=== PATIENT | female | born 1935 | race Caucasian/White ===

== ENCOUNTER → 2023-04-26 11:20 | Outpatient (REF) | payer MEDICARE, OTHER, SELFPAY ==
[2023-04-26 12:03] LABS: % Basophils 0.4 % (0-2); % Eosinophils 0.8 % (0-6); % Immature Granulocytes 0.3 % (0-0.5); % Lymphocytes 15.6 % (20.5-51.1); % Monocytes 7.1 % (1.7-9.3); % Neutrophils 75.8 % (42.2-75.2); Absolute Eosinophils 0.1 10^3/uL (0-0.7); Absolute Lymphocytes 1.5 10^3/uL (1.2-3.4); Absolute Monocytes 0.7 10^3/uL (0.1-0.6); Absolute Neutrophils 7.4 10^3/uL (1.4-6.5); Hematocrit 35.1 % (37.0-47.0); Hemoglobin 11.9 g/dL (12.0-16.0); Mean Corp Hgb Conc. 33.9 g/dL (33.0-37.0); Mean Corpuscular Hgb 29.4 pg (27.0-31.0); Mean Corpuscular Volume 86.7 fL (81.0-99.0); Nucleated Red Blood Cells % 0 %; Red Blood Cell Count 4.05 10^6/uL (4.20-5.40); Red Cell Dist. Width 12.4 % (11.5-14.5); White Blood Cell Count 9.7 10^3/uL (4.8-10.8)
[2023-04-26 12:37] LABS: ALT (SGPT) 22 U/L (0-35); AST (SGOT) 40 U/L (14-36); Albumin 4.2 g/dl (3.5-5.0); Alkaline Phosphatase 77 U/L (38-126); Blood Urea Nitrogen 25 mg/dl (7-17); Calcium 9.8 mg/dl (8.4-10.2); Carbon Dioxide 24 mmol/L (22-30); Chloride 105 mmol/L (98-107); Direct Bilirubin 0.8 mg/dl (0.0-0.4); Glucose 82 mg/dl (70-99); Potassium 4.7 mmol/L (3.5-5.1); Sodium 135 mmol/L (135-145); Total Bilirubin 0.8 mg/dl (0.2-1.3); Total Protein 7.2 g/dl (6.3-8.2); eGFR > 60.00
[2023-04-26 14:58] LABS: Mean Platelet Volume 12.2 fL (7.4-10.4); Platelet Count 171 10^3/uL (130-400)
[2023-04-28 00:32] LABS: CA 19-9 345 U/mL (<=35)
== END ==
LOC: REG 11:20
PROVIDERS: ATTENDING PHYSICIAN Internal Medicine Hematology & Oncology; FAMILY PHYSICIAN Family Medicine
DX: C25.3 Malignant neoplasm of pancreatic duct (principal)
CPT/HCPCS: 36415; 80053; 82248; 85025; 86301

== ENCOUNTER → 2023-04-30 08:59 | Outpatient (REF) | payer MEDICARE, OTHER, SELFPAY ==
[2023-04-30 09:37] LABS: % Basophils 0.3 % (0-2); % Eosinophils 0.9 % (0-6); % Immature Granulocytes 0.5 % (0-0.5); % Lymphocytes 15.6 % (20.5-51.1); % Monocytes 5.7 % (1.7-9.3); Absolute Eosinophils 0.1 10^3/uL (0-0.7); Absolute Lymphocytes 1.3 10^3/uL (1.2-3.4); Absolute Monocytes 0.5 10^3/uL (0.1-0.6); Absolute Neutrophils 6.6 10^3/uL (1.4-6.5); Hematocrit 36.7 % (37.0-47.0); Hemoglobin 12.1 g/dL (12.0-16.0); Mean Corpuscular Hgb 29.4 pg (27.0-31.0); Mean Corpuscular Volume 89.1 fL (81.0-99.0); Mean Platelet Volume 8.8 fL (7.4-10.4); Nucleated Red Blood Cells % 0 %; Platelet Count 331 10^3/uL (130-400); Red Blood Cell Count 4.12 10^6/uL (4.20-5.40); Red Cell Dist. Width 12.5 % (11.5-14.5); White Blood Cell Count 8.6 10^3/uL (4.8-10.8)
[2023-04-30 10:08] LABS: ALT (SGPT) 21 U/L (0-35); AST (SGOT) 33 U/L (14-36); Albumin 4.3 g/dl (3.5-5.0); Alkaline Phosphatase 82 U/L (38-126); Blood Urea Nitrogen 21 mg/dl (7-17); Calcium 9.8 mg/dl (8.4-10.2); Carbon Dioxide 26 mmol/L (22-30); Chloride 103 mmol/L (98-107); Direct Bilirubin 0.7 mg/dl (0.0-0.4); Glucose 137 mg/dl (70-99); Sodium 137 mmol/L (135-145); Total Bilirubin 0.7 mg/dl (0.2-1.3); Total Protein 7.2 g/dl (6.3-8.2); eGFR > 60.00
== END ==
LOC: REG 08:59
PROVIDERS: ATTENDING PHYSICIAN Internal Medicine Hematology & Oncology; FAMILY PHYSICIAN Family Medicine
DX: C25.3 Malignant neoplasm of pancreatic duct (principal)
CPT/HCPCS: 36415; 80053; 82248; 85025

== ENCOUNTER → 2023-05-04 11:13 | Outpatient (REF) | payer MEDICARE, OTHER, SELFPAY ==
[2023-05-04 11:56] LABS: % Basophils 0.2 % (0-2); % Eosinophils 1.6 % (0-6); % Immature Granulocytes 0.4 % (0-0.5); % Lymphocytes 18.9 % (20.5-51.1); % Monocytes 7.4 % (1.7-9.3); % Neutrophils 71.5 % (42.2-75.2); Absolute Eosinophils 0.2 10^3/uL (0-0.7); Absolute Lymphocytes 1.8 10^3/uL (1.2-3.4); Absolute Monocytes 0.7 10^3/uL (0.1-0.6); Absolute Neutrophils 6.9 10^3/uL (1.4-6.5); Hematocrit 37.7 % (37.0-47.0); Hemoglobin 12.4 g/dL (12.0-16.0); Mean Corp Hgb Conc. 32.9 g/dL (33.0-37.0); Mean Corpuscular Volume 88.3 fL (81.0-99.0); Mean Platelet Volume 9.1 fL (7.4-10.4); Nucleated Red Blood Cells % 0 %; Platelet Count 333 10^3/uL (130-400); Red Blood Cell Count 4.27 10^6/uL (4.20-5.40); Red Cell Dist. Width 12.5 % (11.5-14.5); White Blood Cell Count 9.6 10^3/uL (4.8-10.8)
[2023-05-04 12:26] LABS: ALT (SGPT) 19 U/L (0-35); AST (SGOT) 31 U/L (14-36); Albumin 4.1 g/dl (3.5-5.0); Alkaline Phosphatase 78 U/L (38-126); Blood Urea Nitrogen 24 mg/dl (7-17); Calcium 10.3 mg/dl (8.4-10.2); Carbon Dioxide 28 mmol/L (22-30); Chloride 101 mmol/L (98-107); Direct Bilirubin 0.6 mg/dl (0.0-0.4); Glucose 99 mg/dl (70-99); Potassium 4.6 mmol/L (3.5-5.1); Sodium 137 mmol/L (135-145); Total Bilirubin 0.7 mg/dl (0.2-1.3); Total Protein 7.1 g/dl (6.3-8.2); eGFR > 60.00
== END ==
LOC: REG 11:13
PROVIDERS: ATTENDING PHYSICIAN Internal Medicine Hematology & Oncology
DX: C25.3 Malignant neoplasm of pancreatic duct (principal)
CPT/HCPCS: 36415; 80053; 82248; 85025

== ENCOUNTER → 2023-05-10 10:35 | Outpatient (REF) | payer MEDICARE, OTHER, SELFPAY ==
[2023-05-10 11:57] LABS: ALT (SGPT) 16 U/L (0-35); AST (SGOT) 28 U/L (14-36); Albumin 3.8 g/dl (3.5-5.0); Alkaline Phosphatase 68 U/L (38-126); Blood Urea Nitrogen 23 mg/dl (7-17); Calcium 9.8 mg/dl (8.4-10.2); Carbon Dioxide 27 mmol/L (22-30); Chloride 98 mmol/L (98-107); Direct Bilirubin 0.5 mg/dl (0.0-0.4); Glucose 94 mg/dl (70-99); Potassium 4.3 mmol/L (3.5-5.1); Sodium 134 mmol/L (135-145); Total Bilirubin 0.7 mg/dl (0.2-1.3); Total Protein 6.9 g/dl (6.3-8.2); eGFR > 60.00
[2023-05-10 12:10] LABS: % Basophils 0.4 % (0-2); % Eosinophils 1.6 % (0-6); % Immature Granulocytes 0.7 % (0-0.5); % Lymphocytes 8.9 % (20.5-51.1); % Monocytes 7.1 % (1.7-9.3); % Neutrophils 81.3 % (42.2-75.2); Absolute Eosinophils 0.1 10^3/uL (0-0.7); Absolute Immature Granulocytes 0.1 10^3/uL (0-0.05); Absolute Lymphocytes 0.7 10^3/uL (1.2-3.4); Absolute Monocytes 0.6 10^3/uL (0.1-0.6); Absolute Neutrophils 6.7 10^3/uL (1.4-6.5); Hematocrit 34.6 % (37.0-47.0); Hemoglobin 11.6 g/dL (12.0-16.0); Mean Corp Hgb Conc. 33.5 g/dL (33.0-37.0); Mean Corpuscular Hgb 29.5 pg (27.0-31.0); Mean Platelet Volume 9.4 fL (7.4-10.4); Nucleated Red Blood Cells % 0 %; Platelet Count 287 10^3/uL (130-400); Red Blood Cell Count 3.93 10^6/uL (4.20-5.40); Red Cell Dist. Width 12.2 % (11.5-14.5); White Blood Cell Count 8.3 10^3/uL (4.8-10.8)
== END ==
LOC: REG 10:35
PROVIDERS: ATTENDING PHYSICIAN Internal Medicine Hematology & Oncology
DX: C25.3 Malignant neoplasm of pancreatic duct (principal)
CPT/HCPCS: 36415; 80053; 82248; 85025

== ENCOUNTER → 2023-05-18 11:15 | Outpatient (REF) | payer MEDICARE, OTHER, SELFPAY ==
[2023-05-18 14:15] LABS: % Basophils 0.2 % (0-2); % Eosinophils 1.5 % (0-6); % Immature Granulocytes 0.4 % (0-0.5); % Lymphocytes 4.5 % (20.5-51.1); % Monocytes 6.8 % (1.7-9.3); % Neutrophils 86.6 % (42.2-75.2); Absolute Eosinophils 0.1 10^3/uL (0-0.7); Absolute Lymphocytes 0.4 10^3/uL (1.2-3.4); Absolute Monocytes 0.6 10^3/uL (0.1-0.6); Absolute Neutrophils 8.2 10^3/uL (1.4-6.5); Hematocrit 37.6 % (37.0-47.0); Hemoglobin 12.6 g/dL (12.0-16.0); Mean Corp Hgb Conc. 33.5 g/dL (33.0-37.0); Mean Corpuscular Hgb 29.4 pg (27.0-31.0); Mean Corpuscular Volume 87.6 fL (81.0-99.0); Mean Platelet Volume 9.8 fL (7.4-10.4); Nucleated Red Blood Cells % 0 %; Platelet Count 246 10^3/uL (130-400); Red Blood Cell Count 4.29 10^6/uL (4.20-5.40); Red Cell Dist. Width 13.1 % (11.5-14.5); White Blood Cell Count 9.5 10^3/uL (4.8-10.8)
[2023-05-18 14:51] LABS: ALT (SGPT) 17 U/L (0-35); AST (SGOT) 30 U/L (14-36); Albumin 4.2 g/dl (3.5-5.0); Alkaline Phosphatase 74 U/L (38-126); Blood Urea Nitrogen 19 mg/dl (7-17); Calcium 9.5 mg/dl (8.4-10.2); Carbon Dioxide 23 mmol/L (22-30); Chloride 102 mmol/L (98-107); Direct Bilirubin 0.2 mg/dl (0.0-0.4); Glucose 84 mg/dl (70-99); Potassium 3.9 mmol/L (3.5-5.1); Sodium 133 mmol/L (135-145); Total Bilirubin 0.6 mg/dl (0.2-1.3); eGFR > 60.00
== END ==
LOC: REG 11:15
PROVIDERS: ATTENDING PHYSICIAN Internal Medicine Hematology & Oncology; FAMILY PHYSICIAN Family Medicine
DX: C25.3 Malignant neoplasm of pancreatic duct (principal)
CPT/HCPCS: 36415; 80053; 82248; 85025

== ENCOUNTER → 2023-06-01 11:09 | Outpatient (REF) | payer MEDICARE, OTHER, SELFPAY ==
[2023-06-01 12:34] LABS: % Basophils 0.3 % (0-2); % Eosinophils 1.3 % (0-6); % Immature Granulocytes 0.5 % (0-0.5); % Lymphocytes 6.9 % (20.5-51.1); % Monocytes 8.2 % (1.7-9.3); % Neutrophils 82.8 % (42.2-75.2); Absolute Eosinophils 0.1 10^3/uL (0-0.7); Absolute Immature Granulocytes 0.1 10^3/uL (0-0.05); Absolute Lymphocytes 0.7 10^3/uL (1.2-3.4); Absolute Monocytes 0.8 10^3/uL (0.1-0.6); Absolute Neutrophils 7.9 10^3/uL (1.4-6.5); Hematocrit 37.2 % (37.0-47.0); Hemoglobin 12.5 g/dL (12.0-16.0); Mean Corp Hgb Conc. 33.6 g/dL (33.0-37.0); Mean Corpuscular Hgb 29.4 pg (27.0-31.0); Mean Corpuscular Volume 87.5 fL (81.0-99.0); Mean Platelet Volume 8.7 fL (7.4-10.4); Nucleated Red Blood Cells % 0 %; Platelet Count 298 10^3/uL (130-400); Red Blood Cell Count 4.25 10^6/uL (4.20-5.40); Red Cell Dist. Width 15.2 % (11.5-14.5); White Blood Cell Count 9.5 10^3/uL (4.8-10.8)
== END ==
LOC: REG 11:09
PROVIDERS: ATTENDING PHYSICIAN Internal Medicine Hematology & Oncology
DX: C25.3 Malignant neoplasm of pancreatic duct (principal)
CPT/HCPCS: 36415; 85025

== ENCOUNTER 2023-06-09 16:16 | Inpatient (IN) | payer MEDICARE, OTHER, SELFPAY ==
[2023-06-09] VITALS (8 sets, daily range): BP systolic 96–134; BP diastolic 59–81; BMI 15.8
--- NOTE | 2023-06-09 13:43 | ED.GENMED ---
History of Present Illness
General
Chief Complaint: Cold/Flu/URI Symptoms
Source: patient and spouse
Exam Limitations: none
Time Seen by Provider: 06/09/23 13:26
Nursing documentation reviewed up to this point in time: agreed with
Travel History
Have you had any contact with someone who has COVID-19?: No
Do you have any symptoms of coronavirus? Fever > 100 degrees, chills, cough, shortness of breath, sore throat, loss of taste or smell, muscle aches, or headache?: Yes
Symptoms:: fever
History of Present Illness
History of Present Illness:
87-year-old female with past medical history of pancreatic cancer most recently on chemo 2 and half weeks ago presenting to the emergency department today with concerns of generalized weakness fatigue body aches and feeling 'lousy' over the past few
days temperature of 101 last night and today. Denies specific symptoms other than decreased appetite and nausea.
Past History
Past History
ED Past Medical History: Cancer (Ovarian cancer), Psychiatric (Anxiety, depression) and Other (Spinal stenosis)
ED Past Surgical History: Gynecological and Orthopedic
Review of Systems
Review of Systems
Allergies reviewed?: Yes
All Other Systems: ROS reviewed and negative except as documented in HPI and ROS
Phy Exam
Physical Exam
Physical Exam:
GENERAL: Alert , in no apparent distress
EYE: pupils equal and reactive
NECK: Supple, no significant adenopathy.
ENT: o/p clr, mmm.
CARDIAC: Regular rate and rhythm .
LUNGS: Clear breath sounds bilaterally, no acute respiratory distress, no wheezes/rales/rhonchi
ABDOMEN: Soft, without focal tenderness, no r/g, no cvat
NEUROLOGICAL: Alert and oriented, no focal neuro deficits
SKIN: Warm and dry, skin intact.
MUSCULOSKELETAL: No edema, well perfused.
PSYCH: Normal and appropriate interaction.
Course
Orders/Labs/Results
Orders:
Orders
06/09/23 13:38
Acetaminophen [Tylenol] 650 mg PO NOW STA
Prochlorperazine [Compazine] 10 mg IV NOW STA
06/09/23 13:42
Electrocardiogram (*1) Stat
Reason for Study: Abdominal Pain
EKG- Treatment ONCE
Urinalysis Reflex To Culture Urgent
0.9% Sodium Chloride 1000 ml [Nss] 1,000 ml IV BOLUS
06/09/23 13:48
Chest [CR Chest - 2 Views ] Urgent
Comment:
Reason For Exam: fever
06/09/23 13:56
COVID-19 Antigen Urgent
Source: Nasal Swab
Lactic Acid Urgent
Influenza A+B Rapid Molecular Urgent
AMRIT Source: Nasal Swab
Specimen Description:
06/09/23 14:00
Complete Blood Count/With Diff Urgent
Comprehensive Metabolic Panel Urgent
Lipase Urgent
Troponin I Urgent
Blood Culture Q30M
AMRIT Source: Blood/Venous
Specimen Description:
06/09/23 14:01
Blood Culture Q30M
AMRIT Source: Blood/Venous
Specimen Description:
06/09/23 14:43
Piperacillin/Tazo 3.375 Gram [Zosyn] 3.375 gram in 50 ml IV NOW
06/09/23 15:32
CR Abdomen - 1 View Urgent
Comment:
Reason For Exam: abd pain
06/09/23 15:54
Admit/Transfer Patient As Directed
Co-Sign Provider:
Level of Care: Inpatient admission
Assign to:: Telemetry
Physician / Group: pasricha/medicine
Diagnosis: severe sepsis
Reason for Telemetry: Arrhythmia
Date to Stop Telemetry: 06/12/23
Time to Stop Telemetry: 11:00
Reason for Hospitalization: severe sepsis
Expected length of stay greater than two midnights?: Yes
ELOS- Estimated Length of Stay in days: 3
I certify the patient meets the requirements for IP care: Yes
06/09/23 19:47
Lactate Level [Lactic Acid] Q6H
Acetaminophen [Tylenol] 650 mg PO Q4HPRN PRN
Aspirin 325 mg PO TIDPRN PRN
Heparin 5,000 units SC Q8
Lactated Ringers [Lr] 1,000 ml IV 75 mls/hr
Piperacillin/Tazo 3.375 Gram [Zosyn] 3.375 gram in 50 ml IV Q8H
Prochlorperazine [Compazine] 10 mg PO Q6H PRN
06/09/23 19:47
Urinalysis Reflex To Culture Routine
Vital Signs As Directed
Frequency: Per unit guidelines
Rx Incentive Spirometry [RESP] Routine
Frequency: q1h while awake
Ot Eval And Treat Routine
Pt Eval And Treat Routine
Activity Level: As Tolerated
DX Deep Vein Thrombosis Video Routine
06/10/23 01:47
Lactate Level [Lactic Acid] Q6H
06/10/23 06:00
Complete Blood Count/No Diff IN AM
Comprehensive Metabolic Panel IN AM
Magnesium IN AM
06/10/23 08:00
Docusate Sodium [Colace] 100 mg PO DAILY
06/11/23 06:00
Complete Blood Count/No Diff IN AM
Comprehensive Metabolic Panel IN AM
Magnesium IN AM
06/12/23 06:00
Complete Blood Count/No Diff IN AM
Comprehensive Metabolic Panel IN AM
Magnesium IN AM
06/12/23 11:00
DC Protocol for Telemetry ONCE
06/13/23 06:00
Complete Blood Count/No Diff IN AM
Comprehensive Metabolic Panel IN AM
Magnesium IN AM
06/14/23 06:00
Complete Blood Count/No Diff IN AM
Comprehensive Metabolic Panel IN AM
Magnesium IN AM
Abnormal Lab Results
06/09/23 06/09/23
13:56 14:00
RBC 3.71 L 10^6/uL
(4.20-5.40)
Hgb 10.9 L g/dL
(12.0-16.0)
Hct 31.0 L %
(37.0-47.0)
RDW 15.9 H %
(11.5-14.5)
Abs Immat Gran (auto) 0.1 H 10^3/uL
(0-0.05)
Absolute Neuts (auto) 9.9 H 10^3/uL
(1.4-6.5)
Absolute Lymphs (auto) 0.2 L 10^3/uL
(1.2-3.4)
Absolute Monos (auto) 0.7 H 10^3/uL
(0.1-0.6)
Immature Gran % 0.6 H %
(0-0.5)
Neutrophils % 91.5 H %
(42.2-75.2)
Lymphocytes % 1.4 L %
(20.5-51.1)
Sodium 125 L mmol/L
(135-145)
Chloride 97 L mmol/L
(98-107)
BUN 21 H mg/dl
(7-17)
Glucose 148 H mg/dl
(70-99)
Lactic Acid 2.2 H mmol/L
(0.7-2.0)
Total Bilirubin 2.6 H mg/dl
(0.2-1.3)
AST 521 H* U/L
(14-36)
ALT 373 H U/L
(0-35)
Alkaline Phosphatase 510 H U/L
(38-126)
Total Protein 5.9 L g/dl
(6.3-8.2)
Albumin 3.1 L g/dl
(3.5-5.0)
06/09/23 14:00
06/09/23 14:00
Vital Signs
Initial and Last Documented VS:
Initial Vital Signs
Temp Pulse Resp BP Pulse Ox
101 F H 130 18 134/81 98
06/09/23 12:51 06/09/23 12:51 06/09/23 12:51 06/09/23 12:51 06/09/23 12:51
Last Documented Vital Signs
Temp Pulse Resp BP Pulse Ox
100.7 F H 82 18 99/65 98
06/09/23 15:45 06/09/23 19:30 06/09/23 19:30 06/09/23 19:00 06/09/23 19:15
MDM/Problems Addressed
MDM/Problems Addressed:
87-year-old female presenting to the emergency department today with concerns of generalized weakness fatigue body aches over the past few days. Recently chemo 2 and half weeks ago for pancreatic cancer. On arrival febrile to 101 pulse rate 130
otherwise blood pressure is normal. Patient was given fluids with heart rate improving into the 90s patient did have an elevated lactic acid of 2.2 sodium 125 elevated bilirubin AST ALT and alk phos patient had recent biliary stent placed 3 months
ago GI doctor was consulted recommended x-ray broad-spectrum antibiotics but otherwise patient will be admitted for further monitoring stable throughout ER stay.
*Critical Care Note
Total Time (30-74mins, 75-104mins- exclusive of procedures): Not Applicable
ED Attending Note
-
Portions of this chart may have been created with voice recognition software.� Occasional wrong word or��sound alike� substitutions may have occurred due to the inherent limitations of voice recognition software.
Discharge Plan
Departure
Patient Disposition: Admit
Date of Disposition: 06/09/23
Time of Disposition: 16:16
Admit to: Med/Surg
Admit to doctor: Selena
Presentation/result/management discussed w/ accepting MD/DO: Hospitalist
Patient with high blood pressure during this ER visit?: No
Condition: Good
Covid-19: Not Applicable
Discharge Problem:
Fever, Abnormal LFTs (liver function tests)
Interventions
Interventions:
*Risk Screen - Suicide Last Done: 06/09/23 12:51
*General Assessment Last Done: 06/09/23 12:51
*Neglect/Abuse Screening Last Done: 06/09/23 12:51
ED- Fall Risk Assessment Last Done: 06/09/23 14:09
*ED COVID-19 Vaccine History Last Done: 06/09/23 14:09
*Nursing Disposition Last Done: 06/09/23 19:44
ED- Pulmonary Assessment Last Done: 06/09/23 14:09
Discharge Date and Time
Discharge Date/Time: 06/09/23 19:44
[2023-06-09] MEDS: NSS 1000 IV (14:06)
[2023-06-09] MEDS: TYLENOL 650 MG PO (14:09)
[2023-06-09] MEDS: COMPAZINE 10 MG IV (14:09)
[2023-06-09 14:21] LABS: % Basophils 0.2 % (0-2); % Immature Granulocytes 0.6 % (0-0.5); % Lymphocytes 1.4 % (20.5-51.1); % Monocytes 6.3 % (1.7-9.3); % Neutrophils 91.5 % (42.2-75.2); Absolute Immature Granulocytes 0.1 10^3/uL (0-0.05); Absolute Lymphocytes 0.2 10^3/uL (1.2-3.4); Absolute Monocytes 0.7 10^3/uL (0.1-0.6); Absolute Neutrophils 9.9 10^3/uL (1.4-6.5); Hemoglobin 10.9 g/dL (12.0-16.0); Mean Corp Hgb Conc. 35.2 g/dL (33.0-37.0); Mean Corpuscular Hgb 29.4 pg (27.0-31.0); Mean Corpuscular Volume 83.6 fL (81.0-99.0); Mean Platelet Volume 8.9 fL (7.4-10.4); Nucleated Red Blood Cells % 0 %; Platelet Count 226 10^3/uL (130-400); Red Blood Cell Count 3.71 10^6/uL (4.20-5.40); Red Cell Dist. Width 15.9 % (11.5-14.5); White Blood Cell Count 10.8 10^3/uL (4.8-10.8)
[2023-06-09 14:31] LABS: COVID-19 Antigen Negative (Negative); Lactic Acid 2.2 mmol/L (0.7-2.0)
[2023-06-09 14:33] LABS: ALT (SGPT) 373 U/L (0-35); AST (SGOT) 521 U/L (14-36); Albumin 3.1 g/dl (3.5-5.0); Alkaline Phosphatase 510 U/L (38-126); Blood Urea Nitrogen 21 mg/dl (7-17); Calcium 8.9 mg/dl (8.4-10.2); Carbon Dioxide 23 mmol/L (22-30); Chloride 97 mmol/L (98-107); Glucose 148 mg/dl (70-99); Lipase 199 U/L (23-300); Potassium 3.6 mmol/L (3.5-5.1); Sodium 125 mmol/L (135-145); Total Bilirubin 2.6 mg/dl (0.2-1.3); Total Protein 5.9 g/dl (6.3-8.2); eGFR > 60.00
[2023-06-09 14:40] LABS: Troponin I < 0.012 ng/ml
[2023-06-09] MEDS: ZOSYN 50 IV ×2 (15:11→22:33)
--- NOTE | 2023-06-09 16:04 | HPS.HSE ---
Family Physician
-
Family Physician: Hattie Nichols
Chief Complaint
-
Weakness, fatigue follow-up with body aches
History of Present Illness
87-year-old female with past medical history of GERD, dysphagia, severe protein calorie malnutrition, pancreatic cancer, ovarian cancer, most recently on chemo 2 and half weeks ago with ERCP with biliary stents in place and ventral pancreatic duct
stent confirmed on 03/06 now presents for lethargy, body aches, chills, fever over the last few days. Noted to have temperature of 101 last night and today. Also noted decreased appetite and nausea. Temperature noted to be 101 Fahrenheit in the
hospital, heart rate of 108, blood pressure 100/70, not hypoxic. Sodium level 125 (133 approximate 20 days ago), lactate 2.2, AST 521, ALT 373, alk phos 510. Started with IV fluids, antibiotics. GI consulted.
Medical History
Past Medical History
Past Medical History: Reports Other
Additional Past Medical History:
Ovarian Cancer
Spinal Stenosis / Scoliosis
Past Surgical History: Reports Other
Additional Past Surgical History:
Spinal Surgery
T&A
DAMION / BSO
Right Hip ORIF
Cataracts
Social History
Tobacco: Non-smoker
Alcohol: None
Drug: None
Personal:
Living: With Family
Family History
Family History: Other (Mother, Father, Brother: Lung Cancer MGM: Liver Cancer)
Allergies / Home Medications
Allergies reflects when Allergies were last updated in [facility].
Home Medications with original date entered in [facility]
Allergy/Medication List:
Allergies
Allergy/AdvReac Type Severity Reaction Status Date / Time
poison vipul extract Allergy SEVERE Verified 09/03/22 12:10
BLISTERING
Home Medications
Balance Of Nature 4 cap PO BIDPRN PRN supplement 03/03/23
cholecalciferol (vitamin D3) 25 mcg (1,000 unit) tablet 25 mcg PO DAILY 03/03/23
cyanocobalamin (vitamin B-12) 1,000 mcg tablet 1,000 mcg PO DAILY 03/03/23
docusate sodium 100 mg capsule 100 mg PO BID 03/03/23
esomeprazole magnesium 40 mg capsule,delayed release 40 mg PO DAILY 03/03/23
famotidine 40 mg tablet 40 mg PO HS 03/03/23
Review of Systems
-
History Source: Patient
A 12 point ROS was completed and negative except as noted: Yes
Physical Exam
Vital Signs
Vital Signs
Temp Pulse Resp BP Pulse Ox
101 F H 93 18 100/70 95
06/09/23 12:51 06/09/23 15:30 06/09/23 15:30 06/09/23 15:01 06/09/23 15:30
Physical Exam
General: No Apparent Distress and Comfortable
HEENT: NormoCephalic and Anicteric
Respiratory: Clear; No Wheezes, Rales or Rhonchi
Cardiac: S1/S2 and Regular Rhythm; No Murmur
GI: Soft, Non Tender, Non Distended and Normal Bowel Sounds
Musculoskeletal: No Clubbing, No Cyanosis and No Edema
Neuro: Awake, Alert, Oriented and AO x 3
Psych: Calm
Laboratory Results
-
06/09/23 14:00
06/09/23 14:00
Laboratory Results
Lactic Acid 2.2 mmol/L (0.7-2.0) H 06/09/23 13:56
Total Bilirubin 2.6 mg/dl (0.2-1.3) H 06/09/23 14:00
AST 521 U/L (14-36) H* 06/09/23 14:00
ALT 373 U/L (0-35) H 06/09/23 14:00
Alkaline Phosphatase 510 U/L (38-126) H 06/09/23 14:00
Troponin I < 0.012 ng/ml 06/09/23 14:00
Lipase 199 U/L (23-300) 06/09/23 14:00
Data Reviewed
-
Diagnostic Radiology: Image Personally Visualized and interpreted and Report Reviewed by me
Lab Data: Labs Reviewed by me
Impression/Plan
-
IMPRESSION:
87-year-old female with past medical history of GERD, dysphagia, severe protein calorie malnutrition, pancreatic cancer, ovarian cancer, most recently on chemo 2 and half weeks ago with ERCP with biliary stents in place and ventral pancreatic duct
stent confirmed on 03/06 now presents for lethargy, body aches, fever over the last few days. Admitted for severe sepsis.
PLAN:
#Severe sepsis
#Elevated lactate
� I suspect biliary obstruction in setting of stents/possible migration, GI origin
� Continue Zosyn
� IVF as needed
� GI consulted
� Follow-up cultures including blood
� Radiographic imaging
� Follow-up further imaging as per GI
�N.p.o. for now
#Hyponatremia
� Most likely secondary to dehydration in setting of sepsis
� Monitor with IV resuscitation, dissipate will trend up
-Monitor BMP
#Transaminitis
#Hepatocellular injury
�see plan above for imaging
� GI consulted
� IV antibiotics
#Weakness
-2/2 to sepsis
-PT/OT
#Severe protein calorie moderation
#DVT prophylaxis
� HSQ
#Full code
--- NOTE | 2023-06-09 19:53 | CON.GI ---
Consultation
-
Date/Time Consultation Requested: 06/09/2023
Date/Time Consultation Performed: 06/09/2023
Performing Provider: Pankaj Ceron
Reason for Consultation: fever, cholangitis from stent malfunction
Medical History
Chief Complaint / HPI
Chief Complaint: fever, cholangitis from stent malfunction
History of Present Illness:
The patient is 87-year-old female with history of GERD, recent diagnosis of pancreatic adenocarcinoma s/p ERCP and biliary stent placements who recently completed chemo and radiation therapy, and remote history of ovarian cancer who presents with
fever, lethargy, chills for past few days. Patient was febrile to 101 last night and today with nausea and chills and decided come to the hospital.
Past Medical History
Past Medical History: Other
Past Surgical History: Gynecological and Other
Social History
Tobacco: Non-Smoker
Alcohol: None
Family History
Family History: Reviewed & Not Pertinent
Allergies / Home Medications
Allergy/AdvReac Type Severity Reaction Status Date / Time
poison vipul extract Allergy SEVERE Verified 06/09/23 12:51
BLISTERING
�Medication �Instructions �Recorded
cholecalciferol (vitamin D3) 25 25 mcg PO DAILY Supplement 03/03/23
mcg (1,000 unit) tablet
cyanocobalamin (vitamin B-12) 1,000 mcg PO DAILY Supplement 03/03/23
1,000 mcg tablet
docusate sodium 100 mg capsule 100 mg PO DAILY Constipation 03/03/23
aspirin 325 mg tablet 325 mg PO TIDPRN PRN mild pain 06/09/23
rsvruhjg-[id number]-[id number] extract 5 6 cap PO DAILY 06/09/23
mg-6 mg-150 mg capsule (Fruit and
Vegetable Daily)
prochlorperazine maleate 10 mg 10 mg PO Q6H PRN nausea/vomiting 06/09/23
tablet
Review of Systems
Vital Signs
Temp Pulse Resp BP Pulse Ox
100.7 F H 82 18 99/65 98
06/09/23 15:45 06/09/23 19:30 06/09/23 19:30 06/09/23 19:00 06/09/23 19:15
Physical Exam
Exam
General: Well Developed and Other (appears malnourished)
HEENT: Normocephalic
Respiratory: Clear
Cardiac: S1/S2 and Regular Rhythm
GI: Soft, Non Tender and Non Distended
Results
WBC 10.8 10^3/uL (4.8-10.8) 06/09/23 14:00
Hgb 10.9 g/dL (12.0-16.0) L 06/09/23 14:00
Hct 31.0 % (37.0-47.0) L 06/09/23 14:00
MCV 83.6 fL (81.0-99.0) 06/09/23 14:00
Plt Count 226 10^3/uL (130-400) 06/09/23 14:00
Absolute Neuts (auto) 9.9 10^3/uL (1.4-6.5) H 06/09/23 14:00
Sodium 125 mmol/L (135-145) L 06/09/23 14:00
Potassium 3.6 mmol/L (3.5-5.1) 06/09/23 14:00
Chloride 97 mmol/L (98-107) L 06/09/23 14:00
Carbon Dioxide 23 mmol/L (22-30) 06/09/23 14:00
BUN 21 mg/dl (7-17) H 06/09/23 14:00
Creatinine 0.6 mg/dL (0.6-1.0) 06/09/23 14:00
Calcium 8.9 mg/dl (8.4-10.2) 06/09/23 14:00
Total Bilirubin 2.6 mg/dl (0.2-1.3) H 06/09/23 14:00
AST 521 U/L (14-36) H* 06/09/23 14:00
ALT 373 U/L (0-35) H 06/09/23 14:00
Alkaline Phosphatase 510 U/L (38-126) H 06/09/23 14:00
Lipase 199 U/L (23-300) 06/09/23 14:00
Diagnostic Image Results:
Prior GI Procedures:
EGD:
Colonoscopy:
Assessment / Plan
-
The patient is 87-year-old female with history of GERD, recent diagnosis of pancreatic adenocarcinoma s/p ERCP and biliary stent placements who recently completed chemo and radiation therapy, and remote history of ovarian cancer who presents with
fever, lethargy, chills for past few days.
Impression / Rec:
1. Fever, chills, lethargy - pt was febrile to 101 at home, also febrile here. Tachycardic. No leukocytosis but LFT is elevated with bili of 2.6, alk phos 510 where her LFT were normal on 05/18/2023. I had previously performed EUS/ERCP on 02/2023
with biliary stent placements. She likely has cholangitis from stent occlusion/malfunction. Obtain abdo xray to confirm stent positions. Ok for FLD today, IVF and broad spec abx. Plan for repeat ERCP tomorrow for stent revision / replacements.
Total Time Spent with Patient (in minutes): 55
-
-
Thank you for consultation and allowing me to participate in the patient's care. Please call the quality assurance monitor body GI physician during the after hours with any questions or concerns.
[2023-06-09] MEDS: LR 1000 IV (21:05)
[2023-06-09] MEDS: HEPARIN 5000 UNITS SC (21:06)
[2023-06-09 21:08] LABS: Lactic Acid 0.7 mmol/L (0.7-2.0)
[2023-06-09 21:30] LABS: Blood Urea Nitrogen 14 mg/dl (7-17); Calcium 8.7 mg/dl (8.4-10.2); Carbon Dioxide 23 mmol/L (22-30); Chloride 103 mmol/L (98-107); Estimated Creatinine Clearance 38 ml/min; Glucose 103 mg/dl (70-99); Potassium 3.7 mmol/L (3.5-5.1); Sodium 129 mmol/L (135-145); eGFR > 60.00
[2023-06-10] VITALS (9 sets, daily range): BP systolic 103–115; BP diastolic 56–66; PULSE 78; O2SAT 97; BMI 15.8
[2023-06-10] MEDS: HEPARIN SC (00:46)
[2023-06-10] MEDS: TYLENOL 650 MG PO (03:08)
[2023-06-10] MEDS: ZOSYN 50 IV ×4 (04:21→21:49)
[2023-06-10 05:45] LABS: Urine Albumin Trace (Neg - Trace); Urine Bilirubin 1+ (Negative); Urine Character Clear (Clear); Urine Color Amber; Urine Glucose Negative (Negative); Urine Ketone 1+ (Negative); Urine Leukocyte Trace (Negative); Urine Nitrite Negative (Negative); Urine Occult Blood Negative (Negative); Urine Specific Gravity 1.025 (<1.030); Urine Urobilinogen 1+ (Neg - 1+)
[2023-06-10 05:51] LABS: Hematocrit 27.8 % (37.0-47.0); Hemoglobin 9.4 g/dL (12.0-16.0); Mean Corp Hgb Conc. 33.8 g/dL (33.0-37.0); Mean Corpuscular Hgb 29.1 pg (27.0-31.0); Mean Corpuscular Volume 86.1 fL (81.0-99.0); Platelet Count 191 10^3/uL (130-400); Red Blood Cell Count 3.23 10^6/uL (4.20-5.40); Red Cell Dist. Width 15.9 % (11.5-14.5); White Blood Cell Count 7.3 10^3/uL (4.8-10.8)
[2023-06-10 06:12] LABS: ALT (SGPT) 248 U/L (0-35); AST (SGOT) 250 U/L (14-36); Albumin 2.3 g/dl (3.5-5.0); Alkaline Phosphatase 372 U/L (38-126); Blood Urea Nitrogen 16 mg/dl (7-17); Calcium 8.4 mg/dl (8.4-10.2); Carbon Dioxide 24 mmol/L (22-30); Chloride 101 mmol/L (98-107); Estimated Creatinine Clearance 38 ml/min; Glucose 102 mg/dl (70-99); Magnesium 1.7 mg/dl (1.6-2.3); Potassium 2.8 mmol/L (3.5-5.1); Sodium 131 mmol/L (135-145); Total Protein 4.8 g/dl (6.3-8.2); eGFR > 60.00
[2023-06-10 06:51] LABS: Urine Amorphous Seen; Urine Bacteria Many (Negative)
[2023-06-10 06:52] LABS: Urine Red Blood Cell 0-2 /HPF (0-2); Urine White Cell 30-40 /HPF (0-5)
[2023-06-10 06:53] LABS: Urine Squamous Cell >30 /LPF (Few)
[2023-06-10] MEDS: KCL 270 MEQ IV (08:55)
[2023-06-10] MEDS: HEPARIN 5000 UNITS SC ×3 (08:57→23:59)
[2023-06-10] MEDS: COLACE PO (08:57)
[2023-06-10 12:24] LABS: Blood Urea Nitrogen 14 mg/dl (7-17); Calcium 8.5 mg/dl (8.4-10.2); Carbon Dioxide 24 mmol/L (22-30); Chloride 107 mmol/L (98-107); Estimated Creatinine Clearance 38 ml/min; Glucose 85 mg/dl (70-99); Potassium 3.6 mmol/L (3.5-5.1); Sodium 133 mmol/L (135-145); eGFR > 60.00
--- NOTE | 2023-06-10 12:37 | W.PN.HOSP.TC ---
Today's Communication/Plan
-
ERCP today
repeat blood cultures
cont iv abx
ivf
monitor bmp
Assessment / Plan
Assessment / Plan
Physical Exam
General: No Apparent Distress and Comfortable
HEENT: NormoCephalic and Anicteric
Respiratory: Clear; No Wheezes, Rales or Rhonchi
Cardiac: S1/S2 and Regular Rhythm; No Murmur
GI: Soft, Non Tender, Non Distended and Normal Bowel Sounds
Musculoskeletal: No Clubbing, No Cyanosis and No Edema
Neuro: Awake, Alert, Oriented and AO x 3
Psych: Calm
IMPRESSION:
87-year-old female with past medical history of GERD, dysphagia, severe protein calorie malnutrition, pancreatic cancer, ovarian cancer, most recently on chemo 2 and half weeks ago with ERCP with biliary stents in place and ventral pancreatic duct
stent confirmed on 03/06 now presents for lethargy, body aches, fever over the last few days. Admitted for severe sepsis.
PLAN:
#Severe sepsis
#Elevated lactate
#Bacteremia
#?Cholangitis
� I suspect biliary obstruction in setting of stents/possible migration, GI origin; possibly cholangitis
� Continue Zosyn
� IVF as needed
� GI consulted
� Follow-up cultures including blood
� Radiographic imaging
� ERCP today
�ID consult tomorrow
#Hyponatremia
� Most likely secondary to dehydration in setting of sepsis
� Monitor with IV resuscitation, dissipate will trend up
-Monitor BMP
#Transaminitis
#Hepatocellular injury
�see plan above for imaging
� GI consulted
� IV antibiotics
#Hypokalemia
-monitor and replete
#Weakness
-2/2 to sepsis
-PT/OT
#Severe protein calorie moderation
#DVT prophylaxis
� HSQ
#Full code
Total time spent on today's encounter was 50 minutes which included time spent in counseling the patient/family regarding diagnosis and treatment plan as listed above, goals of care, and symptom management. Case was discussed with nursing staff,
specialists, and care coordinators/case management. All labs and imaging personally reviewed by me. Remainder the time spent in detailed review of previous records, lab data, imaging, and other medical provider documentation.
Anticipated Discharge: > 48 hours
Subjective/Interval History
-
Date of Service: June 10, 2023
lfts improving, no acute events overnight
Objective Data
-
Labs:
Laboratory Results
06/10/23 06/10/23
05:19 11:54
WBC 7.3
Hgb 9.4 L
Hct 27.8 L
Plt Count 191
Sodium 131 L 133 L
Potassium 2.8 L 3.6 D
Chloride 101 107
Carbon Dioxide 24 24
BUN 16 14
Creatinine 0.5 L 0.5 L
Glucose 102 H 85
Calcium 8.4 8.5
Total Bilirubin 2.0 H
AST 250 H
ALT 248 H
Alkaline Phosphatase 372 H
Vital Signs:
Vital Signs
Temp Pulse Resp BP Pulse Ox
97.7 F 79 18 103/56 96
06/10/23 07:00 06/10/23 07:00 06/10/23 07:00 06/10/23 07:00 06/10/23 07:00
Review of Systems
-
History Source: Patient
All other systems: Not reviewed unless documented
Physical Exam
-
General: Appears Chronically Ill and Cachectic
HEENT: Normocephalic and Atraumatic; Negative Anicteric
Respiratory: Clear to Auscultation; Negative Wheezes or Rhonchi
Cardiac: Regular Rhythm and S1/S2; Negative Murmur
GI: Soft, Nontender, Nondistended and Normal Bowel Sounds
Musculoskeletal: No Clubbing, No Cyanosis and No Edema
Skin: Jaundice
Neuro: Awake
Data Reviewed
-
Diagnostic Radiology: Image personally visualized and interpreted and Report Reviewed by me
Labs: Labs Reviewed by me
--- NOTE | 2023-06-10 15:25 | CM ---
Alert awake oriented patient who lives with her Lion who lives in a 2story home with 3 steps to enter and 14 steps to bed/bathroom .
She is independent in driving and in all activities of daily living.Offered VN she declined.
No adaptive devices
Had [facility] hx , [place] [facility]X
Pharmacy [facility]
PCP Dr Hattie Nichols
PLAN Home declined VN
[2023-06-10] MEDS: LR 1000 IV (20:05)
[2023-06-10] MEDS: LR IV (23:43)
[2023-06-11] VITALS (8 sets, daily range): BP systolic 94–120; BP diastolic 53–68; PULSE 83–89; O2SAT 98
[2023-06-11] MEDS: ZOSYN 50 IV ×4 (04:29→22:30)
[2023-06-11 05:48] LABS: Hematocrit 26.5 % (37.0-47.0); Mean Corpuscular Hgb 29.2 pg (27.0-31.0); Mean Platelet Volume 9.2 fL (7.4-10.4); Platelet Count 198 10^3/uL (130-400); Red Blood Cell Count 3.08 10^6/uL (4.20-5.40); Red Cell Dist. Width 16.1 % (11.5-14.5); White Blood Cell Count 5.7 10^3/uL (4.8-10.8)
[2023-06-11 06:09] LABS: ALT (SGPT) 166 U/L (0-35); AST (SGOT) 103 U/L (14-36); Albumin 2.1 g/dl (3.5-5.0); Alkaline Phosphatase 300 U/L (38-126); Blood Urea Nitrogen 18 mg/dl (7-17); Calcium 8.3 mg/dl (8.4-10.2); Carbon Dioxide 22 mmol/L (22-30); Chloride 104 mmol/L (98-107); Estimated Creatinine Clearance 38 ml/min; Glucose 122 mg/dl (70-99); Sodium 132 mmol/L (135-145); Total Bilirubin 0.8 mg/dl (0.2-1.3); Total Protein 4.3 g/dl (6.3-8.2); eGFR > 60.00
[2023-06-11] MEDS: HEPARIN 5000 UNITS SC ×2 (08:00→15:57)
[2023-06-11] MEDS: COLACE 100 MG PO (08:00)
--- NOTE | 2023-06-11 11:18 | W.PN.GI.CBS2 ---
Addendum entered and electronically signed by Lydia Thorpe MD 06/11/23 15:31:
I saw and examined the patient.
The LOBSTER MAN or PA's note was reviewed and I agree with the note.
Comment:
Pt much improved after stent placement, no nausea, less abd d/c
abd: soft, nontender
impression
Pancreatic cancer
biliary obstruction s/p stent
plan
antibiotics
low fat diet
f/u with Dr Ceron as outpatient
will sign off call with questions
Original Note:
Today's Communication / Plan
-
s/p ERCP yesterday with Dr. Ceron, with stent change
continue abx
Assessment / Plan
-
The patient is 87-year-old female with history of GERD, recent diagnosis of pancreatic adenocarcinoma s/p ERCP and biliary stent placements who recently completed chemo and radiation therapy, and remote history of ovarian cancer who presents with
fever, lethargy, chills for past few days.
Underwent ERCP with stent replacement yesterday with Dr. Ceron, 06/10/23:
- Two partially occluded stents from the biliary tree
were seen in the major papilla.
- Biliary sludge and pus drained after existing
plastic stents removal.
- A single moderate biliary stricture was found in the
lower third of the main bile duct. The stricture was
malignant appearing.
- The common bile duct was moderately dilated.
- Two stents were removed from the biliary tree.
- One covered metal stent was placed into the common
bile duct.
- One plastic stent was placed into the right hepatic
duct.
Recommendation: - [facility] care.
- Clear liquid diet today.
- Check liver enzymes (AST, ALT, alkaline phosphatase,
bilirubin) tomorrow.
- Complete course of broad spectrum antibiotics as per
ID (3-5 days).
- Return to my office in 8 weeks.
Impression / Rec:
Doing well s/p ERCP yesterday with biliary stent change.
-fevers, chills resolved
-no leukocytosis, LFTs improving
-tolerating POs well, OK to advance to low fat diet
-continue antibiotics
-as above, follow up outpatient with Dr. Ceron in 8 weeks
Subjective
Subjective
Date of Service: June 11, 2023
s/p ERCP yesterday with Dr. Ceron, with stent change
feels well: no fever, chills, nausea, vomiting or abdominal pain
Objective
Data Reviewed
Laboratory Data:
Laboratory Results
06/11/23 05:16
06/11/23 05:16
Laboratory Results
Magnesium 1.7 mg/dl (1.6-2.3) 06/10/23 05:19
Total Bilirubin 0.8 mg/dl (0.2-1.3) D 06/11/23 05:16
AST 103 U/L (14-36) H 06/11/23 05:16
ALT 166 U/L (0-35) H 06/11/23 05:16
Alkaline Phosphatase 300 U/L (38-126) H 06/11/23 05:16
Lipase 199 U/L (23-300) 06/09/23 14:00
Vital Signs and I&O:
Vital Signs
Temp Pulse Resp BP Pulse Ox
98.3 F 98 16 106/68 99
06/11/23 11:13 06/11/23 11:13 06/11/23 11:13 06/11/23 11:13 06/11/23 11:13
I&O
06/10/23 06/11/23 06/12/23
06:59 06:59 06:59
Intake Total 820 / 820
Balance 820 / 820
Physical Exam
Physical Exam
Cardiology: Normal Sinus Rhythm
Pulmonary: Clear
GI: Soft, Non Distended, Non Tender and Normal Bowel Sounds
Extremities: No Edema and Warm
[2023-06-11] MEDS: LR 1000 IV (11:24)
--- NOTE | 2023-06-11 13:13 | CON.ID ---
Consultation
-
Date/Time Consultation Requested: 06/11/2023, 09
Date/Time Consultation Performed: 06/02/2023, 1314
Requesting Provider: Dr. Hawk Gusman
Performing Provider: Dr. Melia Mallory
Reason for Consultation: bacteremia
Chief Complaint / Past History
Chief Complaint
Weakness, fever
History of Present Illness
87-year-old female with pancreatic adenocarcinoma diagnosed March 05, 2023 status post biliary and pancreatic stent placement and just finished chemoradiation who presented to the hospital on June 08 with fever, chills, poor appetite, severe
weakness. In the ER she was febrile to 101. Her LFTs were elevated. She was started on Zosyn. Yesterday she underwent ERCP and noted to have occluded biliary stents status post removal and new stents put in. Her admission blood cultures are
positive for Klebsiella. Patient reports today she is feeling better. Appetite is coming back. No diarrhea. No abdominal pain.
Past History
Additional Past Medical History:
Pancreatic ca dx's 03/05/23 s/p biliary and pancreatic stents, s/p chemoradiation
remote hx Stage 3 ovarian ca
R hip ORIF
Spinal surgery
DAMION/BSO
Allergy History:
poison vipul extract Allergy (Verified 06/09/23 12:51)
SEVERE BLISTERING
Medications Reviewed: Yes
Current Antibiotics:
Zosyn
Social History
Tobacco: Non-Smoker
Alcohol: None
Drug: None
Personal:
Family History
Family History: Not Pertinent
Review of Systems
Review of Systems
Cardiovascular: Negative Chest Pain, Dyspnea or Edema
Respiratory: Negative Dyspnea or Cough
Gasteroenterology: Weight Loss
Genital / Urological: Negative Dysuria or Flank Pain
Endocrine: Weakness
Neurological: Negative Dizziness
All systems: All other systems were reviewed and were negative
Vital Signs
Temp Pulse Resp BP Pulse Ox
98.3 F 98 16 106/68 99
06/11/23 11:13 06/11/23 11:13 06/11/23 11:13 06/11/23 11:13 06/11/23 11:13
Physical Exam
Physical Exam
Constitutional: Comfortable and Cachetic
Eyes: No Conjunctival Hemorrhage and Sclera Anicteric
Cardiovascular: Regular Rate and S1/S2
Pulmonary: Clear
Gastrointestinal: Soft, Non Tender, Non Distended and Normal Bowel Sounds
Genito-Urinary: Negative CVA Tenderness
Extremities: Negative Edema
Neurological: AO x 3
Lab / Diagnostic Study Results
06/11/23 05:16
06/11/23 05:16
Abs Immat Gran (auto) 0.1 10^3/uL (0-0.05) H 06/09/23 14:00
Absolute Neuts (auto) 9.9 10^3/uL (1.4-6.5) H 06/09/23 14:00
Absolute Lymphs (auto) 0.2 10^3/uL (1.2-3.4) L 06/09/23 14:00
Absolute Monos (auto) 0.7 10^3/uL (0.1-0.6) H 06/09/23 14:00
Absolute Basos (auto) 0.0 10^3/uL (0-0.2) 06/09/23 14:00
Immature Gran % 0.6 % (0-0.5) H 06/09/23 14:00
Neutrophils % 91.5 % (42.2-75.2) H 06/09/23 14:00
Lymphocytes % 1.4 % (20.5-51.1) L 06/09/23 14:00
Monocytes % 6.3 % (1.7-9.3) 06/09/23 14:00
Eosinophils % 0.0 % (0-6) 06/09/23 14:00
Basophils % 0.2 % (0-2) 06/09/23 14:00
Lactic Acid Cancelled 06/10/23 01:47
Ur Squamous Epith Cells >30 /LPF (Few) 06/10/23 04:41
Microbiology Results
Micro:
06/10/23 13:08 Blood Culture - Preliminary
Blood/Venous No Growth in 24 hours- Final report to follow
06/11/23 10:27 Blood Culture - Pending
Blood/Venous
06/09/23 14:01 Blood Culture - Preliminary
Blood/Venous Klebsiella pneumoniae
Gram Stain - Final
06/09/23 14:00 Blood Culture - Preliminary
Blood/Venous Klebsiella pneumoniae
Gram Stain - Final
06/10/23 04:41 Urine Culture - Final
Urine NO GROWTH
06/09/23 13:56 Influenza Types A & B (CRISTIN) - Final
Nasal Swab Negative for Influenza A & B, NAAT
Negative results must be combined with clinical observations
and patient history.
Nucleic Acid Amplification test (NAAT)performed on the
[employer] ID NOW platform.
CXR negative
Assessment / Plan
# Klebsiella bacteremia
# Cholangitis due to obstructed biliary stents
# Fever - resolving
# pancreatic ca with biliary, pancreatic stent
- 06/10/23 s/p stents removal, new stent placed. Pus noted in bile duct
- Follow repeat blood cultures
- Continue Zosyn (d3)for now.
- Will de-escalate to po abx when susceptibility data available.
--- NOTE | 2023-06-11 14:12 | W.PN.HOSP.TC ---
Today's Communication/Plan
-
f/u repeat blood cultures
cont abx
adv to LFD
monitor LFTs
Assessment / Plan
Assessment / Plan
Physical Exam
General: No Apparent Distress and Comfortable
HEENT: NormoCephalic and Anicteric
Respiratory: Clear; No Wheezes, Rales or Rhonchi
Cardiac: S1/S2 and Regular Rhythm; No Murmur
GI: Soft, Non Tender, Non Distended and Normal Bowel Sounds
Musculoskeletal: No Clubbing, No Cyanosis and No Edema
Neuro: Awake, Alert, Oriented and AO x 3
Psych: Calm
IMPRESSION:
87-year-old female with past medical history of GERD, dysphagia, severe protein calorie malnutrition, pancreatic cancer, ovarian cancer, most recently on chemo 2 and half weeks ago with ERCP with biliary stents in place and ventral pancreatic duct
stent confirmed on 03/06 now presents for lethargy, body aches, fever over the last few days. Admitted for severe sepsis.
PLAN:
#Severe sepsis
#Elevated lactate
#Bacteremia
#?Cholangitis
� I suspect biliary obstruction in setting of stents/possible migration, GI origin; possibly cholangitis
-S/p ERCP 06/09 - stents removed and new stens placed; symptoms improved
� Continue Zosyn
� IVF as needed
� GI consulted
� Follow-up repeat cultures including blood
� Radiographic imaging
�ID consulted
-advance to LFD
-F/u Dr. hilliard in 8 weeks
#Hyponatremia
� Most likely secondary to dehydration in setting of sepsis
� Monitor with IV resuscitation, dissipate will trend up
-Monitor BMP
#Transaminitis
#Hepatocellular injury
�see plan above for imaging
� GI consulted
� IV antibiotics
-trending down
#Hypokalemia
-monitor and replete
#Weakness
-2/2 to sepsis
-PT/OT
#Severe protein calorie moderation
#DVT prophylaxis
� HSQ
#Full code
Anticipated Discharge: > 48 hours
Subjective/Interval History
-
Date of Service: June 11, 2023
feels better, advanced diet
Objective Data
-
Labs:
Laboratory Results
06/11/23
05:16
WBC 5.7
Hgb 9.0 L
Hct 26.5 L
Plt Count 198
Sodium 132 L
Potassium 4.0
Chloride 104
Carbon Dioxide 22
BUN 18 H
Creatinine 0.5 L
Glucose 122 H
Calcium 8.3 L
Total Bilirubin 0.8 D
AST 103 H
ALT 166 H
Alkaline Phosphatase 300 H
Vital Signs:
Vital Signs
Temp Pulse Resp BP Pulse Ox
98.3 F 98 16 106/68 99
06/11/23 11:13 06/11/23 11:13 06/11/23 11:13 06/11/23 11:13 06/11/23 11:13
I&O
06/10/23 06/11/23 06/12/23
06:59 06:59 06:59
Intake Total 820 / 820
Balance 820 / 820
Review of Systems
-
History Source: Patient
All other systems: Not reviewed unless documented
Data Reviewed
-
Diagnostic Radiology: Image personally visualized and interpreted and Report Reviewed by me
Labs: Labs Reviewed by me
--- NOTE | 2023-06-11 15:56 | CM ---
Spoke with patient in room.
Offered VN py declined need.
She said her will drive her home at [facility].
PLAN Home no needs
--- NOTE | 2023-06-11 16:15 | W.PN.UPDATE ---
Update Note
Progress Note Update
for billing purposes only
[2023-06-12] MEDS: HEPARIN 5000 UNITS SC ×2 (00:06→08:44)
[2023-06-12 03:15] VITALS: BP 112/56
[2023-06-12] MEDS: ZOSYN 50 IV ×2 (04:08→10:27)
[2023-06-12 07:00] VITALS: BP 108/57
[2023-06-12 08:43] LABS: Hematocrit 28.4 % (37.0-47.0); Hemoglobin 9.7 g/dL (12.0-16.0); Mean Corp Hgb Conc. 34.2 g/dL (33.0-37.0); Mean Corpuscular Hgb 29.4 pg (27.0-31.0); Mean Corpuscular Volume 86.1 fL (81.0-99.0); Mean Platelet Volume 9.2 fL (7.4-10.4); Platelet Count 246 10^3/uL (130-400); Red Cell Dist. Width 16.3 % (11.5-14.5); White Blood Cell Count 6.8 10^3/uL (4.8-10.8)
[2023-06-12] MEDS: COLACE PO (08:43)
[2023-06-12 09:00] LABS: ALT (SGPT) 126 U/L (0-35); AST (SGOT) 56 U/L (14-36); Albumin 2.3 g/dl (3.5-5.0); Alkaline Phosphatase 274 U/L (38-126); Blood Urea Nitrogen 13 mg/dl (7-17); Calcium 8.4 mg/dl (8.4-10.2); Carbon Dioxide 22 mmol/L (22-30); Chloride 108 mmol/L (98-107); Estimated Creatinine Clearance 38 ml/min; Glucose 83 mg/dl (70-99); Potassium 3.4 mmol/L (3.5-5.1); Sodium 133 mmol/L (135-145); Total Bilirubin 0.8 mg/dl (0.2-1.3); Total Protein 4.5 g/dl (6.3-8.2); eGFR > 60.00
--- NOTE | 2023-06-12 10:33 | W.PN.ID1 ---
Addendum entered and electronically signed by Cam Rasmussen, DO 06/12/23 13:57:
Recommendations should read:
If blood cultures remain negative x48, can likely transition to cephalexin 500 mg p.o. 4 times daily, to continue abx through 06/24/23
Original Note:
Date of Service
Date of Service: June 12, 2023
Today's Communication
Continue antibiotics. See below�
Assessment / Plan
# Klebsiella bacteremia
# Cholangitis due to obstructed biliary stents
# Fever - resolving
# pancreatic ca with biliary, pancreatic stent
Recommendations:
- 06/10/23 s/p stents removal, new stent placed. Pus noted in bile duct
- Follow repeat blood cultures
- Continue Zosyn (d3) for today.
--> If blood cultures remain negative x48, can likely transition to ceftriaxone 500 mg p.o. 4 times daily, to continue abx through 06/24/23
Chief Complaint
-: Bacteremia
Subjective / Review of Systems
Review of Systems: No Fever, No Chills and No Abdominal Pain
Vital Signs / Physical Exam
Vital Signs
Vital Signs
Temp Pulse Resp BP Pulse Ox
98.5 F 75 16 108/57 97
06/12/23 07:00 06/12/23 07:00 06/12/23 07:00 06/12/23 07:00 06/12/23 07:00
Physical Exam
Constitutional: No Acute Distress, Comfortable, Chronically Ill and Cachetic
Eyes: No Conjunctival Hemorrhage and Sclera Anicteric
Pulmonary: Non Labored
Gastrointestinal: Soft, Non Tender and Non Distended
Neurological: Awake and Alert
Psychological: Calm
Objective Data
Lab Data
Lab Results
06/12/23 08:06
06/12/23 08:06
Estimated Creat Clear 38 ml/min 06/12/23 08:06
Lactic Acid Cancelled 06/10/23 01:47
Total Bilirubin 0.8 mg/dl (0.2-1.3) 06/12/23 08:06
AST 56 U/L (14-36) H 06/12/23 08:06
ALT 126 U/L (0-35) H 06/12/23 08:06
Alkaline Phosphatase 274 U/L (38-126) H 06/12/23 08:06
Most recent labs reviewed.
Micro Results:
06/09/23 14:01 Blood Culture - Final
Blood/Venous Klebsiella pneumoniae
Gram Stain - Final
06/09/23 14:00 Blood Culture - Final
Blood/Venous Klebsiella pneumoniae
Gram Stain - Final
06/10/23 13:08 Blood Culture - Preliminary
Blood/Venous No Growth in 24 hours- Final report to follow
06/11/23 10:27 Blood Culture - Pending
Blood/Venous
06/10/23 04:41 Urine Culture - Final
Urine NO GROWTH
06/09/23 13:56 Influenza Types A & B (CRISTIN) - Final
Nasal Swab Negative for Influenza A & B, NAAT
Negative results must be combined with clinical observations
and patient history.
Nucleic Acid Amplification test (NAAT)performed on the
[employer] platform.
CXR negative
[2023-06-12 11:00] VITALS: BP 108/62
--- NOTE | 2023-06-12 11:53 | CHAP ---
Ms. Corral welcomed me graciously. She is accepting of the situation and staying positive. We prayed together, asking blessings for Cleta and her family, and thanking God for His goodness.
[2023-06-12 12:30] VITALS: BP 108/62
--- NOTE | 2023-06-12 13:51 | W.PN.HOSP.TC ---
Addendum entered and electronically signed by Hawk Sena MD 06/14/23 15:42:
[id number]
Original Note:
Today's Communication/Plan
-
cephalexin 500 mg p.o. 4 times daily, to continue abx through 06/24/23
Assessment / Plan
Assessment / Plan
Physical Exam
General: No Apparent Distress and Comfortable
HEENT: NormoCephalic and Anicteric
Respiratory: Clear; No Wheezes, Rales or Rhonchi
Cardiac: S1/S2 and Regular Rhythm; No Murmur
GI: Soft, Non Tender, Non Distended and Normal Bowel Sounds
Musculoskeletal: No Clubbing, No Cyanosis and No Edema
Neuro: Awake, Alert, Oriented and AO x 3
Psych: Calm
IMPRESSION:
87-year-old female with past medical history of GERD, dysphagia, severe protein calorie malnutrition, pancreatic cancer, ovarian cancer, most recently on chemo 2 and half weeks ago with ERCP with biliary stents in place and ventral pancreatic duct
stent confirmed on 03/06 now presents for lethargy, body aches, fever over the last few days. Admitted for severe sepsis.
PLAN:
#Severe sepsis
#Elevated lactate
#Bacteremia
#?Cholangitis
� I suspect biliary obstruction in setting of stents/possible migration, GI origin; possibly cholangitis
-S/p ERCP 06/09 - stents removed and new stens placed; symptoms improved
� Continue Zosyn - cephalexin 500 mg p.o. 4 times daily, to continue abx through 06/24/23
� GI consulted
� Follow-up repeat cultures including blood
� Radiographic imaging
�ID consulted
-advance to LFD
-F/u Dr. hilliard in 8 weeks
#Hyponatremia
� Most likely secondary to dehydration in setting of sepsis
� Monitor with IV resuscitation, dissipate will trend up
-Monitor BMP in 5 days outpatient
#Transaminitis
#Hepatocellular injury
�see plan above for imaging
� GI consulted
� IV antibiotics
-trending down
-f/u outpatient
#Hypokalemia
-monitor and replete
#Weakness
-2/2 to sepsis
-PT/OT
#Severe protein calorie moderation
#DVT prophylaxis
� HSQ
#Full code
More than 30 minutes spent in discharge including
Final examination of the patient
Summarizing hospital stay
Instructions for continuing care to all relevant caregivers
Preparation of discharge records, prescriptions, and referral forms
Total time spent (35 in minutes):
Anticipated Discharge: Today
Subjective/Interval History
-
Date of Service: June 12, 2023
tolerating diet, feels better
Objective Data
-
Labs:
Laboratory Results
06/12/23
08:06
WBC 6.8
Hgb 9.7 L
Hct 28.4 L
Plt Count 246 D
Sodium 133 L
Potassium 3.4 L
Chloride 108 H
Carbon Dioxide 22
BUN 13
Creatinine 0.5 L
Glucose 83
Calcium 8.4
Total Bilirubin 0.8
AST 56 H
ALT 126 H
Alkaline Phosphatase 274 H
Vital Signs:
Vital Signs
Temp Pulse Resp BP Pulse Ox
97.9 F 69 16 108/62 97
06/12/23 11:00 06/12/23 11:00 06/12/23 11:00 06/12/23 11:00 06/12/23 11:00
I&O
06/11/23 06/12/23 06/13/23
06:59 06:59 06:59
Intake Total 820 / 820 1200 / 1200
Balance 820 / 820 1200 / 1200
Review of Systems
-
History Source: Patient
All other systems: Not reviewed unless documented
Physical Exam
-
General: Appears Chronically Ill and Cachectic
HEENT: Normocephalic and Atraumatic; Negative Anicteric
Respiratory: Clear to Auscultation; Negative Wheezes or Rhonchi
Cardiac: Regular Rhythm and S1/S2; Negative Murmur
GI: Soft, Nontender, Nondistended and Normal Bowel Sounds
Musculoskeletal: No Clubbing, No Cyanosis and No Edema
Skin: Jaundice
Neuro: Awake
Data Reviewed
-
Diagnostic Radiology: Image personally visualized and interpreted and Report Reviewed by me
Labs: Labs Reviewed by me
--- NOTE | 2023-06-12 14:04 | W.DS.TRANS ---
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
-
Discharge Instructions:
Discharge Diagnosis/Procedures Klebsiella bacteremia
# Cholangitis due to obstructed biliary stents
# Fever - resolving
# pancreatic ca with biliary, pancreatic stent
Diet Low Fat
Blood Work cbc and bmp in 5 days with pcp
Instructions:
Stand-Alone Forms:
Changes to Home Medications: Yes
Discharge Medications:
DC Medications w/original date entered in [facility]
cholecalciferol (vitamin D3) 25 mcg (1,000 unit) tablet 25 mcg PO DAILY Supplement 03/03/23
cyanocobalamin (vitamin B-12) 1,000 mcg tablet 1,000 mcg PO DAILY Supplement 03/03/23
docusate sodium 100 mg capsule 100 mg PO DAILY Constipation 03/03/23
aspirin 325 mg tablet 325 mg PO TIDPRN PRN mild pain 06/09/23
seukmjol-tmyjty-clrag extract 5 mg-6 mg-150 mg capsule (Fruit and Vegetable Daily) 6 cap PO DAILY Supplement 06/09/23
prochlorperazine maleate 10 mg tablet 10 mg PO Q6H PRN nausea/vomiting 06/09/23
cephalexin 500 mg capsule 500 mg PO QID 13 days #52 caps 06/12/23
Home Medication Changes
cephalexin 500 mg capsule 500 mg PO QID 13 days #52 caps 06/12/23
Stop ASA until confirmed by pcp
Pending Results: No
--- NOTE | 2023-06-12 14:26 | CM ---
Pt for d/c
Reports will have ride home with
Discussed IMM
Declines home care
Plan - home no needs
[2023-06-12] MEDS: KCL ELIXIR 40 MEQ PO (15:33)
== END 2023-06-12 16:45 | disposition home or self-care (01) | DRG 919 ==
LOC: 3 WEST ACU 16:16
PROVIDERS: Physician Assistant; ADMITTING PHYSICIAN Internal Medicine; EMERGENCY PHYSICIAN Emergency Medicine; FAMILY PHYSICIAN Family Medicine; OTHER PHYSICIAN Internal Medicine Gastroenterology; OTHER PHYSICIAN Internal Medicine Infectious Disease
PROC: 0F798DZ Dilation of Common Bile Duct with Intraluminal Device, Via Natural or Artificial Opening Endoscopic (ICD-10-PCS; 2023-06-10)
PROC: 0FPB8DZ Removal of Intraluminal Device from Hepatobiliary Duct, Via Natural or Artificial Opening Endoscopic (ICD-10-PCS; 2023-06-10)
PROC: 0F758DZ Dilation of Right Hepatic Duct with Intraluminal Device, Via Natural or Artificial Opening Endoscopic (ICD-10-PCS; 2023-06-10)
DX: T85.590A Other mechanical complication of bile duct prosthesis, initial encounter (principal); A41.59 Other Gram-negative sepsis; K83.1 Obstruction of bile duct; R65.20 Severe sepsis without septic shock; E43 Unspecified severe protein-calorie malnutrition; K83.09 Other cholangitis; C25.0 Malignant neoplasm of head of pancreas; E87.1 Hypo-osmolality and hyponatremia; Z68.1 Body mass index [BMI] 19.9 or less, adult; Z11.52 Encounter for screening for COVID-19; Y73.2 Prosthetic and other implants, materials and accessory gastroenterology and urology devices associated with adverse incidents; Z46.59 Encounter for fitting and adjustment of other gastrointestinal appliance and device; E87.6 Hypokalemia
CPT/HCPCS: 71046; 74018; 74330; 76000; 80048; 80053; 81003; 81015; 83605; 83690; 83735; 84484; 85025; 85027; 87040; 87086; 87149; 87186; 87205; 87502; 87811; 93005; 96361; 96365; 96375; 97162; 97166; 97530; 99285; C1769; C1874; C2617

== ENCOUNTER → 2023-06-23 09:54 | Outpatient (REF) | payer MEDICARE, OTHER, SELFPAY | LOC: HWRAD 09:54 | PROVIDERS: ATTENDING PHYSICIAN Nurse Practitioner Adult Health; FAMILY PHYSICIAN Family Medicine | DX: C25.3 Malignant neoplasm of pancreatic duct (principal) | CPT/HCPCS: 76536 ==

== ENCOUNTER → 2023-06-24 10:41 | Outpatient (REF) | payer MEDICARE, OTHER, SELFPAY ==
[2023-06-24 11:58] LABS: % Basophils 0.5 % (0-2); % Eosinophils 1.9 % (0-6); % Immature Granulocytes 0.4 % (0-0.5); % Lymphocytes 11.5 % (20.5-51.1); % Monocytes 6.7 % (1.7-9.3); Absolute Eosinophils 0.1 10^3/uL (0-0.7); Absolute Lymphocytes 0.9 10^3/uL (1.2-3.4); Absolute Monocytes 0.5 10^3/uL (0.1-0.6); Absolute Neutrophils 5.9 10^3/uL (1.4-6.5); Hematocrit 32.3 % (37.0-47.0); Hemoglobin 10.8 g/dL (12.0-16.0); Mean Corp Hgb Conc. 33.4 g/dL (33.0-37.0); Mean Corpuscular Hgb 29.3 pg (27.0-31.0); Mean Corpuscular Volume 87.5 fL (81.0-99.0); Mean Platelet Volume 9.2 fL (7.4-10.4); Nucleated Red Blood Cells % 0 %; Platelet Count 411 10^3/uL (130-400); Red Blood Cell Count 3.69 10^6/uL (4.20-5.40); Red Cell Dist. Width 17.1 % (11.5-14.5); White Blood Cell Count 7.4 10^3/uL (4.8-10.8)
[2023-06-24 12:39] LABS: ALT (SGPT) 31 U/L (0-35); AST (SGOT) 40 U/L (14-36); Albumin 3.6 g/dl (3.5-5.0); Alkaline Phosphatase 173 U/L (38-126); Blood Urea Nitrogen 21 mg/dl (7-17); Calcium 9.5 mg/dl (8.4-10.2); Carbon Dioxide 25 mmol/L (22-30); Chloride 100 mmol/L (98-107); Glucose 187 mg/dl (70-99); Potassium 3.7 mmol/L (3.5-5.1); Sodium 134 mmol/L (135-145); Total Bilirubin 0.5 mg/dl (0.2-1.3); Total Protein 6.5 g/dl (6.3-8.2); eGFR > 60.00
== END ==
LOC: REG 10:41
PROVIDERS: ATTENDING PHYSICIAN Family Medicine
DX: C25.0 Malignant neoplasm of head of pancreas (principal)
CPT/HCPCS: 36415; 80053; 85025

== ENCOUNTER → 2023-07-01 10:50 | Outpatient (REF) | payer MEDICARE, OTHER, SELFPAY ==
[2023-07-01 12:50] LABS: % Basophils 0.5 % (0-2); % Eosinophils 1.1 % (0-6); % Immature Granulocytes 0.3 % (0-0.5); % Lymphocytes 13.3 % (20.5-51.1); % Monocytes 8.3 % (1.7-9.3); % Neutrophils 76.5 % (42.2-75.2); Absolute Eosinophils 0.1 10^3/uL (0-0.7); Absolute Lymphocytes 0.8 10^3/uL (1.2-3.4); Absolute Monocytes 0.5 10^3/uL (0.1-0.6); Absolute Neutrophils 4.7 10^3/uL (1.4-6.5); Hematocrit 31.6 % (37.0-47.0); Hemoglobin 10.5 g/dL (12.0-16.0); Mean Corp Hgb Conc. 33.2 g/dL (33.0-37.0); Mean Corpuscular Hgb 29.6 pg (27.0-31.0); Mean Platelet Volume 9.3 fL (7.4-10.4); Nucleated Red Blood Cells % 0 %; Platelet Count 314 10^3/uL (130-400); Red Blood Cell Count 3.55 10^6/uL (4.20-5.40); Red Cell Dist. Width 17.3 % (11.5-14.5); White Blood Cell Count 6.2 10^3/uL (4.8-10.8)
[2023-07-01 13:12] LABS: ALT (SGPT) 35 U/L (0-35); AST (SGOT) 51 U/L (14-36); Albumin 3.5 g/dl (3.5-5.0); Alkaline Phosphatase 184 U/L (38-126); Blood Urea Nitrogen 13 mg/dl (7-17); Calcium 9.6 mg/dl (8.4-10.2); Carbon Dioxide 22 mmol/L (22-30); Chloride 106 mmol/L (98-107); Glucose 95 mg/dl (70-99); Potassium 3.7 mmol/L (3.5-5.1); Sodium 135 mmol/L (135-145); Total Bilirubin 0.6 mg/dl (0.2-1.3); Total Protein 6.5 g/dl (6.3-8.2); eGFR > 60.00
[2023-07-01 14:06] LABS: Erythrocyte Sed Rate 48 mm/hour (0-20)
[2023-07-01 14:33] LABS: Glycohemoglobin (HgbA1c) 6.5 % (4.0-5.6)
[2023-07-01 14:36] LABS: Free T3 2.38 pg/ml (2.77-5.27); Free T4 1.29 ng/dl (0.78-2.19); Vitamin D, 25-OH*** 81.5 ng/mL (30-80)
[2023-07-01 14:48] LABS: TSH 2.49 uIU/ml (0.47-4.68)
[2023-07-02 11:14] LABS: CRP, Highly Sensitive > 15.00 mg/L
[2023-07-03 15:51] LABS: Homocysteine 8 umol/L (0-15)
[2023-07-06 03:41] LABS: Free Testosterone 0.4 pg/mL (0.6-3.8); Sex Hormone Binding Globulin 274 nmol/L (17-125); Total Testosterone,Female/Chil 11 ng/dL (5-32)
== END ==
LOC: REG 10:50
PROVIDERS: ATTENDING PHYSICIAN Internal Medicine Geriatric Medicine
DX: C25.0 Malignant neoplasm of head of pancreas (principal); E78.5 Hyperlipidemia, unspecified; I25.10 Atherosclerotic heart disease of native coronary artery without angina pectoris; I25.84 Coronary atherosclerosis due to calcified coronary lesion; E55.9 Vitamin D deficiency, unspecified; R53.82 Chronic fatigue, unspecified; Z78.0 Asymptomatic menopausal state; A41.9 Sepsis, unspecified organism; E10.65 Type 1 diabetes mellitus with hyperglycemia; E78.49 Other hyperlipidemia
CPT/HCPCS: 36415; 80053; 82306; 83036; 83090; 84270; 84402; 84403; 84439; 84443; 84481; 85025; 85652; 86141

== ENCOUNTER → 2023-07-13 09:54 | Outpatient (REF) | payer MEDICARE, OTHER, SELFPAY ==
[2023-07-13 10:57] LABS: % Basophils 0.3 % (0-2); % Eosinophils 0.7 % (0-6); % Immature Granulocytes 0.5 % (0-0.5); % Lymphocytes 12.9 % (20.5-51.1); % Monocytes 6.2 % (1.7-9.3); % Neutrophils 79.4 % (42.2-75.2); Absolute Eosinophils 0.1 10^3/uL (0-0.7); Absolute Monocytes 0.5 10^3/uL (0.1-0.6); Hematocrit 32.9 % (37.0-47.0); Mean Corp Hgb Conc. 33.4 g/dL (33.0-37.0); Mean Corpuscular Hgb 29.3 pg (27.0-31.0); Mean Corpuscular Volume 87.5 fL (81.0-99.0); Mean Platelet Volume 10.4 fL (7.4-10.4); Nucleated Red Blood Cells % 0 %; Platelet Count 271 10^3/uL (130-400); Red Blood Cell Count 3.76 10^6/uL (4.20-5.40); White Blood Cell Count 7.6 10^3/uL (4.8-10.8)
[2023-07-13 11:17] LABS: ALT (SGPT) 32 U/L (0-35); AST (SGOT) 49 U/L (14-36); Albumin 3.8 g/dl (3.5-5.0); Alkaline Phosphatase 204 U/L (38-126); Blood Urea Nitrogen 12 mg/dl (7-17); Calcium 9.7 mg/dl (8.4-10.2); Carbon Dioxide 23 mmol/L (22-30); Chloride 105 mmol/L (98-107); Glucose 104 mg/dl (70-99); Sodium 135 mmol/L (135-145); Total Bilirubin 0.7 mg/dl (0.2-1.3); eGFR > 60.00
[2023-07-14 19:49] LABS: CA 19-9 461 U/mL (<=35)
== END ==
LOC: REG 09:54
PROVIDERS: ATTENDING PHYSICIAN Internal Medicine Hematology & Oncology
DX: C25.3 Malignant neoplasm of pancreatic duct (principal)
CPT/HCPCS: 36415; 80053; 85025; 86301

== ENCOUNTER → 2023-07-14 11:15 | Outpatient (REF) | payer MEDICARE, OTHER, SELFPAY ==
[2023-07-18 21:14] LABS: Pancreatic Elastase, Fecal <10 ug/g (>=100)
== END ==
LOC: REG 11:15
PROVIDERS: ATTENDING PHYSICIAN Internal Medicine Gastroenterology; FAMILY PHYSICIAN Family Medicine
DX: K86.81 Exocrine pancreatic insufficiency (principal)
CPT/HCPCS: 82653

== ENCOUNTER → 2023-07-21 12:17 | Outpatient (REF) | payer MEDICARE, OTHER, SELFPAY ==
[2023-07-21 12:40] VITALS: BP 111/69; BP_SYST 82
== END ==
LOC: RADI 12:17
PROVIDERS: ATTENDING PHYSICIAN Internal Medicine Hematology & Oncology; FAMILY PHYSICIAN Family Medicine
DX: C77.0 Secondary and unspecified malignant neoplasm of lymph nodes of head, face and neck (principal); C25.3 Malignant neoplasm of pancreatic duct
CPT/HCPCS: 88173; 88305; 38505; 76942

== ENCOUNTER → 2023-08-16 09:25 | Outpatient (REF) | payer MEDICARE, OTHER, SELFPAY ==
[2023-08-16 10:32] LABS: % Basophils 0.4 % (0-2); % Eosinophils 2.8 % (0-6); % Immature Granulocytes 0.7 % (0-0.5); % Lymphocytes 10.6 % (20.5-51.1); % Neutrophils 78.5 % (42.2-75.2); Absolute Eosinophils 0.2 10^3/uL (0-0.7); Absolute Immature Granulocytes 0.1 10^3/uL (0-0.05); Absolute Lymphocytes 0.8 10^3/uL (1.2-3.4); Absolute Monocytes 0.5 10^3/uL (0.1-0.6); Absolute Neutrophils 5.9 10^3/uL (1.4-6.5); Hemoglobin 10.1 g/dL (12.0-16.0); Mean Corp Hgb Conc. 31.6 g/dL (33.0-37.0); Mean Corpuscular Hgb 29.5 pg (27.0-31.0); Mean Corpuscular Volume 93.6 fL (81.0-99.0); Mean Platelet Volume 9.1 fL (7.4-10.4); Nucleated Red Blood Cells % 0 %; Platelet Count 361 10^3/uL (130-400); Red Blood Cell Count 3.42 10^6/uL (4.20-5.40); Red Cell Dist. Width 13.7 % (11.5-14.5); White Blood Cell Count 7.5 10^3/uL (4.8-10.8)
[2023-08-16 11:07] LABS: ALT (SGPT) 58 U/L (0-35); AST (SGOT) 56 U/L (14-36); Albumin 3.8 g/dl (3.5-5.0); Alkaline Phosphatase 372 U/L (38-126); Blood Urea Nitrogen 16 mg/dl (7-17); Calcium 10.3 mg/dl (8.4-10.2); Carbon Dioxide 26 mmol/L (22-30); Chloride 106 mmol/L (98-107); Direct Bilirubin 0.4 mg/dl (0.0-0.4); Glucose 105 mg/dl (70-99); Potassium 4.9 mmol/L (3.5-5.1); Sodium 140 mmol/L (135-145); Total Bilirubin 0.5 mg/dl (0.2-1.3); eGFR > 60.00
== END ==
LOC: REG 09:25
PROVIDERS: ATTENDING PHYSICIAN Internal Medicine Hematology & Oncology
DX: C25.3 Malignant neoplasm of pancreatic duct (principal)
CPT/HCPCS: 36415; 80053; 82248; 85025

== ENCOUNTER → 2023-09-17 09:37 | Outpatient (REF) | payer MEDICARE, OTHER, SELFPAY ==
[2023-09-17 11:18] LABS: % Basophils 0.2 % (0-2); % Eosinophils 0.2 % (0-6); % Immature Granulocytes 0.3 % (0-0.5); % Lymphocytes 5.5 % (20.5-51.1); % Monocytes 6.4 % (1.7-9.3); % Neutrophils 87.4 % (42.2-75.2); Absolute Lymphocytes 0.5 10^3/uL (1.2-3.4); Absolute Monocytes 0.6 10^3/uL (0.1-0.6); Absolute Neutrophils 7.5 10^3/uL (1.4-6.5); Hematocrit 27.1 % (37.0-47.0); Hemoglobin 8.9 g/dL (12.0-16.0); Mean Corp Hgb Conc. 32.8 g/dL (33.0-37.0); Mean Corpuscular Volume 88.3 fL (81.0-99.0); Mean Platelet Volume 9.2 fL (7.4-10.4); Nucleated Red Blood Cells % 0 %; Platelet Count 318 10^3/uL (130-400); Red Blood Cell Count 3.07 10^6/uL (4.20-5.40); Red Cell Dist. Width 13.8 % (11.5-14.5); White Blood Cell Count 8.6 10^3/uL (4.8-10.8)
[2023-09-17 11:53] LABS: ALT (SGPT) 119 U/L (0-35); AST (SGOT) 122 U/L (14-36); Albumin 3.5 g/dl (3.5-5.0); Alkaline Phosphatase 593 U/L (38-126); Blood Urea Nitrogen 23 mg/dl (7-17); Calcium 9.7 mg/dl (8.4-10.2); Carbon Dioxide 26 mmol/L (22-30); Chloride 103 mmol/L (98-107); Direct Bilirubin 0.4 mg/dl (0.0-0.4); Glucose 116 mg/dl (70-99); Potassium 3.7 mmol/L (3.5-5.1); Sodium 138 mmol/L (135-145); Total Protein 6.5 g/dl (6.3-8.2); eGFR > 60.00
== END ==
LOC: REG 09:37
PROVIDERS: ATTENDING PHYSICIAN Internal Medicine Hematology & Oncology; FAMILY PHYSICIAN Family Medicine
DX: C25.3 Malignant neoplasm of pancreatic duct (principal)
CPT/HCPCS: 36415; 80053; 82248; 85025

== ENCOUNTER → 2023-09-22 08:35 | Outpatient (REF) | payer MEDICARE, OTHER, SELFPAY ==
[2023-09-22 10:47] LABS: Iron 73 ug/dl (37-170)
[2023-09-22 10:58] LABS: Percent Saturation 18 % (20-50); Total Iron Binding Capacity 391 ug/dl (265-497)
[2023-09-22 11:24] LABS: Ferritin 14.3 ng/ml (11.1-264.0)
[2023-09-22 11:55] LABS: Folate > 20.0 ng/ml (2.76-20); Vitamin B12 > 1000 pg/ml (239-931)
== END ==
LOC: REG 08:35
PROVIDERS: ATTENDING PHYSICIAN Nurse Practitioner Family; FAMILY PHYSICIAN Family Medicine
DX: C25.3 Malignant neoplasm of pancreatic duct (principal); E43 Unspecified severe protein-calorie malnutrition
CPT/HCPCS: 36415; 82607; 82728; 82746; 83540; 83550

== ENCOUNTER → 2023-10-11 09:16 | Outpatient (REF) | payer MEDICARE, OTHER, SELFPAY ==
[2023-10-11 10:44] LABS: % Basophils 0.3 % (0-2); % Eosinophils 1.7 % (0-6); % Immature Granulocytes 0.3 % (0-0.5); % Monocytes 6.3 % (1.7-9.3); % Neutrophils 79.4 % (42.2-75.2); Absolute Eosinophils 0.1 10^3/uL (0-0.7); Absolute Lymphocytes 0.7 10^3/uL (1.2-3.4); Absolute Monocytes 0.4 10^3/uL (0.1-0.6); Absolute Neutrophils 4.8 10^3/uL (1.4-6.5); Hematocrit 26.5 % (37.0-47.0); Hemoglobin 8.6 g/dL (12.0-16.0); Mean Corp Hgb Conc. 32.5 g/dL (33.0-37.0); Mean Corpuscular Hgb 29.3 pg (27.0-31.0); Mean Corpuscular Volume 90.1 fL (81.0-99.0); Mean Platelet Volume 9.3 fL (7.4-10.4); Nucleated Red Blood Cells % 0 %; Platelet Count 288 10^3/uL (130-400); Red Blood Cell Count 2.94 10^6/uL (4.20-5.40)
[2023-10-11 11:13] LABS: ALT (SGPT) 38 U/L (0-35); AST (SGOT) 47 U/L (14-36); Albumin 3.5 g/dl (3.5-5.0); Alkaline Phosphatase 321 U/L (38-126); Blood Urea Nitrogen 19 mg/dl (7-17); Calcium 9.5 mg/dl (8.4-10.2); Carbon Dioxide 24 mmol/L (22-30); Chloride 106 mmol/L (98-107); Glucose 92 mg/dl (70-99); Potassium 4.1 mmol/L (3.5-5.1); Sodium 137 mmol/L (135-145); Total Bilirubin 0.4 mg/dl (0.2-1.3); Total Protein 6.4 g/dl (6.3-8.2); eGFR > 60.00
[2023-10-11 11:17] LABS: Erythrocyte Sed Rate 67 mm/hour (0-20)
[2023-10-11 11:23] LABS: Glycohemoglobin (HgbA1c) 5.4 % (4.0-5.6)
[2023-10-11 11:39] LABS: Free T4 1.18 ng/dl (0.78-2.19); Vitamin D, 25-OH*** 112 ng/mL (30-80)
[2023-10-11 11:52] LABS: TSH 3.93 uIU/ml (0.47-4.68)
[2023-10-11 13:58] LABS: Free T3 2.94 pg/ml (2.77-5.27)
[2023-10-12 19:33] LABS: Homocysteine 6 umol/L (0-15)
== END ==
LOC: REG 09:16
PROVIDERS: ATTENDING PHYSICIAN Internal Medicine Geriatric Medicine; FAMILY PHYSICIAN Family Medicine
DX: C25.0 Malignant neoplasm of head of pancreas (principal); E78.5 Hyperlipidemia, unspecified; I25.10 Atherosclerotic heart disease of native coronary artery without angina pectoris; I25.84 Coronary atherosclerosis due to calcified coronary lesion; R53.82 Chronic fatigue, unspecified; Z78.0 Asymptomatic menopausal state; E43 Unspecified severe protein-calorie malnutrition; R73.01 Impaired fasting glucose; E55.9 Vitamin D deficiency, unspecified
CPT/HCPCS: 36415; 80053; 82306; 83036; 83090; 84270; 84402; 84403; 84439; 84443; 84481; 85025; 85652; 86140

== ENCOUNTER → 2023-11-03 09:31 | Outpatient (REF) | payer MEDICARE, OTHER, SELFPAY ==
[2023-11-03 10:53] LABS: % Basophils 0.5 % (0-2); % Eosinophils 0.7 % (0-6); % Immature Granulocytes 0.3 % (0-0.5); % Lymphocytes 7.8 % (20.5-51.1); % Monocytes 5.5 % (1.7-9.3); % Neutrophils 85.2 % (42.2-75.2); Absolute Lymphocytes 0.5 10^3/uL (1.2-3.4); Absolute Monocytes 0.3 10^3/uL (0.1-0.6); Absolute Neutrophils 4.9 10^3/uL (1.4-6.5); Hematocrit 30.9 % (37.0-47.0); Hemoglobin 9.8 g/dL (12.0-16.0); Mean Corp Hgb Conc. 31.7 g/dL (33.0-37.0); Mean Corpuscular Hgb 30.4 pg (27.0-31.0); Mean Platelet Volume 9.4 fL (7.4-10.4); Nucleated Red Blood Cells % 0 %; Platelet Count 250 10^3/uL (130-400); Red Blood Cell Count 3.22 10^6/uL (4.20-5.40); Red Cell Dist. Width 16.2 % (11.5-14.5); White Blood Cell Count 5.8 10^3/uL (4.8-10.8)
[2023-11-03 11:45] LABS: Iron 55 ug/dl (37-170)
[2023-11-03 11:55] LABS: Percent Saturation 18 % (20-50); Total Iron Binding Capacity 290 ug/dl (265-497)
== END ==
LOC: REG 09:31
PROVIDERS: ATTENDING PHYSICIAN Internal Medicine Hematology & Oncology; FAMILY PHYSICIAN Family Medicine
DX: C25.3 Malignant neoplasm of pancreatic duct (principal)
CPT/HCPCS: 36415; 82728; 83540; 83550; 85025

== ENCOUNTER → 2023-11-18 09:42 | Outpatient (REF) | payer MEDICARE, OTHER, SELFPAY | LOC: REG 09:42 | PROVIDERS: ATTENDING PHYSICIAN Internal Medicine Geriatric Medicine; FAMILY PHYSICIAN Family Medicine | DX: E78.5 Hyperlipidemia, unspecified (principal) | CPT/HCPCS: 36415 ==

== ENCOUNTER → 2023-12-06 08:17 | Outpatient (REF) | payer MEDICARE, OTHER, SELFPAY ==
[2023-12-06 09:23] LABS: % Basophils 0.3 % (0-2); % Eosinophils 2.7 % (0-6); % Immature Granulocytes 0.5 % (0-0.5); % Lymphocytes 11.9 % (20.5-51.1); % Monocytes 5.2 % (1.7-9.3); % Neutrophils 79.4 % (42.2-75.2); Absolute Eosinophils 0.2 10^3/uL (0-0.7); Absolute Lymphocytes 0.7 10^3/uL (1.2-3.4); Absolute Monocytes 0.3 10^3/uL (0.1-0.6); Absolute Neutrophils 4.7 10^3/uL (1.4-6.5); Hemoglobin 10.2 g/dL (12.0-16.0); Mean Corp Hgb Conc. 31.9 g/dL (33.0-37.0); Mean Corpuscular Hgb 29.8 pg (27.0-31.0); Mean Corpuscular Volume 93.6 fL (81.0-99.0); Mean Platelet Volume 9.5 fL (7.4-10.4); Nucleated Red Blood Cells % 0 %; Platelet Count 290 10^3/uL (130-400); Red Blood Cell Count 3.42 10^6/uL (4.20-5.40); Red Cell Dist. Width 13.9 % (11.5-14.5)
[2023-12-06 10:56] LABS: ALT (SGPT) 52 U/L (0-35); AST (SGOT) 61 U/L (14-36); Albumin 3.9 g/dl (3.5-5.0); Alkaline Phosphatase 290 U/L (38-126); Blood Urea Nitrogen 18 mg/dl (7-17); Calcium 9.9 mg/dl (8.4-10.2); Carbon Dioxide 20 mmol/L (22-30); Chloride 106 mmol/L (98-107); Direct Bilirubin 0.3 mg/dl (0.0-0.4); Glucose 102 mg/dl (70-99); Iron 64 ug/dl (37-170); Potassium 4.3 mmol/L (3.5-5.1); Sodium 141 mmol/L (135-145); Total Bilirubin 0.5 mg/dl (0.2-1.3); Total Protein 6.6 g/dl (6.3-8.2); eGFR > 60.00
[2023-12-06 11:06] LABS: Percent Saturation 20 % (20-50); Total Iron Binding Capacity 306 ug/dl (265-497)
[2023-12-06 13:00] LABS: Ferritin 42.3 ng/ml (11.1-264.0)
== END ==
LOC: REG 08:17
PROVIDERS: ATTENDING PHYSICIAN Internal Medicine Hematology & Oncology; FAMILY PHYSICIAN Family Medicine
DX: C25.3 Malignant neoplasm of pancreatic duct (principal)
CPT/HCPCS: 36415; 80053; 82248; 82728; 83540; 83550; 85025

== ENCOUNTER 2023-12-07 06:22 | Day surgery (SDC) | payer MEDICARE, OTHER, SELFPAY ==
[2023-12-07 07:56] VITALS: BMI 15.9
[2023-12-07 08:03] VITALS: BP 104/63
[2023-12-07 08:18] VITALS: BMI 15.9
[2023-12-07 10:02] VITALS: BP 117/70
[2023-12-07 10:15] VITALS: BP 117/63
[2023-12-07 10:30] VITALS: BP 110/69
== END 2023-12-07 10:50 | disposition home or self-care (01) ==
LOC: SDS 06:22
PROVIDERS: ATTENDING PHYSICIAN Internal Medicine Gastroenterology
DX: Z46.59 Encounter for fitting and adjustment of other gastrointestinal appliance and device (principal); C25.0 Malignant neoplasm of head of pancreas; K83.8 Other specified diseases of biliary tract
CPT/HCPCS: 43276; 43264; 74330; 76000; C1769; C2625

== ENCOUNTER → 2023-12-24 08:57 | Outpatient (REF) | payer MEDICARE, OTHER, SELFPAY ==
[2023-12-24 10:58] LABS: % Basophils 0.5 % (0-2); % Eosinophils 1.1 % (0-6); % Immature Granulocytes 0.6 % (0-0.5); % Lymphocytes 6.7 % (20.5-51.1); % Monocytes 6.7 % (1.7-9.3); % Neutrophils 84.4 % (42.2-75.2); Absolute Eosinophils 0.1 10^3/uL (0-0.7); Absolute Lymphocytes 0.4 10^3/uL (1.2-3.4); Absolute Monocytes 0.4 10^3/uL (0.1-0.6); Absolute Neutrophils 5.4 10^3/uL (1.4-6.5); Hemoglobin 10.7 g/dL (12.0-16.0); Mean Corp Hgb Conc. 32.4 g/dL (33.0-37.0); Mean Corpuscular Hgb 30.8 pg (27.0-31.0); Mean Corpuscular Volume 95.1 fL (81.0-99.0); Mean Platelet Volume 9.6 fL (7.4-10.4); Nucleated Red Blood Cells % 0 %; Platelet Count 312 10^3/uL (130-400); Red Blood Cell Count 3.47 10^6/uL (4.20-5.40); Red Cell Dist. Width 13.1 % (11.5-14.5); White Blood Cell Count 6.4 10^3/uL (4.8-10.8)
[2023-12-24 11:31] LABS: ALT (SGPT) 77 U/L (0-35); AST (SGOT) 77 U/L (14-36); Albumin 4.1 g/dl (3.5-5.0); Alkaline Phosphatase 453 U/L (38-126); Blood Urea Nitrogen 21 mg/dl (7-17); Carbon Dioxide 27 mmol/L (22-30); Chloride 103 mmol/L (98-107); Direct Bilirubin 0.1 mg/dl (0.0-0.4); Glucose 109 mg/dl (70-99); Iron 101 ug/dl (37-170); Potassium 5.1 mmol/L (3.5-5.1); Sodium 140 mmol/L (135-145); Total Bilirubin 0.8 mg/dl (0.2-1.3); Total Protein 6.9 g/dl (6.3-8.2); eGFR > 60.00
[2023-12-24 11:41] LABS: Percent Saturation 30 % (20-50); Total Iron Binding Capacity 333 ug/dl (265-497)
[2023-12-24 12:14] LABS: Ferritin 28.1 ng/ml (11.1-264.0)
== END ==
LOC: REG 08:57
PROVIDERS: ATTENDING PHYSICIAN Internal Medicine Hematology & Oncology; FAMILY PHYSICIAN Family Medicine
DX: C25.3 Malignant neoplasm of pancreatic duct (principal)
CPT/HCPCS: 36415; 80053; 82248; 82728; 83540; 83550; 85025

== ENCOUNTER 2024-01-03 15:25 | Inpatient (IN) | payer MEDICARE, OTHER, SELFPAY ==
[2024-01-03] VITALS (28 sets, daily range): BP systolic 79–139; BP diastolic 42–91; BMI 16.5
[2024-01-03 11:51] LABS: Hematocrit 27.5 % (37.0-47.0); Hemoglobin 9.5 g/dL (12.0-16.0); Mean Corp Hgb Conc. 34.5 g/dL (33.0-37.0); Mean Corpuscular Hgb 29.8 pg (27.0-31.0); Mean Corpuscular Volume 86.2 fL (81.0-99.0); Mean Platelet Volume 10.5 fL (7.4-10.4); Platelet Count 154 10^3/uL (130-400); Red Blood Cell Count 3.19 10^6/uL (4.20-5.40); White Blood Cell Count 20.8 10^3/uL (4.8-10.8)
[2024-01-03 12:31] LABS: ALT (SGPT) 40 U/L (0-35); AST (SGOT) 42 U/L (14-36); Albumin 3.3 g/dl (3.5-5.0); Alkaline Phosphatase 301 U/L (38-126); Blood Urea Nitrogen 56 mg/dl (7-17); Calcium 8.8 mg/dl (8.4-10.2); Carbon Dioxide 16 mmol/L (22-30); Chloride 98 mmol/L (98-107); Estimated Creatinine Clearance 20 ml/min; Glucose 123 mg/dl (70-99); Potassium 3.3 mmol/L (3.5-5.1); Sodium 132 mmol/L (135-145); Total Bilirubin 0.4 mg/dl (0.2-1.3); Total Protein 6.1 g/dl (6.3-8.2); eGFR 44.08
[2024-01-03 12:37] LABS: Absolute Neutrophils -Man Diff 20.5 10^3/uL (1.4-6.5); Band Neutrophils 10 % (0-3); Lymphocytes 0 % (20-51); Monocytes 1 % (2-9); Platelets Checked Yes; Segmented Neutrophils 89 % (42-75)
--- NOTE | 2024-01-03 12:37 | ED.GENMED ---
History of Present Illness
General
Chief Complaint: Weakness
Source: patient, records and spouse
Time Seen by Provider: 01/03/24 12:07
History of Present Illness
History of Present Illness:
88 year old female with PMH of ovarian and pancreatic cancer, sent to the emergency department for evaluation by the outpatient infusion center where patient was scheduled to undergo iron infusion, after she was found to have a fever of 100.7,
hypotension and tachycardia. Patient does note that all weekend she had been feeling unwell noting fevers, chills/rigors, decreased PO intake, and diarrhea but notes the diarrhea was only in the morning time and very watery. Last episode was
yesterday morning and has not had any since. Patient denies any abdominal pain, urinary symptoms, cough or URI like symptoms. She does note admission here earlier this year for bacteremia 'caused by a blocked stent in her abdomen'. Last chemo was
back in May. Follows at [facility] with Dr. Garcia
Past History
Past History
ED Past Medical History: Cancer (Ovarian cancer), Psychiatric (Anxiety, depression) and Other (Spinal stenosis)
ED Past Surgical History: Gynecological and Orthopedic
Social History
Tobacco: Non-smoker
Alcohol: None
Drug: None
Personal:
Living: with family
Review of Systems
Review of Systems
All Other Systems: ROS reviewed and negative except as documented in HPI and ROS
Phy Exam
Physical Exam
Physical Exam:
GENERAL: Alert , in no apparent distress, thin and frail but very pleasant
VITAL SIGNS: hypotensive, borderline tachycardia
HEAD: NCAT
EYE: clear conjunctiva
NECK: Supple
ENT: o/p clr, mmm.
CARDIAC: Borderline tachycardic rate and rhythm
LUNGS: Clear breath sounds bilaterally, no acute respiratory distress, no wheezes/rales/rhonchi
ABDOMEN: Soft, without focal tenderness, no r/g, no cvat
NEUROLOGICAL: Alert and oriented
SKIN: Warm and dry, skin intact.
MUSCULOSKELETAL: No edema, well perfused.
PSYCH: Normal and appropriate interaction.
Scores
Heart Failure Risk
Heart Failure Risk Score: Not Applicable
Heart Score for Chest Pain Patients
STEMI patient?: Not applicable
Withdrawal Assessment of Alcohol
Withdrawal Assessment Completed?: Not applicable
Sepsis
Sepsis Screening
Sepsis Assessment: Severe Sepsis
Sepsis Screening: Sustained Hypotension-SBP <90,MAP<65, or SBP decrease 40mmHg or more
Sepsis Screen
Sepsis Screen: Severe Sepsis
Date: 01/03/24
Time: 14:29
Course
Orders/Labs/Results
Orders:
Orders
01/03/24 11:22
Electrocardiogram (*1) Urgent
Reason for Study: Fatigue / Weakness
EKG- Treatment ONCE
01/03/24 11:29
Complete Blood Count/With Diff Urgent
Comprehensive Metabolic Panel Urgent
Manual Differential Urgent
01/03/24 12:20
STOOL [C difficile Antigen & Toxins] Urgent
AMRIT Source: Feces/Stool
Specimen Description:
Stool Culture Urgent
AMRIT Source: Feces/Stool
Specimen Description:
01/03/24 12:24
Piperacillin/Tazo 4.5 Gram [Zosyn] 4.5 gram in 100 ml IV NOW
01/03/24 12:25
Electrocardiogram (*1) Urgent
Reason for Study: Tachycardia
EKG- Treatment ONCE
01/03/24 12:26
0.9% Sodium Chloride 1000 ml [Nss] 1,200 ml IV NOW STA
CR Chest - 2 Views Urgent
Comment:
Reason For Exam: sepsis, fever
01/03/24 12:52
COVID-19 Antigen Urgent
Source: Nasal Swab
Lactic Acid Q4H
Comment: CANCEL 2nd LACTIC ACID IF 1st LACTIC ACID IS LESS THAN 2
Procalcitonin Urgent
PCT Algorithmm Indication: Sepsis
Blood Culture Urgent
AMRIT Source: Blood/Venous
Specimen Description:
Influenza A+B Rapid Molecular Urgent
AMRIT Source: Nasal Swab
Specimen Description:
01/03/24 13:04
Blood Culture Routine
AMRIT Source: Blood/Venous
Specimen Description:
01/03/24 13:06
Vancomycin 1 Gram/200 ml [Vancocin] 1 gram in 200 ml IV NOW
01/03/24 13:52
Urinalysis Reflex To Culture Urgent
Date Specimen was Collected: 01/03/24
Time Specimen was Collected: 13:50
Urine Microscopic Reflex Cult Urgent
Urine Culture Urgent
AMRIT Source: U
Specimen Description:
Date Specimen was Collected: 01/03/24
Time Specimen was Collected: 13:50
Abnormal Lab Results
01/03/24 01/03/24 01/03/24
11:29 12:52 13:52
WBC 20.8 H 10^3/uL
(4.8-10.8)
RBC 3.19 L 10^6/uL
(4.20-5.40)
Hgb 9.5 L g/dL
(12.0-16.0)
Hct 27.5 L %
(37.0-47.0)
MPV 10.5 H fL
(7.4-10.4)
Abs Neuts (Manual) 20.5 H 10^3/uL
(1.4-6.5)
Segmented Neutrophils 89 H %
(42-75)
Band Neutrophils 10 H %
(0-3)
Lymphocytes (Manual) 0 L %
(20-51)
Monocytes (Manual) 1 L %
(2-9)
Sodium 132 L mmol/L
(135-145)
Potassium 3.3 L mmol/L
(3.5-5.1)
Carbon Dioxide 16 L mmol/L
(22-30)
BUN 56 H mg/dl
(7-17)
Creatinine 1.2 H mg/dL
(0.6-1.0)
Glucose 123 H mg/dl
(70-99)
AST 42 H U/L
(14-36)
ALT 40 H U/L
(0-35)
Alkaline Phosphatase 301 H U/L
(38-126)
Total Protein 6.1 L g/dl
(6.3-8.2)
Albumin 3.3 L g/dl
(3.5-5.0)
Procalcitonin 55.88 H* ng/ml
(0.0-0.25)
Ur Occult Blood Reflex 4+ A
(Negative)
Urine Nitrite (Reflex) Positive A
(Negative)
Leukocyte Esterase Rfl 1+ A
(Negative)
01/03/24 11:29
01/03/24 11:29
Vital Signs
Initial and Last Documented VS:
Initial Vital Signs
Temp Pulse Resp BP Pulse Ox
99.0 F 110 16 92/57 98
01/03/24 11:19 01/03/24 11:19 01/03/24 11:19 01/03/24 11:19 01/03/24 11:19
Last Documented Vital Signs
Temp Pulse Resp BP Pulse Ox
99.0 F 81 20 87/58 98
01/03/24 11:19 01/03/24 14:00 01/03/24 14:00 01/03/24 14:00 01/03/24 14:00
MDM/Problems Addressed
Differential Diagnosis Includes:
Significant concern for recurring bacteremia/septic shock, UTI, pneumonia, infectious diarrhea/C.Diff, YARELI/dehydration
MDM/Problems Addressed:
88-year-old female with past medical history of pancreatic cancer, last chemo in May, presenting to the emergency department from [facility] where she was scheduled to undergo iron infusion for further evaluation after she was found to have a
fever of 100.7, hypotension and tachycardia. Patient reports over the weekend she did start having diarrhea but only in the morning times, none since yesterday, but does note feeling generally weak throughout the weekend. No known sick contacts.
On arrival here patient is hypotensive and tachycardic but without fever. Labs were initiated from triage and at time of my exam the hematology was back showing a white blood cell count of near 21,000. Will add on lactic, blood cultures,
procalcitonin, urinalysis and chest x-ray. Sepsis fluid boluses ordered in addition to antibiotics. Patient's records from her admission in June were reviewed which showed Klebsiella bacteremia. Reordered vancomycin and Zosyn. Anticipate
admission
Chronic conditions affecting care: Cancer
*Pulse Oximetry
Patient hypoxic: no
*Database Specialist Interpretation
Rate: tachycardiac
Rhythm: sinus
*Critical Care Note
Total Time (30-74mins, 75-104mins- exclusive of procedures): 30
comment:
Critical care statement: A total of 40 minutes of critical care time was provided for this patient. This includes management of unstable vital signs, evaluation of the patient at bedside, reviewing the patient's pertinent medical records, discussion
with consultants, review of old EKGs and review of pertinent medical records. This time with separate from time utilized to perform the aforementioned documented procedures
Data Reviewed
Review of Other/Old Records Reveals: Labs, Records, Radiology Studies and Discharge Summary
Source: patient, records and spouse
Patient Management
Discussion with other providers: Hospitalist
Escalation/DeEscalation of care consider admission/obs:
Patient's workup continues to be concerning for sepsis as suspected reason for admission. Patient's urinalysis did show nitrite positive urine however she does not have any urinary symptoms. Question UTI as cause for sepsis. Will trend cultures.
Hospitalist team accepts for continued evaluation and treatment
ED Attending Note
-
Portions of this chart may have been created with voice recognition software.� Occasional wrong word or��sound alike� substitutions may have occurred due to the inherent limitations of voice recognition software.
Discharge Plan
Departure
Patient Disposition: Admit
Date of Disposition: 01/03/24
Time of Disposition: 13:25
Presentation/result/management discussed w/ accepting MD/DO: Hospitalist
Discharge Problem:
Sepsis, YARELI (acute kidney injury), Anemia
Prescriptions:
No Action
Fruit and Vegetable Daily 5-6-150 mg Capsule
6 cap PO DAILY
methylene blue 65 mg Tablet
65 mg PO DAILY
ivermectin 3 mg Tablet
6 mg PO DAILY
Patient Comments:
patient recieved from [facility]
aspirin 325 mg Tablet
325 mg PO BIDPRN PRN (Reason: fever)
shark liver oil-vitamin E 500-5 mg-unit Capsule
1 cap PO BID
Referrals:
Hattie Nichols DO [Family Provider] -
Interventions
Interventions:
*Risk Screen - Suicide Last Done: 01/03/24 11:19
*General Assessment Last Done: 01/03/24 13:09
*Neglect/Abuse Screening Last Done: 01/03/24 11:19
*ED COVID-19 Vaccine History Last Done: 01/03/24 13:09
ED- Cardiac Assessment Last Done: 01/03/24 13:09
ED- Neurological Assessment Last Done: 01/03/24 13:09
ED- Pulmonary Assessment Last Done: 01/03/24 13:09
Discharge Date and Time
Print Language: MOROCCAN
[2024-01-03 12:38] LABS: Normal RBC Morphology Yes; Total Cells Counted 100
[2024-01-03] MEDS: NSS 1200 ML IV (12:55)
[2024-01-03] MEDS: ZOSYN 100 IV (13:05)
[2024-01-03 13:18] LABS: Lactic Acid 1.3 mmol/L (0.7-2.0)
[2024-01-03 13:20] LABS: COVID-19 Antigen Negative (Negative)
[2024-01-03 13:39] LABS: Procalcitonin 55.88 ng/ml (0.0-0.25)
[2024-01-03 14:21] LABS: Urine Albumin Trace (Neg - Trace); Urine Bilirubin Negative (Negative); Urine Character Clear (Clear); Urine Glucose Negative (Negative); Urine Ketone Negative (Negative); Urine Leukocyte 1+ (Negative); Urine Nitrite Positive (Negative); Urine Occult Blood 4+ (Negative); Urine Urobilinogen Negative (Neg - 1+)
[2024-01-03] MEDS: VANCOCIN 200 IV (14:21)
--- NOTE | 2024-01-03 14:26 | HPS.HSE ---
Family Physician
-
Family Physician: Hattie Nichols
Chief Complaint
-
Sent for fever 101.5F, hypotension from transfusion center
History of Present Illness
88-year-old female sent from [facility] where she was scheduled to get IV iron today. She was sent due to fever 101.5 F hypotension and tachycardia. She reports having watery diarrhea, fevers, chills/rigors, decreased oral intake
throughout the weekend. She reports 1 episode of explosive pudding-like diarrhea on Wednesday and 1 episode of watery brown explosive diarrhea on Wednesday. She reports her vomiting was more of a regurgitation. She has chronic lower back pain when
turning and getting out of bed chronic due to osteoarthritis. She was noted to be hypotensive 96/59 with WBC 21 left shift. She denies any travel, antibiotics or sick contacts. She does states she was traveling to [place] [employer] [place] Wednesday and
Wednesday when her niece and great niece. She denies headache, sore throat, cough, shortness of breath, chest pain, palpitations, abdominal pain, current nausea, urinary symptoms. She follows with [facility] for pancreatic cancer completed
chemotherapy 2022/ovarian cancer with chemo, total hysterectomy, BSO in the , she had history of Klebsiella bacteremia /cholangitis in June 2023 due to migration of biliary stents. She is status post ERCP 06/02/2023 with stent removal
and new stents placed ovarian cancer treated with surgery and chemotherapy, depression, anxiety, spinal stenosis, mechanical fall with right hip fracture August 2022 s/p right hip hemiarthroplasty, chronic LBBB, severe protein calorie malnutrition
Medical History
Past Medical History
Past Medical History: Reports Other
Additional Past Medical History:
Cholangitis post ERCP 06/02/2023 with stent removal and new stents placed
Ovarian cancer treated with surgery and chemotherapy
Pancreatic CA
Iron deficiency anemia gets IV iron transfusions
Depression
Anxiety,
Spinal stenosis
Mechanical fall with right hip fracture August 2022 s/p right hip hemiarthroplasty,
Chronic LBBB,
severe protein Calorie malnutrition-BMI 16.5
Past Surgical History: Reports Other
Additional Past Surgical History:
Spinal Surgery
T&A
DAMION / BSO
Right Hip ORIF
Cataracts
Social History
Tobacco: Non-smoker
Alcohol: None
Drug: None
Personal:
Living: With Family
Family History
Family History: Other (Mother, Father, Brother: Lung Cancer MGM: Liver Cancer)
Allergies / Home Medications
Allergies reflects when Allergies were last updated in [facility].
Home Medications with original date entered in [facility]
Allergy/Medication List:
Allergies
Allergy/AdvReac Type Severity Reaction Status Date / Time
poison vipul extract Allergy SEVERE Verified 09/03/22 12:10
BLISTERING
Home Medications
Balance Of Nature 4 cap PO BIDPRN PRN supplement 03/03/23
cholecalciferol (vitamin D3) 25 mcg (1,000 unit) tablet 25 mcg PO DAILY 03/03/23
cyanocobalamin (vitamin B-12) 1,000 mcg tablet 1,000 mcg PO DAILY 03/03/23
docusate sodium 100 mg capsule 100 mg PO BID 03/03/23
esomeprazole magnesium 40 mg capsule,delayed release 40 mg PO DAILY 03/03/23
famotidine 40 mg tablet 40 mg PO HS 03/03/23
Review of Systems
-
History Source: Patient
A 12 point ROS was completed and negative except as noted: Yes
Constitutional: Denies Fever, Fatigue or Chills
EENT: Denies Sore Throat or Runny Nose
Respiratory: Denies Cough or Trouble Breathing
Cardiac: Denies Chest Pain, Diaphoresis, Palpitations or Syncope
Abdomen/GI: Reports Vomiting (Reported as regurgitation per patient) and Diarrhea (X 2 episodes 1 on Wednesday explosive pudding-like, 1 on Wednesday watery brown explosive); Denies Abdominal Pain, Nausea, Constipated, Bloody Stools or Black Stools
: Denies Dysuria, Frequency, Flank Pain, Incontinence, Difficulty Voiding, Urgency, Bleeding or Dark Urine
Musculoskeletal: Reports Other (Chronic lower lumbar back pain); Denies Joint Pain or Edema
Skin: Denies Itching or Rash
Neurological: Denies Dizzy, Headache or Weakness
Endocrine: Reports No Symptoms
Hematologic/Lymphatic: Reports No Symptoms
Psych: Reports Calm
Physical Exam
Vital Signs
Vital Signs
Temp Pulse Resp BP Pulse Ox
99.0 F 81 20 87/58 98
01/03/24 11:19 01/03/24 14:00 01/03/24 14:00 01/03/24 14:00 01/03/24 14:00
Physical Exam
General: Pain (Lower lumbar), Fever and Cachectic; No Chills
HEENT: NormoCephalic, Anicteric, Moist mucous membranes, PERRLA, Isabela Conjunctivae and No Ptosis
Respiratory: Clear; No Wheezes, Rales or Rhonchi
Cardiac: S1/S2 and Regular Rhythm; No Murmur, Rub, Gallop or Peripheral Edema
Breast: Deferred by me
GI: Soft, Normal Bowel Sounds and Tender (Distended with left lower quadrant abdominal pain on attendings exam)
Rectal: Deferred by Provider
Genito-urinary: Deferred by me and No costovertebral tender
Musculoskeletal: No Clubbing, No Cyanosis and No Edema
Skin: Warm, Dry and Other (Multiple nevi to chest and back); No Rash or Jaundice
Neuro: AO x 3, No Motor Deficits, Cranial Nerves Intact and No Sensory Deficits; No Slurred Speech, Facial Droop, Tremors or Sedated
Psych: Calm
Laboratory Results
-
01/03/24 11:29
01/03/24 11:29
Laboratory Results
Lactic Acid Cancelled 01/03/24 16:15
Total Bilirubin 0.4 mg/dl (0.2-1.3) 01/03/24 11:29
AST 42 U/L (14-36) H 01/03/24 11:29
ALT 40 U/L (0-35) H 01/03/24 11:29
Alkaline Phosphatase 301 U/L (38-126) H 01/03/24 11:29
Impression/Plan
-
Impression/plan:
Admit to IMU
#Septic shock 2/2 possibly secondary to colitis vs UTI
# Acute Abdominal pain left-sided with distention concern for colitis
#Acute acidosis
WBC 20.8 with left shift, bandemia, temp 99, HR 81, 87/58
COVID-negative
Pro-William 55.88
-Check stool cultures, stool WBC, stool for C. difficile
-UA + leukocytes, positive nitrates moderate bacteria, WBC 26/30, plus for occult blood
-1200 cc IV NSS bolus continue IV NSS 100 cc an hour
-Blood culture x 2
-CT abdomen pelvis with oral contrast only concern for colitis given left lower quadrant abdominal pain/distention
-IV Zosyn, IV vancomycin
-Iv bicarb 1 amp 50mEq now
-follow CBC, CMP
EKG: Sinus tach 114 bpm, QTc 482 MS, chronic inverted T waves lateral leads
#Acute hypotension secondary to septic shock
BP 87/58
IV NSS 1200 cc, IV NSS 100 cc an hour
-May require pressors
#Hypokalemia secondary to diarrheal losses
K3.3
-Will give KCl 40 mEq p.o.
-Check magnesium level
-Follow CMP
#YARELI 2/2 volume depletion/diarrheal losses
Creat 1.2/bun 56�creat baseline 0.7
IV NSS 1200 cc in ER continue IV NSS 100 cc an hour
-Follow BMP
#Chronic lower lumbar back pain 2/2 osteoarthritis/spinal stenosis
-Tylenol as needed
-Lidoderm patch
#Chronic transaminitis- stable
-Follow CMP
#Ovarian cancer treated with DAMION/BSO and chemotherapy
#Pancreatic cancer
Last chemo May 2023
-Follows with [facility]
-[facility] 6 mg daily [facility] [place] states her oncologist at [place] is aware she has been on these medications for approximately 5 months
#Iron deficiency anemia gets IV iron transfusions
Hgb 9.5, MCV 86.2 Hgb appears better than baseline
-She reports she had 1 IV iron transfusion approximately 3 to 4 weeks ago
#Cholangitis post ERCP 06/02/2023 with stent removal and new stents placed
#Depression
#Anxiety
-No current medication
#Severe protein Calorie malnutrition-BMI 16.5
-Consult dietary
Other PMH:
Mechanical fall with right hip fracture August 2022 s/p right hip hemiarthroplasty,
Chronic LBBB
DVT prophylaxis
Subcu heparin
Full code
[2024-01-03 14:32] LABS: Urine Bacteria Moderate (Negative); Urine White Cell 26-30 /HPF (0-5)
--- NOTE | 2024-01-03 15:55 | W.PN.UPDATE ---
Update Note
Progress Note Update
This is an addendum to the H&P written by Amelia Anguiano on 01/03/2024. Patient seen and examined independently with [employer].
88-year-old female past medical history of ovarian cancer status post DAMION, BSO and chemotherapy, pancreatic cancer, iron deficiency anemia, cholangitis status post ERCP in May, anxiety/depression, arthritis/spinal stenosis, sent in from infusion
center where she was supposed have iron infusion for fever of 100.7, hypertension and tachycardia. She has had 2 episodes of watery diarrhea in the past several days with bilateral lower quadrant abdominal pain and episode of vomiting. No urinary
symptoms. No cough or upper respiratory symptoms.
Patient with septic shock secondary to likely gastroenteritis versus colitis. N.p.o., IV fluids, Levophed, bicarb push, check stool studies, blood cultures, vancomycin/Zosyn, check CT abdomen pelvis. Replete potassium for hypokalemia.
[2024-01-03 16:07] LABS: Magnesium 1.8 mg/dl (1.6-2.3)
[2024-01-03] MEDS: OMNIPAQUE 50 ML PO (16:17)
[2024-01-03] MEDS: KCL 40 MEQ PO (16:21)
[2024-01-03] MEDS: LIDOCAINE 4% PATCH 1 PATCH TOPICAL (16:26)
[2024-01-03] MEDS: SODIUM BICARBONATE 50 MEQ IV (16:54)
[2024-01-03] MEDS: TYLENOL 650 MG PO (17:36)
[2024-01-03] MEDS: LEVOPHED 250 IV (19:31)
--- NOTE | 2024-01-03 21:01 | PHA.VAN.IN ---
Assessment
- Assessment
Renal Function: Appears elevated from baseline (12/24/23 BASELINE SCR: 0.7)
Concomitant Antimicrobials: ZOSYN
- Previous Dosing Experience
Previous Regimen: NONE
Plan
- Plan
Initial / Loading Dose: 1GM
Maintenance Regimen: DOSING BY RANDOM LEVELS
Monitoring: RANDOM VANCOMYCIN LEVEL 01/04/24 AM
Pharmacokinetics Vancomycin I
- -
Patient Age: 88
Patient Sex: Female
Vancomycin Day #: 1
Indication: Gi / Intra-Abdominal (SEPTIC SHOCK)
Requesting Provider: DUANE
Pertinent Antimicrobial Allergies:
Allergies
Sulfa (Sulfonamide Antibiotics) Allergy (Verified 01/03/24 11:21)
Unknown
Height / Weight:
Height 5 ft
Actual Weight 38.4 kg
- Vital Signs / Lab Results
Temp Pulse Resp BP Pulse Ox
99.9 F 83 18 91/57 97
01/03/24 19:34 01/03/24 20:30 01/03/24 20:27 01/03/24 20:30 01/03/24 20:30
Lab Results - Hematology
01/03/24
11:29
WBC 20.8 H
Band Neutrophils 10 H
Lab Results - Chemistry
01/03/24
11:29
BUN 56 H
Creatinine 1.2 H
Estimated Creat Clear 20
Albumin 3.3 L
01/03/24 01/03/24
12:52 16:15
Lactic Acid 1.3 Cancelled
Lab Results - Urine
01/03/24
13:52
Urine Nitrite (Reflex) Positive A
Leukocyte Esterase Rfl 1+ A
Urine WBC (Reflex) 26-30 A
Ur Squamous Epith Cells 6-10
Urine Bacteria (Reflex) Moderate A
Microbiology Results
01/03/24 12:52 Influenza Types A & B (CRISTIN) - Final
Nasal Swab Negative for Influenza A & B, NAAT
Negative results must be combined with clinical observations
and patient history.
Nucleic Acid Amplification test (NAAT)performed on the
[employer] platform.
[2024-01-03] MEDS: NSS 1000 IV (21:47)
[2024-01-03] MEDS: HEPARIN 5000 UNITS SC (21:55)
[2024-01-03] MEDS: ZOSYN 50 IV (22:45)
[2024-01-04] VITALS (47 sets, daily range): BP systolic 83–113; BP diastolic 42–67; PULSE 60–88; O2SAT 97–98; BMI 16.5
[2024-01-04 06:32] LABS: % Basophils 0.4 % (0-2); % Eosinophils 2.4 % (0-6); % Immature Granulocytes 0.5 % (0-0.5); % Lymphocytes 2.4 % (20.5-51.1); % Monocytes 3.9 % (1.7-9.3); % Neutrophils 90.4 % (42.2-75.2); Absolute Basophils 0.1 10^3/uL (0-0.2); Absolute Eosinophils 0.4 10^3/uL (0-0.7); Absolute Immature Granulocytes 0.1 10^3/uL (0-0.05); Absolute Lymphocytes 0.4 10^3/uL (1.2-3.4); Absolute Monocytes 0.7 10^3/uL (0.1-0.6); Absolute Neutrophils 15.4 10^3/uL (1.4-6.5); Hematocrit 23.1 % (37.0-47.0); Mean Corp Hgb Conc. 34.6 g/dL (33.0-37.0); Mean Corpuscular Hgb 29.9 pg (27.0-31.0); Mean Corpuscular Volume 86.2 fL (81.0-99.0); Mean Platelet Volume 11.1 fL (7.4-10.4); Nucleated Red Blood Cells % 0 %; Platelet Count 120 10^3/uL (130-400); Red Blood Cell Count 2.68 10^6/uL (4.20-5.40); Red Cell Dist. Width 13.2 % (11.5-14.5)
[2024-01-04 06:51] LABS: Vancomycin Random 8.7 ug/ml
[2024-01-04 07:03] LABS: ALT (SGPT) 28 U/L (0-35); AST (SGOT) 29 U/L (14-36); Albumin 2.3 g/dl (3.5-5.0); Alkaline Phosphatase 192 U/L (38-126); Blood Urea Nitrogen 41 mg/dl (7-17); Carbon Dioxide 18 mmol/L (22-30); Chloride 111 mmol/L (98-107); Estimated Creatinine Clearance 27 ml/min; Glucose 103 mg/dl (70-99); Potassium 3.2 mmol/L (3.5-5.1); Sodium 142 mmol/L (135-145); Total Bilirubin 0.3 mg/dl (0.2-1.3); Total Protein 4.6 g/dl (6.3-8.2); eGFR > 60.00
[2024-01-04] MEDS: HEPARIN 5000 UNITS SC ×2 (07:24→19:53)
[2024-01-04] MEDS: ZOSYN 50 IV ×3 (07:24→19:53)
[2024-01-04] MEDS: LIDOCAINE 4% PATCH TOPICAL ×2 (07:24→07:35)
[2024-01-04] MEDS: NSS 1000 IV ×2 (07:45→20:02)
[2024-01-04] MEDS: KCL 40 MEQ PO (09:42)
[2024-01-04] MEDS: TYLENOL 650 MG PO (09:42)
--- NOTE | 2024-01-04 11:38 | PTCARENOTE ---
iv used for levo was found to be infiltrated. levo stopped. iv team notified. hospitalist notified. warm blankets and elevated provided.
--- NOTE | 2024-01-04 12:14 | PTCARENOTE ---
bp 83/55. levo restarted in new iv @2mcg/min.
--- NOTE | 2024-01-04 12:29 | ED.GENMED ---
History of Present Illness
General
Chief Complaint: Weakness
Time Seen by Provider: 01/03/24 12:07
History of Present Illness
History of Present Illness:
TIME OF INITIAL ENCOUNTER: 12:30 PM
HPI:
The patient was sent here from [facility] related to temperature of 100.7 �F, heart rate 130, blood pressure 80 systolic. She was there to get an iron infusion. She also had some recent loose stools over the last couple of days which has
since resolved.
EXAM:
NUMBER AND COMPLEXITY OF PROBLEMS ADDRESSED AT THE ENCOUNTER
� Chronic conditions affecting care: Spinal stenosis, ovarian cancer, pancreatic cancer, anxiety/depression
� Acute Exacerbation and/or Progression of Chronic Illness:
� Differential Diagnosis includes:
AMOUNT AND/OR COMPLEXITY OF DATA TO BE REVIEWED AND ANALYZED
� I performed an independent evaluation of and my interpretation is:
EKG:
CT:
X-rays:
Laboratory Studies: White count 17.0, hemoglobin 8.0, platelets 120, 10% bands, potassium 3.2, bicarb 18, urinalysis positive nitrite and 26-30 white cells
Other:
� Review of other/old records:
� Clinical information was obtained by an independent historian:
� Prescriptions/Medications Considered but not given:
� Further testing considered but not performed:
RISK OF COMPLICATIONS AND/OR MORBIDITY OR MORTALITY OF PATIENT MANAGEMENT
� Social determinants of health affecting care:
� Discussion with other providers:
� Escalation of care including admission/observation vs risk of discharge considered:
ANY OTHER UPDATES:
Past History
Past History
ED Past Medical History: Cancer (Ovarian cancer), Psychiatric (Anxiety, depression) and Other (Spinal stenosis)
ED Past Surgical History: Gynecological and Orthopedic
Social History
Tobacco: Non-smoker
Alcohol: None
Drug: None
Personal:
Living: with family
Sepsis
Sepsis Screen
Sepsis Screen: Severe Sepsis
Date: 01/04/24
Time: 12:29
Course
Orders/Labs/Results
Orders:
Orders
01/03/24 11:22
Electrocardiogram (*1) Urgent
Reason for Study: Fatigue / Weakness
EKG- Treatment ONCE
01/03/24 11:29
Complete Blood Count/With Diff Urgent
Comprehensive Metabolic Panel Urgent
Magnesium Urgent
Comment: ADD ON
Manual Differential Urgent
01/03/24 12:20
STOOL [C difficile Antigen & Toxins] Urgent
AMRIT Source: Feces/Stool
Specimen Description:
Stool Culture Urgent
AMRIT Source: Feces/Stool
Specimen Description:
01/03/24 12:24
Piperacillin/Tazo 4.5 Gram [Zosyn] 4.5 gram in 100 ml IV NOW
01/03/24 12:25
EKG- Treatment ONCE
01/03/24 12:26
0.9% Sodium Chloride 1000 ml [Nss] 1,200 ml IV NOW STA
CR Chest - 2 Views Urgent
Comment:
Reason For Exam: sepsis, fever
01/03/24 12:52
COVID-19 Antigen Urgent
Source: Nasal Swab
Lactic Acid Q4H
Comment: CANCEL 2nd LACTIC ACID IF 1st LACTIC ACID IS LESS THAN 2
Procalcitonin Urgent
PCT Algorithmm Indication: Sepsis
Blood Culture Urgent
AMRIT Source: Blood/Venous
Specimen Description:
Influenza A+B Rapid Molecular Urgent
AMRIT Source: Nasal Swab
Specimen Description:
01/03/24 13:04
Blood Culture Routine
AMRIT Source: Blood/Venous
Specimen Description:
01/03/24 13:06
Vancomycin 1 Gram/200 ml [Vancocin] 1 gram in 200 ml IV NOW
01/03/24 13:52
Urinalysis Reflex To Culture Urgent
Date Specimen was Collected: 01/03/24
Time Specimen was Collected: 13:50
Urine Microscopic Reflex Cult Urgent
Urine Culture Urgent
AMRIT Source: U
Specimen Description:
Date Specimen was Collected: 01/03/24
Time Specimen was Collected: 13:50
01/03/24 15:00
Lidocaine [Lidocaine 4% Patch] 1 patch TOPICAL DAILY
Apply Lidocaine patch(s) to:: lumbarback
01/03/24 15:04
Admit/Transfer Patient As Directed
Co-Sign Provider:
Level of Care: Inpatient admission
Assign to:: IMU- Intermediate Care
Physician / Group: jessica stover
Diagnosis: septic shock poss uti, hypokalemia
Reason for Hospitalization: septic shock poss uti, hypokalemia
Expected length of stay greater than two midnights?: Yes
ELOS- Estimated Length of Stay in days: 4
I certify the patient meets the requirements for IP care: Yes
Code Status As Directed
Resuscitation Status: Full Code
01/03/24 15:06
PRN Pain Medication Management As Directed
May give lesser potent ordered pain med per pt: Yes
preference::
Protocol:: Medication orders for pain may be administered in a
manner that supports deferring to patient preference
when the pt is:
- Requesting an ordered lesser potent pain medication.
Least to most potent pain medications are defined
as: acetaminophen < NSAID < tramadol < opioids
(morphine, oxycodone, hydromorphone).
- Requesting a lesser dose of the same medication IF
ORDERED.
- Requesting a less intrusive route of administration
if both routes are prescribed by the provider (PO <
IV).
01/03/24 15:08
Potassium Chloride [KCl] 40 meq PO NOW STA
01/03/24 15:14
Add On- LAB Urgent
Tests Added?: mg
Sodium Bicarbonate 50 meq IV NOW STA
01/03/24 15:21
CT Abd/pel (oral only)-DH Only Urgent
Comment:
Reason For Exam: abd pain / diarrhea
Iohexol [Omnipaque] See Protocol PO NOW STA
01/03/24 17:14
Acetaminophen [Tylenol] 650 mg PO Q4HPRN PRN
01/03/24 20:15
0.9% Sodium Chloride 1000 ml [Nss] 1,000 ml IV 100 mls/hr
Aspirin 325 mg PO BIDPRN PRN
Heparin 5,000 units SC Q12
Ondansetron Injectable [Zofran] 4 mg IV Q6HPRN PRN
VANCOMYCIN Pharmacy to Dose [VANCOCIN Pharmacy to Dose] 1 each Pharmacy To Prepare [Call Pharmacy To Prepare] 0 ml IV PER PROTOCOL
01/03/24 20:15
Activity As Directed
Activity Level: As Tolerated
Intake/ Output As Directed
Frequency: Per unit guidelines
Vital Signs As Directed
Frequency: Per unit guidelines
Weight As Directed
Frequency: Daily
Ot Eval And Treat Routine
Pt Eval And Treat Routine
Activity Level: As Tolerated
DX Deep Vein Thrombosis Video Routine
01/03/24 22:00
Piperacillin/Tazo 2.25 Gram [Zosyn] 2.25 grams in 50 ml IV Q6H
01/04/24 06:13
Complete Blood Count/With Diff IN AM
Comprehensive Metabolic Panel IN AM
01/05/24 06:00
Complete Blood Count/With Diff IN AM
Comprehensive Metabolic Panel IN AM
01/06/24 06:00
Complete Blood Count/With Diff IN AM
Comprehensive Metabolic Panel IN AM
01/07/24 06:00
Complete Blood Count/With Diff IN AM
Comprehensive Metabolic Panel IN AM
Abnormal Lab Results
01/03/24 01/03/24 01/03/24
11:29 12:52 13:52
WBC 20.8 H 10^3/uL
(4.8-10.8)
RBC 3.19 L 10^6/uL
(4.20-5.40)
Hgb 9.5 L g/dL
(12.0-16.0)
Hct 27.5 L %
(37.0-47.0)
MPV 10.5 H fL
(7.4-10.4)
Abs Neuts (Manual) 20.5 H 10^3/uL
(1.4-6.5)
Segmented Neutrophils 89 H %
(42-75)
Band Neutrophils 10 H %
(0-3)
Lymphocytes (Manual) 0 L %
(20-51)
Monocytes (Manual) 1 L %
(2-9)
Sodium 132 L mmol/L
(135-145)
Potassium 3.3 L mmol/L
(3.5-5.1)
Carbon Dioxide 16 L mmol/L
(22-30)
BUN 56 H mg/dl
(7-17)
Creatinine 1.2 H mg/dL
(0.6-1.0)
Glucose 123 H mg/dl
(70-99)
AST 42 H U/L
(14-36)
ALT 40 H U/L
(0-35)
Alkaline Phosphatase 301 H U/L
(38-126)
Total Protein 6.1 L g/dl
(6.3-8.2)
Albumin 3.3 L g/dl
(3.5-5.0)
Procalcitonin 55.88 H* ng/ml
(0.0-0.25)
Ur Occult Blood Reflex 4+ A
(Negative)
Urine Nitrite (Reflex) Positive A
(Negative)
Leukocyte Esterase Rfl 1+ A
(Negative)
Urine RBC 3-6 A /HPF
(0-2)
Urine WBC (Reflex) 26-30 A /HPF
(0-5)
Urine Bacteria (Reflex) Moderate A
(Negative)
01/03/24 11:29
01/03/24 11:29
Vital Signs
Initial and Last Documented VS:
Initial Vital Signs
Temp Pulse Resp BP Pulse Ox
99.0 F 110 16 92/57 98
01/03/24 11:19 01/03/24 11:19 01/03/24 11:19 01/03/24 11:19 01/03/24 11:19
Last Documented Vital Signs
Temp Pulse Resp BP Pulse Ox
98.6 F 64 18 83/42 95
01/04/24 08:31 01/04/24 12:00 01/03/24 20:27 01/04/24 12:00 01/04/24 12:00
ED Attending Note
-
Portions of this chart may have been created with voice recognition software.� Occasional wrong word or��sound alike� substitutions may have occurred due to the inherent limitations of voice recognition software.
Discharge Plan
Departure
Patient Disposition: Admit
Date of Disposition: 01/03/24
Time of Disposition: 13:25
Presentation/result/management discussed w/ accepting MD/DO: Hospitalist
Discharge Problem:
Sepsis, YARELI (acute kidney injury), Anemia
Interventions
Interventions:
*Risk Screen - Suicide Last Done: 01/03/24 11:19
*General Assessment Last Done: 01/03/24 13:09
*Neglect/Abuse Screening Last Done: 01/03/24 11:19
*ED COVID-19 Vaccine History Last Done: 01/03/24 13:09
ED- Cardiac Assessment Last Done: 01/03/24 13:09
ED- Neurological Assessment Last Done: 01/03/24 13:09
ED- Pulmonary Assessment Last Done: 01/03/24 13:09
[2024-01-04] MEDS: REGITINE 10 ML SC (12:47)
[2024-01-04] MEDS: REGITINE 10 MG SC (12:47)
--- NOTE | 2024-01-04 13:05 | VATNOTE ---
Called to assess left arm 10cm x 5cm Levophed infiltrate. Rx with Phentolamine 5mg/ml sq injections left arm elevated and warm compresses applied. Will continue to monitor
--- NOTE | 2024-01-04 14:48 | CON.GI ---
Addendum entered and electronically signed by Diony Garcia MD 01/04/24 17:40:
I saw and examined the patient.
The HEEL NAILING MACHINE OPERATOR or PA's note was reviewed and I agree with the note.
Comment: 88 yo female dx'd with pancreatic cancer last year requiring biliary stents due to obstruction. She had ERCP in May with removal of occluded plastic stents followed by placement of metal stent and plastic stent. In November she had
repeat ERCP 12/07/23 to remove plastic stent and replace with new 5cm plastic stent through metal stent. She was sent for infusion unit today due to fever. On admission WBC 20K, BCx positive Ecoli. UCx mixed melodie. UA positive LE, WBC. Denies
dysuria. She has had lower abd pain and back pain and diarrhea. LFTs normal TB 0.3, AST 29, ALT 28.
REC:
Continue zosyn
Follow WBC, LFTs
I am not convinced her E coli bacteremia is due to cholangitis, especially since she just had stent exchange 12/07/23
Urine is also possibility
If not improving, or if LFTs bump or there is increased suspicion for occluded stent, we will bring for ERCP/stent exchange.
Will follow
Original Note:
Consultation
-
Date/Time Consultation Requested: 01/04/241424
Date/Time Consultation Performed: 01/04/24 1445
Requesting Provider: Vimal Marvin DO
Performing Provider: SIMONE Aldridge, Diony Garcia MD
Reason for Consultation: sepsis, upper abdominal pain
Medical History
Chief Complaint / HPI
Chief Complaint: fever, cholangitis from stent malfunction
History of Present Illness:
The patient is 88-year-old female with history of GERD, pancreatic adenocarcinoma s/p ERCP and biliary stent placement prior chemo and radiation therapy, admission in May with klebsiella bacteremia related to cholangeitis with stent exchange and
remote history of ovarian cancer, anxiety/depression, RICH, spinal stenosis, and prior fall. She went to November for follow up ERCP wit stent change with Dr. Ceron with one covered metal and plastic stent in biliary tree. plastic stent removed
from biliary tree bile duct was swept and debris found, one plastic stent was placed in right hepatic duct. She was doing well and last Galen developed abdominal pain with diarrhea. She went to iron infusion and was sent to ER with fever 100.
7 with hypotension requiring pressors, and tachycardia. On admission she was noted with fever 102.9, WBC 20.8, procal 55.88 and bili 0.4, AST 42, ALT 40 alk phos 301 with improved LFT's after admission. blood cx + Ecoli and urine mixed melodie.
She was placed on antibiotics with improved fever. Ct was completed with Grossly similar appearance of the known pancreatic head lesion. Stable positioning of the biliary stents with associated pneumobilia. Colonic diverticulosis without
evidence of acute diverticulitis. and Moderate-sized hiatal hernia. Asked to see for possible biliary etiology of sepsis.
At this time she admits to upper abdominal pain and back pain. She did have diarrhea on the weekend but no stools since admission to collect for stool culture. She admits to hx dysphagia with prior dilation but denies issues at this time.
She denies odynophagia, GERD, constipation or rectal bleeding. she does admits to wt loss up to 20 lbs over last year. Pt also admits to taking medication through [facility] medical team incluiding ivermectin, methalene blue and shark
liver oil.
Past Medical History
Past Medical History: Arrhythmias (L BBB), Cancer (pancreatic adeno CA with prior ERCP and biliary stenting, ovarian CA), Psychiatric (anxiety/depression) and Other (klebsiella bacteremia with cholanigitis 05/2023 with stent exchange, RICH, spinal
stenosis, mechanical fall with hip fracture with hemiarthroplasty, malnutrition. EPI)
Past Surgical History: Gynecological (DAMION, BSO ) and Other
Social History
Tobacco: Non-Smoker
Alcohol: Other (rare social )
Drug: None
Personal:
Living: With Family
Employment: Retired
Family History
Family History: Other (no family hx pancreatic issues )
Allergies / Home Medications
Allergy/AdvReac Type Severity Reaction Status Date / Time
poison vipul extract Allergy SEVERE Verified 01/03/24 11:21
BLISTERING
Sulfa (Sulfonamide Allergy Unknown Verified 01/03/24 11:21
Antibiotics)
�Medication �Instructions �Recorded
uwlvjmlc-yhcvqi-mvbjb extract 5 6 cap PO DAILY Supplement 06/09/23
mg-6 mg-150 mg capsule (Fruit and
Vegetable Daily)
methylene blue 65 mg tablet 65 mg PO DAILY Supplement 12/07/23
aspirin 325 mg tablet 325 mg PO BIDPRN PRN fever 01/03/24
ivermectin 3 mg tablet 6 mg PO DAILY Supplement 01/03/24
shark liver oil-vitamin E 500 mg-5 1 cap PO BID Supplement 01/03/24
unit capsule
Review of Systems
-
History Source: Patient
Constitutional: Reports Fever and Weight Loss
EENT: Reports No Symptoms
Respiratory: Reports No Symptoms
Cardiac: Reports No Symptoms
Abdomen/GI: Reports Abdominal Pain, Nausea and Diarrhea
: Reports Other (blue urine with methylene blue use )
Musculoskeletal: Reports Other (back pain )
Neurological: Reports Weakness
Endocrine: Reports No Symptoms
Hematologic/Lymphatic: Reports No Symptoms
Vital Signs
Temp Pulse Resp BP Pulse Ox
98.6 F 80 18 87/50 97
01/04/24 11:38 01/04/24 13:46 01/03/24 20:27 01/04/24 13:00 01/04/24 13:30
Physical Exam
Exam
General: Well Developed, Well Nourished and No Apparent Distress
HEENT: Normocephalic and Anicteric
Respiratory: Clear
Cardiac: Regular Rhythm
GI: Soft, Non Tender and Distended (mild )
Musculoskeletal: No Clubbing and No Cyanosis
Skin: Warm and Dry
Neuro: Awake, Alert and AO x 3
Psych: Calm
Results
WBC 17.0 10^3/uL (4.8-10.8) H 01/04/24 06:13
Hgb 8.0 g/dL (12.0-16.0) L 01/04/24 06:13
Hct 23.1 % (37.0-47.0) L 01/04/24 06:13
MCV 86.2 fL (81.0-99.0) 01/04/24 06:13
Plt Count 120 10^3/uL (130-400) L D 01/04/24 06:13
Absolute Neuts (auto) 15.4 10^3/uL (1.4-6.5) H 01/04/24 06:13
Sodium 142 mmol/L (135-145) D 01/04/24 06:13
Potassium 3.2 mmol/L (3.5-5.1) L 01/04/24 06:13
Chloride 111 mmol/L (98-107) H 01/04/24 06:13
Carbon Dioxide 18 mmol/L (22-30) L 01/04/24 06:13
BUN 41 mg/dl (7-17) H 01/04/24 06:13
Creatinine 0.9 mg/dL (0.6-1.0) 01/04/24 06:13
Calcium 8.0 mg/dl (8.4-10.2) L 01/04/24 06:13
Total Bilirubin 0.3 mg/dl (0.2-1.3) 01/04/24 06:13
AST 29 U/L (14-36) 01/04/24 06:13
ALT 28 U/L (0-35) 01/04/24 06:13
Alkaline Phosphatase 192 U/L (38-126) H 01/04/24 06:13
Diagnostic Image Results:
01/03/24 CT Abd/pel (oral only)-DH Only
1. Grossly similar appearance of the known pancreatic head lesion. Stable positioning of the biliary stents with associated pneumobilia.
2. Colonic diverticulosis without evidence of acute diverticulitis.
3. Moderate-sized hiatal hernia
01/03/24 CXR no active CP process
Prior GI Procedures:
EGD: 01/2023- ahmad- - 3 cm hiatal hernia.
- Benign-appearing esophageal stenosis/ring. Dilated.
Biopsied.
- Normal stomach. Biopsied.
- Normal duodenum.
EUS 02/2023- Osmany - A mass was identified in the pancreatic head. This
was staged T3 Nx Mx by endosonographic criteria. Fine
needle aspiration performed.
- There was dilation in the common bile duct which
measured up to 22 mm.
- There was dilation in the gallbladder body.
ERCP 02/2023- Osmany - The entire biliary tree was severely dilated, with a
mass causing an obstruction.
- Moderate dilatation of the entire opacified area of
the pancreatic duct was found.
- A biliary sphincterotomy was performed.
- One plastic stent was placed into the common bile
duct.
- One plastic stent was placed into the left hepatic
duct.
- One plastic stent was placed into the ventral
pancreatic duct.
ERCP 05/2023- Osmany - Two partially occluded stents from the biliary tree
were seen in the major papilla.
- Biliary sludge and pus drained after existing
plastic stents removal.
- A single moderate biliary stricture was found in the
lower third of the main bile duct. The stricture was
malignant appearing.
- The common bile duct was moderately dilated.
- Two stents were removed from the biliary tree.
- One covered metal stent was placed into the common
bile duct.
- One plastic stent was placed into the right hepatic
duct.
ERCP 12/07/23- Osmany - Two stents from the biliary tree were seen in the
major papilla.
- The common bile duct was mildly dilated.
- One stent was removed from the biliary tree.
- The biliary tree was swept and debris was found.
- One plastic stent was placed into the right hepatic
duct.
Colonoscopy: none
Assessment / Plan
-
The patient is 88-year-old female with history of GERD, pancreatic adenocarcinoma s/p ERCP and biliary stent placement prior chemo and radiation therapy, admission in May with klebsiella bacteremia related to cholangeitis with stent exchange and
remote history of ovarian cancer, anxiety/depression, RICH, spinal stenosis, and prior fall. She went to November for follow up ERCP wit stent change with Dr. Ceron with one covered metal and plastic stent in biliary tree. plastic stent removed
from biliary tree bile duct was swept and debris found, one plastic stent was placed in right hepatic duct. She was doing well and last Wednesday developed abdominal pain with diarrhea. She went to iron infusion and was sent to ER with fever 100.
7 with hypotension requiring pressors, and tachycardia. On admission she was noted with fever 102.9, WBC 20.8, procal 55.88 and bili 0.4, AST 42, ALT 40 alk phos 301 with improved LFT's after admission. blood cx + Ecoli and urine mixed melodie.
She was placed on antibiotics with improved fever. Ct was completed with Grossly similar appearance of the known pancreatic head lesion. Stable positioning of the biliary stents with associated pneumobilia. Colonic diverticulosis without
evidence of acute diverticulitis. and Moderate-sized hiatal hernia. Asked to see for possible biliary etiology of sepsis.
-recurrent klebsiella sepsis with hypotension/fever/leukocytosis
-pancreatic CA with biliary stents in place prior chemo and radiation with current integrative medicine treatment with Ivermectin, methylene blue and sharp liver oil
-RICH
-diarrhea
-hypokalemia
other medical problems:
-anxiety/depression
--ovarian CA
PLAN
Etiology of ecoli bacteremia related to urinary issues with mixed melodie on imaging, biliary ( LFT mild elevation with improvement since admission and CT stable) vs other
cont antibiotics -- current on IV Zosyn
on full liquid diet will advance to low fat
add supplement with wt loss
trend CBC with anemia
add Zenpep as pt taking Creon prior to admission
if recurrent diarrhea check stool studies to rule out c-diff
will follow if not improving consider stent change
replete K per hospitalist
-
-
Thank you for consultation and allowing me to participate in the patient's care. Please call the sonographer GI physician during the after hours with any questions or concerns.
--- NOTE | 2024-01-04 14:50 | CM ---
Patient seen at bedside with physicians. Patient in ED. Patient also present. Patient [facility]. Patient stated that there are 2 steps to enter. Patient has a walker and cane but does not use them. patient has had [facility]
in the past and has volunteered at [facility]. If necessary she would prefer to go there but first choice is home with VN. Patient PCP is Dr. Nichols and she uses the same pharmacy as previously. Patient stated that she had no issues with paying bills at
this time. Patient plan is dependent on progress and therapy assessment. CM will continue to follow for discharge planning needs.
Plan; home with [facility]N vs SNF
[2024-01-04] MEDS: ZENPEP DELAYED RELEASE CAPSULE 2 CAPSULE PO ×2 (16:44→21:26)
--- NOTE | 2024-01-04 17:18 | W.PN.HOSP.TC ---
Addendum entered and electronically signed by Carla Walters MD 01/04/24 19:11:
I saw and evaluated the patient independently. I reviewed the resident�s note and agree with findings and plan as documented by Dr. Marvin.
GENERAL: chronically ill appearing female in no apparent distress
HEENT: NC/AT
HEART: regular rate and rhythm, +S1, +S2
LUNGS : clear to auscultation bilaterally
ABDOM: soft, nontender, nondistended, + bowel sounds--upper abdomen hurts to move--seems like muscular
EXT: no cyanosis, clubbing, or edema
NEUROLOGIC: grossly intact
Septic shock (POA, criteria are tachypnea, tachycardia, leukocytosis) along with acute metabolic acidosis with source possibly colitis vs UTI--blood culture positive for E. coli--await urine culture--cont zosyn--stop vanco--CT scan with concern for
colitis--requiring pressors--unable to wean--cont IVF--check stool cultures--apprec GI
Hypokalemia secondary to diarrheal losses most likely--replete as needed--check mag
YARELI due to volume depletion/diarrheal losses--cont IVF--follow creat (creat baseline 0.7)
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
Chronic transaminitis- stable--likely from pancreatic cancer and biliary stent--Follow CMP
Ovarian cancer treated with DAMION/BSO and chemotherapy 1990s/Pancreatic cancer with Last chemo May 2023--Follows with [facility]--Takes ivermectin 6 mg daily and methylene blue 65 mg daily from [facility] [place]-- states her
oncologist at [facility] is aware she has been on these medications for approximately 5 months
Iron deficiency anemia gets IV iron transfusions--did not receive due to hypotension and sepsis--sent to ED
Cholangitis post ERCP 06/02/2023 with stent removal and new stents placed
Depression/Anxiety-No current medication
Severe protein Calorie malnutrition-BMI 16.5--Consult dietary
Mechanical fall with right hip fracture August 2022 s/p right hip hemiarthroplasty
DVT prophylaxis
Code status -- FULL CODE
Total Critical Care Time 33 minutes. I was immediately available to the patient and staff. I personally examined, reviewed labs, diagnostic images/reports, interpretations, treatment plans, discussed patient care with other providers and family
or caregivers (if patient is unable to make decisions), entered orders as appropriate and documented the medical record.
Original Note:
Today's Communication/Plan
-
Pt still waiting for bed in IMU. Pt failed to be weaned off of pressors. Pressor support will need to be continued in the interim. GI vs cause of sepsis. Continue fluids and IV abx; tailor abx to blood culture organism and sensitivities.
Assessment / Plan
Assessment / Plan
1. Septic Shock
- Patient met the SIRS criteria at admission with tachypnea, tachycardia, fever and elevated WBC (20.8 at admission, 17.8 this morning)
- Blood Culture showed positive culture with preliminary organism E. Coli (unsure if or GI source)
- UA showed positive leukocytes, positive nitrate, moderate bacteria.
- CT abdomen/Pelvis shows signs concerning for colitis
- Pt on 1L NS @ 100 ml/hr for fluid rescusitation.
- Patient on IV Zosyn/IV Vancomycin
- Abx can be tailored after cultures show clearer picture.
- Pt being followed by GI.
- Stool studies to rule out C. Diff suggested if diarrhea continues to be a problem.
2. Acute Acidosis
- Patient given 1 amp 50meq HCo3; HCO3 18. Continue to trend.
3. Acute hypotension
- Pt given fluids, see above.
- Pt given pressor support; failed weaning trial.
- Will be admitted to IMU for pressor support as needed.
4. Hypokalemia
- K 3.2
- Pt given 40meq K;
- Continue to Trend CMP
Anticipated Discharge: > 48 hours
Subjective/Interval History
-
Date of Service: January 04, 2024
Pt is a 88 F with a PMHx of panceatic cancer and acute choangitis with stent placement 3 months ago. Pt was admitted yesterday for presumed sepsis. Today, patient continues to complain of abdominal pain that is achy in nature and is exacerbated by
movement, but not palpation. Patient denies nausea, vomiting, or diarrhea at this time, though she had bouts of explosive diarrhea 2-3 days ago. Pt notes that she has not eaten much over the past 2 days. Pt denies CP, SOB, but notes some fatigue.
Objective Data
-
Labs:
Laboratory Results
01/04/24
06:13
WBC 17.0 H
Hgb 8.0 L
Hct 23.1 L
Plt Count 120 L D
Sodium 142 D
Potassium 3.2 L
Chloride 111 H
Carbon Dioxide 18 L
BUN 41 H
Creatinine 0.9
Glucose 103 H
Calcium 8.0 L
Total Bilirubin 0.3
AST 29
ALT 28
Alkaline Phosphatase 192 H
Vital Signs:
Vital Signs
Temp Pulse Resp BP Pulse Ox
99 F 98 18 112/53 95
01/04/24 15:10 01/04/24 14:45 01/03/24 20:27 01/04/24 14:00 01/04/24 14:45
I&O
01/03/24 01/04/24 01/05/24
06:59 06:59 06:59
Output Total 600 / 600
Balance -600 / -600
Review of Systems
-
History Source: Patient
Constitutional: Reports Fever
Respiratory: Reports No Symptoms
Cardiac: Reports No Symptoms
Abdomen/GI: Reports Abdominal Pain (exacerbated by movement)
Genitourinary: Reports No Symptoms
Neuro: Reports No Symptoms
Physical Exam
-
General: Conversant, Cachectic and Other (Frail; comfortable but pain with movement)
HEENT: Normocephalic and Atraumatic
Respiratory: Clear to Auscultation
Cardiac: Regular Rhythm
GI: Soft and Nontender (in all 4 quadrants )
Skin: Warm and Dry
Neuro: Awake and Alert
Psych: Calm
Data Reviewed
-
CT Scan: Report Reviewed by me and Discussed with Patient
Labs: Labs Reviewed by me and Discussed with Patient
[2024-01-04] MEDS: LEVOPHED 250 IV (21:27)
[2024-01-05] VITALS (49 sets, daily range): BP systolic 70–123; BP diastolic 40–77
[2024-01-05] MEDS: TYLENOL 650 MG PO ×4 (00:04→18:17)
[2024-01-05] MEDS: ZOSYN 50 IV ×3 (02:23→20:37)
[2024-01-05 05:29] LABS: ALT (SGPT) 23 U/L (0-35); AST (SGOT) 25 U/L (14-36); Albumin 2.1 g/dl (3.5-5.0); Alkaline Phosphatase 168 U/L (38-126); Blood Urea Nitrogen 26 mg/dl (7-17); Calcium 7.6 mg/dl (8.4-10.2); Carbon Dioxide 18 mmol/L (22-30); Chloride 113 mmol/L (98-107); Estimated Creatinine Clearance 35 ml/min; Glucose 95 mg/dl (70-99); Potassium 3.7 mmol/L (3.5-5.1); Sodium 139 mmol/L (135-145); Total Bilirubin 0.5 mg/dl (0.2-1.3); Total Protein 4.5 g/dl (6.3-8.2); eGFR > 60.00
[2024-01-05 05:32] LABS: % Basophils 0.1 % (0-2); % Eosinophils 0.3 % (0-6); % Immature Granulocytes 0.8 % (0-0.5); % Lymphocytes 4.2 % (20.5-51.1); % Neutrophils 86.6 % (42.2-75.2); Absolute Immature Granulocytes 0.1 10^3/uL (0-0.05); Absolute Lymphocytes 0.4 10^3/uL (1.2-3.4); Absolute Monocytes 0.7 10^3/uL (0.1-0.6); Hematocrit 23.7 % (37.0-47.0); Mean Corp Hgb Conc. 33.8 g/dL (33.0-37.0); Mean Corpuscular Hgb 30.5 pg (27.0-31.0); Mean Corpuscular Volume 90.5 fL (81.0-99.0); Mean Platelet Volume 10.8 fL (7.4-10.4); Nucleated Red Blood Cells % 0 %; Platelet Count 97 10^3/uL (130-400); Red Blood Cell Count 2.62 10^6/uL (4.20-5.40); Red Cell Dist. Width 13.3 % (11.5-14.5); White Blood Cell Count 9.3 10^3/uL (4.8-10.8)
[2024-01-05] MEDS: NSS 1000 IV ×2 (08:26→22:53)
[2024-01-05] MEDS: ZENPEP DELAYED RELEASE CAPSULE 2 CAPSULE PO ×2 (08:30→13:48)
[2024-01-05] MEDS: LIDOCAINE 4% PATCH TOPICAL (08:30)
--- NOTE | 2024-01-05 12:33 | W.PN.GI.CBS2 ---
Addendum entered and electronically signed by Diony Garcia MD 01/05/24 17:21:
I saw and examined the patient.
The CRYSTAL ATTACHER or PA's note was reviewed and I agree with the note.
Comment: Still c/o back pain.
ABD soft NT
REC:
MRI shows advanced multilevel discogenic and facet degenerative changes. This may be causing back pain
WBC normalized to 9.3 today on zosyn
Ecoli bacteremia could be due to UTI.
I don't believe she need stent exhange at this time given normal LFTs, unchanged bile ducts on imaging, and recent stent exchange last month
Original Note:
Today's Communication / Plan
-
Etiology of ecoli bacteremia related to urinary issues with mixed melodie on imaging, biliary ( LFT mild elevation with improvement since admission and CT stable) vs other
pt now with persistent deep abdominal and back pain -- reviewed with nursing staff pt with difficulty with getting out of bed
agree with MRI lumbar spine for further evaluation
cont antibiotics -- current on IV Zosyn
cont low fat diet with supplement
trend CBC with anemia
add Zenpep as pt taking Creon prior to admission
doubt diarrhea issue as improved since admission
will follow if not improving or rise in LFT's consider stent exchange
Assessment / Plan
-
The patient is 88-year-old female with history of GERD, pancreatic adenocarcinoma s/p ERCP and biliary stent placement prior chemo and radiation therapy, admission in May with klebsiella bacteremia related to cholangeitis with stent exchange and
remote history of ovarian cancer, anxiety/depression, RICH, spinal stenosis, and prior fall. She went to November for follow up ERCP wit stent change with Dr. Ceron with one covered metal and plastic stent in biliary tree. plastic stent removed
from biliary tree bile duct was swept and debris found, one plastic stent was placed in right hepatic duct. She was doing well and last Galen developed abdominal pain with diarrhea. She went to iron infusion and was sent to ER with fever 100.
7 with hypotension requiring pressors, and tachycardia. On admission she was noted with fever 102.9, WBC 20.8, procal 55.88 and bili 0.4, AST 42, ALT 40 alk phos 301 with improved LFT's after admission. blood cx + Ecoli and urine mixed melodie.
She was placed on antibiotics with improved fever. Ct was completed with Grossly similar appearance of the known pancreatic head lesion. Stable positioning of the biliary stents with associated pneumobilia. Colonic diverticulosis without
evidence of acute diverticulitis. and Moderate-sized hiatal hernia. Asked to see for possible biliary etiology of sepsis.
-Ecoli sepsis with hypotension/fever/leukocytosis
-Klebsiella bacteremia 05/2023
-abdominal and back pain
-pancreatic CA with biliary stents in place prior chemo and radiation with current integrative medicine treatment with Ivermectin, methylene blue and sharp liver oil
-RICH
-diarrhea - resolved
other medical problems:
-anxiety/depression
--ovarian CA
PLAN
Etiology of ecoli bacteremia related to urinary issues with mixed melodie on imaging, biliary ( LFT mild elevation with improvement since admission and CT stable) vs other
pt now with persistent deep abdominal and back pain -- reviewed with nursing staff pt with difficulty with getting out of bed
agree with MRI lumbar spine for further evaluation
cont antibiotics -- current on IV Zosyn
cont low fat diet with supplement
trend CBC with anemia
add Zenpep as pt taking Creon prior to admission
doubt diarrhea issue as improved since admission
will follow if not improving or rise in LFT's consider stent exchange
Subjective
Subjective
Date of Service: January 05, 2024
still with complaints of severe lower abdominal/back pain, no radiation to leg, worse with movement and improved with palpation to abdomen, Also some hand swelling, on low fat diet
Objective
Data Reviewed
Laboratory Data:
Laboratory Results
01/05/24 04:53
01/05/24 04:53
Laboratory Results
Magnesium 1.8 mg/dl (1.6-2.3) 01/03/24 11:29
Total Bilirubin 0.5 mg/dl (0.2-1.3) 01/05/24 04:53
AST 25 U/L (14-36) 01/05/24 04:53
ALT 23 U/L (0-35) 01/05/24 04:53
Alkaline Phosphatase 168 U/L (38-126) H 01/05/24 04:53
Vital Signs and I&O:
Vital Signs
Temp Pulse Resp BP Pulse Ox
98.2 F 68 18 107/54 96
01/05/24 05:02 01/05/24 09:00 01/03/24 20:27 01/05/24 09:00 01/05/24 09:00
I&O
01/04/24 01/05/24 01/06/24
06:59 06:59 06:59
Output Total 600 / 600
Balance -600 / -600
Physical Exam
Physical Exam
HEENT: Anicteric and Moist mucous membranes
Cardiology: Normal Sinus Rhythm
Pulmonary: Clear
GI: Soft, Non Distended and Non Tender (Pt actually states some improved pain with pressure to abdomen )
Extremities: No Edema
Neuro: Non Focal
--- NOTE | 2024-01-05 15:41 | W.PN.HOSP.TC ---
Addendum entered and electronically signed by Carla Walters MD 01/05/24 18:44:
I saw and evaluated the patient independently. I reviewed the resident�s note and agree with findings and plan as documented by Dr. Marvin.
GENERAL: chronically ill appearing female in no apparent distress
HEENT: NC/AT
HEART: regular rate and rhythm, +S1, +S2
LUNGS : clear to auscultation bilaterally
ABDOM: soft, nontender, nondistended, + bowel sounds--upper abdomen and back hurts to move--seems like muscular
EXT: no cyanosis, clubbing, or edema
NEUROLOGIC: grossly intact
Septic shock (POA, criteria are tachypnea, tachycardia, leukocytosis) along with acute metabolic acidosis with source possibly colitis vs UTI--blood culture positive for E. coli-- urine culture with mixed melodie--cont zosyn--stop vanco--CT scan with
concern for colitis-pressors off---apprec GI
Hypokalemia secondary to diarrheal losses most likely--replete as needed--check mag
YARELI due to volume depletion/diarrheal losses--now at baseline--stop IVF
Chronic lower lumbar back pain due to osteoarthritis/spinal stenosis--Tylenol as needed--Lidoderm patch--MRI without compression fractures, does show disc bulges, facet stenosis with degenerative changes
Chronic transaminitis- stable--likely from pancreatic cancer and biliary stent--Follow CMP
Ovarian cancer treated with DAMION/BSO and chemotherapy 1990s/Pancreatic cancer with Last chemo May 2023--Follows with [facility]--Takes ivermectin 6 mg daily and methylene blue 65 mg daily from [facility] [place]-- states her
oncologist at [facility] is aware she has been on these medications for approximately 5 months--adding pancreatic enzymes
Iron deficiency anemia gets IV iron transfusions--did not receive due to hypotension and sepsis--sent to ED--hold on further IV iron for now
Cholangitis post ERCP 06/02/2023 with stent removal and new stents placed
Depression/Anxiety-No current medication
Severe protein Calorie malnutrition-BMI 16.5--Consult dietary
Mechanical fall with right hip fracture August 2022 s/p right hip hemiarthroplasty
DVT prophylaxis
Code status -- FULL CODE
Original Note:
Today's Communication/Plan
-
Pt to be trasnferred from ED to telemetry instead of IMU following successful wean off of pressors. Pt condition is improving on abx, white count normalized. Continue IV Abx and trend WBCs. MRI ordered of the lumbar spine.
Assessment / Plan
Assessment / Plan
1. Septic Shock
- Patient met the SIRS criteria at admission with tachypnea, tachycardia, fever and elevated WBC (20.8 at admission --> 17 --> 9.3 today)
- Blood Culture showed positive culture with preliminary organism E. Coli (unsure if or GI source)
- UA showed positive leukocytes, positive nitrate, moderate bacteria, mixed melodie.
- CT abdomen/Pelvis shows signs concerning for colitis
- Patient on IV Zosyn; IV Vanco discontinued yesterday after preliminary organism identification
- Abx can be tailored after cultures and senstivities show clearer picture.
- Pt being followed by GI: agree with Zosyn, add Zenpep, consider stent exchange if LFTs continue to be elevated
- Diarrhea improved since admission
2. Acute Acidosis
- Patient given 1 amp 50meq HCo3 yesterday; HCO3 18 today.
3. Acute hypotension
- Pt given pressor support since admission; weaning trial finally successful.
- Pt to be transferred to telemetry as pressor support is no longer needed.
4. Hypokalemia
- K 3.2 --> 3.7 today
- Continue to Monitor CMP
5. Abdominal Pain
- Pain in upper abdomen and lumber back; nontender to palpation of the abdomen, however, painful with movement and rotation in particular.
- GI suggested this may not be abdominal in origin, and that the patient may have a slipped disc; agree with this assessment.
- MRI of the lumbar spine and lower thoracic spine ordered.
6. Pancreatic CA Hx
- Pt inquired about bringing home meds rx by her oncologist
- Pt told that she can have her bring PO meds, but they will need to be surrendered to nursing and reconciled by pharmacist before use.
Anticipated Discharge: > 48 hours
Subjective/Interval History
-
Date of Service: January 05, 2024
Pt notes that she is good spirits, but that her abdomen and back is still painful. Pt notes that the pain is aggravated by movement only. Patient denies nausea, vomiting or diarrhea, and is tolerating her diet well. Pt notes a difficulty with
getting out of bed. Pt was successfully weaned off or pressors and exhibits a SBP ~107. Pt denies feeling lightheaded.
Objective Data
-
Labs:
Laboratory Results
01/05/24
04:53
WBC 9.3
Hgb 8.0 L
Hct 23.7 L
Plt Count 97 L
Sodium 139
Potassium 3.7
Chloride 113 H
Carbon Dioxide 18 L
BUN 26 H
Creatinine 0.7
Glucose 95
Calcium 7.6 L
Total Bilirubin 0.5
AST 25
ALT 23
Alkaline Phosphatase 168 H
Vital Signs:
Vital Signs
Temp Pulse Resp BP Pulse Ox
98.2 F 81 18 123/77 97
01/05/24 05:02 01/05/24 15:06 01/03/24 20:27 01/05/24 14:00 01/05/24 13:59
I&O
01/04/24 01/05/24 01/06/24
06:59 06:59 06:59
Intake Total 240 / 240
Output Total 600 / 600
Balance -600 / -600 240 / 240
Review of Systems
-
History Source: Patient
Constitutional: Reports No Symptoms
Respiratory: Reports No Symptoms
Cardiac: Reports No Symptoms
Abdomen/GI: Reports Abdominal Pain
Neuro: Reports No Symptoms
Physical Exam
-
General: No Apparent Distress, Conversant and Cachectic
Respiratory: Clear to Auscultation
Cardiac: Regular Rhythm and S1/S2
GI: Soft and Nontender (improved pain with palpation)
Neuro: Awake and Alert
Psych: Calm
Data Reviewed
-
Labs: Labs Reviewed by me and Discussed with Patient
--- NOTE | 2024-01-05 16:40 | PTCARENOTE ---
Levophed off since 0800 - BP remains stable. Pt AOx3 and very pleasant. Pt had 2 IVs infiltrate today and 1 yesterday. Pt w/ labs ordered - attempted to draw but unable x 2.
[2024-01-05] MEDS: ZOSYN IV (17:23)
[2024-01-05] MEDS: ZENPEP DELAYED RELEASE CAPSULE PO ×2 (17:23→20:37)
[2024-01-05 18:13] LABS: Lipase 32 U/L (23-300)
--- NOTE | 2024-01-05 22:40 | W.PN.UPDATE ---
Addendum entered and electronically signed by SIMONE Galloway 01/06/24 05:02:
BP continue to drop down after NSS bolus x2 and maintenance IVF. Currently bp 77/44 with map 55. Will start the patient on Levophed and transfer the patient to IMU for med administration per protocol.
Original Note:
Update Note
Progress Note Update
Patient is hypotensive asymptomatic BP 70/40, hr 80 NSS bolus 500cc, midodrine 5mg and IVF NSS @ 80cc/hr maintenance. BP up to 92/52 after 2 hrs, bp dropped again to 82/50, will give another bolus of 500cc of NSS and will increase IVF rate to
100cc/hr.
[2024-01-05] MEDS: NSS 500 IV (22:50)
[2024-01-05] MEDS: ProAmatine 5 MG PO (22:52)
--- NOTE | 2024-01-05 23:10 | PTCARENOTE ---
Patient's Bp- 70/40, HR- 82. SIMONE Moore made aware. new order for 500ml bolus/ IVF/midodrine.
[2024-01-06] VITALS (68 sets, daily range): BP systolic 76–139; BP diastolic 41–96; PULSE 71; BMI 19.0; BMI 18.0
[2024-01-06] MEDS: NSS 500 IV (01:35)
[2024-01-06] MEDS: ZOSYN 50 IV ×2 (01:46→09:50)
[2024-01-06] MEDS: LEVOPHED 250 IV ×2 (05:15→18:07)
--- NOTE | 2024-01-06 06:21 | PTCARENOTE ---
pt arrived from [facility] as transfer. pt is AAOx3- able to make needs known. levophed gtt infusing @ 2mcg/min to keep MAP >65. pt is asymptomatic at this time. 98% RA. IV fluids infusing. pt oriented to new room, call [facility] within reach, care ongoing.
--- NOTE | 2024-01-06 08:44 | PTOTSP ---
Reviewed chart and noted pt was transferred to IMU with hypotension and PT/OT orders were not continued upon transfer. Will need new orders for PT and OT when stable to resume activity.
[2024-01-06] MEDS: ZENPEP DELAYED RELEASE CAPSULE 2 CAPSULE PO (09:47)
[2024-01-06] MEDS: LIDOCAINE 4% PATCH 1 PATCH TOPICAL (09:48)
[2024-01-06] MEDS: TYLENOL 650 MG PO (09:52)
--- NOTE | 2024-01-06 09:54 | W.PN.GI.CBS2 ---
Addendum entered and electronically signed by Diony Garcia MD 01/06/24 13:11:
I saw and examined the patient.
The FORGING ROLL OPERATOR or PA's note was reviewed and I agree with the note.
Comment: Hypotension overnight requiring pressors. Pt having chills this am. Still c/o back pain
ABD soft mild tender lower abd
REC:
ID input appreciated
Will call [facility] for transfer for ERCP to exchange stent
Continue zosyn (Ecoli sensitive to zosyn)
Original Note:
Today's Communication / Plan
-
Pt with recurrent hypotension overnight requiring pressors now with rigors
Etiology of bacteremia -- urinary, biliary vs other
MRI spine as noted
will get ID eval for concern for continued sepsis despite abx
will review with Dr. Garcia for need for stent change
will change to NPO for now
AM labs pending
hold Zenpep with NPO status
family updated at bedside
Assessment / Plan
-
The patient is 88-year-old female with history of GERD, pancreatic adenocarcinoma s/p ERCP and biliary stent placement prior chemo and radiation therapy, admission in May with klebsiella bacteremia related to cholangeitis with stent exchange and
remote history of ovarian cancer, anxiety/depression, RICH, spinal stenosis, and prior fall. She went to November for follow up ERCP wit stent change with Dr. Ceron with one covered metal and plastic stent in biliary tree. plastic stent removed
from biliary tree bile duct was swept and debris found, one plastic stent was placed in right hepatic duct. She was doing well and last [place] developed abdominal pain with diarrhea. She went to iron infusion and was sent to ER with fever 100.
7 with hypotension requiring pressors, and tachycardia. On admission she was noted with fever 102.9, WBC 20.8, procal 55.88 and bili 0.4, AST 42, ALT 40 alk phos 301 with improved LFT's after admission. blood cx + Ecoli and urine mixed melodie.
She was placed on antibiotics with improved fever. Ct was completed with Grossly similar appearance of the known pancreatic head lesion. Stable positioning of the biliary stents with associated pneumobilia. Colonic diverticulosis without
evidence of acute diverticulitis. and Moderate-sized hiatal hernia. Asked to see for possible biliary etiology of sepsis.
01/05 -- MRI lumbar spine
Scoliosis with advanced multilevel discogenic and facet degenerative changes. Multilevel annular bulging and endplate osteophyte formation. No acute fracture or spondylolisthesis.
L1-2: Left lateral recess stenosis compressing the left L2 nerve root. Mild central canal narrowing. Moderate left and mild right foraminal stenosis.
L2-3: Left lateral recess stenosis compressing the left L3 nerve root. Mild central canal narrowing and mild foraminal narrowing.
L3-4: Annular bulge. Endplate osteophyte formation. Facet arthrosis. Moderate left foraminal stenosis. Left lateral recess stenosis compressing the left L4 nerve root. Moderate central canal stenosis.
L4-5: Annular bulge, endplate osteophyte, and posterior central disc protrusion as well as facet arthrosis. Moderate to advanced central canal stenosis. Bilateral lateral recess stenosis compressing the descending L5 nerve roots. Severe left
foraminal stenosis. Moderate right foraminal narrowing.
L5-S1: Annular bulge and small protrusion as well as advanced facet arthrosis. Advanced central canal and bilateral lateral recess stenosis, right greater than left. Compression of the descending S1 nerve roots. Mild bilateral foraminal narrowing,
right greater than left.
-Ecoli sepsis with hypotension/fever/leukocytosis on admission initially improved with antibiotics then recurrent hypotension 01/05
-Klebsiella bacteremia 05/2023
-abdominal and back pain
-pancreatic CA with biliary stents in place prior chemo and radiation with current integrative medicine treatment with Ivermectin, methylene blue and sharp liver oil
-RICH
-diarrhea - resolved
other medical problems:
-anxiety/depression
--ovarian CA
PLAN
Pt with recurrent hypotension overnight requiring pressors now with rigors
Etiology of bacteremia -- urinary, biliary vs other
MRI spine as noted
will get ID eval for concern for continued sepsis despite abx
will review with Dr. Garcia for need for stent change
will change to NPO for now
AM labs pending
hold Zenpep with NPO status
family updated at bedside
Subjective
Subjective
Date of Service: January 06, 2024
last fever 01/02 but noted with hypotension overnight now with rigors, tachycardia, some lower abdominal/back pain no change
Objective
Data Reviewed
Laboratory Data:
Laboratory Results
Magnesium 1.8 mg/dl (1.6-2.3) 01/03/24 11:29
Total Bilirubin 0.5 mg/dl (0.2-1.3) 01/05/24 04:53
AST 25 U/L (14-36) 01/05/24 04:53
ALT 23 U/L (0-35) 01/05/24 04:53
Alkaline Phosphatase 168 U/L (38-126) H 01/05/24 04:53
Lipase Cancelled 01/05/24 10:07
Vital Signs and I&O:
Vital Signs
Temp Pulse Resp BP Pulse Ox
98.5 F 68 17 102/61 95
01/06/24 08:00 01/06/24 06:00 01/06/24 06:00 01/06/24 06:00 01/06/24 06:00
I&O
01/05/24 01/06/24 01/07/24
06:59 06:59 06:59
Intake Total 2940 / 2940
Output Total 450 / 450
Balance 2490 / 2490
Physical Exam
Physical Exam
HEENT: Other (pale appearing with rigors but awake and conversant )
Cardiology: Other (tachy with rigors )
Pulmonary: Clear
GI: Soft, Non Distended and Tender (mild lower -- similar to exam 01/04)
Extremities: No Edema
Neuro: Non Focal
[2024-01-06 10:23] LABS: % Basophils 0.3 % (0-2); % Eosinophils 0.3 % (0-6); % Immature Granulocytes 0.9 % (0-0.5); % Lymphocytes 2.1 % (20.5-51.1); % Monocytes 4.8 % (1.7-9.3); % Neutrophils 91.6 % (42.2-75.2); Absolute Basophils 0.1 10^3/uL (0-0.2); Absolute Immature Granulocytes 0.1 10^3/uL (0-0.05); Absolute Lymphocytes 0.3 10^3/uL (1.2-3.4); Absolute Monocytes 0.7 10^3/uL (0.1-0.6); Absolute Neutrophils 14.3 10^3/uL (1.4-6.5); Hematocrit 31.9 % (37.0-47.0); Hemoglobin 10.8 g/dL (12.0-16.0); Mean Corp Hgb Conc. 33.9 g/dL (33.0-37.0); Mean Corpuscular Volume 88.6 fL (81.0-99.0); Mean Platelet Volume 11.8 fL (7.4-10.4); Nucleated Red Blood Cells % 0 %; Platelet Count 147 10^3/uL (130-400); Red Cell Dist. Width 13.2 % (11.5-14.5); White Blood Cell Count 15.6 10^3/uL (4.8-10.8)
--- NOTE | 2024-01-06 11:16 | CON.ID ---
Addendum entered and electronically signed by Meghann Alford MD 01/06/24 15:39:
Found to have C diff, in shock.
CT a/p urgent to assess for megacolon.
Oral vanc 500 mg PO QID, metronidazole, switched zosyn to cefazolin
Discussed with Dr Garcia and Dr Walters - I would cancel the transfer.
AW
Original Note:
Consultation
-
Date/Time Consultation Requested: 01/06/24 10:22
Date/Time Consultation Performed: 01/05/23 11:18
Requesting Provider: Dr Garcia
Performing Provider: Dr Alford
Reason for Consultation: e coli bactermia
Chief Complaint / Past History
Chief Complaint
fever, cholangitis from stent malfunction
History of Present Illness
Ms Corral is an 88 year old female with history of pancreatic adenocarcinoma s/p ERCP and metal and plastic biliary stent placement prior chemo (completed 2022) and radiation therapy. Also remote ovarian cancer 1990s. Last ERCP was November with
Dr Ceron with one covered metal and one plastic stent. Last Wednesday developed abdominal pain and diarrhea. She went to infusion center for iron infusion where she was found to be febrile and referred to the ER.
In the ER she was febrile to 102.9, bp unstable requiring pressors - norepi currently at its peak of 4 mcg/min, tachycardic, wbc initially 20 now 15.6, hgb 9.5, plt 154, L shift noted on arrival, na initially 132, cr 1.2 now 0.7, co2 initially 16
now 12, t bili 0.4 on arrival now 0.9, ast initially 42 now 30, alt 40 now 23, alk phos 301 now 228, procal 55, lactic acid 1.3, ua 26-30 wbc/hpf and 6-10 squamous cells, 01/04 Lumbar MRI: degenerative changes, ct a/p 'Grossly similar appearance of
the known pancreatic head lesion. Stable positioning of the biliary stents with associated pneumobilia. Colonic diverticulosis without evidence of acute diverticulitis.' 01/02 CXR: no active cp process, blood cultures from arrival E coli, single
blood culture repeated, had rigors overnight and requiring pressors. Reviewed with patient, reports rigors last night and today but no: headaches, change in chronic sinus tenderness, sore throat, cough, nausea, vomiting, dysuria, abdominal pain,
urgency, new wounds. Her L arm had a tender PIV without erythema, warmth or drainage - the line was removed and replaced today. She had a single episdoe of dark liquid stool this AM - likely antibiotics assc diarrhea. Currently on zosyn. ID is
consulted for assistance with management.
Past History
Additional Past Medical History:
Cholangitis post ERCP 06/02/2023 with stent removal and new stents placed
Ovarian cancer treated with surgery and chemotherapy
Pancreatic CA
Iron deficiency anemia gets IV iron transfusions
Depression
Anxiety,
Spinal stenosis
Mechanical fall with right hip fracture August 2022 s/p right hip hemiarthroplasty,
Chronic LBBB,
severe protein Calorie malnutrition
Additional Past Surgical History:
Biliary stent placements
Spinal Surgery
T&A
DAMION / BSO
Right Hip ORIF
Cataracts
Allergy History:
poison vipul extract Allergy (Verified 01/03/24 11:21)
SEVERE BLISTERING
Sulfa (Sulfonamide Antibiotics) Allergy (Verified 01/03/24 11:21)
Unknown
Medications Reviewed: Yes
Social History
Tobacco: Non-Smoker
Alcohol: None
Drug: None
Family History
Family History: Not Pertinent
Review of Systems
Review of Systems
General: Fever and Chills
All systems: All other systems were reviewed and were negative
Vital Signs
Temp Pulse Resp BP Pulse Ox
97.8 F 68 17 102/61 95
01/06/24 10:42 01/06/24 06:00 01/06/24 06:00 01/06/24 06:00 01/06/24 06:00
Physical Exam
Physical Exam
Constitutional: Acutely Ill and Chronically Ill
Cardiovascular: Regular Rate and S1/S2; Negative Murmur or Rub
Pulmonary: Clear and Symmetric; Negative Wheezes, Rales or Rhonchi
Gastrointestinal: Soft, Non Tender, Non Distended and Normal Bowel Sounds
Extremities: Other (brusing on the RUE, no PIV site no erythema, warmth, tenderness or drainage)
Skin: Warm and Dry; Negative Rash or Jaundice
Neurological: Awake
Lab / Diagnostic Study Results
01/06/24 09:41
Abs Immat Gran (auto) 0.1 10^3/uL (0-0.05) H 01/06/24 09:41
Absolute Neuts (auto) 14.3 10^3/uL (1.4-6.5) H 01/06/24 09:41
Absolute Lymphs (auto) 0.3 10^3/uL (1.2-3.4) L 01/06/24 09:41
Absolute Monos (auto) 0.7 10^3/uL (0.1-0.6) H 01/06/24 09:41
Absolute Basos (auto) 0.1 10^3/uL (0-0.2) 01/06/24 09:41
Total Counted 100 01/03/24 11:29
Immature Gran % 0.9 % (0-0.5) H 01/06/24 09:41
Neutrophils % 91.6 % (42.2-75.2) H 01/06/24 09:41
Lymphocytes % 2.1 % (20.5-51.1) L 01/06/24 09:41
Monocytes % 4.8 % (1.7-9.3) 01/06/24 09:41
Eosinophils % 0.3 % (0-6) 01/06/24 09:41
Basophils % 0.3 % (0-2) 01/06/24 09:41
Abs Neuts (Manual) 20.5 10^3/uL (1.4-6.5) H 01/03/24 11:29
Segmented Neutrophils 89 % (42-75) H 01/03/24 11:29
Band Neutrophils 10 % (0-3) H 01/03/24 11:29
Lymphocytes (Manual) 0 % (20-51) L 01/03/24 11:29
Lactic Acid Cancelled 01/03/24 16:15
Procalcitonin 55.88 ng/ml (0.0-0.25) H* 01/03/24 12:52
Ur Squamous Epith Cells 6-10 /LPF (Few) 01/03/24 13:52
Microbiology Results
Micro:
01/05/24 20:29 Blood Culture - Pending
Blood/Venous
01/03/24 12:52 Blood Culture - Preliminary
Blood/Venous Escherichia coli
Gram Stain - Final
01/03/24 13:04 Blood Culture - Preliminary
Blood/Venous Escherichia coli
Gram Stain - Final
01/03/24 13:52 Urine Culture - Final
Urine
01/03/24 12:52 Influenza Types A & B (CRISTIN) - Final
Nasal Swab Negative for Influenza A & B, NAAT
Negative results must be combined with clinical observations
and patient history.
Nucleic Acid Amplification test (NAAT)performed on the
[employer] platform.
Blood Culture Preliminary 01/05/24
Positive for Escherichia coli by [employer]
Nucleic Acid Methodology.
Organism 1 Escherichia coli
1. Escherichia coli
M.I.C. RX
--------- ---
Amoxicillin/Potas. Clavulanate <=8/4 S
Ampicillin <=8 S
Ampicillin/Sulbactam <=4/2 S
Aztreonam <=4 S
Cefazolin <=2 S
Ertapenem <=0.5 S
Ciprofloxacin <=0.25 S
Gentamicin <=2 S
Meropenem <=1 S
Piperacillin/Tazobactam <=8 S
Tetracycline <=4 S
Tobramycin <=2 S
Trimethoprim/Sulfamethoxazole <=2/38 S
Assessment / Plan
E coli Bacteremia
Cholangitis
Cachexia
- repeat second blood culture to complete the set
- 01/02 blood culture E coli
- dose of zosyn has been appropriate for patients renal function, isolate is susceptible
- alternative sources evaluated: CXR clear, UA minimal pyuria and urine culture a low colony count of mixed melodie, recheck [employer] ag (negative 01/02, low concern), MRI lumbar spine not revealing, wouldnt expect rigors with a blood clot. Given need
to rule out other sources will check stool for c diff if there is another liquid bowel movement - most likely this is antibiotic associated diarrhea
- suspect source control of the stent infection with biofilm is not yet optimizied, would recommend stent removal/replacement - transfer if needed
AW
Care Review
Plan reviewed with: Physician (Dr Garcia - no other source found)
[2024-01-06 11:18] LABS: ALT (SGPT) 23 U/L (0-35); AST (SGOT) 30 U/L (14-36); Albumin 2.8 g/dl (3.5-5.0); Alkaline Phosphatase 228 U/L (38-126); Blood Urea Nitrogen 21 mg/dl (7-17); Calcium 8.7 mg/dl (8.4-10.2); Carbon Dioxide 12 mmol/L (22-30); Chloride 109 mmol/L (98-107); Estimated Creatinine Clearance 38 ml/min; Glucose 77 mg/dl (70-99); Magnesium 1.9 mg/dl (1.6-2.3); Potassium 3.7 mmol/L (3.5-5.1); Sodium 137 mmol/L (135-145); Total Bilirubin 0.9 mg/dl (0.2-1.3); Total Protein 5.6 g/dl (6.3-8.2); eGFR > 60.00
--- NOTE | 2024-01-06 12:04 | W.PN.HOSP.TC ---
Addendum entered and electronically signed by Carla Walters MD 01/06/24 18:01:
I saw and evaluated the patient independently. I reviewed the resident�s note and agree with findings and plan as documented by Dr. Marvin.
GENERAL: chronically ill appearing female in no apparent distress
HEENT: NC/AT
HEART: regular rate and rhythm, +S1, +S2
LUNGS : clear to auscultation bilaterally
ABDOM: soft, nontender, nondistended, + bowel sounds--upper abdomen and back hurts to move--seems like muscular
EXT: no cyanosis, clubbing, or edema
NEUROLOGIC: grossly intact
Septic shock (POA, criteria are tachypnea, tachycardia, leukocytosis) along with acute metabolic acidosis with source possibly colitis vs UTI--blood culture positive for E. coli, stool positive for C. diff-- urine culture with mixed melodie--zosyn to
Cefazolin, oral vanco and metronidazole for C. diff---CT scan with concern for colitis---apprec GI/ID--concern was for need to transfer to [place] for stent exchange BUT now with C. diff--treat and follow response--wean pressors to off as
able--transfer to [place] on hold
Hypokalemia secondary to diarrheal losses most likely--replete as needed
YARELI with metabolic acidosis--due to volume depletion/bicarbonate diarrheal losses--creat now at baseline, still acidotic--change IVF to include bicarb
Chronic lower lumbar back pain due to osteoarthritis/spinal stenosis--Tylenol as needed--Lidoderm patch--MRI without compression fractures, does show disc bulges, facet stenosis with degenerative changes
Chronic transaminitis- stable--likely from pancreatic cancer and biliary stent--Follow CMP
Ovarian cancer treated with DAMION/BSO and chemotherapy 1990s/Pancreatic cancer with Last chemo May 2023--Follows with [facility]--Takes ivermectin 6 mg daily and methylene blue 65 mg daily from [facility] [place]-- states her
oncologist at [facility] is aware she has been on these medications for approximately 5 months--adding pancreatic enzymes
Iron deficiency anemia gets IV iron transfusions--did not receive due to hypotension and sepsis--sent to ED--hold on further IV iron for now
Cholangitis post ERCP 06/02/2023 with stent removal and new stents placed
Depression/Anxiety-No current medication
Severe protein Calorie malnutrition-BMI 16.5--Consult dietary
Mechanical fall with right hip fracture August 2022 s/p right hip hemiarthroplasty
DVT prophylaxis
Code status -- FULL CODE
Original Note:
Today's Communication/Plan
-
Pt moved to IMU due to need for pressors; Starting treatment for C Diff with Vanco and Metronidazole; if this does not lead to resolution, potential transfer to [place] ICU for stent exchange.
Assessment / Plan
Assessment / Plan
1. Septic Shock
- Patient met the SIRS criteria at admission with tachypnea, tachycardia, fever and elevated WBC
- WBC 20.8 at admission --> 17 --> 9.3 --> back up to 15.3 today
- Blood Culture initially showed positive culture with preliminary organism E. Coli (unsure if or GI source)
- UA initially showed positive leukocytes, positive nitrate, moderate bacteria, mixed melodie.
- Patient on IV Zosyn day 3;
- Abx can be tailored after cultures and sensitivities show clearer picture.
- Pt being followed by GI: stent exchange should be considered. Dr. Garcia was able to get acceptance to [place] ICU (pending) for potential stent exchange.
- Infectious disease on board; recommends second set of blood cultures. They tested the stool and found C Diff positive.
- Plan overall is to treat C Diff with Vanco and Metro; if this does not lead to resolution, then patient to be transfered to [place] ICU for stent exchange.
2. Acute Acidosis
- Co2 12 today
3. Acute hypotension
- Pt moved to telemetry initially; became hypotensive over night, SBP in 80s.
- Pt then transferred to IMU on Levofed support; SBP 102.
- Trial wean after infectious status better elucidated and treated.
- Potential transfer to [place] ICU (see above)
4. Hypokalemia
- K 3.2 --> 3.7 today
- Continue to Monitor CMP
5. Abdominal Pain
- Pain in upper abdomen and lumber back; nontender to palpation of the abdomen, however, painful with movement and rotation in particular.
- GI suggested this may not be abdominal in origin, and that the patient may have a slipped disc; agree with this assessment.
- MRI of the lumbar spine and lower thoracic spine ordered.
6. Pancreatic CA Hx
- Pt inquired about bringing home meds rx by her oncologist
- Pt told that she can have her bring PO meds, but they will need to be surrendered to nursing and reconciled by pharmacist before use.
Anticipated Discharge: > 48 hours
Subjective/Interval History
-
Date of Service: January 06, 2024
Pt was weaned off of pressors for >4hrs yesterday and moved to telemetry. However overnight the patient began to become hypotensive with SBP in the 80s. Pt was thus moved to IMU. Pt states she is feeling a little more fatigued this morning, but does
not complain of dizziness, lightheadedness, chest pain, or shortness of breath.
GI on board, feels that the infectious source may be the patient's stent. GI was able to get an acceptance for the patient to the ICU at [place] since she is on 8mcg of Levofed, for stent replacement. In the interim, ID tested the pateint's stool and
it was C.Diff positive.
Objective Data
-
Labs:
Laboratory Results
01/06/24
09:41
WBC 15.6 H
Hgb 10.8 L D
Hct 31.9 L
Plt Count 147 D
Sodium 137
Potassium 3.7
Chloride 109 H
Carbon Dioxide 12 L*
BUN 21 H
Creatinine 0.7
Glucose 77
Calcium 8.7
Total Bilirubin 0.9
AST 30
ALT 23
Alkaline Phosphatase 228 H
Vital Signs:
Vital Signs
Temp Pulse Resp BP Pulse Ox
97.8 F 68 17 102/61 95
01/06/24 10:42 01/06/24 06:00 01/06/24 06:00 01/06/24 06:00 01/06/24 06:00
I&O
01/05/24 01/06/24 01/07/24
06:59 06:59 06:59
Intake Total 2940 / 2940
Output Total 450 / 450
Balance 2490 / 2490
Review of Systems
-
History Source: Patient
Constitutional: Reports No Symptoms
Respiratory: Reports No Symptoms
Cardiac: Reports No Symptoms
Neuro: Reports No Symptoms
Physical Exam
-
General: Conversant and Cachectic
HEENT: Normocephalic and Atraumatic
Respiratory: Clear to Auscultation
Cardiac: Regular Rhythm
GI: Soft and Nontender
Neuro: Awake and Alert
Psych: Calm
Data Reviewed
-
Labs: Labs Reviewed by me
[2024-01-06] MEDS: NSS 1000 IV (12:11)
--- NOTE | 2024-01-06 13:30 | CM ---
Addendum entered by Audrey Leong 01/06/24 14:05:
Discussion about possible transfer to [place], however per physician current plan for treatment for C.diff. CM will continue to follow for discharge planning needs.
Original Note:
Patient seen at bedside with physician. Patient also present. Patient to continue to work with Therapy and assessment for possible SNF. CM will continue to follow for discharge planning needs.
Plan; SNF vs home with therapy/VN
[2024-01-06 13:34] LABS: COVID-19 Antigen Negative (Negative)
[2024-01-06] MEDS: FLAGYL 500 MG PO ×2 (16:56→23:02)
[2024-01-06] MEDS: ANCEF 10 IV ×2 (16:56→23:02)
[2024-01-06] MEDS: FIRVANQ 500 MG PO ×2 (17:00→23:03)
--- NOTE | 2024-01-06 18:00 | PTCARENOTE ---
Patient received on Levophed, infusion continues to be adjusted for maintaining MAP >65. Pt began wean and then MAP in 50s. Continue to adjust per protocol. Pt positive for C. Diff. pt placed on Enhanced precautions and visitors notified of proper
hand washing.
[2024-01-06] MEDS: SODIUM BICARBONATE 1150 MEQ IV (20:02)
[2024-01-07] VITALS (92 sets, daily range): BP systolic 86–165; BP diastolic 47–114; BMI 19.0
[2024-01-07] MEDS: FIRVANQ 500 MG PO ×4 (05:22→23:03)
--- NOTE | 2024-01-07 05:50 | PTCARENOTE ---
Pt has been conformable in bed. AAOx3 , flat and anxious at times. NSR w/ PVC in the monitor. +1 BLUE edema. Lungs are diminished and shallow breathing. Purewick in place. Pt MAP >65 remains in Levo at 4 mcg. Will wean as tolerated. IV teams
notified about the need of central Line. Constant diarrhea stools. Call [facility] within reach.
[2024-01-07 06:17] LABS: % Basophils 0.4 % (0-2); % Eosinophils 0.8 % (0-6); % Immature Granulocytes 0.6 % (0-0.5); % Lymphocytes 4.2 % (20.5-51.1); % Monocytes 7.8 % (1.7-9.3); % Neutrophils 86.2 % (42.2-75.2); Absolute Basophils 0.1 10^3/uL (0-0.2); Absolute Eosinophils 0.1 10^3/uL (0-0.7); Absolute Immature Granulocytes 0.1 10^3/uL (0-0.05); Absolute Lymphocytes 0.6 10^3/uL (1.2-3.4); Absolute Monocytes 1.1 10^3/uL (0.1-0.6); Absolute Neutrophils 12.2 10^3/uL (1.4-6.5); Hematocrit 25.6 % (37.0-47.0); Hemoglobin 8.6 g/dL (12.0-16.0); Mean Corp Hgb Conc. 33.6 g/dL (33.0-37.0); Mean Corpuscular Hgb 28.9 pg (27.0-31.0); Mean Corpuscular Volume 85.9 fL (81.0-99.0); Mean Platelet Volume 11.8 fL (7.4-10.4); Nucleated Red Blood Cells % 0 %; Platelet Count 161 10^3/uL (130-400); Red Blood Cell Count 2.98 10^6/uL (4.20-5.40); Red Cell Dist. Width 13.4 % (11.5-14.5); White Blood Cell Count 14.2 10^3/uL (4.8-10.8)
[2024-01-07 06:17] LABS: ALT (SGPT) 16 U/L (0-35); AST (SGOT) 22 U/L (14-36); Albumin 2.2 g/dl (3.5-5.0); Alkaline Phosphatase 195 U/L (38-126); Blood Urea Nitrogen 19 mg/dl (7-17); Carbon Dioxide 15 mmol/L (22-30); Chloride 105 mmol/L (98-107); Estimated Creatinine Clearance 40 ml/min; Glucose 112 mg/dl (70-99); Potassium 3.2 mmol/L (3.5-5.1); Sodium 134 mmol/L (135-145); Total Bilirubin 0.4 mg/dl (0.2-1.3); Total Protein 4.5 g/dl (6.3-8.2); eGFR > 60.00
[2024-01-07] MEDS: KCL ELIXIR 40 MEQ PO (06:51)
[2024-01-07] MEDS: LEVOPHED 250 IV ×2 (07:38→20:34)
--- NOTE | 2024-01-07 07:59 | W.PN.ID1 ---
Date of Service
Date of Service: January 07, 2024
Today's Communication
See below.
Assessment / Plan
Severe C. difficile diarrhea
- Continue Vancomycin 500mg po q6h (d2)
-Monitor stool frequency and consistency
-Leukocytosis slightly improved today
-Follow wbc
E coli Bacteremia- persistent
Cholangitis
- 01/02 blood cultures x2 E coli (pansensitive)
-01/04 blood cx x 1 GNR
-01/05 blood cx x1 pending
- s/p zosyn x 10 doses -> cefazolin/po metronidazole (d2), to continue
- suspect source control of the stent infection with biofilm is not yet optimized, would recommend stent removal/replacement
- CT a/p: new 1.8cm hypodensity lesion right hepatic lobe suspicious for developing abscess vs new mets. Hepatic abscess also may be source of persistent bacteremia.
Consider IR aspiration, if feasilbe.
Pancreatic CA with biliary stents in place, prior hx chemo and radiation. Pt opted holistic medicine tx with Ivermectin, methylene blue and sharp liver oil
Cachexia
Back pain
-MRI spine
Chief Complaint
-: C-diff and Bacteremia
Subjective / Review of Systems
'explosive' diarrhea x 3 just now.
no abd pain.
Vital Signs / Physical Exam
Vital Signs
Vital Signs
Temp Pulse Resp BP Pulse Ox
98.4 F 70 15 103/51 98
01/07/24 04:52 01/07/24 06:15 01/07/24 06:15 01/07/24 06:15 01/07/24 06:15
Physical Exam
Constitutional: Cachetic
Cardiovascular: Regular Rate and S1/S2
Pulmonary: Clear (amteriorly)
Gastrointestinal: Soft, Non Tender and Non Distended
Extremities: Negative Edema
Neurological: AO x 3
Objective Data
Lab Data
Lab Results
01/07/24 05:21
01/07/24 05:20
Estimated Creat Clear 40 ml/min 01/07/24 05:20
Lactic Acid Cancelled 01/03/24 16:15
Total Bilirubin 0.4 mg/dl (0.2-1.3) 01/07/24 05:20
AST 22 U/L (14-36) 01/07/24 05:20
ALT 16 U/L (0-35) 01/07/24 05:20
Alkaline Phosphatase 195 U/L (38-126) H 01/07/24 05:20
Most recent labs reviewed.
Micro Results:
01/05/24 20:29 Blood Culture - Preliminary
Blood/Venous Positive culture in progress
Gram Stain - Preliminary
01/06/24 12:58 C. difficile GDH Antigen & Toxins - Final
Feces/Stool Toxigenic C.difficile Positive
01/06/24 13:23 Blood Culture - Pending
Blood/Venous
01/03/24 13:04 Blood Culture - Final
Blood/Venous Escherichia coli
Gram Stain - Final
01/03/24 12:52 Blood Culture - Final
Blood/Venous Escherichia coli
Gram Stain - Final
01/03/24 13:52 Urine Culture - Final
Urine
01/03/24 12:52 Influenza Types A & B (CRISTIN) - Final
Nasal Swab Negative for Influenza A & B, NAAT
Negative results must be combined with clinical observations
and patient history.
Nucleic Acid Amplification test (NAAT)performed on the
[employer] platform.
01/06/24 CT a/p with IV contrast: There is a new 1.8 cm hypodensity within the right hepatic lobe with slightly ill-defined navarro which is suspicious for possible new metastasis, developing hepatic abscess could appear similar in the setting of
infection. Recommend MRI abdomen for further evaluation. There is a 9 mm hypodensity within the inferior right hepatic lobe which appears more cystic in nature. Ill-defined hypodense mass within the pancreatic head consistent with known malignancy.
Stable positioning of the metallic and plastic biliary stents with extensive pneumobilia, likely sequelae of prior sphincterotomy. There is mild intrahepatic biliary ductal dilation. The bowel is nondilated aside from mild prominence of the upper
rectum. There is apparent gastric wall thickening which may be secondary to underdistention, less likely gastritis.
--- NOTE | 2024-01-07 08:20 | PTCARENOTE ---
Pt remains on Levo, now at 24hr anthony needs Picc . Pt having dark watery diarreha . Pt is AAAOx3 pleasant and cooperstive, On RA.
[2024-01-07] MEDS: SODIUM BICARBONATE 1150 MEQ IV (08:46)
--- NOTE | 2024-01-07 08:46 | PTOTSP ---
Pt transferred to IMU due to low BP; OT orders not continued upon transfer. Will need new OT orders when stable for activity
[2024-01-07] MEDS: ANCEF 10 IV ×3 (08:49→23:03)
[2024-01-07] MEDS: FLAGYL 500 MG PO ×3 (08:50→23:03)
[2024-01-07] MEDS: LIDOCAINE 4% PATCH 1 PATCH TOPICAL (08:50)
--- NOTE | 2024-01-07 08:58 | W.PN.HOSP.TC ---
Addendum entered and electronically signed by Scott Spicer MD 01/07/24 11:47:
I saw and evaluated the patient. I reviewed the resident�s note and agree with findings and plan as documented in the resident�s note.
Denies abdominal pain. Complains of persistent diarrhea.
Gen: NAD, Awake and alert
Eyes: EOMI, PERRLA, no scleral icterus.
Neck: supple.
CV: RRR, +S1/S2, no m/r/g.
Resp: CTAB, no rales, wheezes, or rhonchi.
Abd: +BS, soft, NT, ND
Skin: No rashes.
Neuro: CN 2-12 intact, non-focal.
Psych: Normal mood and affect.
01/06/24 13:23 Blood/Venous Blood Culture - Preliminary
Positive culture in progress
01/06/24 13:23 Blood/Venous Gram Stain - Preliminary
01/05/24 20:29 Blood/Venous Blood Culture - Preliminary
Positive culture in progress
01/05/24 20:29 Blood/Venous Gram Stain - Preliminary
01/06/24 12:58 Feces/Stool C. difficile GDH Antigen & Toxins - Final
Toxigenic C.difficile Positive
01/03/24 13:04 Blood/Venous Blood Culture - Final
Escherichia coli
01/03/24 13:04 Blood/Venous Gram Stain - Final
01/03/24 12:52 Blood/Venous Blood Culture - Final
Escherichia coli
01/03/24 12:52 Blood/Venous Gram Stain - Final
01/03/24 13:52 Urine Urine Culture - Final
01/03/24 12:52 Nasal Swab Influenza Types A & B (CRISTIN) - Final
Negative for Influenza A & B, NAAT
Negative results must be combined with clinical observations
and patient history.
Nucleic Acid Amplification test (NAAT)performed on the
[employer] platform.
CT A/P:
1. Grossly similar appearance of the known pancreatic head lesion. Stable positioning of the biliary stents with associated pneumobilia.
2. Colonic diverticulosis without evidence of acute diverticulitis.
RUE U/S: No findings to confirm deep venous thrombosis of the right upper extremity. Proximal and mid right subclavian vein not visualized, cannot exclude thrombus.
MRI L-spine: Scoliosis with advanced multilevel discogenic and facet degenerative changes. Multilevel annular bulging and endplate osteophyte formation. No acute fracture or spondylolisthesis.
Septic shock due to acute C diff colitis and acute ascending cholangitis due to E. coli with E. coli bacteremia:
-cont Levophed, pt needs PICC line
-cont PO Vanco/PO Flagyl and IV Ancef as per ID
-cont IVFs (NaHCO3 for AGMA)
-GI following, no need for transfer to [facility] at this moment
Hypokalemia: replete
Total time spent on today's encounter was 50 minutes which included time spent in counseling the patient/family regarding diagnosis and treatment plan as listed above, goals of care, and symptom management. Case was discussed with nursing staff,
specialists, and care coordinators/case management. All labs and imaging personally reviewed by me. Remainder the time spent in detailed review of previous records, lab data, imaging, and other medical provider documentation.
Original Note:
Today's Communication/Plan
-
Pt in IMU on 24 hour pressor support. PICC line placement today. Monitor diarrhea, continue abx. Trend WBC. PT/OT.
Assessment / Plan
Assessment / Plan
1. Septic Shock
- Patient met the SIRS criteria at admission with tachypnea, tachycardia, fever and elevated WBC
- WBC 20.8 at admission --> 17 --> 9.3 --> 15.3 --> 14.2 today
- Blood Culture initially showed positive culture with preliminary organism E. Coli (unsure if or GI source)
- UA initially showed positive leukocytes, positive nitrate, moderate bacteria, mixed melodie.
- Possibly infected stent (biofilm) per ID
- New CT shows new 1.8 cm hypodensity; unclear if new metastasis or abscess; could also be potential source if infectious. Possible MRI for elucidation.
- IV Zosyn d/c. Patient on IV Vanco (Day 2), PO Flagyl (Day 2), IV Cefazolin (Day 2) per ID reccs
- Pt being followed by GI: stent exchange should be considered. Dr. Garcia was able to get acceptance to [place] ICU (on hold) for potential stent exchange.
- Infectious disease on board; recommends second set of blood cultures. They tested the stool and found C Diff positive.
- Plan overall is to treat C Diff with Vanco and Metro; if this does not lead to resolution, then patient to be transfered to [place] ICU for stent exchange.
2. Acute Acidosis
- Co2 15 today
3. Acute hypotension
- Pt on Levophed in IMU
- Per nurse BPs tenuous overnight
- PICC line today
- Trial wean after infectious status better elucidated and treated.
- Potential transfer to [place] ICU (see above)
4. Hypokalemia
- K 3.2 --> 3.7 --> 3.2 today
- Continue to Monitor CMP
5. Abdominal Pain
- Pain in upper abdomen and lumber back; nontender to palpation of the abdomen, however, painful with movement and rotation in particular.
- GI suggested this may not be abdominal in origin, and that the patient may have a slipped disc; agree with this assessment.
- MRI of the lumbar spine and lower thoracic spine ordered.
- PT/OT as toleated
6. Pancreatic CA Hx
- CT Shows 1.b cm hypodensity; unclear if metastasis or abscess.
- Possible MRI for elucidation.
Anticipated Discharge: > 48 hours
Subjective/Interval History
-
Date of Service: January 07, 2024
Pt states she has 3 episodes of diarrhea overnight; diarrhea is described as green and pasty in consistency. Patient denies associated symptoms including abdominal pain, vomiting, feeling feverish.
Objective Data
-
Labs:
Laboratory Results
01/07/24 01/07/24
05:20 05:21
WBC 14.2 H
Hgb 8.6 L D
Hct 25.6 L
Plt Count 161
Sodium 134 L
Potassium 3.2 L
Chloride 105
Carbon Dioxide 15 L
BUN 19 H
Creatinine 0.7
Glucose 112 H
Calcium 8.0 L
Total Bilirubin 0.4
AST 22
ALT 16
Alkaline Phosphatase 195 H
Vital Signs:
Vital Signs
Temp Pulse Resp BP Pulse Ox
98.4 F 87 18 106/56 97
01/07/24 04:52 01/07/24 08:00 01/07/24 08:00 01/07/24 08:15 01/07/24 08:15
I&O
01/06/24 01/07/24 01/08/24
06:59 06:59 06:59
Intake Total 2940 / 2940 4070 / 4070
Output Total 450 / 450 650 / 650
Balance 2490 / 2490 3420 / 3420
Review of Systems
-
History Source: Patient
Constitutional: Reports No Symptoms
Respiratory: Reports No Symptoms
Cardiac: Reports No Symptoms
Abdomen/GI: Reports Diarrhea
Genitourinary: Reports No Symptoms
Neuro: Reports No Symptoms
Physical Exam
-
General: Cachectic and Other (patient resting and conversant in good spirits. States she is only uncomfortable due to lingering pain in her back. )
HEENT: Normocephalic, Atraumatic and Other (dry oral cavity)
Respiratory: Clear to Auscultation
Cardiac: Regular Rhythm
GI: Soft, Nontender and Nondistended
Neuro: Awake, Alert and Oriented
Psych: Calm
Data Reviewed
-
CT Scan: Report Reviewed by me
Labs: Labs Reviewed by me and Discussed with Patient
--- NOTE | 2024-01-07 10:21 | CM ---
Patient seen at bedside, Patient c/o pain with IV access for antibiotic per nursing possible PICC. Patient would benefit from PT/OT assessment CM will tt physician to request. CM will continue to follow for discharge planning needs.
Plan; SNF vs home with VN pending PT/OT assessment.
[2024-01-07] MEDS: KCL 40 MEQ PO (13:19)
--- NOTE | 2024-01-07 17:48 | W.PN.GI.CBS2 ---
Today's Communication / Plan
-
PLAN
Noted to have C. difficile diarrhea recently, continue oral vancomycin and Flagyl.On clear liquid diet.
Leukocytosis seems to be improving.
Etiology of E. coli bacteremia -- urinary, biliary vs other
Currently no fevers or chills, on cefazolin.
I reviewed patient's history, imaging and labs with advanced endoscopy at [facility].
Given LFTs are in normal range, ERCP about a month ago with patent stent, no need for urgent ERCP. If persistent bacteremia or elevation in the LFTs, at that time could consider evaluating the biliary stent again.
Continue to follow LFTs and WBC count.
Will follow
Assessment / Plan
-
The patient is 88-year-old female with history of GERD, pancreatic adenocarcinoma s/p ERCP and biliary stent placement prior chemo and radiation therapy, admission in May with klebsiella bacteremia related to cholangeitis with stent exchange and
remote history of ovarian cancer, anxiety/depression, RICH, spinal stenosis, and prior fall. She went to November for follow up ERCP wit stent change with Dr. Ceron with one covered metal and plastic stent in biliary tree. plastic stent removed
from biliary tree bile duct was swept and debris found, one plastic stent was placed in right hepatic duct. She was doing well and last Wednesday developed abdominal pain with diarrhea. She went to iron infusion and was sent to ER with fever 100.
7 with hypotension requiring pressors, and tachycardia. On admission she was noted with fever 102.9, WBC 20.8, procal 55.88 and bili 0.4, AST 42, ALT 40 alk phos 301 with improved LFT's after admission. blood cx + Ecoli and urine mixed melodie.
She was placed on antibiotics with improved fever. Ct was completed with Grossly similar appearance of the known pancreatic head lesion. Stable positioning of the biliary stents with associated pneumobilia. Colonic diverticulosis without
evidence of acute diverticulitis. and Moderate-sized hiatal hernia. Asked to see for possible biliary etiology of sepsis.
01/05 -- MRI lumbar spine
Scoliosis with advanced multilevel discogenic and facet degenerative changes. Multilevel annular bulging and endplate osteophyte formation. No acute fracture or spondylolisthesis.
L1-2: Left lateral recess stenosis compressing the left L2 nerve root. Mild central canal narrowing. Moderate left and mild right foraminal stenosis.
L2-3: Left lateral recess stenosis compressing the left L3 nerve root. Mild central canal narrowing and mild foraminal narrowing.
L3-4: Annular bulge. Endplate osteophyte formation. Facet arthrosis. Moderate left foraminal stenosis. Left lateral recess stenosis compressing the left L4 nerve root. Moderate central canal stenosis.
L4-5: Annular bulge, endplate osteophyte, and posterior central disc protrusion as well as facet arthrosis. Moderate to advanced central canal stenosis. Bilateral lateral recess stenosis compressing the descending L5 nerve roots. Severe left
foraminal stenosis. Moderate right foraminal narrowing.
L5-S1: Annular bulge and small protrusion as well as advanced facet arthrosis. Advanced central canal and bilateral lateral recess stenosis, right greater than left. Compression of the descending S1 nerve roots. Mild bilateral foraminal narrowing,
right greater than left.
-Ecoli sepsis with hypotension/fever/leukocytosis on admission initially improved with antibiotics then recurrent hypotension 01/05
-Klebsiella bacteremia 05/2023
-abdominal and back pain
-pancreatic CA with biliary stents in place prior chemo and radiation with current integrative medicine treatment with Ivermectin, methylene blue and sharp liver oil
-RICH
-diarrhea - resolved
other medical problems:
-anxiety/depression
--ovarian CA
PLAN
Noted to have C. difficile diarrhea recently, continue oral vancomycin and Flagyl.On clear liquid diet.
Leukocytosis seems to be improving.
Etiology of E. coli bacteremia -- urinary, biliary vs other
Currently no fevers or chills, on cefazolin.
I reviewed patient's history, imaging and labs with advanced endoscopy at [facility].
Given LFTs are in normal range, ERCP about a month ago with patent stent, no need for urgent ERCP. If persistent bacteremia or elevation in the LFTs, at that time could consider evaluating the biliary stent again.
Continue to follow LFTs and WBC count.
Will follow
Subjective
Subjective
Date of Service: January 07, 2024
Patient denies any abdominal pain, nausea or vomiting. She reports 4 episodes of loose watery stool. No blood or black stool.
Objective
Data Reviewed
Laboratory Data:
Laboratory Results
01/07/24 05:21
01/07/24 05:20
Laboratory Results
Magnesium 1.9 mg/dl (1.6-2.3) 01/06/24 09:41
Total Bilirubin 0.4 mg/dl (0.2-1.3) 01/07/24 05:20
AST 22 U/L (14-36) 01/07/24 05:20
ALT 16 U/L (0-35) 01/07/24 05:20
Alkaline Phosphatase 195 U/L (38-126) H 01/07/24 05:20
Lipase Cancelled 01/05/24 10:07
Vital Signs and I&O:
Vital Signs
Temp Pulse Resp BP Pulse Ox
98.7 F 100 21 119/66 96
01/07/24 15:00 01/07/24 16:00 01/07/24 16:00 01/07/24 16:00 01/07/24 16:00
I&O
01/06/24 01/07/24 01/08/24
06:59 06:59 06:59
Intake Total 2940 / 2940 4070 / 4070
Output Total 450 / 450 650 / 650
Balance 2490 / 2490 3420 / 3420
Physical Exam
Physical Exam
GI: Soft and Tender (Some discomfort in the mid abdomen, bowel sounds noted)
[2024-01-07] MEDS: SODIUM BICARBONATE IV (20:08)
[2024-01-07] MEDS: ULTRAM 25 MG PO (23:03)
[2024-01-08] VITALS (50 sets, daily range): BP systolic 88–113; BP diastolic 51–90
--- NOTE | 2024-01-08 03:15 | PTCARENOTE ---
assumed care of patient, AAOx3, able to make needs known. VSS. levo infusing at 4mcg/min, weaned to 3mcg/min to keep MAP >65. pt still with many loose stools, purwick was put in at the beginning of shift per patient request, but taken out during
shift due to bowel incontinence, pt agreeable. care ongoing.
[2024-01-08] MEDS: FIRVANQ 500 MG PO (05:53)
[2024-01-08 06:18] LABS: Hematocrit 23.3 % (37.0-47.0); Hemoglobin 8.2 g/dL (12.0-16.0); Mean Corp Hgb Conc. 35.2 g/dL (33.0-37.0); Mean Corpuscular Hgb 29.2 pg (27.0-31.0); Mean Corpuscular Volume 82.9 fL (81.0-99.0); Platelet Count 171 10^3/uL (130-400); Red Blood Cell Count 2.81 10^6/uL (4.20-5.40); Red Cell Dist. Width 13.2 % (11.5-14.5); White Blood Cell Count 15.8 10^3/uL (4.8-10.8)
[2024-01-08 06:35] LABS: Blood Urea Nitrogen 17 mg/dl (7-17); Calcium 7.8 mg/dl (8.4-10.2); Carbon Dioxide 20 mmol/L (22-30); Chloride 102 mmol/L (98-107); Estimated Creatinine Clearance 41 ml/min; Glucose 115 mg/dl (70-99); Potassium 3.5 mmol/L (3.5-5.1); Sodium 135 mmol/L (135-145); eGFR > 60.00
--- NOTE | 2024-01-08 08:59 | W.PN.ID1 ---
Date of Service
Date of Service: January 08, 2024
Today's Communication
Continue antibiotics. Transition enteral vancomycin to Dificid.
Assessment / Plan
Severe C. difficile diarrhea
- Transition to Dificid.
- Monitor stool frequency and consistency
- Follow wbc
E. coli Bacteremia- persistent
Cholangitis
- 01/02 blood cultures x2 E coli (pansensitive)
-01/04 blood cx x 1 GNR
-01/05 blood cx x1 pending
- s/p zosyn x 10 doses -> cefazolin/po metronidazole (d#3), to continue
- suspect source control of the stent infection with biofilm is not yet optimized, would recommend stent removal/replacement
- CT a/p: new 1.8cm hypodensity lesion right hepatic lobe suspicious for developing abscess vs new mets. Hepatic abscess also may be source of persistent bacteremia.
Consider IR aspiration, if feasible.
Pancreatic CA with biliary stents in place, prior hx chemo and radiation. Pt opted holistic medicine tx with Ivermectin, methylene blue and sharp liver oil
Cachexia
Back pain
-MRI reveals only advanced multilevel discogenic and facet degenerative changes. No acute fracture or lesions noted.
Chief Complaint
-: C-diff and Bacteremia
Subjective / Review of Systems
Patient seen and examined. Notes ongoing diarrhea (8 times/day).
Vital Signs / Physical Exam
Vital Signs
Vital Signs
Temp Pulse Resp BP Pulse Ox
98.4 F 96 17 107/61 94
01/08/24 07:35 01/08/24 07:00 01/08/24 07:00 01/08/24 07:00 01/08/24 07:00
Physical Exam
Constitutional: Comfortable, Non-toxic and Cachetic
Eyes: Sclera Anicteric
Cardiovascular: Regular Rate and S1/S2; Negative S3/S4
Pulmonary: Clear (amteriorly)
Gastrointestinal: Soft, Non Tender and Non Distended
Extremities: Negative Edema
Neurological: AO x 3
Objective Data
Lab Data
Lab Results
01/08/24 06:00
01/08/24 06:00
Estimated Creat Clear 41 ml/min 01/08/24 06:00
Lactic Acid Cancelled 01/03/24 16:15
Total Bilirubin 0.4 mg/dl (0.2-1.3) 01/07/24 05:20
AST 22 U/L (14-36) 01/07/24 05:20
ALT 16 U/L (0-35) 01/07/24 05:20
Alkaline Phosphatase 195 U/L (38-126) H 01/07/24 05:20
Most recent labs reviewed.
Micro Results:
01/06/24 13:23 Blood Culture - Preliminary
Blood/Venous Escherichia coli
Gram Stain - Preliminary
01/08/24 06:00 Blood Culture - Pending
Blood/Venous
01/05/24 20:29 Blood Culture - Preliminary
Blood/Venous Escherichia coli
Gram Stain - Preliminary
01/06/24 12:58 C. difficile GDH Antigen & Toxins - Final
Feces/Stool Toxigenic C.difficile Positive
01/03/24 13:04 Blood Culture - Final
Blood/Venous Escherichia coli
Gram Stain - Final
01/03/24 12:52 Blood Culture - Final
Blood/Venous Escherichia coli
Gram Stain - Final
01/03/24 13:52 Urine Culture - Final
Urine
01/03/24 12:52 Influenza Types A & B (CRISTIN) - Final
Nasal Swab Negative for Influenza A & B, NAAT
Negative results must be combined with clinical observations
and patient history.
Nucleic Acid Amplification test (NAAT)performed on the
[employer] platform.
01/06/24 CT a/p with IV contrast: There is a new 1.8 cm hypodensity within the right hepatic lobe with slightly ill-defined navarro which is suspicious for possible new metastasis, developing hepatic abscess could appear similar in the setting of
infection. Recommend MRI abdomen for further evaluation. There is a 9 mm hypodensity within the inferior right hepatic lobe which appears more cystic in nature. Ill-defined hypodense mass within the pancreatic head consistent with known malignancy.
Stable positioning of the metallic and plastic biliary stents with extensive pneumobilia, likely sequelae of prior sphincterotomy. There is mild intrahepatic biliary ductal dilation. The bowel is nondilated aside from mild prominence of the upper
rectum. There is apparent gastric wall thickening which may be secondary to underdistention, less likely gastritis.
--- NOTE | 2024-01-08 09:04 | W.PN.HOSP.TC ---
Addendum entered and electronically signed by Scott Spicer MD 01/08/24 12:18:
I saw and evaluated the patient. I reviewed the resident�s note and agree with findings and plan as documented in the resident�s note.
Denies abdominal pain. Reports she had 9 episodes of diarrhea yesterday but only 1 today.
Gen: NAD, Awake and alert
Eyes: EOMI, PERRLA, no scleral icterus.
Neck: supple.
CV: RRR, +S1/S2, no m/r/g.
Resp: CTAB, no rales, wheezes, or rhonchi.
Abd: +BS, soft, NT, ND
Skin: No rashes. 2+ anasarca
Neuro: CN 2-12 intact, non-focal.
Psych: Normal mood and affect.
CT A/P:
1. Grossly similar appearance of the known pancreatic head lesion. Stable positioning of the biliary stents with associated pneumobilia.
2. Colonic diverticulosis without evidence of acute diverticulitis.
RUE U/S: No findings to confirm deep venous thrombosis of the right upper extremity. Proximal and mid right subclavian vein not visualized, cannot exclude thrombus.
MRI L-spine: Scoliosis with advanced multilevel discogenic and facet degenerative changes. Multilevel annular bulging and endplate osteophyte formation. No acute fracture or spondylolisthesis.
Septic shock due to acute C diff colitis and acute ascending cholangitis due to E. coli with E. coli bacteremia:
-cont Levophed, wean as tolerated
-cont Difficid and IV Ancef as per ID
-was on NaHCO3 IVFs, now on hold with anasarca
-GI following, no need for transfer to [facility] at this moment
Anasarca:
-Will start IV albumin to attempt to mobilize fluid in the setting of hypoalbuminemia
Hypokalemia: replete
Overall extremely poor prognosis. Total critical care time = 31 minutes.
Original Note:
Today's Communication/Plan
-
Pt continues to have diarrhea. Vanco changed to Dificid. New nonpainful edema of all four extremities without SOB, or changes on recent CXR. Tolerating clears. Continue to trend WBCs. Pt becoming less dependent on pressors.
Assessment / Plan
Assessment / Plan
1. Septic Shock/C Diff Colitis
- Patient met the SIRS criteria at admission with tachypnea, tachycardia, fever and elevated WBC
- WBC 20.8 at admission --> 17 --> 9.3 --> 15.3 --> 14.2 --> 15.8
- Blood Culture initially showed positive culture with preliminary organism E. Coli (unsure if or GI source)
- UA initially showed positive leukocytes, positive nitrate, moderate bacteria, mixed melodie.
- Possibly infected stent (biofilm) per ID
- New CT shows new 1.8 cm hypodensity; unclear if new metastasis or abscess; could also be potential source if infectious. Possible MRI for elucidation.
- IV Zosyn d/c. IV Vanco d/c. Vanco transitioned to Dificid today per ID reccs. Patient on PO Flagyl (Day 3), IV Cefazolin (Day 3)
- Pt being followed by GI: seen yesterday; no urgent need for ERCP unless there is persistent bacteremia or increase in LFTs.
- Continue to monitor blood cx and LFTs.
- Infectious disease on board; recommends second set of blood cultures. They tested the stool and found C Diff positive.
- Plan overall is to treat C Diff; if this does not lead to resolution, then patient to be transfered to [facility] for stent exchange.
2. Acute Acidosis
- Co2 20 today. BMPs trending well.
3. Acute hypotension
- Pt on Levophed in IMU. Weaned to 2 today. Will try to wean further today.
- SBP running in 100s
- PICC line placed yesterday with no issues.
- CXR comfirmed placement.
- Potential transfer to [facility] (see above)
4. Hypokalemia
- K 3.2 yesterday, repleted, now 3.5.
- Likely from diarrheal loss.
- Continue to Monitor CMP and replete as needed.
5. Abdominal Pain
- Pain in upper abdomen and lumber back; nontender to palpation of the abdomen, however, painful with movement and rotation in particular.
- GI suggested this may not be abdominal in origin, and that the patient may have a slipped disc; agree with this assessment.
- MRI of the lumbar spine and lower thoracic spine ordered.
- PT/OT as toleated
6. Pancreatic CA Hx
- CT Shows 1.b cm hypodensity; unclear if metastasis or abscess.
- Possible MRI for elucidation.
7. Upper and Lower Extremity Edema
- LE edema up to the mid calf, UE edema up to mid forarm, nonpainful, nonerythematous.
- Pts weight is up 15 pounds since admission.
- Lungs CTAB, CXR from yesterday does not show evidence of pulmonary congestion, patient does not feel SOB.
- Hold diuresis until successful wean from pressors and maintainence of BP.
Anticipated Discharge: > 48 hours
Subjective/Interval History
-
Date of Service: January 08, 2024
Patient resting comfortably in bed. States that she has had 8-9 episodes of diarrhea since yesterday. She notes that the consistency is liquid like. Diarrhea was not visualized for color. She feels as though some episodes are explosive. She
also notes that her bilateral hands and feet have gotten swollen. Patient denies chest pain, shortness of breath, nausea, vomiting, pain in the hands or feet. Patient was advanced to clear liquid diet yesterday and states that she has had
vegetable broth which was tolerated well.
Objective Data
-
Labs:
Laboratory Results
01/08/24
06:00
WBC 15.8 H
Hgb 8.2 L
Hct 23.3 L
Plt Count 171
Sodium 135
Potassium 3.5
Chloride 102
Carbon Dioxide 20 L
BUN 17
Creatinine 0.7
Glucose 115 H
Calcium 7.8 L
Vital Signs:
Vital Signs
Temp Pulse Resp BP Pulse Ox
98.4 F 96 17 107/61 94
01/08/24 07:35 01/08/24 07:00 01/08/24 07:00 01/08/24 07:00 01/08/24 07:00
I&O
01/07/24 01/08/24 01/09/24
06:59 06:59 06:59
Intake Total 4070 / 4070
Output Total 650 / 650
Balance 3420 / 3420
Review of Systems
-
History Source: Patient
Constitutional: Reports No Symptoms
Respiratory: Reports No Symptoms
Cardiac: Reports No Symptoms
Abdomen/GI: Reports Diarrhea (x9 yesterday, liquid-consistency)
Musculoskeletal: Reports Edema (all four extremities )
Skin: Reports No Symptoms
Neuro: Reports No Symptoms
Physical Exam
-
General: Comfortable, Conversant and Cachectic
HEENT: Normocephalic and Atraumatic
Respiratory: Clear to Auscultation
Cardiac: Regular Rhythm and S1/S2
GI: Soft, Nontender and Normal Bowel Sounds
Musculoskeletal: Edema, Right Upper Extrem, Edema, Left Upper Extrem, Edema, Right Lower Extrem and Edema, Left Lower Extrem
Neuro: Awake, Alert and AO x 3
Psych: Calm
Data Reviewed
-
Diagnostic Radiology: Image personally visualized and interpreted
Labs: Labs Reviewed by me and Discussed with Patient
[2024-01-08] MEDS: ULTRAM 25 MG PO ×2 (09:29→23:51)
[2024-01-08] MEDS: FLAGYL 500 MG PO ×3 (09:30→23:37)
[2024-01-08] MEDS: LIDOCAINE 4% PATCH 1 PATCH TOPICAL (09:30)
[2024-01-08] MEDS: ANCEF 10 IV ×3 (09:30→23:37)
--- NOTE | 2024-01-08 10:18 | PTCARENOTE ---
Assumed care at 0700. AOx3, pleasant. BPs 98-112/50-60s, MAP 69-80 this AM. Received w/ levophed infusing into RDL PICC at 2mcg/min. Tapered to 1mcg/min and still maintaining MAP >65. Will continue to taper/discontinue per protocol if MAP allows.
Reports 9/10 lower back pain, given PRN Ultram, see MAR. Chatting w/ visitor at bedside. Encouraged to make needs known.
[2024-01-08 10:32] LABS: ALT (SGPT) 12 U/L (0-35); AST (SGOT) 23 U/L (14-36); Albumin 2.1 g/dl (3.5-5.0); Alkaline Phosphatase 204 U/L (38-126); Direct Bilirubin 0.2 mg/dl (0.0-0.4); Total Bilirubin 0.4 mg/dl (0.2-1.3); Total Protein 4.3 g/dl (6.3-8.2)
--- NOTE | 2024-01-08 10:51 | W.PN.GI.CBS2 ---
Today's Communication / Plan
-
PLAN
Continues to have C. difficile diarrhea, significant episodes of explosive diarrhea in spite of oral vancomycin/oral Flagyl.
Currently switched to fidaxomicin 200 mg twice a day apart from metronidazole 500 mg every 8 hours.
Leukocytosis without fevers or chills.
Currently on clear liquid diet, will advance to full liquids but lactose-free.
Monitor electrolytes and replete
Etiology of E. coli bacteremia -- urinary, biliary vs other
Currently no fevers or chills, on cefazolin.
LFTs continues to be in normal range, especially bilirubin, AST and ALT. Alkaline phosphatase elevated.
CT scan abdomen pelvis showing possible new 1.8 cm hypodensity in the right hepatic lobe. MRI recommended. Once diarrhea improves, then will order MRI abdomen with MRCP.
I reviewed patient's history, imaging and labs with advanced endoscopy at [facility] [place] 01/07/2024.
Given LFTs are in normal range, ERCP about a month ago with patent stent, no need for urgent ERCP. If persistent bacteremia or elevation in the LFTs, at that time could consider evaluating the biliary stent again.
Continue to follow LFTs and WBC count.
Will follow
Assessment / Plan
-
The patient is 88-year-old female with history of GERD, pancreatic adenocarcinoma s/p ERCP and biliary stent placement prior chemo and radiation therapy, admission in May with klebsiella bacteremia related to cholangeitis with stent exchange and
remote history of ovarian cancer, anxiety/depression, RICH, spinal stenosis, and prior fall. She went to November for follow up ERCP wit stent change with Dr. Ceron with one covered metal and plastic stent in biliary tree. plastic stent removed
from biliary tree bile duct was swept and debris found, one plastic stent was placed in right hepatic duct. She was doing well and last [place] developed abdominal pain with diarrhea. She went to iron infusion and was sent to ER with fever 100.
7 with hypotension requiring pressors, and tachycardia. On admission she was noted with fever 102.9, WBC 20.8, procal 55.88 and bili 0.4, AST 42, ALT 40 alk phos 301 with improved LFT's after admission. blood cx + Ecoli and urine mixed melodie.
She was placed on antibiotics with improved fever. Ct was completed with Grossly similar appearance of the known pancreatic head lesion. Stable positioning of the biliary stents with associated pneumobilia. Colonic diverticulosis without
evidence of acute diverticulitis. and Moderate-sized hiatal hernia. Asked to see for possible biliary etiology of sepsis.
01/05 -- MRI lumbar spine
Scoliosis with advanced multilevel discogenic and facet degenerative changes. Multilevel annular bulging and endplate osteophyte formation. No acute fracture or spondylolisthesis.
L1-2: Left lateral recess stenosis compressing the left L2 nerve root. Mild central canal narrowing. Moderate left and mild right foraminal stenosis.
L2-3: Left lateral recess stenosis compressing the left L3 nerve root. Mild central canal narrowing and mild foraminal narrowing.
L3-4: Annular bulge. Endplate osteophyte formation. Facet arthrosis. Moderate left foraminal stenosis. Left lateral recess stenosis compressing the left L4 nerve root. Moderate central canal stenosis.
L4-5: Annular bulge, endplate osteophyte, and posterior central disc protrusion as well as facet arthrosis. Moderate to advanced central canal stenosis. Bilateral lateral recess stenosis compressing the descending L5 nerve roots. Severe left
foraminal stenosis. Moderate right foraminal narrowing.
L5-S1: Annular bulge and small protrusion as well as advanced facet arthrosis. Advanced central canal and bilateral lateral recess stenosis, right greater than left. Compression of the descending S1 nerve roots. Mild bilateral foraminal narrowing,
right greater than left.
-Ecoli sepsis with hypotension/fever/leukocytosis on admission initially improved with antibiotics then recurrent hypotension 01/05
-Klebsiella bacteremia 05/2023
-abdominal and back pain
-pancreatic CA with biliary stents in place prior chemo and radiation with current integrative medicine treatment with Ivermectin, methylene blue and sharp liver oil
-RICH
-diarrhea - resolved
other medical problems:
-anxiety/depression
--ovarian CA
CT scan of the abdomen pelvis with IV and oral contrast 01/06/2024-new 1.8 cm hypodensity in the right hepatic lobe with slightly ill-defined navarro, possible new left, cannot rule out abscess. Ill-defined mass in the pancreatic head consistent with
known malignancy. Stents of pneumobilia, mild intrahepatic bile duct dilation.
PLAN
Continues to have C. difficile diarrhea, significant episodes of explosive diarrhea in spite of oral vancomycin/oral Flagyl.
Currently switched to fidaxomicin 200 mg twice a day apart from metronidazole 500 mg every 8 hours.
Leukocytosis without fevers or chills.
Currently on clear liquid diet, will advance to full liquids but lactose-free.
Monitor electrolytes and replete
Etiology of E. coli bacteremia -- urinary, biliary vs other
Currently no fevers or chills, on cefazolin.
LFTs continues to be in normal range, especially bilirubin, AST and ALT. Alkaline phosphatase elevated.
CT scan abdomen pelvis showing possible new 1.8 cm hypodensity in the right hepatic lobe. MRI recommended. Once diarrhea improves, then will order MRI abdomen with MRCP.
I reviewed patient's history, imaging and labs with advanced endoscopy at [facility] [place] 01/07/2024.
Given LFTs are in normal range, ERCP about a month ago with patent stent, no need for urgent ERCP. If persistent bacteremia or elevation in the LFTs, at that time could consider evaluating the biliary stent again.
Continue to follow LFTs and WBC count.
Will follow
Subjective
Subjective
Date of Service: January 08, 2024
Patient without any abdominal pain, nausea or vomiting. She reports having up to 9 explosive watery bowel movements in the last 24 hours. No bloody bowel movements. No fevers or chills. On low-dose Levophed
Objective
Data Reviewed
Laboratory Data:
Laboratory Results
01/08/24 06:00
01/08/24 06:00
Laboratory Results
Magnesium 1.9 mg/dl (1.6-2.3) 01/06/24 09:41
Total Bilirubin Cancelled 01/08/24 09:53
AST Cancelled 01/08/24 09:53
ALT Cancelled 01/08/24 09:53
Alkaline Phosphatase Cancelled 01/08/24 09:53
Lipase Cancelled 01/05/24 10:07
Vital Signs and I&O:
Vital Signs
Temp Pulse Resp BP Pulse Ox
98.4 F 92 18 105/60 96
01/08/24 07:35 01/08/24 10:00 01/08/24 10:00 01/08/24 10:00 01/08/24 10:00
I&O
01/07/24 01/08/24 01/09/24
06:59 06:59 06:59
Intake Total 4070 / 4070
Output Total 650 / 650
Balance 3420 / 3420
Physical Exam
Physical Exam
GI: Soft and Non Tender
[2024-01-08] MEDS: DIFICID 200 MG PO ×2 (11:04→21:31)
--- NOTE | 2024-01-08 11:12 | PTCARENOTE ---
MAP 98. Levophed off. Plan of care ongoing.
[2024-01-08] MEDS: FLEXBUMIN 50 IV ×2 (13:44→21:24)
[2024-01-08] MEDS: KCL ELIXIR 40 MEQ PO (13:45)
--- NOTE | 2024-01-08 18:14 | PTCARENOTE ---
MAPs remained >/=65 since levophed turned off. Incontinent of 3 loose dark brown/black BMs today. Continues to report poor PO intake. Encouraged to continue to make needs known.
[2024-01-09] VITALS (24 sets, daily range): BP systolic 90–120; BP diastolic 55–75; BMI 19.4
--- NOTE | 2024-01-09 04:15 | PTCARENOTE ---
Pt having pain in back with any movement, PRN medication given. pt tolerating slight turns with air pillow. Wound care performed, new blister found on buttock (see work list). Pt having critical value with blood culture being positive in progress.
Night TEMPLATE CHECKER aware of result. Pt BP remaining soft but with acceptable map. Pt had no further complaints at this time. Call bingham within reach. Assessment care and vitals as charted.
[2024-01-09] MEDS: FLEXBUMIN 50 IV (05:20)
[2024-01-09 06:16] LABS: ALT (SGPT) < 10 U/L (0-35); AST (SGOT) 22 U/L (14-36); Albumin 2.1 g/dl (3.5-5.0); Alkaline Phosphatase 155 U/L (38-126); Blood Urea Nitrogen 17 mg/dl (7-17); Calcium 7.9 mg/dl (8.4-10.2); Carbon Dioxide 25 mmol/L (22-30); Chloride 101 mmol/L (98-107); Direct Bilirubin 0.2 mg/dl (0.0-0.4); Estimated Creatinine Clearance 48 ml/min; Glucose 88 mg/dl (70-99); Potassium 3.8 mmol/L (3.5-5.1); Sodium 134 mmol/L (135-145); Total Bilirubin 0.4 mg/dl (0.2-1.3); Total Protein 4.2 g/dl (6.3-8.2); eGFR > 60.00
[2024-01-09 06:27] LABS: % Eosinophils 1.7 % (0-6); % Immature Granulocytes 0.9 % (0-0.5); % Lymphocytes 4.3 % (20.5-51.1); % Monocytes 5.6 % (1.7-9.3); % Neutrophils 87.5 % (42.2-75.2); Absolute Eosinophils 0.2 10^3/uL (0-0.7); Absolute Immature Granulocytes 0.1 10^3/uL (0-0.05); Absolute Lymphocytes 0.4 10^3/uL (1.2-3.4); Absolute Monocytes 0.5 10^3/uL (0.1-0.6); Absolute Neutrophils 8.2 10^3/uL (1.4-6.5); Hematocrit 19.8 % (37.0-47.0); Hemoglobin 6.9 g/dL (12.0-16.0); Mean Corp Hgb Conc. 34.8 g/dL (33.0-37.0); Mean Corpuscular Hgb 30.4 pg (27.0-31.0); Mean Corpuscular Volume 87.2 fL (81.0-99.0); Mean Platelet Volume 10.9 fL (7.4-10.4); Nucleated Red Blood Cells % 0 %; Platelet Count 149 10^3/uL (130-400); Red Blood Cell Count 2.27 10^6/uL (4.20-5.40); Red Cell Dist. Width 13.3 % (11.5-14.5); White Blood Cell Count 9.4 10^3/uL (4.8-10.8)
--- NOTE | 2024-01-09 06:42 | PTCARENOTE ---
Pt labs showing hgb at 6.9 hct 19.8. Night BISQUE FINISHER made aware. New labs placed and type=screen. Pt appears to have no active signs of bleeding, vitals stable at this time.
--- NOTE | 2024-01-09 06:45 | W.PN.UPDATE ---
Update Note
Progress Note Update
HH this am 6.9 (was 8.2 yesterday). No signs of bleeding. vitals have remained stable. Unclear why drop? Will get type and screen and have RN redraw for completeness.
[2024-01-09 07:57] LABS: Hematocrit 18.5 % (37.0-47.0); Hemoglobin 6.5 g/dL (12.0-16.0)
[2024-01-09] MEDS: FLAGYL 500 MG PO ×3 (10:10→23:30)
[2024-01-09] MEDS: DIFICID 200 MG PO ×2 (10:10→20:18)
[2024-01-09] MEDS: LIDOCAINE 4% PATCH TOPICAL (10:10)
--- NOTE | 2024-01-09 10:36 | W.PN.ID1 ---
Date of Service
Date of Service: January 09, 2024
Today's Communication
Continue with antibiotics. Monitor blood cultures for clearance. Will order set for tomorrow.
Assessment / Plan
Severe C. difficile diarrhea
- Transition to Dificid 01/08/2024
- Monitor stool frequency and consistency
- Follow wbc
E. coli Bacteremia- persistent
Cholangitis
- 01/02 blood cultures x2 E coli (pansensitive)
- 01/04 blood cx x 1 GNR
- 01/05 blood cx x1 pending
- s/p zosyn x 4d -> cefazolin/po metronidazole (d#4), to continue
- suspect source control of the stent infection with biofilm is not yet optimized, may stent removal/replacement
- CT a/p: new 1.8cm hypodensity lesion right hepatic lobe suspicious for developing abscess vs new mets. Hepatic abscess also may be source of persistent bacteremia.
Consider IR aspiration, if feasible.
Pancreatic CA with biliary stents in place, prior hx chemo and radiation. Pt opted holistic medicine tx with Ivermectin, methylene blue and sharp liver oil
Cachexia
Back pain
-MRI reveals only advanced multilevel discogenic and facet degenerative changes. No acute fracture or lesions noted.
Chief Complaint
-: C-diff and Bacteremia
Subjective / Review of Systems
Patient seen and examined. Nursing reports diarrhea persists, although consistency seems to be firming up ever so slightly.
Review of Systems: No Fever and No Chills
Vital Signs / Physical Exam
Vital Signs
Vital Signs
Temp Pulse Resp BP Pulse Ox
98.0 F 88 15 101/62 96
01/09/24 10:22 01/09/24 10:22 01/09/24 10:22 01/09/24 10:01/09/24 10:29
Physical Exam
Constitutional: Comfortable, Chronically Ill and Non-toxic
Eyes: Sclera Anicteric
Pulmonary: Non Labored
Gastrointestinal: Non Distended
Extremities: Negative Cyanosis or Erythema
Neurological: Awake and Alert
Psychological: Calm
Objective Data
Lab Data
Lab Results
01/09/24 05:18
Estimated Creat Clear 48 ml/min 01/09/24 05:18
Lactic Acid Cancelled 01/03/24 16:15
Total Bilirubin 0.4 mg/dl (0.2-1.3) 01/09/24 05:18
AST 22 U/L (14-36) 01/09/24 05:18
ALT < 10 U/L (0-35) 01/09/24 05:18
Alkaline Phosphatase 155 U/L (38-126) H 01/09/24 05:18
Most recent labs reviewed.
Micro Results:
01/08/24 06:00 Blood Culture - Preliminary
Blood/Venous Gram negative bacilli
Gram Stain - Preliminary
01/06/24 13:23 Blood Culture - Preliminary
Blood/Venous Escherichia coli
Gram Stain - Preliminary
01/05/24 20:29 Blood Culture - Preliminary
Blood/Venous Escherichia coli
Gram Stain - Preliminary
01/06/24 12:58 C. difficile GDH Antigen & Toxins - Final
Feces/Stool Toxigenic C.difficile Positive
01/03/24 13:04 Blood Culture - Final
Blood/Venous Escherichia coli
Gram Stain - Final
01/03/24 12:52 Blood Culture - Final
Blood/Venous Escherichia coli
Gram Stain - Final
01/03/24 13:52 Urine Culture - Final
Urine
01/03/24 12:52 Influenza Types A & B (CRISTIN) - Final
Nasal Swab Negative for Influenza A & B, NAAT
Negative results must be combined with clinical observations
and patient history.
Nucleic Acid Amplification test (NAAT)performed on the
[employer] platform.
01/06/24 CT a/p with IV contrast: There is a new 1.8 cm hypodensity within the right hepatic lobe with slightly ill-defined navarro which is suspicious for possible new metastasis, developing hepatic abscess could appear similar in the setting of
infection. Recommend MRI abdomen for further evaluation. There is a 9 mm hypodensity within the inferior right hepatic lobe which appears more cystic in nature. Ill-defined hypodense mass within the pancreatic head consistent with known malignancy.
Stable positioning of the metallic and plastic biliary stents with extensive pneumobilia, likely sequelae of prior sphincterotomy. There is mild intrahepatic biliary ductal dilation. The bowel is nondilated aside from mild prominence of the upper
rectum. There is apparent gastric wall thickening which may be secondary to underdistention, less likely gastritis.
Care Review
Plan reviewed with: Nurse
[2024-01-09] MEDS: ANCEF 10 IV ×3 (10:50→23:30)
--- NOTE | 2024-01-09 11:02 | W.PN.GI.CBS2 ---
Today's Communication / Plan
-
PLAN
Acute drop in hemoglobin without any overt bleeding. Currently receiving a unit of packed red blood cell transfusion.
C. difficile diarrhea-now seems to be better on fidaxomicin 200 mg twice a day apart from metronidazole 500 mg every 8 hours.
No leukocytosis without fevers or chills.
Currently on full liquids but lactose-free. She does not want to upgrade to low-fat diet yet.
Monitor electrolytes and replete
Etiology of E. coli bacteremia -- urinary, biliary vs other
Currently no fevers or chills, on cefazolin.
LFTs continues to be in normal range, especially bilirubin, AST and ALT. Alkaline phosphatase elevated.
Given persistent bacteremia, best to look at the biliary stent for possible exchange. Discussed in detail with the patient and has been regarding the need for transfer to a tertiary care center for ERCP and possible stent exchange. Patient and
do not want to be transferred. They understand the need for ERCP but they do not want to be transferred yet. I explained to them that she has bacteremia in spite of treatment with antibiotics.
CT scan abdomen pelvis showing possible new 1.8 cm hypodensity in the right hepatic lobe. MRI recommended. Once diarrhea improves, then will order MRI abdomen with MRCP.
I reviewed patient's history, imaging and labs with advanced endoscopy at [facility] 01/07/2024.
At that time, given LFTs are in normal range, ERCP about a month ago with patent stent, urgent ERCP was not thought to be needed.but given persistent bacteremia would consider evaluating the biliary stent again.
Continue to follow LFTs and WBC count.
Will follow
Assessment / Plan
-
The patient is 88-year-old female with history of GERD, pancreatic adenocarcinoma s/p ERCP and biliary stent placement prior chemo and radiation therapy, admission in May with klebsiella bacteremia related to cholangeitis with stent exchange and
remote history of ovarian cancer, anxiety/depression, RICH, spinal stenosis, and prior fall. She went to November for follow up ERCP wit stent change with Dr. Ceron with one covered metal and plastic stent in biliary tree. plastic stent removed
from biliary tree bile duct was swept and debris found, one plastic stent was placed in right hepatic duct. She was doing well and last [place] developed abdominal pain with diarrhea. She went to iron infusion and was sent to ER with fever 100.
7 with hypotension requiring pressors, and tachycardia. On admission she was noted with fever 102.9, WBC 20.8, procal 55.88 and bili 0.4, AST 42, ALT 40 alk phos 301 with improved LFT's after admission. blood cx + Ecoli and urine mixed melodie.
She was placed on antibiotics with improved fever. Ct was completed with Grossly similar appearance of the known pancreatic head lesion. Stable positioning of the biliary stents with associated pneumobilia. Colonic diverticulosis without
evidence of acute diverticulitis. and Moderate-sized hiatal hernia. Asked to see for possible biliary etiology of sepsis.
01/05 -- MRI lumbar spine
Scoliosis with advanced multilevel discogenic and facet degenerative changes. Multilevel annular bulging and endplate osteophyte formation. No acute fracture or spondylolisthesis.
L1-2: Left lateral recess stenosis compressing the left L2 nerve root. Mild central canal narrowing. Moderate left and mild right foraminal stenosis.
L2-3: Left lateral recess stenosis compressing the left L3 nerve root. Mild central canal narrowing and mild foraminal narrowing.
L3-4: Annular bulge. Endplate osteophyte formation. Facet arthrosis. Moderate left foraminal stenosis. Left lateral recess stenosis compressing the left L4 nerve root. Moderate central canal stenosis.
L4-5: Annular bulge, endplate osteophyte, and posterior central disc protrusion as well as facet arthrosis. Moderate to advanced central canal stenosis. Bilateral lateral recess stenosis compressing the descending L5 nerve roots. Severe left
foraminal stenosis. Moderate right foraminal narrowing.
L5-S1: Annular bulge and small protrusion as well as advanced facet arthrosis. Advanced central canal and bilateral lateral recess stenosis, right greater than left. Compression of the descending S1 nerve roots. Mild bilateral foraminal narrowing,
right greater than left.
-Ecoli sepsis with hypotension/fever/leukocytosis on admission initially improved with antibiotics then recurrent hypotension 01/05
-Klebsiella bacteremia 05/2023
-abdominal and back pain
-pancreatic CA with biliary stents in place prior chemo and radiation with current integrative medicine treatment with Ivermectin, methylene blue and sharp liver oil
-RICH
-diarrhea - resolved
other medical problems:
-anxiety/depression
--ovarian CA
CT scan of the abdomen pelvis with IV and oral contrast 01/06/2024-new 1.8 cm hypodensity in the right hepatic lobe with slightly ill-defined navarro, possible new left, cannot rule out abscess. Ill-defined mass in the pancreatic head consistent with
known malignancy. Stents of pneumobilia, mild intrahepatic bile duct dilation.
PLAN
Acute drop in hemoglobin without any overt bleeding. Currently receiving a unit of packed red blood cell transfusion.
C. difficile diarrhea-now seems to be better on fidaxomicin 200 mg twice a day apart from metronidazole 500 mg every 8 hours.
No leukocytosis without fevers or chills.
Currently on full liquids but lactose-free. She does not want to upgrade to low-fat diet yet.
Monitor electrolytes and replete
Etiology of E. coli bacteremia -- urinary, biliary vs other
Currently no fevers or chills, on cefazolin.
LFTs continues to be in normal range, especially bilirubin, AST and ALT. Alkaline phosphatase elevated.
Given persistent bacteremia, best to look at the biliary stent for possible exchange. Discussed in detail with the patient and has been regarding the need for transfer to a tertiary care center for ERCP and possible stent exchange. Patient and
do not want to be transferred. They understand the need for ERCP but they do not want to be transferred yet. I explained to them that she has bacteremia in spite of treatment with antibiotics.
CT scan abdomen pelvis showing possible new 1.8 cm hypodensity in the right hepatic lobe. MRI recommended. Once diarrhea improves, then will order MRI abdomen with MRCP.
I reviewed patient's history, imaging and labs with advanced endoscopy at [facility] 01/07/2024.
At that time, given LFTs are in normal range, ERCP about a month ago with patent stent, urgent ERCP was not thought to be needed.but given persistent bacteremia would consider evaluating the biliary stent again.
Continue to follow LFTs and WBC count.
Will follow
Subjective
Subjective
Date of Service: January 09, 2024
No abdominal pain, nausea or vomiting. Currently on full liquid diet and tolerating it. No fevers or chills
Had 4 softly formed bowel movements and nothing since morning.
Objective
Data Reviewed
Laboratory Data:
Laboratory Results
01/09/24 05:18
Laboratory Results
Magnesium 1.9 mg/dl (1.6-2.3) 01/06/24 09:41
Total Bilirubin 0.4 mg/dl (0.2-1.3) 01/09/24 05:18
AST 22 U/L (14-36) 01/09/24 05:18
ALT < 10 U/L (0-35) 01/09/24 05:18
Alkaline Phosphatase 155 U/L (38-126) H 01/09/24 05:18
Lipase Cancelled 01/05/24 10:07
Vital Signs and I&O:
Vital Signs
Temp Pulse Resp BP Pulse Ox
98.0 F 88 15 101/62 96
01/09/24 10:22 01/09/24 10:22 01/09/24 10:22 01/09/24 10:22 01/09/24 08:29
I&O
01/08/24 01/09/24 01/10/24
06:59 06:59 06:59
Intake Total 480 / 480 0 / 0
Balance 480 / 480 0 / 0
Physical Exam
Physical Exam
GI: Soft, Non Distended and Non Tender
--- NOTE | 2024-01-09 12:02 | W.PN.HOSP.TC ---
Addendum entered and electronically signed by Scott Spicer MD 01/09/24 12:24:
I saw and evaluated the patient. I reviewed the resident�s note and agree with findings and plan as documented in the resident�s note.
Denies abdominal pain. Diarrhea improving.
Gen: NAD, Awake and alert
Eyes: EOMI, PERRLA, no scleral icterus.
Neck: supple.
CV: remains RRR, +S1/S2, no m/r/g.
Resp: remains CTAB, no rales, wheezes, or rhonchi.
Abd: +BS, soft, NT, ND
Skin: No rashes.
Neuro: CN 2-12 intact, non-focal.
Psych: Normal mood and affect.
01/08/24 06:00 Blood/Venous Blood Culture - Preliminary
Gram negative bacilli
01/08/24 06:00 Blood/Venous Gram Stain - Preliminary
01/06/24 13:23 Blood/Venous Blood Culture - Preliminary
Escherichia coli
01/06/24 13:23 Blood/Venous Gram Stain - Preliminary
01/05/24 20:29 Blood/Venous Blood Culture - Preliminary
Escherichia coli
01/05/24 20:29 Blood/Venous Gram Stain - Preliminary
01/06/24 12:58 Feces/Stool C. difficile GDH Antigen & Toxins - Final
Toxigenic C.difficile Positive
01/03/24 13:04 Blood/Venous Blood Culture - Final
Escherichia coli
01/03/24 13:04 Blood/Venous Gram Stain - Final
01/03/24 12:52 Blood/Venous Blood Culture - Final
Escherichia coli
01/03/24 12:52 Blood/Venous Gram Stain - Final
01/03/24 13:52 Urine Urine Culture - Final
01/03/24 12:52 Nasal Swab Influenza Types A & B (CRISTIN) - Final
Negative for Influenza A & B, NAAT
Negative results must be combined with clinical observations
and patient history.
Nucleic Acid Amplification test (NAAT)performed on the
[employer] ID NOW platform.
CT A/P:
1. Grossly similar appearance of the known pancreatic head lesion. Stable positioning of the biliary stents with associated pneumobilia.
2. Colonic diverticulosis without evidence of acute diverticulitis.
RUE U/S: No findings to confirm deep venous thrombosis of the right upper extremity. Proximal and mid right subclavian vein not visualized, cannot exclude thrombus.
MRI L-spine: Scoliosis with advanced multilevel discogenic and facet degenerative changes. Multilevel annular bulging and endplate osteophyte formation. No acute fracture or spondylolisthesis.
Septic shock due to acute C diff colitis and acute ascending cholangitis due to E. coli with E. coli bacteremia:
-was on Levophed now off
-cont Dificid/Flagyl and IV Ancef as per ID
-was on NaHCO3 IVFs which were stopped 04/09/26AM when pt developed anasarca (and metabolic acidosis resolved)
-IV albumin given 01/08/24-01/09/24 to mobilize anasarca
-GI following, with persistent bacteremia transfer to [facility] or [place] recommended for biliary stent exchange. Currently the pt and are refusing transfer. Reasonable to c/s palliative care is this setting.
Anasarca:
-IV albumin given 01/08/24-01/09/24 to mobilize anasarca
Hypokalemia, resolved
Overall extremely poor prognosis.
Total time spent on today's encounter was 50 minutes which included time spent in counseling the patient/family regarding diagnosis and treatment plan as listed above, goals of care, and symptom management. Case was discussed with nursing staff,
specialists, and care coordinators/case management. All labs and imaging personally reviewed by me. Remainder the time spent in detailed review of previous records, lab data, imaging, and other medical provider documentation.
Original Note:
Today's Communication/Plan
-
Received 2 units of pRBC today. Follow up H+H. C Diff Diarrhea improving. Persistent bacteremia warrants possible stent exchange and transfer to [place].
Assessment / Plan
Assessment / Plan
1. Septic Shock/C Diff Colitis
- Patient met the SIRS criteria at admission with tachypnea, tachycardia, fever and elevated WBC
- WBC 20.8 at admission --> 17 --> 9.3 --> 15.3 --> 14.2 --> 15.8 --> 9.4
- Blood Culture initially showed positive culture with preliminary organism E. Coli (unsure if or GI source)
- UA initially showed positive leukocytes, positive nitrate, moderate bacteria, mixed melodie.
- Possibly infected stent (biofilm) per ID
- IV Zosyn d/c. IV Vanco d/c. Vanco transitioned to Dificid yesterday per ID reccs. Diarrhea improving.
- Pt being followed by GI: seen yesterday; no urgent need for ERCP unless there is persistent bacteremia or increase in LFTs. LFTs continue to be normal, however bacteremia persists.
- Continue to monitor blood cx and LFTs.
- Per GI, stent replacement should be considered but the family does not want to be transferred.
2. Acute Acidosis
- Co2 25 today. BMPs trending well.
3. Acute hypotension
- SBP running in 100s
- PICC line placed 2 days ago with no issues.
- Continue to monitor pressures and consider d/c PICC
4. Hypokalemia
- K 3.8 today, stable.
- Likely from diarrheal loss, which is improving.
- Continue to Monitor CMP and replete as needed.
5. Abdominal Pain
- Pain in upper abdomen and lumber back; nontender to palpation of the abdomen, however, painful with movement and rotation in particular.
- GI suggested this may not be abdominal in origin, and that the patient may have a slipped disc; agree with this assessment.
- MRI of the lumbar spine and lower thoracic spine ordered.
- PT/OT as toleated
6. Pancreatic CA Hx
- CT Shows 1.b cm hypodensity; unclear if metastasis or abscess.
- Possible MRI for elucidation.
7. Upper and Lower Extremity Edema
- LE edema up to the mid calf, UE edema up to mid forarm, nonpainful, nonerythematous.
- Pts weight is up 15 pounds since admission.
- Lungs CTAB, CXR from yesterday does not show evidence of pulmonary congestion, patient does not feel SOB.
- Improving today, continue to monitor. Diuresis deferred due to past episodes of hypotension.
Anticipated Discharge: > 48 hours
Subjective/Interval History
-
Date of Service: January 09, 2024
Pt's hemoglobin was found to be 6.5 this morning, was rechecked and was 6.2. Consent was obtained and the patient was given 2 units of PRBC. Pt denies any symptoms such as shortness of breath or dizziness. No overt source of bleeding.
With regards to the patient's diarrhea, it is noted that the patient feels it is less explosive, and notes that the frequency has decreased to around 4 times yesterday. No abdominal pain or nausea. Patient is able to tolerate her full liquid diet
but does not want to advance to low fat just yet.
Objective Data
-
Labs:
Laboratory Results
01/09/24 01/09/24 01/09/24
05:18 06:52 13:00
WBC 9.4
Hgb 6.9 L* 6.5 L* Pending
Hct 19.8 L* 18.5 L* Pending
Plt Count 149
Sodium 134 L
Potassium 3.8
Chloride 101
Carbon Dioxide 25
BUN 17
Creatinine 0.6
Glucose 88
Calcium 7.9 L
Total Bilirubin 0.4
AST 22
ALT < 10
Alkaline Phosphatase 155 H
Vital Signs:
Vital Signs
Temp Pulse Resp BP Pulse Ox
98.0 F 96 15 101/62 96
01/09/24 10:22 01/09/24 11:00 01/09/24 11:00 01/09/24 10:22 01/09/24 11:00
I&O
01/08/24 01/09/24 01/10/24
06:59 06:59 06:59
Intake Total 480 / 480 0 / 0
Balance 480 / 480 0 / 0
Review of Systems
-
History Source: Patient
Constitutional: Reports No Symptoms
Respiratory: Reports No Symptoms
Cardiac: Reports No Symptoms
Abdomen/GI: Reports Diarrhea (decreased in frequency from yesterday. )
Genitourinary: Reports No Symptoms
Physical Exam
-
General: No Apparent Distress, Conversant and Cachectic
HEENT: Normocephalic and Atraumatic
Respiratory: Clear to Auscultation
Cardiac: Regular Rhythm and S1/S2
GI: Soft, Nontender and Normal Bowel Sounds
Musculoskeletal: Edema, Right Upper Extrem (improving from yesterday) and Edema, Left Upper Extrem (improving from yesterday)
Neuro: Awake and Alert
Psych: Calm
Data Reviewed
-
Labs: Labs Reviewed by me and Discussed with Patient
--- NOTE | 2024-01-09 14:04 | CHAP ---
Hermes was awake and alert - welcomed the visit. , Lion, was present at bedside. Emotional and spiritual support provided.
--- NOTE | 2024-01-09 14:27 | PTCARENOTE ---
Pt presents as assessed. Aox3, anxious at times. Ordered 2U PRBC's, 2nd unit infusing at this time with no s/s of transfusion reaction. Pt incontinent of multiple loose bowel movements, thomas care completed. at bedside, both updated on plan
of care. Able to make needs known, call [facility] within reach.
[2024-01-09] MEDS: ULTRAM 25 MG PO (20:18)
[2024-01-09 20:36] LABS: Hematocrit 31.3 % (37.0-47.0); Hemoglobin 11.2 g/dL (12.0-16.0)
[2024-01-09] MEDS: TYLENOL 650 MG PO (23:30)
[2024-01-10] VITALS (13 sets, daily range): BP systolic 100–120; BP diastolic 60–77; PULSE 111–112; O2SAT 95–96; BMI 19.7
--- NOTE | 2024-01-10 02:10 | PTCARENOTE ---
Pt repeat H&H coming up to acceptable levels, 11.2, 31.3. Pt refusing full turns and only staying shifted to sides for brief time. Pt having complaint of back pain when not in particular position. Medication given for pain (see MAR). Call bingham
within reach. Assessment care and vitals as charted.
[2024-01-10 05:31] LABS: % Basophils 0.2 % (0-2); % Eosinophils 1.1 % (0-6); % Immature Granulocytes 1.6 % (0-0.5); % Lymphocytes 4.7 % (20.5-51.1); % Monocytes 5.6 % (1.7-9.3); % Neutrophils 86.8 % (42.2-75.2); Absolute Eosinophils 0.2 10^3/uL (0-0.7); Absolute Immature Granulocytes 0.2 10^3/uL (0-0.05); Absolute Lymphocytes 0.7 10^3/uL (1.2-3.4); Absolute Monocytes 0.8 10^3/uL (0.1-0.6); Absolute Neutrophils 12.7 10^3/uL (1.4-6.5); Hematocrit 31.3 % (37.0-47.0); Mean Corp Hgb Conc. 35.1 g/dL (33.0-37.0); Mean Corpuscular Hgb 29.6 pg (27.0-31.0); Mean Corpuscular Volume 84.1 fL (81.0-99.0); Mean Platelet Volume 10.5 fL (7.4-10.4); Nucleated Red Blood Cells % 0 %; Platelet Count 195 10^3/uL (130-400); Red Blood Cell Count 3.72 10^6/uL (4.20-5.40); Red Cell Dist. Width 14.4 % (11.5-14.5); White Blood Cell Count 14.6 10^3/uL (4.8-10.8)
[2024-01-10 05:49] LABS: Blood Urea Nitrogen 16 mg/dl (7-17); Calcium 8.2 mg/dl (8.4-10.2); Carbon Dioxide 26 mmol/L (22-30); Chloride 99 mmol/L (98-107); Estimated Creatinine Clearance 48 ml/min; Glucose 141 mg/dl (70-99); Potassium 3.7 mmol/L (3.5-5.1); Sodium 132 mmol/L (135-145); eGFR > 60.00
--- NOTE | 2024-01-10 08:07 | W.PN.HOSP.TC ---
Today's Communication/Plan
-
Diarrhea improving. WBC elevated after 1 day of normal values. Consider leukemoid reaction vs. persistent bacteremia. Pt and family worried about being transferred for stent replacement.
Assessment / Plan
Assessment / Plan
1. Septic Shock/C Diff Colitis
- Patient met the SIRS criteria at admission with tachypnea, tachycardia, fever and elevated WBC
- WBC 20.8 at admission --> 17 --> 9.3 --> 15.3 --> 14.2 --> 15.8 --> 9.4
- WBC 14.6 today; leukemoid reaction to yesterdays transfusion vs. persistent bacteremia. Follow up todays blood culture.
- Blood cultures continue to be positive. Follow up today's culture.
- Possibly infected stent (biofilm) per ID
- Pt currently on Dificid; diarrhea improving.
- Pt being followed by GI: seen yesterday; no urgent need for ERCP unless there is persistent bacteremia or increase in LFTs. LFTs continue to be normal, however bacteremia persists.
- Continue to monitor blood cx and LFTs.
- Per GI, stent replacement should be considered but the family does not want to be transferred. Spoke with the patient to try and reassure her of the reasons behind the decision, as well as what the process would entail.
2. Acute Acidosis
- Co2 26 today. BMPs trending well.
3. Acute hypotension
- SBP running in 100s; off of Levophed for 2 days now.
- PICC line placed 3 days ago with no issues.
- Continue to monitor pressures and consider d/c PICC
4. Hypokalemia
- K 3.7 today, stable.
- Likely from diarrheal loss, which is improving.
- Continue to Monitor CMP and replete as needed.
5. Abdominal Pain
- Pain in upper abdomen and lumber back; nontender to palpation of the abdomen, however, painful with movement and rotation in particular.
- GI suggested this may not be abdominal in origin, and that the patient may have a slipped disc; agree with this assessment.
- MRI of the lumbar spine and lower thoracic spine ordered.
- PT/OT as toleated
6. Pancreatic CA Hx
- CT Shows 1.b cm hypodensity; unclear if metastasis or abscess.
- Possible MRI for elucidation.
7. Upper and Lower Extremity Edema
- LE edema up to the mid calf, UE edema up to mid forarm, nonpainful, nonerythematous.
- Pts weight is up 15 pounds since admission.
- Lungs CTAB, CXR from yesterday does not show evidence of pulmonary congestion, patient does not feel SOB.
- Improving today, continue to monitor. Diuresis deferred due to past episodes of hypotension.
Anticipated Discharge: 24 - 48 hours
Subjective/Interval History
-
Date of Service: January 10, 2024
Diarrhea is improving per the patient; records no episodes yet today.
Pt received 2 U PRBC yesterday, tolerated well. Denies dizziness, CP, SOB.
Pt is concerned about the prospect of being transferred to [place] for stent replacement.
Objective Data
-
Labs:
Laboratory Results
01/09/24 01/10/24
20:22 04:58
WBC 14.6 H
Hgb 11.2 L D 11.0 L
Hct 31.3 L 31.3 L
Plt Count 195 D
Sodium 132 L
Potassium 3.7
Chloride 99
Carbon Dioxide 26
BUN 16
Creatinine 0.5 L
Glucose 141 H
Calcium 8.2 L
Vital Signs:
Vital Signs
Temp Pulse Resp BP Pulse Ox
98.3 F 78 14 100/67 95
01/10/24 07:55 01/10/24 06:00 01/10/24 06:00 01/10/24 06:00 01/10/24 06:00
I&O
01/09/24 01/10/24 01/11/24
06:59 06:59 06:59
Intake Total 480 / 480 2009
Balance 480 / 480 2009
Review of Systems
-
History Source: Patient
Constitutional: Reports No Symptoms
Respiratory: Reports No Symptoms
Cardiac: Reports No Symptoms
Abdomen/GI: Reports No Symptoms
Neuro: Reports No Symptoms
Physical Exam
-
General: Comfortable, Conversant and Cachectic
HEENT: Normocephalic and Atraumatic
Respiratory: Clear to Auscultation
Cardiac: Regular Rhythm and S1/S2
GI: Soft, Nontender and Normal Bowel Sounds
Skin: Warm
Neuro: Awake, Alert and AO x 3
Psych: Calm
Data Reviewed
-
Labs: Labs Reviewed by me and Discussed with Patient
--- NOTE | 2024-01-10 08:16 | W.PN.UPDATE ---
Update Note
Progress Note Update
I saw and evaluated the patient. I reviewed the resident�s note and agree with findings and plan as documented in the resident�s note.
Denies abdominal pain/CP/SOB. Diarrhea continues to improve.
Gen: NAD, Awake and alert
Eyes: EOMI, PERRLA, no scleral icterus.
Neck: supple.
CV: remains RRR, +S1/S2, no m/r/g.
Resp: remains CTAB, no rales, wheezes, or rhonchi.
Abd: +BS, soft, NT, ND
Skin: No rashes.
Neuro: CN 2-12 intact, non-focal.
Psych: Normal mood and affect.
01/08/24 06:00 Blood/Venous Blood Culture - Preliminary
Gram negative bacilli
01/08/24 06:00 Blood/Venous Gram Stain - Preliminary
01/06/24 13:23 Blood/Venous Blood Culture - Preliminary
Escherichia coli
01/06/24 13:23 Blood/Venous Gram Stain - Preliminary
01/05/24 20:29 Blood/Venous Blood Culture - Preliminary
Escherichia coli
01/05/24 20:29 Blood/Venous Gram Stain - Preliminary
01/06/24 12:58 Feces/Stool C. difficile GDH Antigen & Toxins - Final
Toxigenic C.difficile Positive
01/03/24 13:04 Blood/Venous Blood Culture - Final
Escherichia coli
01/03/24 13:04 Blood/Venous Gram Stain - Final
01/03/24 12:52 Blood/Venous Blood Culture - Final
Escherichia coli
01/03/24 12:52 Blood/Venous Gram Stain - Final
01/03/24 13:52 Urine Urine Culture - Final
01/03/24 12:52 Nasal Swab Influenza Types A & B (CRISTIN) - Final
Negative for Influenza A & B, NAAT
Negative results must be combined with clinical observations
and patient history.
Nucleic Acid Amplification test (NAAT)performed on the
[employer] ID NOW platform.
CT A/P:
1. Grossly similar appearance of the known pancreatic head lesion. Stable positioning of the biliary stents with associated pneumobilia.
2. Colonic diverticulosis without evidence of acute diverticulitis.
RUE U/S: No findings to confirm deep venous thrombosis of the right upper extremity. Proximal and mid right subclavian vein not visualized, cannot exclude thrombus.
MRI L-spine: Scoliosis with advanced multilevel discogenic and facet degenerative changes. Multilevel annular bulging and endplate osteophyte formation. No acute fracture or spondylolisthesis.
Septic shock due to acute C diff colitis and acute ascending cholangitis due to E. coli with E. coli bacteremia:
-was on Levophed now off
-cont Dificid/Flagyl and IV Ancef as per ID
-was on NaHCO3 IVFs which were stopped 01/07/27AM when pt developed anasarca (and metabolic acidosis resolved)
-IV albumin given 01/08/24-01/09/24 to mobilize anasarca
-GI following, with persistent bacteremia transfer to [place] or [place] was recommended on 01/09/24 for biliary stent exchange. Currently the pt states that she will consider transfer after she talks to her .
-also, possibility of hepatic abscess as source of infection
Anasarca:
-IV albumin given 01/08/24-01/09/24 to mobilize anasarca
Hypokalemia, resolved
Hyponatremia, mild
Overall extremely poor prognosis.
Discussed with GI/ID.
Total time spent on today's encounter was 52 minutes which included time spent in counseling the patient/family regarding diagnosis and treatment plan as listed above, goals of care, and symptom management. Case was discussed with nursing staff,
specialists, and care coordinators/case management. All labs and imaging personally reviewed by me. Remainder the time spent in detailed review of previous records, lab data, imaging, and other medical provider documentation.
--- NOTE | 2024-01-10 08:33 | VATNOTE ---
Vat rounds: Left arm levophed infiltrate has been resolved
[2024-01-10] MEDS: FLAGYL 500 MG PO ×3 (08:48→23:44)
[2024-01-10] MEDS: DIFICID 200 MG PO ×2 (08:48→20:22)
[2024-01-10] MEDS: ANCEF 10 IV ×3 (08:49→23:44)
[2024-01-10] MEDS: LIDOCAINE 4% PATCH TOPICAL (09:14)
--- NOTE | 2024-01-10 09:23 | W.PN.ID1 ---
Date of Service
Date of Service: January 10, 2024
Today's Communication
c/w current antibiotics
awaiting MRI liver
Assessment / Plan
Severe C. difficile diarrhea
- first episode
- Transitioned to Dificid 01/08/2024 -reviewed with patient that there may be a high copay outpatient and there are alternatives (though with higher risk of relapse) - she tells me it isnt an issue
- metronidazole ongoing as for cholangitis
- Monitor stool frequency and consistency - becoming loose/soft
- enhanced contact precautions
- Follow wbc
E. coli Bacteremia- persistent
Cholangitis
- 01/02 blood cultures x2 E coli (pansensitive)
- 01/04 blood cx x 1 E coli
- 01/05 blood cx x1 E coli
- 01/07 blood cx x1 E coli - remains sensitive to cefazolin
- 01/09 - blood cultures x2 in progress
- s/p zosyn x 4d -> cefazolin/po metronidazole (d#5), to continue
- suspect source control of the stent infection with biofilm is not yet optimized, may consider stent removal/replacement - patient currently refusing
- CT a/p: new 1.8 cm hypodensity lesion right hepatic lobe suspicious for developing abscess vs new mets. Hepatic abscess also may be source of persistent bacteremia.
MRI today to better characterize the lesion
Pancreatic CA with biliary stents in place, prior hx chemo and radiation. Pt opted holistic medicine tx with Ivermectin, methylene blue and shark liver oil
Cachexia
Back pain
-MRI reveals only advanced multilevel discogenic and facet degenerative changes. No acute fracture or lesions noted.
Chief Complaint
-: C-diff and Bacteremia
Subjective / Review of Systems
afebrile
bp stable off of pressors since 01/07
stools becoming formed, no abdominal pain
first episode of c diff
Vital Signs / Physical Exam
Vital Signs
Vital Signs
Temp Pulse Resp BP Pulse Ox
98.3 F 78 14 100/67 95
01/10/24 07:55 01/10/24 06:00 01/10/24 06:00 01/10/24 06:00 01/10/24 06:00
Physical Exam
Constitutional: No Acute Distress and Chronically Ill
Cardiovascular: Regular Rate and S1/S2; Negative Murmur or Rub
Pulmonary: Clear and Symmetric; Negative Wheezes or Rales
Gastrointestinal: Soft, Non Tender, Non Distended and Normal Bowel Sounds
Skin: Warm and Dry; Negative Rash or Jaundice
Objective Data
Lab Data
Lab Results
01/10/24 04:58
01/10/24 04:58
Estimated Creat Clear 48 ml/min 01/10/24 04:58
Lactic Acid Cancelled 01/03/24 16:15
Total Bilirubin 0.4 mg/dl (0.2-1.3) 01/09/24 05:18
AST 22 U/L (14-36) 01/09/24 05:18
ALT < 10 U/L (0-35) 01/09/24 05:18
Alkaline Phosphatase 155 U/L (38-126) H 01/09/24 05:18
Most recent labs reviewed.
Micro Results:
01/08/24 06:00 Blood Culture - Preliminary
Blood/Venous Escherichia coli
Gram Stain - Preliminary
01/10/24 08:35 Blood Culture - Pending
Blood/Venous
01/10/24 04:58 Blood Culture - Pending
Blood/Venous
01/06/24 13:23 Blood Culture - Preliminary
Blood/Venous Escherichia coli
Gram Stain - Preliminary
01/05/24 20:29 Blood Culture - Preliminary
Blood/Venous Escherichia coli
Gram Stain - Preliminary
01/06/24 12:58 C. difficile GDH Antigen & Toxins - Final
Feces/Stool Toxigenic C.difficile Positive
01/03/24 13:04 Blood Culture - Final
Blood/Venous Escherichia coli
Gram Stain - Final
01/03/24 12:52 Blood Culture - Final
Blood/Venous Escherichia coli
Gram Stain - Final
01/03/24 13:52 Urine Culture - Final
Urine
01/03/24 12:52 Influenza Types A & B (CRISTIN) - Final
Nasal Swab Negative for Influenza A & B, NAAT
Negative results must be combined with clinical observations
and patient history.
Nucleic Acid Amplification test (NAAT)performed on the
[employer] platform.
01/06/24 CT a/p with IV contrast: There is a new 1.8 cm hypodensity within the right hepatic lobe with slightly ill-defined navarro which is suspicious for possible new metastasis, developing hepatic abscess could appear similar in the setting of
infection. Recommend MRI abdomen for further evaluation. There is a 9 mm hypodensity within the inferior right hepatic lobe which appears more cystic in nature. Ill-defined hypodense mass within the pancreatic head consistent with known malignancy.
Stable positioning of the metallic and plastic biliary stents with extensive pneumobilia, likely sequelae of prior sphincterotomy. There is mild intrahepatic biliary ductal dilation. The bowel is nondilated aside from mild prominence of the upper
rectum. There is apparent gastric wall thickening which may be secondary to underdistention, less likely gastritis.
--- NOTE | 2024-01-10 11:25 | PTCARENOTE ---
Assumed care for patient during the day, received report via RN. Pt is AAOx3 anxious at times. Pt normal sinus on tele. Pt on room air 95% O2 sat. Pt had one episode of diarrhea this morning. Replaced silicone boarder foam on sacrum. Full CHG. PICC
dressing clean, dry, and intact. Assessment and vitals documented. Pt agreeable to turning. Call bingham is within reach.
--- NOTE | 2024-01-10 11:44 | W.PN.GI.CBS2 ---
Today's Communication / Plan
-
PLAN
Acute drop in hemoglobin without any overt bleeding. Received a unit of packed red blood cell transfusion and Hgb now up significantly, no active bleeding noted.
C. difficile diarrhea-now seems to be better on fidaxomicin 200 mg twice a day apart from metronidazole 500 mg every 8 hours.
No leukocytosis without fevers or chills.
Currently on full liquids but lactose-free. She does not want to upgrade to low-fat diet yet.
Monitor electrolytes and replete
Etiology of E. coli bacteremia -- urinary, biliary vs other
Noted leukocytosis, Currently no fevers or chills, on cefazolin.
LFTs continues to be in normal range, especially bilirubin, AST and ALT. Alkaline phosphatase elevated.
Given persistent bacteremia, best to look at the biliary stent for possible exchange. Discussed in detail with the patient and has been regarding the need for transfer to a tertiary care center for ERCP and possible stent exchange. Patient is
agreeable and spoke with so OLIVER- they are OK with a down and back procedure.
CT scan abdomen pelvis showing possible new 1.8 cm hypodensity in the right hepatic lobe. MRI ordered for today.
Continue to follow LFTs and WBC count.
Will follow
Assessment / Plan
-
The patient is 88-year-old female with history of GERD, pancreatic adenocarcinoma s/p ERCP and biliary stent placement prior chemo and radiation therapy, admission in May with klebsiella bacteremia related to cholangeitis with stent exchange and
remote history of ovarian cancer, anxiety/depression, RICH, spinal stenosis, and prior fall. She went to November for follow up ERCP wit stent change with Dr. Ceron with one covered metal and plastic stent in biliary tree. plastic stent removed
from biliary tree bile duct was swept and debris found, one plastic stent was placed in right hepatic duct. She was doing well and last [place] developed abdominal pain with diarrhea. She went to iron infusion and was sent to ER with fever 100.
7 with hypotension requiring pressors, and tachycardia. On admission she was noted with fever 102.9, WBC 20.8, procal 55.88 and bili 0.4, AST 42, ALT 40 alk phos 301 with improved LFT's after admission. blood cx + Ecoli and urine mixed melodie.
She was placed on antibiotics with improved fever. Ct was completed with Grossly similar appearance of the known pancreatic head lesion. Stable positioning of the biliary stents with associated pneumobilia. Colonic diverticulosis without
evidence of acute diverticulitis. and Moderate-sized hiatal hernia. Asked to see for possible biliary etiology of sepsis.
01/05 -- MRI lumbar spine
Scoliosis with advanced multilevel discogenic and facet degenerative changes. Multilevel annular bulging and endplate osteophyte formation. No acute fracture or spondylolisthesis.
L1-2: Left lateral recess stenosis compressing the left L2 nerve root. Mild central canal narrowing. Moderate left and mild right foraminal stenosis.
L2-3: Left lateral recess stenosis compressing the left L3 nerve root. Mild central canal narrowing and mild foraminal narrowing.
L3-4: Annular bulge. Endplate osteophyte formation. Facet arthrosis. Moderate left foraminal stenosis. Left lateral recess stenosis compressing the left L4 nerve root. Moderate central canal stenosis.
L4-5: Annular bulge, endplate osteophyte, and posterior central disc protrusion as well as facet arthrosis. Moderate to advanced central canal stenosis. Bilateral lateral recess stenosis compressing the descending L5 nerve roots. Severe left
foraminal stenosis. Moderate right foraminal narrowing.
L5-S1: Annular bulge and small protrusion as well as advanced facet arthrosis. Advanced central canal and bilateral lateral recess stenosis, right greater than left. Compression of the descending S1 nerve roots. Mild bilateral foraminal narrowing,
right greater than left.
-Ecoli sepsis with hypotension/fever/leukocytosis on admission initially improved with antibiotics then recurrent hypotension 01/05
-Klebsiella bacteremia 05/2023
-abdominal and back pain
-pancreatic CA with biliary stents in place prior chemo and radiation with current integrative medicine treatment with Ivermectin, methylene blue and sharp liver oil
-RICH
-diarrhea - resolved
other medical problems:
-anxiety/depression
--ovarian CA
CT scan of the abdomen pelvis with IV and oral contrast 01/06/2024-new 1.8 cm hypodensity in the right hepatic lobe with slightly ill-defined navarro, possible new left, cannot rule out abscess. Ill-defined mass in the pancreatic head consistent with
known malignancy. Stents of pneumobilia, mild intrahepatic bile duct dilation.
PLAN
Acute drop in hemoglobin without any overt bleeding. Received a unit of packed red blood cell transfusion and Hgb now up significantly, no active bleeding noted.
C. difficile diarrhea-now seems to be better on fidaxomicin 200 mg twice a day apart from metronidazole 500 mg every 8 hours.
No leukocytosis without fevers or chills.
Currently on full liquids but lactose-free. She does not want to upgrade to low-fat diet yet.
Monitor electrolytes and replete
Etiology of E. coli bacteremia -- urinary, biliary vs other
Noted leukocytosis, Currently no fevers or chills, on cefazolin.
LFTs continues to be in normal range, especially bilirubin, AST and ALT. Alkaline phosphatase elevated.
Given persistent bacteremia, best to look at the biliary stent for possible exchange. Discussed in detail with the patient and has been regarding the need for transfer to a tertiary care center for ERCP and possible stent exchange. Patient is
agreeable and spoke with so OLIVER- they are OK with a down and back procedure.
CT scan abdomen pelvis showing possible new 1.8 cm hypodensity in the right hepatic lobe. MRI ordered for today.
Continue to follow LFTs and WBC count.
Will follow
Subjective
Subjective
Date of Service: January 10, 2024
Pt denies abdominal pain, nausea, vomiting, Had brown BM this am. still loose but not watery. No f/c, tolerating full liquid diet
Objective
Data Reviewed
Laboratory Data:
Laboratory Results
01/10/24 04:58
01/10/24 04:58
Laboratory Results
Magnesium 1.9 mg/dl (1.6-2.3) 01/06/24 09:41
Total Bilirubin 0.4 mg/dl (0.2-1.3) 01/09/24 05:18
AST 22 U/L (14-36) 01/09/24 05:18
ALT < 10 U/L (0-35) 01/09/24 05:18
Alkaline Phosphatase 155 U/L (38-126) H 01/09/24 05:18
Lipase Cancelled 01/05/24 10:07
Vital Signs and I&O:
Vital Signs
Temp Pulse Resp BP Pulse Ox
98.3 F 90 13 119/71 95
01/10/24 07:55 01/10/24 10:00 01/10/24 10:00 01/10/24 10:00 01/10/24 10:00
I&O
01/09/24 01/10/24 01/11/24
06:59 06:59 06:59
Intake Total 480 / 480 2009
Balance 480 / 480 2009
Physical Exam
Physical Exam
GI: Soft, Non Tender and Normal Bowel Sounds
--- NOTE | 2024-01-10 11:46 | PTCARENOTE ---
Addendum entered by Radha Torres RN 01/10/24 13:52:
Pt returned from MRI via stretcher.
Original Note:
Pt transported to MRI via stretcher.
--- NOTE | 2024-01-10 16:16 | CM ---
Patient with Dx Septic Shock/C Diff Colitis, hypotension, hypokalemia, abd pain, LE Edema. Room air. Receiving IV Abx, PO Dificid. PICC. PT/OT recommends skilled rehab.
Attempted to speak with patient who was working with PT/OT.
Phone call to [facility]; left message requesting callback for d/c planning.
Based on prior CM notes 01/04/24 patient prefers [facility] if rehab needed.
SNF referral placed for [facility].
Plan follow up with [facility] for acceptance.
Plan follow up with patient/ re; SNF for rehab.
--- NOTE | 2024-01-10 16:59 | VATNOTE ---
EMEKAN obtained order to leave PICC in since leaving for [facility] in am.
--- NOTE | 2024-01-10 22:53 | PTCARENOTE ---
Received patient from previous RN. Patient is Aox3 but a little anxious. Patient is NSR with PACs on monitor. Patient is on room air sating at 95%. Patient is positive for Cdiff and on enhanced precautions. Patient complains of chronic low back pain
and has a lidocaine patch on. Patient has a right PICC and has a right upper extremity restriction for the PICC. Patient will be NPO at midnight due to a procedure scheduled tomorrow at [facility]. Patient is resting in bed with call bingham in reach.
[2024-01-11] VITALS (8 sets, daily range): BP systolic 76–110; BP diastolic 51–71; BMI 20.1
[2024-01-11 04:28] LABS: Hematocrit 30.4 % (37.0-47.0); Hemoglobin 10.5 g/dL (12.0-16.0); Mean Corp Hgb Conc. 34.5 g/dL (33.0-37.0); Mean Corpuscular Hgb 29.2 pg (27.0-31.0); Mean Corpuscular Volume 84.7 fL (81.0-99.0); Mean Platelet Volume 10.8 fL (7.4-10.4); Platelet Count 229 10^3/uL (130-400); Red Blood Cell Count 3.59 10^6/uL (4.20-5.40); Red Cell Dist. Width 14.3 % (11.5-14.5); White Blood Cell Count 14.6 10^3/uL (4.8-10.8)
[2024-01-11 04:49] LABS: ALT (SGPT) < 10 U/L (0-35); AST (SGOT) 25 U/L (14-36); Alkaline Phosphatase 148 U/L (38-126); Blood Urea Nitrogen 16 mg/dl (7-17); Calcium 7.8 mg/dl (8.4-10.2); Carbon Dioxide 26 mmol/L (22-30); Chloride 99 mmol/L (98-107); Estimated Creatinine Clearance 48 ml/min; Glucose 136 mg/dl (70-99); Potassium 3.8 mmol/L (3.5-5.1); Sodium 132 mmol/L (135-145); Total Bilirubin 0.4 mg/dl (0.2-1.3); Total Protein 4.3 g/dl (6.3-8.2); eGFR > 60.00
[2024-01-11] MEDS: DIFICID PO (08:01)
[2024-01-11] MEDS: FLAGYL PO ×2 (08:01→19:19)
--- NOTE | 2024-01-11 08:48 | W.PN.HOSP.TC ---
Today's Communication/Plan
-
Pt to be transferred to [facility] for stent replacement with buyback tonight.
Assessment / Plan
Assessment / Plan
1. Septic Shock/C Diff Colitis
- Patient met the SIRS criteria at admission with tachypnea, tachycardia, fever and elevated WBC
- WBC 20.8 at admission --> 17 --> 9.3 --> 15.3 --> 14.2 --> 15.8 --> 9.4
- WBC 14.6 today; leukemoid reaction to yesterdays transfusion vs. persistent bacteremia. Follow up todays blood culture.
- Blood cultures continue to be positive. Follow up today's culture.
- Possibly infected stent (biofilm) per ID
- Pt currently on Dificid; diarrhea improving.
- Pt being followed by GI: seen yesterday; no urgent need for ERCP unless there is persistent bacteremia or increase in LFTs. LFTs continue to be normal, however bacteremia persists.
- Continue to monitor blood cx and LFTs.
- Pt to be transferred to [facility] today for stent clean out and replacement with buyback tonight.
2. Acute Acidosis
- Co2 26 today. BMPs trending well.
3. Acute hypotension
- SBP running in 100s; off of Levophed for 3 days now.
- PICC line placed 3 days ago with no issues.
- Continue to monitor pressures and consider d/c PICC; PICC to be removed upon return from [facility].
4. Hypokalemia
- K 3.8 today, stable.
- Likely from diarrheal loss, which is improving.
- Continue to Monitor CMP and replete as needed.
5. Abdominal Pain
- Pain in upper abdomen and lumber back; nontender to palpation of the abdomen, however, painful with movement and rotation in particular.
- GI suggested this may not be abdominal in origin, and that the patient may have a slipped disc; agree with this assessment.
- MRI of the lumbar spine and lower thoracic spine ordered.
- PT/OT as toleated
6. Pancreatic CA Hx
- CT Shows 1.b cm hypodensity; unclear if metastasis or abscess.
- MRI Abd: metastatic CA in liver, with hepatic abscess unable to be ruled out; potential source of infection?
7. Upper and Lower Extremity Edema
- LE edema up to the mid calf, UE edema up to mid forarm, nonpainful, nonerythematous.
- Lungs CTAB, CXR from yesterday does not show evidence of pulmonary congestion, patient does not feel SOB.
- Continues to improve, continue to monitor. Diuresis deferred due to past episodes of hypotension.
Anticipated Discharge: > 48 hours
Subjective/Interval History
-
Date of Service: January 11, 2024
Pt to be transferred to [facility] today for stent cleanout and replacement. Pt denies any overnight events and states that her diarrhea is improving. Denies abdominal pain, CP, SOB.
Objective Data
-
Labs:
Laboratory Results
01/11/24
04:06
WBC 14.6 H
Hgb 10.5 L
Hct 30.4 L
Plt Count 229
Sodium 132 L
Potassium 3.8
Chloride 99
Carbon Dioxide 26
BUN 16
Creatinine 0.5 L
Glucose 136 H
Calcium 7.8 L
Total Bilirubin 0.4
AST 25
ALT < 10
Alkaline Phosphatase 148 H
Vital Signs:
Vital Signs
Temp Pulse Resp BP Pulse Ox
98.2 F 91 16 94/57 94
01/11/24 07:45 01/11/24 06:00 01/11/24 06:00 01/11/24 06:00 01/11/24 06:00
I&O
01/10/24 01/11/24 01/12/24
06:59 06:59 06:59
Intake Total 2009 240 / 240
Balance 2009 240 / 240
Review of Systems
-
History Source: Patient
Constitutional: Reports No Symptoms
Respiratory: Reports No Symptoms
Cardiac: Reports No Symptoms
Abdomen/GI: Reports No Symptoms
Neuro: Reports No Symptoms
Physical Exam
-
General: No Apparent Distress, Comfortable, Conversant and Cachectic
HEENT: Normocephalic and Atraumatic
Respiratory: Clear to Auscultation
Cardiac: Regular Rhythm and S1/S2
GI: Soft, Nontender and Normal Bowel Sounds
Skin: Warm
Psych: Calm
Data Reviewed
-
Labs: Labs Reviewed by me and Discussed with Patient
[2024-01-11] MEDS: LIDOCAINE 4% PATCH TOPICAL ×2 (08:53→09:06)
[2024-01-11] MEDS: ANCEF 10 IV ×2 (08:53→23:42)
--- NOTE | 2024-01-11 08:55 | W.PN.GI.CBS2 ---
Today's Communication / Plan
-
for down and back procedure for stent intervention at [facility] for transfer soon per staff
await [facility] work up
still with persistent back pain no fever overnight with VSS
NPO
cont abx
last blood cx with No growth x 24 hours cont to follow
cont Dificid with cdiff + cx
trend hbg currently 10.5 today with some drop during admission
LFT's remains normal with mild alk phos elevation
MRI completed will review with Dr. Moody likely mets abscess difficulty to excluded, panc duct dilatation -- copy of report did transfer with patient and reviewed with radiology will life image sent study
Assessment / Plan
-
The patient is 88-year-old female with history of GERD, pancreatic adenocarcinoma s/p ERCP and biliary stent placement prior chemo and radiation therapy, admission in May with klebsiella bacteremia related to cholangeitis with stent exchange and
remote history of ovarian cancer, anxiety/depression, RICH, spinal stenosis, and prior fall. She went to [place] for follow up ERCP wit stent change with Dr. Ceron with one covered metal and plastic stent in biliary tree. plastic stent removed
from biliary tree bile duct was swept and debris found, one plastic stent was placed in right hepatic duct. She was doing well and last Wednesday developed abdominal pain with diarrhea. She went to iron infusion and was sent to ER with fever 100.
7 with hypotension requiring pressors, and tachycardia. On admission she was noted with fever 102.9, WBC 20.8, procal 55.88 and bili 0.4, AST 42, ALT 40 alk phos 301 with improved LFT's after admission. blood cx + Ecoli and urine mixed melodie.
She was placed on antibiotics with improved fever. Ct was completed with Grossly similar appearance of the known pancreatic head lesion. Stable positioning of the biliary stents with associated pneumobilia. Colonic diverticulosis without
evidence of acute diverticulitis. and Moderate-sized hiatal hernia. following for concern for biliary sepsis with persistent ecoli bacteremia
CT scan of the abdomen pelvis with IV and oral contrast 01/06/2024-new 1.8 cm hypodensity in the right hepatic lobe with slightly ill-defined navarro, possible new left, cannot rule out abscess. Ill-defined mass in the pancreatic head consistent with
known malignancy. Stents of pneumobilia, mild intrahepatic bile duct dilation.
01/05 -- MRI lumbar spine
Scoliosis with advanced multilevel discogenic and facet degenerative changes. Multilevel annular bulging and endplate osteophyte formation. No acute fracture or spondylolisthesis.
L1-2: Left lateral recess stenosis compressing the left L2 nerve root. Mild central canal narrowing. Moderate left and mild right foraminal stenosis.
L2-3: Left lateral recess stenosis compressing the left L3 nerve root. Mild central canal narrowing and mild foraminal narrowing.
L3-4: Annular bulge. Endplate osteophyte formation. Facet arthrosis. Moderate left foraminal stenosis. Left lateral recess stenosis compressing the left L4 nerve root. Moderate central canal stenosis.
L4-5: Annular bulge, endplate osteophyte, and posterior central disc protrusion as well as facet arthrosis. Moderate to advanced central canal stenosis. Bilateral lateral recess stenosis compressing the descending L5 nerve roots. Severe left
foraminal stenosis. Moderate right foraminal narrowing.
L5-S1: Annular bulge and small protrusion as well as advanced facet arthrosis. Advanced central canal and bilateral lateral recess stenosis, right greater than left. Compression of the descending S1 nerve roots. Mild bilateral foraminal narrowing,
right greater than left.
01/09 MR Abdomen W/o & W Contrast
Two lesions in the central liver measuring 1.9 cm and 0.9 cm are favored to represent hepatic metastases in the setting of known pancreatic head adenocarcinoma. Small developing hepatic abscesses would be difficult to completely exclude on this
exam, which is limited by motion artifact. known panc mass seen panc duct dilation
-persistent Ecoli sepsis with hypotension/fever/leukocytosis on admission initially improved with antibiotics then recurrent hypotension 01/05 last cx 01/09 no growth to date
-Klebsiella bacteremia 05/2023
-abdominal and back pain
-pancreatic CA with biliary stents in place prior chemo and radiation with current integrative medicine treatment with Ivermectin, methylene blue and sharp liver oil
-RICH with drop in hbg during admission
-diarrhea -c-diff +
-CT with new 1.8 cm hypodensity right hepatic lobe favor mets per MRI vs difficult to exclude abscess, panc duct dilatation
other medical problems:
-anxiety/depression
--ovarian CA
PLAN:
for down and back procedure for stent intervention at [facility] for transfer soon per staff
await [facility] work up
still with persistent back pain no fever overnight with VSS
NPO
cont abx
last blood cx with No growth x 24 hours cont to follow
cont Dificid with cdiff + cx
trend hbg currently 10.5 today with some drop during admission
LFT's remains normal with mild alk phos elevation
MRI completed will review with Dr. Moody likely mets abscess difficulty to excluded, panc duct dilatation -- copy of report did transfer with patient and reviewed with radiology will life image sent study
Subjective
Subjective
Date of Service: January 11, 2024
NPO for procedure today,01/10 loose stool-- still wtih back pain
Objective
Data Reviewed
Laboratory Data:
Laboratory Results
01/11/24 04:06
01/11/24 04:06
Laboratory Results
Magnesium 1.9 mg/dl (1.6-2.3) 01/06/24 09:41
Total Bilirubin 0.4 mg/dl (0.2-1.3) 01/11/24 04:06
AST 25 U/L (14-36) 01/11/24 04:06
ALT < 10 U/L (0-35) 01/11/24 04:06
Alkaline Phosphatase 148 U/L (38-126) H 01/11/24 04:06
Lipase Cancelled 01/05/24 10:07
Vital Signs and I&O:
Vital Signs
Temp Pulse Resp BP Pulse Ox
98.2 F 91 16 94/57 94
01/11/24 07:45 01/11/24 06:00 01/11/24 06:00 01/11/24 06:00 01/11/24 06:00
I&O
01/10/24 01/11/24 01/12/24
06:59 06:59 06:59
Intake Total 2009 240 / 240
Balance 2009 240 / 240
Physical Exam
Physical Exam
HEENT: Anicteric and Other (dry lips )
Cardiology: Normal Sinus Rhythm
Pulmonary: Clear
GI: Soft, Distended (mild ) and Non Tender
Extremities: No Edema
Neuro: Non Focal
--- NOTE | 2024-01-11 08:58 | W.PN.UPDATE ---
Update Note
Progress Note Update
I saw and evaluated the patient. I reviewed the resident�s note and agree with findings and plan as documented in the resident�s note.
Denies abdominal pain/CP/SOB. Patient reports that since yesterday she is only had 1 stool. She cannot tell me if it was formed.
Gen: NAD, Awake and alert, appears chronically ill and malnourished
Eyes: EOMI, PERRLA, no scleral icterus.
Neck: supple.
CV: continues to remain RRR, +S1/S2, no m/r/g.
Resp: continues to remain CTAB, no rales, wheezes, or rhonchi.
Abd: +BS, soft, NT, ND
Skin: No rashes.
Neuro: remains CN 2-12 intact, non-focal.
Psych: Normal mood and affect.
01/10/24 08:35 Blood/Venous Blood Culture - Preliminary
No Growth in 24 hours- Final report to follow
01/10/24 04:58 Blood/Venous Blood Culture - Preliminary
No Growth in 24 hours- Final report to follow
01/08/24 06:00 Blood/Venous Blood Culture - Preliminary
Escherichia coli
01/08/24 06:00 Blood/Venous Gram Stain - Preliminary
01/06/24 13:23 Blood/Venous Blood Culture - Preliminary
Escherichia coli
01/06/24 13:23 Blood/Venous Gram Stain - Preliminary
01/05/24 20:29 Blood/Venous Blood Culture - Preliminary
Escherichia coli
01/05/24 20:29 Blood/Venous Gram Stain - Preliminary
01/06/24 12:58 Feces/Stool C. difficile GDH Antigen & Toxins - Final
Toxigenic C.difficile Positive
01/03/24 13:04 Blood/Venous Blood Culture - Final
Escherichia coli
01/03/24 13:04 Blood/Venous Gram Stain - Final
01/03/24 12:52 Blood/Venous Blood Culture - Final
Escherichia coli
01/03/24 12:52 Blood/Venous Gram Stain - Final
01/03/24 13:52 Urine Urine Culture - Final
01/03/24 12:52 Nasal Swab Influenza Types A & B (CRISTIN) - Final
Negative for Influenza A & B, NAAT
Negative results must be combined with clinical observations
and patient history.
Nucleic Acid Amplification test (NAAT)performed on the
[employer] ID NOW platform.
CT A/P:
1. Grossly similar appearance of the known pancreatic head lesion. Stable positioning of the biliary stents with associated pneumobilia.
2. Colonic diverticulosis without evidence of acute diverticulitis.
RUE U/S: No findings to confirm deep venous thrombosis of the right upper extremity. Proximal and mid right subclavian vein not visualized, cannot exclude thrombus.
MRI L-spine: Scoliosis with advanced multilevel discogenic and facet degenerative changes. Multilevel annular bulging and endplate osteophyte formation. No acute fracture or spondylolisthesis.
Septic shock due to acute C diff colitis and acute ascending cholangitis due to E. coli with E. coli bacteremia:
-was on Levophed now off
-cont Dificid/Flagyl and IV Ancef as per ID
-was on NaHCO3 IVFs which were stopped 01/07/27AM when pt developed anasarca (and metabolic acidosis resolved)
-IV albumin given 01/08/24-01/09/24 to mobilize anasarca
-GI following
-01/10/24 BCx NGTD
-pt to go to [facility] for biliary stent exchange with immediate return to
-also, possibility of hepatic abscess as source of infection
Other problems:
Anasarca: IV albumin given 01/08/24-01/09/24 to mobilize anasarca
Anemia of chronic disease: Hb stable s/p 2U pRBCs
Hypokalemia, resolved
Hyponatremia, mild
Overall extremely poor prognosis.
--- NOTE | 2024-01-11 12:01 | PTCARENOTE ---
pt left via ambulance to [facility] for replacement of biliary stents. will resume monitoring upon pts return.
--- NOTE | 2024-01-11 16:03 | PTCARENOTE ---
pt discharged to [facility]. attempted to call report to 4 th floor x 3 with no answer. transferred via ambulance stretcher. noted that no bms documented on pt chart. pt unable to tell if he had bm but denies any nausea or abd discomfort. ate 75
percent of lunch. miralax given per prn order. hospitalist made aware.
--- NOTE | 2024-01-11 16:53 | CM ---
Patient with Dx Septic Shock/C Diff Colitis, hypotension, hypokalemia, abd pain, Upper/LE Edema. Room air. Receiving IV Abx, PO Dificid. PICC. PT/OT recommends skilled rehab.
Patient transferred to [facility] for stent replacement today with buyback agreement.
SNF referral reviewed in [facility] for [facility]; message asking if Dificid can be switched out to another med---> message to Mindy Ojeda.
Plan [facility] if accepted.
--- NOTE | 2024-01-11 18:28 | PTCARENOTE ---
recieved report from [facility] nurse s/p stent replacement. pt to be picked up from [facility] at 630 pm per nurse at [facility].
[2024-01-11] MEDS: ANCEF IV (19:18)
[2024-01-11] MEDS: DIFICID 200 MG PO (21:32)
--- NOTE | 2024-01-11 22:51 | PTCARENOTE ---
Received patient back from [place] without issue. Patient is Aox3 and NSR on monitor. Patient was incontinent of bowl and bladder, purewick in place. Patient resting in bed with call bingham in reach, care on going.
[2024-01-11] MEDS: FLAGYL 500 MG PO (23:42)
[2024-01-12] VITALS (25 sets, daily range): BP systolic 82–116; BP diastolic 53–78; BMI 20.4
[2024-01-12] MEDS: NSS 500 IV (01:17)
--- NOTE | 2024-01-12 02:36 | PTCARENOTE ---
Patient with MAPs below 65. house calls nurse practitioner provider made aware and ordered 500 ml bolus.
[2024-01-12 04:25] LABS: Hematocrit 28.2 % (37.0-47.0); Hemoglobin 9.7 g/dL (12.0-16.0); Mean Corp Hgb Conc. 34.4 g/dL (33.0-37.0); Mean Corpuscular Hgb 29.7 pg (27.0-31.0); Mean Corpuscular Volume 86.2 fL (81.0-99.0); Mean Platelet Volume 10.4 fL (7.4-10.4); Platelet Count 200 10^3/uL (130-400); Red Blood Cell Count 3.27 10^6/uL (4.20-5.40); Red Cell Dist. Width 14.5 % (11.5-14.5); White Blood Cell Count 13.3 10^3/uL (4.8-10.8)
[2024-01-12 04:56] LABS: ALT (SGPT) < 10 U/L (0-35); AST (SGOT) 24 U/L (14-36); Alkaline Phosphatase 136 U/L (38-126); Blood Urea Nitrogen 20 mg/dl (7-17); Calcium 7.6 mg/dl (8.4-10.2); Carbon Dioxide 24 mmol/L (22-30); Chloride 100 mmol/L (98-107); Estimated Creatinine Clearance 48 ml/min; Glucose 217 mg/dl (70-99); Potassium 4.1 mmol/L (3.5-5.1); Sodium 132 mmol/L (135-145); Total Bilirubin 0.3 mg/dl (0.2-1.3); Total Protein 4.1 g/dl (6.3-8.2); eGFR > 60.00
[2024-01-12] MEDS: DIFICID 200 MG PO ×2 (08:49→21:07)
[2024-01-12] MEDS: ANCEF 10 IV (08:49)
[2024-01-12] MEDS: FLAGYL 500 MG PO ×3 (08:49→23:27)
[2024-01-12] MEDS: LIDOCAINE 4% PATCH TOPICAL (08:51)
--- NOTE | 2024-01-12 09:23 | W.PN.ID1 ---
Date of Service
Date of Service: January 12, 2024
Today's Communication
would remove PICC prior to dc
switched to keflex/metronidazole for 5 more days (through 01/15)
continue dificid through 01/18
Assessment / Plan
Severe C. difficile diarrhea
- first episode
- continue dificid through 01/18
- metronidazole ongoing as for cholangitis (see below)
- Monitor stool - loose/soft
- enhanced contact precautions
- Follow wbc
E. coli Bacteremia- persistent
Cholangitis
- 01/02 blood cultures x2 E coli (pansensitive)
- 01/04 blood cx x 1 E coli
- 01/05 blood cx x1 E coli
- 01/07 blood cx x1 E coli - remains sensitive to cefazolin
- 01/09 - blood cultures x2 no growth to date
- switched to keflex/metronidazole for 5 more days (through 01/15)
- s/p stent removal/replacement 01/10 at [facility]
- MRI hepatic lesion appears to be a new metastasis
Pancreatic CA with biliary stents in place, prior hx chemo and radiation. Pt opted holistic medicine tx with Ivermectin, methylene blue and shark liver oil
Cachexia
Back pain
-MRI reveals only advanced multilevel discogenic and facet degenerative changes. No acute fracture or lesions noted.
would remove PICC prior to dc
Chief Complaint
-: C-diff and Bacteremia
Subjective / Review of Systems
afebrile
bp stable this AM, mildly hypotensive overnight
returned from [place] late last night about 2300
Vital Signs / Physical Exam
Vital Signs
Vital Signs
Temp Pulse Resp BP Pulse Ox
97.9 F 61 15 103/59 94
01/12/24 07:31 01/12/24 06:00 01/12/24 06:00 01/12/24 06:00 01/12/24 06:00
Physical Exam
Constitutional: No Acute Distress and Chronically Ill
Cardiovascular: Regular Rate and S1/S2; Negative Murmur or Rub
Pulmonary: Clear and Symmetric; Negative Wheezes or Rales
Gastrointestinal: Soft, Non Tender, Non Distended and Normal Bowel Sounds
Skin: Warm and Dry; Negative Rash or Jaundice
Lines: PICC
Objective Data
Lab Data
Lab Results
01/12/24 04:06
01/12/24 04:06
Estimated Creat Clear 48 ml/min 01/12/24 04:06
Lactic Acid Cancelled 01/03/24 16:15
Total Bilirubin 0.3 mg/dl (0.2-1.3) 01/12/24 04:06
AST 24 U/L (14-36) 01/12/24 04:06
ALT < 10 U/L (0-35) 01/12/24 04:06
Alkaline Phosphatase 136 U/L (38-126) H 01/12/24 04:06
Most recent labs reviewed.
Micro Results:
01/10/24 08:35 Blood Culture - Preliminary
Blood/Venous No Growth in 48 hours- Final report to follow
01/10/24 04:58 Blood Culture - Preliminary
Blood/Venous No Growth in 48 hours- Final report to follow
01/08/24 06:00 Blood Culture - Preliminary
Blood/Venous Escherichia coli
Gram Stain - Preliminary
01/06/24 13:23 Blood Culture - Preliminary
Blood/Venous Escherichia coli
Gram Stain - Preliminary
01/05/24 20:29 Blood Culture - Preliminary
Blood/Venous Escherichia coli
Gram Stain - Preliminary
01/06/24 12:58 C. difficile GDH Antigen & Toxins - Final
Feces/Stool Toxigenic C.difficile Positive
01/03/24 13:04 Blood Culture - Final
Blood/Venous Escherichia coli
Gram Stain - Final
01/03/24 12:52 Blood Culture - Final
Blood/Venous Escherichia coli
Gram Stain - Final
01/03/24 13:52 Urine Culture - Final
Urine
01/03/24 12:52 Influenza Types A & B (CRISTIN) - Final
Nasal Swab Negative for Influenza A & B, NAAT
Negative results must be combined with clinical observations
and patient history.
Nucleic Acid Amplification test (NAAT)performed on the
[employer] platform.
--- NOTE | 2024-01-12 09:23 | W.PN.HOSP.TC ---
Addendum entered and electronically signed by Scott Spicer MD 01/12/24 10:01:
I saw and evaluated the patient. I reviewed the resident�s note and agree with findings and plan as documented in the resident�s note.
Denies abdominal pain/CP/SOB/diarrhea.
Gen: NAD, Awake and alert, appears chronically ill and malnourished
Eyes: EOMI, PERRLA, no scleral icterus.
Neck: supple.
CV: RRR, +S1/S2, no m/r/g.
Resp: CTAB, no rales, wheezes, or rhonchi.
Abd: remains +BS, soft, NT, ND
Skin: No rashes. 1-2+ B/L LE edema
Neuro: CN 2-12 intact, non-focal.
Psych: Normal mood and affect.
01/10/24 08:35 Blood/Venous Blood Culture - Preliminary
No Growth in 48 hours- Final report to follow
01/10/24 04:58 Blood/Venous Blood Culture - Preliminary
No Growth in 48 hours- Final report to follow
01/08/24 06:00 Blood/Venous Blood Culture - Preliminary
Escherichia coli
01/08/24 06:00 Blood/Venous Gram Stain - Preliminary
01/06/24 13:23 Blood/Venous Blood Culture - Preliminary
Escherichia coli
01/06/24 13:23 Blood/Venous Gram Stain - Preliminary
01/05/24 20:29 Blood/Venous Blood Culture - Preliminary
Escherichia coli
01/05/24 20:29 Blood/Venous Gram Stain - Preliminary
01/06/24 12:58 Feces/Stool C. difficile GDH Antigen & Toxins - Final
Toxigenic C.difficile Positive
01/03/24 13:04 Blood/Venous Blood Culture - Final
Escherichia coli
01/03/24 13:04 Blood/Venous Gram Stain - Final
01/03/24 12:52 Blood/Venous Blood Culture - Final
Escherichia coli
01/03/24 12:52 Blood/Venous Gram Stain - Final
01/03/24 13:52 Urine Urine Culture - Final
01/03/24 12:52 Nasal Swab Influenza Types A & B (CRISTIN) - Final
Negative for Influenza A & B, NAAT
Negative results must be combined with clinical observations
and patient history.
Nucleic Acid Amplification test (NAAT)performed on the
[employer] ID NOW platform.
CT A/P:
1. Grossly similar appearance of the known pancreatic head lesion. Stable positioning of the biliary stents with associated pneumobilia.
2. Colonic diverticulosis without evidence of acute diverticulitis.
RUE U/S: No findings to confirm deep venous thrombosis of the right upper extremity. Proximal and mid right subclavian vein not visualized, cannot exclude thrombus.
MRI L-spine: Scoliosis with advanced multilevel discogenic and facet degenerative changes. Multilevel annular bulging and endplate osteophyte formation. No acute fracture or spondylolisthesis.
MRI abd: Two lesions in the central liver measuring 1.9 cm and 0.9 cm are favored to represent hepatic metastases in the setting of known pancreatic head adenocarcinoma. Small developing hepatic abscesses would be difficult to completely exclude on
this exam, which is limited by motion artifact. Additional findings, as detailed above.
Septic shock due to acute C diff colitis and acute ascending cholangitis due to E. coli with E. coli bacteremia:
-was on Levophed now off
-cont Dificid/Flagyl and Keflex (was on IV Ancef prior) as per ID
-was on NaHCO3 IVFs which were stopped 01/07/27AM when pt developed anasarca (and metabolic acidosis resolved)
-IV albumin given 01/08/24-01/09/24 to mobilize anasarca
-GI following
-01/10/24 BCx NGTD
-s/p biliary stent exchange at [facility] on 01/11/24
Other problems:
Anasarca: IV albumin given 01/08/24-01/09/24 to mobilize anasarca
Anemia of chronic disease: Hb stable s/p 2U pRBCs
Hypokalemia, resolved
Hyponatremia, mild, stable
Total time spent on today's encounter was 50 minutes which included time spent in counseling the patient/family regarding diagnosis and treatment plan as listed above, goals of care, and symptom management. Case was discussed with nursing staff,
specialists, and care coordinators/case management. All labs and imaging personally reviewed by me. Remainder the time spent in detailed review of previous records, lab data, imaging, and other medical provider documentation.
Original Note:
Today's Communication/Plan
-
See PN
Assessment / Plan
Assessment / Plan
1. Septic Shock/C Diff Colitis
- Patient met the SIRS criteria at admission with tachypnea, tachycardia, fever and elevated WBC
- WBC 20.8 at admission --> normalized to 9.4 --> 14.6 yesterday --> 13.3 today
- BCx from 01/09 remains negative?
- Possibly infected stent (biofilm) per ID; being followed by GI; GI in touch with [facility].
- Pt currently on Dificid; diarrhea improving; no acute diarrheal event in 2 days.
- Continue to monitor blood cx and LFTs.
- Pt to be transferred to [facility] today for stent clean out and replacement with buyback tonight.
2. Acute Acidosis
- Co2 24 today. BMPs trending well.
3. Acute hypotension
- SBP running in 100s; off of Levophed for 4 days now.
- Continue to monitor pressures and consider d/c PICC; remove PICC today?
- One MAP reading overnight < 60, corrected with 500 ml bolus NS.
4. Hypokalemia
- K 4.1 today, stable.
- Likely from diarrheal loss, which is improving.
- Continue to Monitor CMP and replete as needed.
5. Abdominal Pain
- Pain in upper abdomen and lumber back; nontender to palpation of the abdomen, however, painful with movement and rotation in particular.
- GI suggested this may not be abdominal in origin, and that the patient may have a slipped disc; agree with this assessment.
- MRI of the lumbar spine and lower thoracic spine ordered.
- PT/OT as toleated
6. Pancreatic CA Hx
- CT Shows 1.b cm hypodensity; unclear if metastasis or abscess.
- MRI Abd: metastatic CA in liver, with hepatic abscess unable to be ruled out; potential source of infection?
7. Upper and Lower Extremity Edema
- LE edema up to the mid calf, UE edema up to mid forarm, nonpainful, nonerythematous.
- Lungs CTAB, CXR from yesterday does not show evidence of pulmonary congestion, patient does not feel SOB.
- Continues to improve, continue to monitor. Diuresis deferred due to past episodes of hypotension.
Anticipated Discharge: > 48 hours
Subjective/Interval History
-
Date of Service: January 12, 2024
Pt was transferred to [facility] yesterday for stent replacement procedure (notes to be reviewed). Pt denies any acute events on her trip. With regards to diarrhea, the patient states that she has not had a diarrheal episode in 2 days now. Pt denies
fevers, CP, SOB, abdominal pain. Per nursing, patient MAP fell below 60 at one point last night, was bolused with 500 cc NS, and MAPs have remained stable since then. Engine Test Cell Technician at bedside, patient consented to her being in the room during H/P.
Objective Data
-
Labs:
Laboratory Results
01/12/24
04:06
WBC 13.3 H
Hgb 9.7 L
Hct 28.2 L
Plt Count 200
Sodium 132 L
Potassium 4.1
Chloride 100
Carbon Dioxide 24
BUN 20 H
Creatinine 0.6
Glucose 217 H
Calcium 7.6 L
Total Bilirubin 0.3
AST 24
ALT < 10
Alkaline Phosphatase 136 H
Vital Signs:
Vital Signs
Temp Pulse Resp BP Pulse Ox
97.9 F 61 15 103/59 94
01/12/24 07:31 01/12/24 06:00 01/12/24 06:00 01/12/24 06:00 01/12/24 06:00
I&O
01/11/24 01/12/24 01/13/24
06:59 06:59 06:59
Intake Total 240 / 240 500 / 500
Output Total 300 / 300
Balance 240 / 240 200 / 200
Review of Systems
-
History Source: Patient
All other systems: Reviewed and negative
Physical Exam
-
General: No Apparent Distress, Conversant and Cachectic
HEENT: Normocephalic and Atraumatic
Respiratory: Clear to Auscultation
Cardiac: Regular Rhythm and S1/S2
GI: Soft, Nontender, Nondistended and Normal Bowel Sounds
Neuro: Awake and Alert
Psych: Calm
Data Reviewed
-
Labs: Labs Reviewed by me and Discussed with Patient
Old Records: Requested
--- NOTE | 2024-01-12 10:29 | W.PN.GI.CBS2 ---
Addendum entered and electronically signed by Magaly Moody MD 01/12/24 21:03:
I saw and examined the patient.
The IMAGE CONSULTANT's note was reviewed and I agree with the note.
doing well. No abd pain/ N/V. 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
plan
low fat diet
continue antibiotics per ID
follow up with oncology with regard to new liver lesions
will s/o. please call us back if any questions
Addendum entered and electronically signed by SIMONE Felton 01/12/24 11:50:
I reviewed ERCP results with patient with concern for malignant stricture -- will get oncology input
Addendum entered and electronically signed by SIMONE Felton 01/12/24 11:19:
01/[address] [facility] [address] 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
Original Note:
Today's Communication / Plan
-
s/p down and back procedure for stent intervention at [facility] 01/10 --- per nursing staff stent exchange completed
no report sent with patient -- I requested for report
stable overnight alk phos lower, WBC lower
low fat diet
cont abx per ID
last blood cx with No growth x 48 hours cont to follow
cont Dificid with cdiff + cx -- case management asking about change to Vanco-- would review with ID as also following pt
trend hbg currently 9.7 today with some drop during admission
I reviewed MRI with patient with noted liver lesion-- if recurrent fevers and etiology unclear --reimage to ensure no developing liver abscess as not excluded on MRI report
Assessment / Plan
-
The patient is 88-year-old female with history of GERD, pancreatic adenocarcinoma s/p ERCP and biliary stent placement prior chemo and radiation therapy, admission in May with klebsiella bacteremia related to cholangeitis with stent exchange and
remote history of ovarian cancer, anxiety/depression, IR[facility], spinal stenosis, and prior fall. She went to [place] for follow up ERCP wit stent change with Dr. Ceron with one covered metal and plastic stent in biliary tree. plastic stent removed
from biliary tree bile duct was swept and debris found, one plastic stent was placed in right hepatic duct. She was doing well and last [place] developed abdominal pain with diarrhea. She went to iron infusion and was sent to ER with fever 100.
7 with hypotension requiring pressors, and tachycardia. On admission she was noted with fever 102.9, WBC 20.8, procal 55.88 and bili 0.4, AST 42, ALT 40 alk phos 301 with improved LFT's after admission. blood cx + Ecoli and urine mixed melodie.
She was placed on antibiotics with improved fever. Ct was completed with Grossly similar appearance of the known pancreatic head lesion. Stable positioning of the biliary stents with associated pneumobilia. Colonic diverticulosis without
evidence of acute diverticulitis. and Moderate-sized hiatal hernia. following for concern for biliary sepsis with persistent ecoli bacteremia
CT scan of the abdomen pelvis with IV and oral contrast 01/06/2024-new 1.8 cm hypodensity in the right hepatic lobe with slightly ill-defined navarro, possible new left, cannot rule out abscess. Ill-defined mass in the pancreatic head consistent with
known malignancy. Stents of pneumobilia, mild intrahepatic bile duct dilation.
01/05 -- MRI lumbar spine
Scoliosis with advanced multilevel discogenic and facet degenerative changes. Multilevel annular bulging and endplate osteophyte formation. No acute fracture or spondylolisthesis.
L1-2: Left lateral recess stenosis compressing the left L2 nerve root. Mild central canal narrowing. Moderate left and mild right foraminal stenosis.
L2-3: Left lateral recess stenosis compressing the left L3 nerve root. Mild central canal narrowing and mild foraminal narrowing.
L3-4: Annular bulge. Endplate osteophyte formation. Facet arthrosis. Moderate left foraminal stenosis. Left lateral recess stenosis compressing the left L4 nerve root. Moderate central canal stenosis.
L4-5: Annular bulge, endplate osteophyte, and posterior central disc protrusion as well as facet arthrosis. Moderate to advanced central canal stenosis. Bilateral lateral recess stenosis compressing the descending L5 nerve roots. Severe left
foraminal stenosis. Moderate right foraminal narrowing.
L5-S1: Annular bulge and small protrusion as well as advanced facet arthrosis. Advanced central canal and bilateral lateral recess stenosis, right greater than left. Compression of the descending S1 nerve roots. Mild bilateral foraminal narrowing,
right greater than left.
01/09 MR Abdomen W/o & W Contrast
Two lesions in the central liver measuring 1.9 cm and 0.9 cm are favored to represent hepatic metastases in the setting of known pancreatic head adenocarcinoma. Small developing hepatic abscesses would be difficult to completely exclude on this
exam, which is limited by motion artifact. known panc mass seen panc duct dilation
01/10 s/p stent exchange at [facility]
- Ecoli sepsis with hypotension/fever/leukocytosis on admission initially improved with antibiotics then recurrent hypotension 01/05 last cx 01/09 no growth to date 01/10 stent exchange at [facility]
-Klebsiella bacteremia 05/2023
-abdominal and back pain
-pancreatic CA with biliary stents in place prior chemo and radiation with current integrative medicine treatment with Ivermectin, methylene blue and sharp liver oil
-RICH with drop in hbg during admission
-diarrhea -c-diff +
-CT with new 1.8 cm hypodensity right hepatic lobe favor mets per MRI vs difficult to exclude abscess, panc duct dilatation
other medical problems:
-anxiety/depression
--ovarian CA
PLAN:
s/p down and back procedure for stent intervention at [facility] 01/10 --- per nursing staff stent exchange completed
no report sent with patient -- I requested for report
stable overnight alk phos lower, WBC lower
low fat diet
cont abx per ID
last blood cx with No growth x 48 hours cont to follow
cont Dificid with cdiff + cx -- case management asking about change to Vanco-- would review with ID as also following pt
trend hbg currently 9.7 today with some drop during admission
I reviewed MRI with patient with noted liver lesion-- if recurrent fevers and etiology unclear --reimage to ensure no developing liver abscess as not excluded on MRI report
Subjective
Subjective
Date of Service: January 12, 2024
low fat diet, 01/10 brown stool feeling better
Objective
Data Reviewed
Laboratory Data:
Laboratory Results
01/12/24 04:06
01/12/24 04:06
Laboratory Results
Magnesium 1.9 mg/dl (1.6-2.3) 01/06/24 09:41
Total Bilirubin 0.3 mg/dl (0.2-1.3) 01/12/24 04:06
AST 24 U/L (14-36) 01/12/24 04:06
ALT < 10 U/L (0-35) 01/12/24 04:06
Alkaline Phosphatase 136 U/L (38-126) H 01/12/24 04:06
Lipase Cancelled 01/05/24 10:07
Vital Signs and I&O:
Vital Signs
Temp Pulse Resp BP Pulse Ox
97.9 F 82 18 102/59 96
01/12/24 07:31 01/12/24 09:00 01/12/24 09:00 01/12/24 09:00 01/12/24 09:58
I&O
01/11/24 01/12/24 01/13/24
06:59 06:59 06:59
Intake Total 240 / 240 500 / 500
Output Total 300 / 300
Balance 240 / 240 200 / 200
Physical Exam
Physical Exam
HEENT: Anicteric and Moist mucous membranes
Cardiology: Normal Sinus Rhythm
Pulmonary: Clear
GI: Soft, Non Distended and Non Tender
Extremities: No Edema
Neuro: Non Focal
[2024-01-12] MEDS: KEFLEX PO (12:02)
--- NOTE | 2024-01-12 12:26 | CON.ONC ---
Impression
Impression
pancreatic adenocarcinoma s/p ERCP and biliary stent placement prior chemo and radiation therapy
C Diff Colitis
Cholangitis - E. Coli bacteremia
Suspected liver mets (vs abscesses)
Plan
Plan
Suspect patient with POD with malignant stricture and liver mets.
Await pathology (from [facility]?) of the ERCP to confirm active disease.
Check tumor markers. Prior CA 19/9 = 461 (07/13/2023)
Outpt PET scan and potentially liver biopsy for pathologic confirmation depending on ERCP results.
She could be a candidate for palliative chemotherapy if she is agreeable.
Patient History
History of Present Illness
Chief Complaint: fever, cholangitis from stent malfunction, pancreatic cancer
HPI: 88-year-old female with history of pancreatic adenocarcinoma s/p ERCP and biliary stent placement prior chemo (Xeloda) and radiation therapy 2-05/2023 x 25 fractions , admission in May with klebsiella bacteremia related to cholangeitis with
stent exchange and remote history of ovarian cancer. Had ERCP with stent change with Dr. Ceron in November. She was doing well and last [place] developed abdominal pain with diarrhea, and fever 100.7 with hypotension requiring pressors, and
tachycardia. On admission she was noted with fever 102.9, WBC 20.8, procal 55.88. Blood cx + Ecoli and urine mixed melodie. She was placed on antibiotics with improved fever. CT suggested grossly similar appearance of the known pancreatic head
lesion. Admits to wt loss up to 20 lbs over last year. Pt also admits to taking medication through [facility] medical team including ivermectin, methalene blue, squalene, and shark liver oil. MRI Abdomen 01/09: Two lesions in the central
liver measuring 1.9 cm and 0.9 cm are favored to represent hepatic metastases in the setting of known pancreatic head adenocarcinoma. Small developing hepatic abscesses would be difficult to completely exclude on this exam, which is limited by
motion artifact. ERCP yesterday done at [facility]: 01/[address] Humberto Park-- malignant biliary stricture with upstream extrahepatic and intrahepatic duct dilatation s/p sent removal balloon extraction and debris with placement of new
FCSEMS and single pigtail stent. Consulted for oncologic management.
Past-Medical/Surgical History
PMH:
Cholangitis post ERCP 06/02/2023 with stent removal and new stents placed
Ovarian cancer treated with surgery and chemotherapy
Pancreatic CA
Iron deficiency anemia gets IV iron transfusions
Depression
Anxiety,
Spinal stenosis
Mechanical fall with right hip fracture August 2022 s/p right hip hemiarthroplasty,
Chronic LBBB,
severe protein Calorie malnutrition-BMI 16.5
Past Surgical History:
Spinal Surgery
T&A
DAMION / BSO
Right Hip ORIF
Cataracts
Social History
Tobacco: Non-smoker
Alcohol: None
Drug: None
Personal:
Living: With Family
Family History
Family History: Other (Mother, Father, Brother: Lung Cancer MGM: Liver Cancer)
Allergies / Home Medications
Patient Medication
�Medication �Instructions �Recorded �Confirmed �Last Taken �Type
syzhtnby-ekuwfp-fagwy extract 5 6 cap PO DAILY Supplement 06/09/23 01/03/24 01/02/24 History
mg-6 mg-150 mg capsule (Fruit and
Vegetable Daily)
methylene blue 65 mg tablet 65 mg PO DAILY Supplement 12/07/23 01/03/24 01/02/24 History
aspirin 325 mg tablet 325 mg PO BIDPRN PRN fever 01/03/24 01/03/24 01/02/24 History
ivermectin 3 mg tablet 6 mg PO DAILY Supplement 01/03/24 01/03/24 01/02/24 History
shark liver oil-vitamin E 500 mg-5 1 cap PO BID Supplement 01/03/24 01/03/24 01/02/24 History
unit capsule
Active Medications
Generic Name Dose Route Start Last Admin
Trade Name Freq PRN Reason Stop Dose Admin
Acetaminophen 650 mg 01/03/24 17:14 01/09/24 23:30
Acetaminophen 325 Mg Tablet PO 01/31/24 17:13 650 mg
Q4HPRN PRN Administration
mild pain/GEE/temp> 100.4F
Aspirin 325 mg 01/03/24 20:15
Aspirin 325 Mg Tablet PO 01/31/24 20:14
BIDPRN PRN
fever
Cephalexin HCl 500 mg 01/12/24 09:30 01/12/24 12:02
Cephalexin 500 Mg Capsule PO Not Given
QID TARSHA
Fidaxomicin 200 mg 01/08/24 09:00 01/12/24 08:49
Fidaxomicin (Dificid) 200 Mg Tablet PO 200 mg
BID TARSHA Administration
Lidocaine 1 patch 01/03/24 15:00 01/12/24 08:51
Lidocaine 4% Topical Patch TOPICAL 01/31/24 14:59 Not Given
DAILY TARSHA
Protocol
Metronidazole 500 mg 01/06/24 16:00 01/12/24 08:49
Metronidazole 500 Mg Tablet PO 500 mg
Q8 TARSHA Administration
Ondansetron HCl 4 mg 01/03/24 20:15
Ondansetron 4 Mg/2 Ml Vial IV 01/31/24 20:14
Q6HPRN PRN
nausea and vomiting
Patch Removal 0 patch 01/04/24 20:00 01/11/24 22:30
Remove Lidocaine Patch REMOVE 02/01/24 19:59 Not Given
DAILY@2000 TARSHA
Sodium Chloride 0 flush 01/03/24 16:00
Sodium Chloride 0.9% (Flush) Syringe IV 01/31/24 15:59
PER PROTOCOL TARSHA
Tramadol HCl 25 mg 01/06/24 13:15 01/09/24 20:18
Tramadol Hcl 50 Mg Tablet PO 02/03/24 13:14 25 mg
Q6HPRN PRN Administration
severe back pain
Physical Exam
-
General: No Apparent Distress, Conversant and Cachetic
HEENT: Negative Jaundice
Cardiology: S1 and S2
Pulmonary: Clear
GI: Soft; Negative Distended
Extremities: No C/C/E
Labs
Lab Results
WBC 13.3 10^3/uL (4.8-10.8) H 01/12/24 04:06
RBC 3.27 10^6/uL (4.20-5.40) L 01/12/24 04:06
Hgb 9.7 g/dL (12.0-16.0) L 01/12/24 04:06
Hct 28.2 % (37.0-47.0) L 01/12/24 04:06
MCV 86.2 fL (81.0-99.0) 01/12/24 04:06
MCH 29.7 pg (27.0-31.0) 01/12/24 04:06
MCHC 34.4 g/dL (33.0-37.0) 01/12/24 04:06
RDW 14.5 % (11.5-14.5) 01/12/24 04:06
Plt Count 200 10^3/uL (130-400) 01/12/24 04:06
MPV 10.4 fL (7.4-10.4) 01/12/24 04:06
Abs Immat Gran (auto) 0.2 10^3/uL (0-0.05) H 01/10/24 04:58
Absolute Neuts (auto) 12.7 10^3/uL (1.4-6.5) H 01/10/24 04:58
Absolute Lymphs (auto) 0.7 10^3/uL (1.2-3.4) L 01/10/24 04:58
Absolute Monos (auto) 0.8 10^3/uL (0.1-0.6) H 01/10/24 04:58
Absolute Eos (auto) 0.2 10^3/uL (0-0.7) 01/10/24 04:58
Absolute Basos (auto) 0.0 10^3/uL (0-0.2) 01/10/24 04:58
Immature Gran % 1.6 % (0-0.5) H 01/10/24 04:58
Neutrophils % 86.8 % (42.2-75.2) H 01/10/24 04:58
Lymphocytes % 4.7 % (20.5-51.1) L 01/10/24 04:58
Monocytes % 5.6 % (1.7-9.3) 01/10/24 04:58
Eosinophils % 1.1 % (0-6) 01/10/24 04:58
Basophils % 0.2 % (0-2) 01/10/24 04:58
Creatinine 0.6 mg/dL (0.6-1.0) 01/12/24 04:06
Vital Signs
Vital Signs
Temp Pulse Resp BP Pulse Ox
98.0 F 88 21 108/60 95
01/12/24 11:17 01/12/24 11:00 01/12/24 11:00 01/12/24 11:00 01/12/24 11:00
--- NOTE | 2024-01-12 12:47 | CM ---
Patient seen at bedside. Patient returned from [place] s/p procedure. Patient pending PT/OT assessments to determine level of care needed closer to discharge. Patient indicated that she was uncertain where she wanted to go but agreed that [facility] was
the closest. CM will continue to follow for discharge planning needs.
Plan: SNF pending functional assessments/medical treatment plan
[2024-01-12] MEDS: KEFLEX 500 MG PO ×3 (12:59→21:07)
[2024-01-13] VITALS (18 sets, daily range): BP systolic 87–124; BP diastolic 43–73; PULSE 88; O2SAT 96; BMI 20.3
[2024-01-13] MEDS: TYLENOL 650 MG PO ×2 (02:55→09:32)
[2024-01-13 04:14] LABS: Hematocrit 27.7 % (37.0-47.0); Hemoglobin 9.6 g/dL (12.0-16.0); Mean Corp Hgb Conc. 34.7 g/dL (33.0-37.0); Mean Corpuscular Hgb 30.4 pg (27.0-31.0); Mean Corpuscular Volume 87.7 fL (81.0-99.0); Mean Platelet Volume 10.1 fL (7.4-10.4); Platelet Count 241 10^3/uL (130-400); Red Blood Cell Count 3.16 10^6/uL (4.20-5.40); Red Cell Dist. Width 14.6 % (11.5-14.5); White Blood Cell Count 14.6 10^3/uL (4.8-10.8)
[2024-01-13 04:37] LABS: ALT (SGPT) < 10 U/L (0-35); AST (SGOT) 22 U/L (14-36); Alkaline Phosphatase 136 U/L (38-126); Blood Urea Nitrogen 17 mg/dl (7-17); Calcium 7.7 mg/dl (8.4-10.2); Carbon Dioxide 24 mmol/L (22-30); Chloride 99 mmol/L (98-107); Estimated Creatinine Clearance 48 ml/min; Glucose 150 mg/dl (70-99); Potassium 3.9 mmol/L (3.5-5.1); Sodium 130 mmol/L (135-145); Total Bilirubin 0.4 mg/dl (0.2-1.3); Total Protein 4.2 g/dl (6.3-8.2); eGFR > 60.00
[2024-01-13] MEDS: FLAGYL 500 MG PO (08:38)
[2024-01-13] MEDS: LIDOCAINE 4% PATCH 1 PATCH TOPICAL (08:38)
[2024-01-13] MEDS: KEFLEX 500 MG PO (08:38)
[2024-01-13] MEDS: DIFICID 200 MG PO (08:38)
--- NOTE | 2024-01-13 10:09 | W.PN.UPDATE ---
Addendum entered and electronically signed by Scott Spicer MD 01/13/24 10:41:
Total time spent on d/c = 35 min. This included today's physical exam, progress note, review of laboratory and diagnostic data, preparation of discharge documents and prescriptions, and discussions about the pt's hospital course and discharge plan
with the patient and other medical data analyst involved in the patient's care.
Original Note:
Update Note
Progress Note Update
Denies abdominal pain/CP/SOB/diarrhea.
Gen: NAD, Awake and alert, appears chronically ill and malnourished
Eyes: EOMI, PERRLA, no scleral icterus.
Neck: supple.
CV: remains RRR, +S1/S2, no m/r/g.
Resp: remains CTAB, no rales, wheezes, or rhonchi.
Abd: continues to remain +BS, soft, NT, ND
Skin: No rashes. 1+ B/L LE edema
Neuro: CN 2-12 intact, non-focal.
Psych: Normal mood and affect.
01/10/24 08:35 Blood/Venous Blood Culture - Preliminary
No Growth in 72 hours- Final report to follow
01/10/24 04:58 Blood/Venous Blood Culture - Preliminary
No Growth in 72 hours- Final report to follow
01/05/24 20:29 Blood/Venous Blood Culture - Final
Escherichia coli
01/05/24 20:29 Blood/Venous Gram Stain - Final
01/08/24 06:00 Blood/Venous Blood Culture - Preliminary
Escherichia coli
01/08/24 06:00 Blood/Venous Gram Stain - Preliminary
01/06/24 13:23 Blood/Venous Blood Culture - Preliminary
Escherichia coli
01/06/24 13:23 Blood/Venous Gram Stain - Preliminary
01/06/24 12:58 Feces/Stool C. difficile GDH Antigen & Toxins - Final
Toxigenic C.difficile Positive
01/03/24 13:04 Blood/Venous Blood Culture - Final
Escherichia coli
01/03/24 13:04 Blood/Venous Gram Stain - Final
01/03/24 12:52 Blood/Venous Blood Culture - Final
Escherichia coli
01/03/24 12:52 Blood/Venous Gram Stain - Final
01/03/24 13:52 Urine Urine Culture - Final
01/03/24 12:52 Nasal Swab Influenza Types A & B (CRISTIN) - Final
Negative for Influenza A & B, NAAT
Negative results must be combined with clinical observations
and patient history.
Nucleic Acid Amplification test (NAAT)performed on the
[employer] ID NOW platform.
CT A/P:
1. Grossly similar appearance of the known pancreatic head lesion. Stable positioning of the biliary stents with associated pneumobilia.
2. Colonic diverticulosis without evidence of acute diverticulitis.
RUE U/S: No findings to confirm deep venous thrombosis of the right upper extremity. Proximal and mid right subclavian vein not visualized, cannot exclude thrombus.
MRI L-spine: Scoliosis with advanced multilevel discogenic and facet degenerative changes. Multilevel annular bulging and endplate osteophyte formation. No acute fracture or spondylolisthesis.
MRI abd: Two lesions in the central liver measuring 1.9 cm and 0.9 cm are favored to represent hepatic metastases in the setting of known pancreatic head adenocarcinoma. Small developing hepatic abscesses would be difficult to completely exclude on
this exam, which is limited by motion artifact. Additional findings, as detailed above.
Septic shock due to acute C diff colitis and acute ascending cholangitis due to E. coli with E. coli bacteremia:
-was on Levophed now off
-cont Dificid/Flagyl and Keflex (was on IV Ancef prior) as per ID
-was on NaHCO3 IVFs which were stopped 01/07/27AM when pt developed anasarca (and metabolic acidosis resolved)
-IV albumin given 01/08/24-01/09/24 to mobilize anasarca
-GI following
-01/10/24 BCx NGTD
-s/p biliary stent exchange at [place] on 01/11/24
Other problems:
Anasarca: IV albumin given 01/08/24-01/09/24 to mobilize anasarca
Anemia of chronic disease: Hb stable s/p 2U pRBCs
Hypokalemia, resolved
Hyponatremia, mild, stable
Medically cleared for discharge. Case management aware.
--- NOTE | 2024-01-13 10:17 | PTCARENOTE ---
Assumed care of pt this am. Received alert and oriented x 3. pt admits to feeling sad and uncertain regarding 'bad news' she received yesterday regarding metastatic disease. She has not told her as f this morning. She is taking Boost
supplement for breakfast and reports NO nausea and not feeling hungry. Pt NSR on telemetry,BP 98/66 with MAP 77. Pt denies and chest discomfort, generalized edema is much less over the past week. pt reports low back pain and abdominal pain 08/22, she
only wants Tylenol nothing stronger at this time. pt reports tylenol during supervisor lending activities worked 'wonderfully'. Tylenol given. OOB with assist of OT and PT and pt tolerated ambulating in room and sitting up in chair. not here at this time.
--- NOTE | 2024-01-13 10:54 | W.PN.ONC ---
Today's Communication / Plan
-
Suspect patient with POD with malignant stricture and liver mets
She continued systemic nontraditional therapy with ivermectin and methylene blue prior to hospitalization
Continued therapy for C. difficile bowels improving
Pathology results from [facility] pending
Check tumor markers. Prior CA 01/12 = 461 (07/13/2023) results pending today
Outpt PET scan and potentially liver biopsy for pathologic confirmation depending on ERCP results
She could be a candidate for palliative chemotherapy if she is agreeable
Hemoglobin stable 9.6 g/dL
Impression
Impression
Pancreatic adenocarcinoma s/p ERCP and biliary stent placement prior chemo and radiation therapy
C Diff Colitis
Cholangitis - E. Coli bacteremia
Suspected liver mets (vs abscesses)
Anemia
Subjective/Objective
Subjective/Objective
No new complaints of discomfort today.
Vital Signs:
Vital Signs
Temp Pulse Resp BP Pulse Ox
98.1 F 105 20 98/66 96
01/13/24 03:37 01/13/24 10:00 01/13/24 10:00 01/13/24 10:00 01/13/24 10:14
[facility]
[address] [place] [address]

Patient Name: STEPHANIE ARREDONDO
: 1935
Unit Number: [id number]
Age: 88/Gender: F
Patient
Location: [facility]
Medical Records
SignedImpression
Impression
pancreatic adenocarcinoma s/p ERCP and biliary stent placement prior chemo and radiation therapy
C Diff Colitis
Cholangitis - E. Coli bacteremia
Suspected liver mets (vs abscesses)
Plan
Plan
Suspect patient with POD with malignant stricture and liver mets.
Await pathology (from [facility]?) of the ERCP to confirm active disease.
Check tumor markers. Prior CA 19/9 = 461 (07/13/2023)
Outpt PET scan and potentially liver biopsy for pathologic confirmation depending on ERCP results.
She could be a candidate for palliative chemotherapy if she is agreeable.
Patient History
History of Present Illness
Chief Complaint: fever, cholangitis from stent malfunction, pancreatic cancer
HPI: 88-year-old female with history of pancreatic adenocarcinoma s/p ERCP and biliary stent placement prior chemo (Xeloda) and radiation therapy -05/2023 x 25 fractions , admission in May with klebsiella bacteremia related to cholangeitis with
stent exchange and remote history of ovarian cancer. Had ERCP with stent change with Dr. Ceron in November. She was doing well and last [place] developed abdominal pain with diarrhea, and fever 100.7 with hypotension requiring pressors, and
tachycardia. On admission she was noted with fever 102.9, WBC 20.8, procal 55.88. Blood cx + Ecoli and urine mixed melodie. She was placed on antibiotics with improved fever. CT suggested grossly similar appearance of the known pancreatic head
lesion. Admits to wt loss up to 20 lbs over last year. Pt also admits to taking medication through [facility] medical team including ivermectin, methalene blue, squalene, and shark liver oil. MRI Abdomen 01/09: Two lesions in the central
liver measuring 1.9 cm and 0.9 cm are favored to represent hepatic metastases in the setting of known pancreatic head adenocarcinoma. Small developing hepatic abscesses would be difficult to completely exclude on this exam, which is limited by
motion artifact. ERCP yesterday done at [facility]: 01/[address] Humberto [place]-- malignant biliary stricture with upstream extrahepatic and intrahepatic duct dilatation s/p sent removal balloon extraction and debris with placement of new
FCSEMS and single pigtail stent. Consulted for oncologic management.
Past-Medical/Surgical History
PMH:
Cholangitis post ERCP 06/02/2023 with stent removal and new stents placed
Ovarian cancer treated with surgery and chemotherapy
Pancreatic CA
Iron deficiency anemia gets IV iron transfusions
Depression
Anxiety,
Spinal stenosis
Mechanical fall with right hip fracture August 2022 s/p right hip hemiarthroplasty,
Chronic LBBB,
severe protein Calorie malnutrition-BMI 16.5
Past Surgical History:
Spinal Surgery
T&A
DAMION / BSO
Right Hip ORIF
Cataracts
Social History
Tobacco: Non-smoker
Alcohol: None
Drug: None
Personal:
Living: With Family
Family History
Family History: Other (Mother, Father, Brother: Lung Cancer MGM: Liver Cancer)
Allergies / Home Medications
Patient Medication
�Medication �Instructions �Recorded �Confirmed �Last Taken �Type
smfacvsm-wtyuyg-fcplz extract 5 6 cap PO DAILY Supplement 06/09/23 01/03/24 01/02/24 History
mg-6 mg-150 mg capsule (Fruit and
Vegetable Daily)
methylene blue 65 mg tablet 65 mg PO DAILY Supplement 12/07/23 01/03/24 01/02/24 History
aspirin 325 mg tablet 325 mg PO BIDPRN PRN fever 01/03/24 01/03/24 01/02/24 History
ivermectin 3 mg tablet 6 mg PO DAILY Supplement 01/03/24 01/03/24 01/02/24 History
shark liver oil-vitamin E 500 mg-5 1 cap PO BID Supplement 01/03/24 01/03/24 01/02/24 History
unit capsule
Active Medications
Generic Name Dose Route Start Last Admin
Trade Name Freq PRN Reason Stop Dose Admin
Acetaminophen 650 mg 01/03/24 17:14 01/09/24 23:30
Acetaminophen 325 Mg Tablet PO 01/31/24 17:13 650 mg
Q4HPRN PRN Administration
mild pain/GEE/temp> 100.4F
Aspirin 325 mg 01/03/24 20:15
Aspirin 325 Mg Tablet PO 01/31/24 20:14
BIDPRN PRN
fever
Cephalexin HCl 500 mg 01/12/24 09:30 01/12/24 12:02
Cephalexin 500 Mg Capsule PO Not Given
QID TARSHA
Fidaxomicin 200 mg 01/08/24 09:00 01/12/24 08:49
Fidaxomicin (Dificid) 200 Mg Tablet PO 200 mg
BID TARSHA Administration
Lidocaine 1 patch 01/03/24 15:00 01/12/24 08:51
Lidocaine 4% Topical Patch TOPICAL 01/31/24 14:59 Not Given
DAILY TARSHA
Protocol
Metronidazole 500 mg 01/06/24 16:00 01/12/24 08:49
Metronidazole 500 Mg Tablet PO 500 mg
Q8 TARSHA Administration
Ondansetron HCl 4 mg 01/03/24 20:15
Ondansetron 4 Mg/2 Ml Vial IV 01/31/24 20:14
Q6HPRN PRN
nausea and vomiting
Patch Removal 0 patch 01/04/24 20:00 01/11/24 22:30
Remove Lidocaine Patch REMOVE 02/01/24 19:59 Not Given
DAILY@2000 TARSHA
Sodium Chloride 0 flush 01/03/24 16:00
Sodium Chloride 0.9% (Flush) Syringe IV 01/31/24 15:59
PER PROTOCOL TASRHA
Tramadol HCl 25 mg 01/06/24 13:15 01/09/24 20:18
Tramadol Hcl 50 Mg Tablet PO 02/03/24 13:14 25 mg
Q6HPRN PRN Administration
severe back pain
Physical exam
General: No Apparent Distress, Conversant and Cachetic
HEENT: Negative Jaundice
Cardiology: S1 and S2
Pulmonary: Clear
GI: Soft; Negative Distended
Extremities: No C/C/E
Lab Results:
Laboratory Data
WBC 14.6 10^3/uL (4.8-10.8) H 01/13/24 04:00
Hgb 9.6 g/dL (12.0-16.0) L 01/13/24 04:00
Plt Count 241 10^3/uL (130-400) D 01/13/24 04:00
eGFR > 60.00 01/13/24 04:00
--- NOTE | 2024-01-13 11:08 | W.PN.HOSP.TC ---
Today's Communication/Plan
-
Discharge to [facility] today. D/c PICC today; pt to continue on Dificid until 01/18, Flagyl, cephalexin until 01/15.
Assessment / Plan
Assessment / Plan
1. Septic Shock/C Diff Colitis
- Patient met the SIRS criteria at admission with tachypnea, tachycardia, fever and elevated WBC
- WBC 20.8 at admission --> normalized to 9.4 --> 13-14 over past three days
- BCx remain negative.
- Pt transferred to [place] 2 days ago for stent replacement; tolerated well. Potential malignant strictures noted. Returned that night.
- Pt currently on Dificid; diarrhea improving; no acute diarrheal event in 3 days.
- Pt to be discharged to [facility] today; to continue Dificid through 01/18; Cephalexin, Flagyl through 01/15.
2. Acute Acidosis
- Co2 24 today. BMPs trending well.
3. Acute hypotension
- SBP running in 100s; off of Levophed for 5 days now.
- PICC Line to be removed today.
4. Hypokalemia
- K 4.1 today, stable.
- Likely from diarrheal loss, which is improving.
- Continue to Monitor CMP and replete as needed.
5. Abdominal Pain
- Pain in upper abdomen and lumber back; nontender to palpation of the abdomen, however, painful with movement and rotation in particular.
- GI suggested this may not be abdominal in origin, and that the patient may have a slipped disc; agree with this assessment.
- MRI of the lumbar spine and lower thoracic spine ordered.
- PT/OT as tolerated
6. Pancreatic CA Hx
- CT/MRI Shows 1.b cm hypodensity; looking like metastasis more likely.
- Pt to be followed up by oncology outpatient for palliative chemotherapy.
- CA 19-9 ordered and pending; will follow up outpatient.
7. Upper and Lower Extremity Edema
- LE edema up to the mid calf, UE edema up to mid forarm, nonpainful, nonerythematous.
- Lungs CTAB, CXR from yesterday does not show evidence of pulmonary congestion, patient does not feel SOB.
- Continues to improve, nearly resolved, continue to monitor. Diuresis deferred due to past episodes of hypotension.
Anticipated Discharge: Today
Subjective/Interval History
-
Date of Service: January 13, 2024
No complaints this morning, back was hurting a little bit but pt seen by PT who has her sitting in a chair comfortably. Pt notes she is 3 days free from diarrhea. Denies abdominal pain, nausea, vomiting, CP, SOB.
Had a discussion with the patient regarding options for continuation of Dificid vs. oral vancomycin at SNF. Pt prefers to be discharged to SNF and prefers Dificid to Vanco, and is willing to pay for med out of pocket to supply to SNF.
Objective Data
-
Labs:
Laboratory Results
01/13/24
04:00
WBC 14.6 H
Hgb 9.6 L
Hct 27.7 L
Plt Count 241 D
Sodium 130 L
Potassium 3.9
Chloride 99
Carbon Dioxide 24
BUN 17
Creatinine 0.5 L
Glucose 150 H
Calcium 7.7 L
Total Bilirubin 0.4
AST 22
ALT < 10
Alkaline Phosphatase 136 H
Vital Signs:
Vital Signs
Temp Pulse Resp BP Pulse Ox
98.1 F 105 20 98/66 96
01/13/24 03:37 01/13/24 10:00 01/13/24 10:00 01/13/24 10:00 01/13/24 10:14
I&O
01/12/24 01/13/24 01/14/24
06:59 06:59 06:59
Intake Total 500 / 500 480 / 480
Output Total 300 / 300 500 / 500
Balance 200 / 200 -20 / -20
Review of Systems
-
History Source: Patient
Constitutional: Reports No Symptoms
Respiratory: Reports No Symptoms
Cardiac: Reports No Symptoms
Abdomen/GI: Reports No Symptoms
Neuro: Reports No Symptoms
Physical Exam
-
General: Comfortable, Conversant and Other (Frail)
HEENT: Normocephalic and Atraumatic
Respiratory: Clear to Auscultation (without wheezes, rales, rhonchi)
Cardiac: Regular Rhythm and S1/S2
GI: Soft, Nontender, Nondistended and Normal Bowel Sounds
Skin: Warm
Neuro: Awake and Alert
Psych: Calm
Data Reviewed
-
Labs: Labs Reviewed by me and Discussed with Patient
--- NOTE | 2024-01-13 11:23 | VATNOTE ---
Per hospitalist and ID MDs, OK to pull PICC at this time, no need for any additional IV access as pt is leaving today.
--- NOTE | 2024-01-13 11:38 | CM ---
Patient with Dx Septic Shock/C Diff Colitis, hypotension, hypokalemia, abd pain, Upper/LE Edema. Room air. Receiving PO Dificid. Enhanced precautions. PICC d/c'ed.
Met with patient and spoke with Lion by phone; both agree to d/c today to [facility] by ambulance. IMM completed. will picker Dificid at her [facility] pharmacy today and take over to [facility]. Provided
with phone # and requests phone call if any issues picking up med. aware of Dificid cost approximately $2700 and agrees to cost of med.
Spoke with Sylvia, [facility]; they are able to accept the patient today. She is aware patient is in isolation for C-diff. Sylvia agrees to accept the patient if provides her Dificid as she states approximate cost is > $2700 - informed
Sylvia agrees to do this. Ph for report [phone], .
Plan [facility] today by ambulance.
--- NOTE | 2024-01-13 11:47 | PTCARENOTE ---
Patient for discharge, pt and aware. Transport at noon, attempt to call report
--- NOTE | 2024-01-13 11:57 | PTCARENOTE ---
Verbal report called to Leonora at [phone], PICC line discontinued by VAT team without event
[2024-01-13] MEDS: ULTRAM 25 MG PO (12:11)
--- NOTE | 2024-01-13 16:32 | W.DCSUMMARY ---
Discharge Summary
Discharge Data
Date of Admission: 01/03/24
Date of Discharge: 01/14/24
-
Pending Results: Yes
Additional Pending Results:
CA 19-9
Hospital Course
Hermes Corral is an 88-year-old female with a past medical history of ovarian cancer treated with surgery and chemotherapy, pancreatic cancer complicated by cholangitis and stent placement, iron deficiency anemia, depression, anxiety, spinal stenosis,
severe protein calorie malnutrition who presented to the emergency department at [facility] on January 03, 2024 for fever, hypotension, and tachycardia. The patient receives normal transfusions as treatment for her iron deficiency anemia
and was scheduled to undergo a transfusion that afternoon when she was found to be febrile, hypotensive, and tachycardic. She noted that for the couple of days prior, she had been feeling unwell noting fevers, chills, loss of appetite, and
diarrhea. The patient denied any abdominal pain, urinary symptoms, cough, or URI-like symptoms.
In the emergency department the patient was hypotensive and had a borderline tachycardia. Her breath sounds were clear and she had a soft nontender abdomen despite complaining of upper abdominal pain. Laboratory results in the emergency department
showed a white blood cell count of 20.8 K that was neutrophil predominant, hyponatremia at 132, metabolic acidosis, and a creatinine of 1.2. In addition the patient had mildly elevated liver transaminases, and an alkaline phosphatase of 301. CT
scan showed a concern for colitis and the patient's blood culture was positive for E. coli. The patient had met criteria for septic shock and was thus admitted to [facility] that evening.
With regards to the patient's hypotension secondary to septic shock, the patient required pressors and IV fluid resuscitation. Over the first few days, multiple attempts were made to wean Levophed. However the first few attempts failed. The
patient was successfully weaned off of pressors on 01/05 and over the course of the rest of the admission, was managed on boluses of IV hydration when she was found to have hypotension which resolved the issues.
With regards to the patient's hypokalemia, the patient's potassium was successfully repleted. It was thought that the hypokalemia was likely result of diarrheal losses, and as her GI symptoms resolved, her potassium remained stable.
As the patient's workup continued, sources of infection were ruled out and the patient's bacteremia was thought to be caused by 1 of 2 sources. The patient had developed a C. difficile diarrhea which was a potential cause. The patient was treated
for this with Dificid. Another potential source was her biliary stents. It was suggested that the patient should have the stents cleaned out and replaced. The only opto mechanical engineer at [facility] who was able to perform this procedure
was not available and so the decision was made to transfer the patient to [facility]. The patient was transferred to [facility] on January 11, 2024, and returned back the same day. Notes and procedures from that visit should be
requested.
After returning the patient remained while continuing to receive treatment for C. difficile colitis. However since her clinical course that improved, and the patient's blood pressure was stable, the decision was made to discharge to the skilled
nursing facility [facility], in order to finish out the course of her antibiotics, and to undergo rehab. At the time of discharge the patient no longer had diarrhea for 2 days, and she was to continue her Dificid treatment through January 18. In
addition the patient was required to take cephalexin and Flagyl through January 15. The PICC line was removed and the patient was discharged and transported to [facility] on January 13, 2024.
Additional notes, the patient received an MRI while at [facility] which showed a larger than 1 cm hypodensity. This hypodensity was thought to be either an abscess or more likely, a metastasis from her pancreatic cancer. The patient was to
be followed up by oncology, and a CA 19�9 was pending at the time of discharge.
Discharge Plan
-
Patient Disposition: Group Home/SNF
Discharge Diagnosis/Procedures: Septic Shock
Acute C. Difficile Colitis
Metastatic Pancreatic Cancer
Condition: Fair
Diet: Low Fat
Activity: As tolerated
Referrals:
Magdalena,Hattie K., DO [Family Provider] - in one week
Prescriptions:
New
metronidazole 500 mg Tablet
500 mg PO Q8 Qty: 12 0RF
cephalexin 500 mg Capsule
500 mg PO QID Qty: 15 0RF
Dificid 200 mg Tablet
200 mg PO BID Qty: 14 0RF
Continued
Fruit and Vegetable Daily 5-6-150 mg Capsule
6 cap PO DAILY
aspirin 325 mg Tablet
325 mg PO BIDPRN PRN (Reason: fever)
shark liver oil-vitamin E 500-5 mg-unit Capsule
1 cap PO BID
Discontinued
methylene blue 65 mg Tablet
65 mg PO DAILY
ivermectin 3 mg Tablet
6 mg PO DAILY
Patient Comments:
patient recieved [facility]
Discharge Orders:
Discharge Patient (As Directed); Ordered 01/13/24
Ordered By: Vimal Marvin
Discharge Date and Time
Discharge Date/Time: 01/13/24 12:27
Print Language: BENGALI
[2024-01-15 02:44] LABS: CA 19-9 299 U/mL (<=35)
== END 2024-01-13 12:27 | DRG 919 ==
LOC: IMU 15:25
PROVIDERS: Clinical Nurse Specialist Family Health; Emergency Medicine; Internal Medicine Gastroenterology; Nurse Practitioner Adult Health; Nurse Practitioner Family; Physician Assistant Medical; Radiology Vascular & Interventional Radiology; Student in an Organized Health Care Education/Training Program; ADMITTING PHYSICIAN Hospitalist; ATTENDING PHYSICIAN Internal Medicine; CONSULT PHYSICIAN Internal Medicine Hematology & Oncology; CONSULT PHYSICIAN Specialist; CONSULT PHYSICIAN Student in an Organized Health Care Education/Training Program; EMERGENCY PHYSICIAN Emergency Medicine; FAMILY PHYSICIAN Family Medicine
PROC: 02HV33Z Insertion of Infusion Device into Superior Vena Cava, Percutaneous Approach (ICD-10-PCS; 2024-01-07)
PROC: 30233N1 Transfusion of Nonautologous Red Blood Cells into Peripheral Vein, Percutaneous Approach (ICD-10-PCS; 2024-01-09)
PROC: 0FPB8DZ Removal of Intraluminal Device from Hepatobiliary Duct, Via Natural or Artificial Opening Endoscopic (ICD-10-PCS; 2024-01-11)
PROC: 0F798DZ Dilation of Common Bile Duct with Intraluminal Device, Via Natural or Artificial Opening Endoscopic (ICD-10-PCS; 2024-01-11)
DX: T85.79XA Infection and inflammatory reaction due to other internal prosthetic devices, implants and grafts, initial encounter (principal); A41.51 Sepsis due to Escherichia coli [E. coli]; E43 Unspecified severe protein-calorie malnutrition; R65.21 Severe sepsis with septic shock; K83.1 Obstruction of bile duct; Z68.1 Body mass index [BMI] 19.9 or less, adult; C78.7 Secondary malignant neoplasm of liver and intrahepatic bile duct; N17.9 Acute kidney failure, unspecified; C25.0 Malignant neoplasm of head of pancreas; E87.20 Acidosis, unspecified; K83.09 Other cholangitis; A04.72 Enterocolitis due to Clostridium difficile, not specified as recurrent; Y83.8 Other surgical procedures as the cause of abnormal reaction of the patient, or of later complication, without mention of misadventure at the time of the procedure; D50.9 Iron deficiency anemia, unspecified; I44.7 Left bundle-branch block, unspecified; I95.9 Hypotension, unspecified; E87.6 Hypokalemia; M47.896 Other spondylosis, lumbar region; Z96.641 Presence of right artificial hip joint; F32.A Depression, unspecified; F41.9 Anxiety disorder, unspecified; G89.29 Other chronic pain; Z90.710 Acquired absence of both cervix and uterus; Z85.43 Personal history of malignant neoplasm of ovary; Z11.52 Encounter for screening for COVID-19; Z92.3 Personal history of irradiation; Z92.21 Personal history of antineoplastic chemotherapy
CPT/HCPCS: 71045; 71046; 72148; 74176; 74177; 74183; 80048; 80053; 80202; 81003; 81015; 82248; 83605; 83690; 83735; 84145; 85014; 85018; 85025; 85027; 86022; 86301; 86850; 86900; 86901; 86920; 87040; 87077; 87086; 87149; 87186; 87205; 87324; 87449; 87502; 87811; 93005; 93971; 96365; 96367; 96375; 97116; 97163; 97530; 97535; 99291; A9575; J2760; P9016; P9047; Q9967

== ENCOUNTER → 2024-01-20 13:51 | Outpatient (REF) | payer OTHER, MEDICARE, SELFPAY ==
[2024-01-20 15:51] LABS: Hematocrit 27.4 % (37.0-47.0); Mean Corp Hgb Conc. 32.8 g/dL (33.0-37.0); Mean Corpuscular Hgb 29.8 pg (27.0-31.0); Mean Corpuscular Volume 90.7 fL (81.0-99.0); Mean Platelet Volume 9.7 fL (7.4-10.4); Platelet Count 320 10^3/uL (130-400); Red Blood Cell Count 3.02 10^6/uL (4.20-5.40); Red Cell Dist. Width 15.1 % (11.5-14.5); White Blood Cell Count 12.1 10^3/uL (4.8-10.8)
[2024-01-20 15:56] LABS: ALT (SGPT) 18 U/L (0-35); AST (SGOT) 33 U/L (14-36); Albumin 2.3 g/dl (3.5-5.0); Alkaline Phosphatase 204 U/L (38-126); Blood Urea Nitrogen 8 mg/dl (7-17); Calcium 7.8 mg/dl (8.4-10.2); Carbon Dioxide 25 mmol/L (22-30); Chloride 96 mmol/L (98-107); Glucose 84 mg/dl (70-99); Potassium 3.7 mmol/L (3.5-5.1); Sodium 129 mmol/L (135-145); Total Bilirubin 0.4 mg/dl (0.2-1.3); Total Protein 4.7 g/dl (6.3-8.2); eGFR > 60.00
== END ==
LOC: OLABP 13:51
PROVIDERS: ATTENDING PHYSICIAN Family Medicine
DX: A41.9 Sepsis, unspecified organism (principal); E87.6 Hypokalemia; E87.1 Hypo-osmolality and hyponatremia; D64.9 Anemia, unspecified; I44.7 Left bundle-branch block, unspecified; I95.9 Hypotension, unspecified; R78.81 Bacteremia; C25.9 Malignant neoplasm of pancreas, unspecified; E43 Unspecified severe protein-calorie malnutrition; A04.72 Enterocolitis due to Clostridium difficile, not specified as recurrent; M62.81 Muscle weakness (generalized); K83.09 Other cholangitis
CPT/HCPCS: 80053; 85027

== ENCOUNTER → 2024-01-24 11:38 | Outpatient (REF) | payer OTHER, MEDICARE, SELFPAY ==
[2024-01-24 12:30] LABS: Hemoglobin 9.5 g/dL (12.0-16.0); Mean Corp Hgb Conc. 32.8 g/dL (33.0-37.0); Mean Corpuscular Hgb 29.2 pg (27.0-31.0); Mean Corpuscular Volume 89.2 fL (81.0-99.0); Mean Platelet Volume 9.3 fL (7.4-10.4); Platelet Count 321 10^3/uL (130-400); Red Blood Cell Count 3.25 10^6/uL (4.20-5.40); Red Cell Dist. Width 14.7 % (11.5-14.5); White Blood Cell Count 12.5 10^3/uL (4.8-10.8)
[2024-01-24 12:34] LABS: Blood Urea Nitrogen 11 mg/dl (7-17); Calcium 7.9 mg/dl (8.4-10.2); Carbon Dioxide 24 mmol/L (22-30); Chloride 100 mmol/L (98-107); Glucose 94 mg/dl (70-99); Potassium 3.8 mmol/L (3.5-5.1); Sodium 133 mmol/L (135-145); eGFR > 60.00
== END ==
LOC: OLABP 11:38
PROVIDERS: ATTENDING PHYSICIAN Family Medicine
DX: A41.9 Sepsis, unspecified organism (principal); E87.6 Hypokalemia; E87.1 Hypo-osmolality and hyponatremia; D64.9 Anemia, unspecified; I44.7 Left bundle-branch block, unspecified; I95.9 Hypotension, unspecified; R78.81 Bacteremia; C25.9 Malignant neoplasm of pancreas, unspecified; E25.9 Adrenogenital disorder, unspecified; E43 Unspecified severe protein-calorie malnutrition; A04.72 Enterocolitis due to Clostridium difficile, not specified as recurrent; M62.81 Muscle weakness (generalized); K83.09 Other cholangitis
CPT/HCPCS: 36415; 80048; 85027

== ENCOUNTER → 2024-01-26 11:21 | Outpatient (REF) | payer OTHER, MEDICARE, SELFPAY ==
[2024-01-26 13:34] LABS: Blood Urea Nitrogen 11 mg/dl (7-17); Carbon Dioxide 25 mmol/L (22-30); Chloride 99 mmol/L (98-107); Glucose 99 mg/dl (70-99); Potassium 4.1 mmol/L (3.5-5.1); Sodium 131 mmol/L (135-145); eGFR > 60.00
== END ==
LOC: OLABP 11:21
PROVIDERS: ATTENDING PHYSICIAN Family Medicine
DX: Z85.43 Personal history of malignant neoplasm of ovary (principal); A41.9 Sepsis, unspecified organism; E87.1 Hypo-osmolality and hyponatremia; D64.9 Anemia, unspecified; I44.7 Left bundle-branch block, unspecified; I95.9 Hypotension, unspecified; R78.81 Bacteremia; C25.9 Malignant neoplasm of pancreas, unspecified; E43 Unspecified severe protein-calorie malnutrition; A04.72 Enterocolitis due to Clostridium difficile, not specified as recurrent; M62.81 Muscle weakness (generalized); K83.09 Other cholangitis
CPT/HCPCS: 36415; 80048

== ENCOUNTER 2024-02-02 14:24 | Emergency (ER) | payer MEDICARE, OTHER, SELFPAY ==
[2024-02-02 14:26] VITALS: BP 108/75
--- NOTE | 2024-02-02 16:26 | ED.MUSCINJ ---
HPI-Injury
General
Chief Complaint: Musculo-Skeletal Complaint
Source: patient
Exam Limitations: none
Time Seen by Provider: 02/02/24 15:55
History of Present Illness-Injury
Initial Injury comments:
88-year-old female presents via EMS from [facility] with excruciating low back pain for the past several weeks since being discharged from this hospital. The pain goes from the lower back to the waist does not radiate to the legs. There is no
associated bowel or bladder dysfunction. No fevers or numbness. No known injury. She has been using Tylenol, tramadol, oxycodone and a nerve pain pill. All of these have not helped her pain. No other complaints at this time
Past History
Past History
ED Past Medical History: Cancer (Ovarian cancer), Psychiatric (Anxiety, depression) and Other (Spinal stenosis)
ED Past Surgical History: Gynecological and Orthopedic
Social History
Tobacco: Non-smoker
Alcohol: None
Drug: None
Personal:
Living: with family
Phy Exam
Physical Exam
Physical Exam:
General: cachectic female no acute respiratory distress
HEENT: Normocephalic atraumatic
Heart: Regular rate and rhythm
Lungs: Clear no wheeze
Musculoskeletal exam: Lumbar spine mildly diffusely tender no step-off or deformity.
Extremities: No cyanosis mild pitting edema bilateral lower extremities
Neurologic: Good sensation lower extremities
Vascular: Palpable dorsal pulses bilateral feet
Injury Course
Orders/Labs/Results
Orders:
Orders
02/02/24 16:22
Ketorolac [Toradol] 15 mg IV NOW STA
Lidocaine [Lidocaine 4% Patch] 1 patch TOPICAL NOW STA
Apply Lidocaine patch(s) to:: lumbar spine
CR Lumbar Spine 2 Or 3 Views Urgent
Comment:
Reason For Exam: back pain
02/02/24 16:35
Complete Blood Count/With Diff Urgent
Comprehensive Metabolic Panel Urgent
Abnormal Lab Results
02/02/24
16:35
WBC 15.5 H 10^3/uL
(4.8-10.8)
RBC 2.47 L 10^6/uL
(4.20-5.40)
Hgb 7.1 L g/dL
(12.0-16.0)
Hct 22.2 L %
(37.0-47.0)
MCHC 32.0 L g/dL
(33.0-37.0)
RDW 14.6 H %
(11.5-14.5)
Abs Immat Gran (auto) 0.1 H 10^3/uL
(0-0.05)
Absolute Neuts (auto) 14.1 H 10^3/uL
(1.4-6.5)
Absolute Lymphs (auto) 0.5 L 10^3/uL
(1.2-3.4)
Absolute Monos (auto) 0.7 H 10^3/uL
(0.1-0.6)
Immature Gran % 0.6 H %
(0-0.5)
Neutrophils % 91.1 H %
(42.2-75.2)
Lymphocytes % 3.3 L %
(20.5-51.1)
Sodium 130 L mmol/L
(135-145)
BUN 24 H mg/dl
(7-17)
Creatinine 0.5 L mg/dL
(0.6-1.0)
Glucose 264 H mg/dl
(70-99)
Calcium 7.8 L mg/dl
(8.4-10.2)
AST 39 H U/L
(14-36)
Alkaline Phosphatase 445 H U/L
(38-126)
Total Protein 4.7 L g/dl
(6.3-8.2)
Albumin 2.2 L g/dl
(3.5-5.0)
02/02/24 16:35
02/02/24 16:35
MDM/Problems Addressed
Differential Diagnosis Includes:
Low back pain excruciating in nature unrelieved with Tylenol, tramadol oxycodone. Currently at rehab but unable to do rehab secondary to the pain. X-rays pending will check labs. Toradol ordered
No red flags to suggest cauda equina. No fever to suggest infectious source
*Critical Care Note
Total Time (30-74mins, 75-104mins- exclusive of procedures): Not Applicable
Update Note
Update Note:
X-rays lumbar spine showed diffuse degenerative changes but no fracture. Patient has been resting comfortably here. She came from a rehab facility. Will add prednisone and muscle relaxant for her to take. Stable for discharge back to rehab
ED Attending Note
-
Portions of this chart may have been created with voice recognition software.� Occasional wrong word or��sound alike� substitutions may have occurred due to the inherent limitations of voice recognition software.
Discharge Plan
Departure
Patient Disposition: Home (Routine Discharge)
Date of Disposition: 02/02/24
Time of Disposition: 19:25
Patient with high blood pressure during this ER visit?: No
Discharge Problem:
Back pain
Instructions: Muscle and Bone Pain (DC)
Prescriptions:
New
prednisone 10 mg Tablet
See Rx Instructions .ROUTE .COMPLEX Qty: 30 0RF
Rx Instructions:
Take By Mouth:
40 mg daily x3 days, 30 mg daily x3 days,
20 mg daily x3 days, 10 mg daily x3 days.
methocarbamol 500 mg tablet
500 mg PO TID PRN (Reason: spasm) Qty: 14 0RF
No Action
Fruit and Vegetable Daily 5-6-150 mg Capsule
6 cap PO DAILY
aspirin 325 mg Tablet
325 mg PO BIDPRN PRN (Reason: fever)
shark liver oil-vitamin E 500-5 mg-unit Capsule
1 cap PO BID
metronidazole 500 mg Tablet
500 mg PO Q8 Qty: 12 0RF
cephalexin 500 mg Capsule
500 mg PO QID Qty: 15 0RF
Dificid 200 mg Tablet
200 mg PO BID Qty: 14 0RF
Referrals:
Hebert Shin MD [Family Provider] -
Activity Restrictions/Additional Instructions:
Continue with warm compresses to the back. Use prednisone as directed. Use muscle relaxers as needed for spasm. Continue with rehab. Return if needed
Interventions
Interventions:
*Risk Screen - Suicide Last Done: 02/02/24 14:26
*General Assessment Last Done: 02/02/24 14:26
*Neglect/Abuse Screening Last Done: 02/02/24 16:07
*ED COVID-19 Vaccine History Last Done: 02/02/24 14:26
ED-Musculoskeletal Assessment Last Done: 02/02/24 16:07
Discharge Date and Time
Print Language: KINYARWANDA
[2024-02-02] MEDS: LIDOCAINE 4% PATCH 1 PATCH TOPICAL (16:33)
[2024-02-02] MEDS: TORADOL 15 MG IV (16:35)
[2024-02-02 17:00] VITALS: BP 118/58
[2024-02-02 17:11] LABS: % Basophils 0.1 % (0-2); % Eosinophils 0.1 % (0-6); % Immature Granulocytes 0.6 % (0-0.5); % Lymphocytes 3.3 % (20.5-51.1); % Monocytes 4.8 % (1.7-9.3); % Neutrophils 91.1 % (42.2-75.2); Absolute Immature Granulocytes 0.1 10^3/uL (0-0.05); Absolute Lymphocytes 0.5 10^3/uL (1.2-3.4); Absolute Monocytes 0.7 10^3/uL (0.1-0.6); Absolute Neutrophils 14.1 10^3/uL (1.4-6.5); Hematocrit 22.2 % (37.0-47.0); Hemoglobin 7.1 g/dL (12.0-16.0); Mean Corpuscular Hgb 28.7 pg (27.0-31.0); Mean Corpuscular Volume 89.9 fL (81.0-99.0); Mean Platelet Volume 9.5 fL (7.4-10.4); Nucleated Red Blood Cells % 0 %; Platelet Count 286 10^3/uL (130-400); Red Blood Cell Count 2.47 10^6/uL (4.20-5.40); Red Cell Dist. Width 14.6 % (11.5-14.5); White Blood Cell Count 15.5 10^3/uL (4.8-10.8)
[2024-02-02 17:16] LABS: ALT (SGPT) 25 U/L (0-35); AST (SGOT) 39 U/L (14-36); Albumin 2.2 g/dl (3.5-5.0); Alkaline Phosphatase 445 U/L (38-126); Blood Urea Nitrogen 24 mg/dl (7-17); Calcium 7.8 mg/dl (8.4-10.2); Carbon Dioxide 23 mmol/L (22-30); Chloride 100 mmol/L (98-107); Glucose 264 mg/dl (70-99); Potassium 4.4 mmol/L (3.5-5.1); Sodium 130 mmol/L (135-145); Total Bilirubin 0.2 mg/dl (0.2-1.3); Total Protein 4.7 g/dl (6.3-8.2); eGFR > 60.00
== END 2024-02-02 20:31 ==
LOC: EMR 14:24
PROVIDERS: Physician Assistant; EMERGENCY PHYSICIAN Emergency Medicine; FAMILY PHYSICIAN Family Medicine
DX: M54.50 Low back pain, unspecified (principal); Z85.43 Personal history of malignant neoplasm of ovary; Z87.39 Personal history of other diseases of the musculoskeletal system and connective tissue
CPT/HCPCS: 96374; 99284; 72100; 80053; 85025

== ENCOUNTER → 2024-02-04 15:29 | Outpatient (REF) | payer OTHER, MEDICARE, SELFPAY ==
[2024-02-04 15:58] LABS: Blood Urea Nitrogen 29 mg/dl (7-17); Calcium 7.7 mg/dl (8.4-10.2); Carbon Dioxide 24 mmol/L (22-30); Chloride 100 mmol/L (98-107); Glucose 119 mg/dl (70-99); Potassium 4.2 mmol/L (3.5-5.1); Sodium 132 mmol/L (135-145); eGFR > 60.00
[2024-02-04 16:24] LABS: % Basophils 0.1 % (0-2); % Immature Granulocytes 1.1 % (0-0.5); % Lymphocytes 1.7 % (20.5-51.1); % Monocytes 2.5 % (1.7-9.3); % Neutrophils 94.6 % (42.2-75.2); Absolute Immature Granulocytes 0.3 10^3/uL (0-0.05); Absolute Lymphocytes 0.4 10^3/uL (1.2-3.4); Absolute Monocytes 0.6 10^3/uL (0.1-0.6); Absolute Neutrophils 21.3 10^3/uL (1.4-6.5); Hematocrit 18.4 % (37.0-47.0); Mean Corp Hgb Conc. 32.6 g/dL (33.0-37.0); Mean Corpuscular Hgb 28.8 pg (27.0-31.0); Mean Corpuscular Volume 88.5 fL (81.0-99.0); Mean Platelet Volume 10.8 fL (7.4-10.4); Nucleated Red Blood Cells % 0 %; Platelet Count 213 10^3/uL (130-400); Red Blood Cell Count 2.08 10^6/uL (4.20-5.40); Red Cell Dist. Width 14.8 % (11.5-14.5); White Blood Cell Count 22.5 10^3/uL (4.8-10.8)
[2024-02-04 16:37] LABS: Urine Albumin Trace (Neg - Trace); Urine Bilirubin Negative (Negative); Urine Character Clear (Clear); Urine Glucose Negative (Negative); Urine Ketone Negative (Negative); Urine Leukocyte 1+ (Negative); Urine Nitrite Negative (Negative); Urine Occult Blood 1+ (Negative); Urine Urobilinogen Negative (Neg - 1+)
[2024-02-04 16:54] LABS: Urine Bacteria Moderate (Negative); Urine Red Blood Cell 0-2 /HPF (0-2); Urine White Cell 30-40 /HPF (0-5)
== END ==
LOC: OLABP 15:29
PROVIDERS: ATTENDING PHYSICIAN Family Medicine; REFERRING PHYSICIAN Internal Medicine Hematology & Oncology
DX: A41.9 Sepsis, unspecified organism (principal); E87.6 Hypokalemia; E87.1 Hypo-osmolality and hyponatremia; D64.9 Anemia, unspecified; I44.7 Left bundle-branch block, unspecified; I95.9 Hypotension, unspecified; R78.81 Bacteremia; C25.9 Malignant neoplasm of pancreas, unspecified; E43 Unspecified severe protein-calorie malnutrition; A04.72 Enterocolitis due to Clostridium difficile, not specified as recurrent; M62.81 Muscle weakness (generalized); K83.09 Other cholangitis; C25.3 Malignant neoplasm of pancreatic duct
CPT/HCPCS: 36415; 80048; 81003; 81015; 85025; 86850; 86900; 86901; 87077; 87086; 87186

== ENCOUNTER 2024-02-05 00:55 | Inpatient (IN) | payer MEDICARE, OTHER, SELFPAY ==
[2024-02-04] VITALS (12 sets, daily range): BP systolic 82–102; BP diastolic 46–56; BMI 17.8
--- NOTE | 2024-02-04 18:08 | EDRN ---
Dr. Guerrero in room w/ pt at this time.
--- NOTE | 2024-02-04 18:09 | ED.GENMED ---
History of Present Illness
General
Chief Complaint: Abnormal Lab Value
Time Seen by Provider: 02/04/24 17:52
History of Present Illness
History of Present Illness:
88-year-old female history of stage IV pancreatic cancer not currently receiving treatment, spinal stenosis, cholangitis, biliary stents presenting with abnormal labs. Patient states that her doctor checked her blood work and noted her hemoglobin
was 6. Patient denies any chest pain, shortness of breath, dizziness, black or bloody stool. Patient is not on blood thinners. Patient states that she was evaluated here 2 days ago for back pain, started on steroids at that time. Patient denies
any other symptoms including cough, urinary symptoms, or abdominal pain.
Past History
Past History
ED Past Medical History: Cancer (Ovarian cancer), Psychiatric (Anxiety, depression) and Other (Spinal stenosis)
ED Past Surgical History: Gynecological and Orthopedic
Social History
Tobacco: Non-smoker
Alcohol: None
Drug: None
Personal:
Living: with family
Phy Exam
Physical Exam
Physical Exam:
General: Alert, no acute distress. Cachectic
Head: NCAT
Eyes: clear conjunctiva
Neck: supple
Cardiac: tachycardic
Lungs: clear to auscultation bilaterally. No wheezes, rales, or rhonchi. Speaking full unlabored sentences. No respiratory distress.
Abdomen: soft, nondistended nontender. No rebound or guarding.
MSK: no lower extremity edema bilaterally. No deformity
Skin: warm, dry
Neuro: Alert and oriented x3. no focal deficits
Rectal: Rust colored closed stool, guaiac positive. Nurse Codie biomed tech present
Course
Orders/Labs/Results
Orders:
Orders
02/04/24 18:08
EKG [Electrocardiogram (*1)] Urgent
Reason for Study: Tachycardia
EKG- Treatment ONCE
Pantoprazole [Protonix IV] 80 mg IV NOW STA
02/04/24 18:15
* Blood Bank Products Urgent
Blood Bank Products: *Packed RBC Leuko(PRBC's)
Quantity: 2
Transfuse Today: Yes
Reason: Bleeding
02/04/24 18:34
Type+Screen Urgent
BBK Wristband Number:
CBC/With Diff [Complete Blood Count/With Diff] Urgent
CMP [Comprehensive Metabolic Panel] Urgent
Protime/PTT Urgent
02/04/24 19:34
0.9% Sodium Chloride 500 ml [Nss] 500 ml IV BOLUS
02/04/24 19:55
CT Angio Abd/Pelvis w/wo IV [CT Abd/pelvis Angio W/wo Iv] Urgent
Comment:
Reason For Exam: gi bleed, elevated lfts
02/04/24 21:01
Lactic Acid Urgent
Blood Culture Q30M
AMRIT Source: Blood/Venous
Specimen Description:
02/04/24 21:21
Blood Culture Q30M
AMRIT Source: Blood/Venous
Specimen Description:
02/04/24 23:56
Piperacillin/Tazo 4.5 Gram [Zosyn] 4.5 gram in 100 ml IV NOW
02/04/24 23:57
Vancomycin 1 Gram/200 ml [Vancocin] 1 gram in 200 ml IV NOW
Abnormal Lab Results
02/04/24 02/04/24
18:34 21:01
WBC 28.3 H 10^3/uL
(4.8-10.8)
RBC 2.42 L 10^6/uL
(4.20-5.40)
Hgb 7.0 L g/dL
(12.0-16.0)
Hct 21.8 L %
(37.0-47.0)
MCHC 32.1 L g/dL
(33.0-37.0)
RDW 14.7 H %
(11.5-14.5)
MPV 10.5 H fL
(7.4-10.4)
Abs Immat Gran (auto) 0.3 H 10^3/uL
(0-0.05)
Absolute Neuts (auto) 27.8 H 10^3/uL
(1.4-6.5)
Absolute Lymphs (auto) 0.1 L 10^3/uL
(1.2-3.4)
Immature Gran % 1.0 H %
(0-0.5)
Neutrophils % 98.1 H %
(42.2-75.2)
Lymphocytes % 0.4 L %
(20.5-51.1)
Monocytes % 0.4 L %
(1.7-9.3)
APTT 36.4 H Sec
(23.4-35.0)
Sodium 132 L mmol/L
(135-145)
Carbon Dioxide 21 L mmol/L
(22-30)
BUN 30 H mg/dl
(7-17)
Glucose 384 H mg/dl
(70-99)
Lactic Acid 3.2 H mmol/L
(0.7-2.0)
Calcium 7.9 L mg/dl
(8.4-10.2)
AST 64 H U/L
(14-36)
ALT 40 H U/L
(0-35)
Alkaline Phosphatase 572 H U/L
(38-126)
Total Protein 5.0 L g/dl
(6.3-8.2)
Albumin 2.4 L g/dl
(3.5-5.0)
Crossmatch IS Only See Detail
02/04/24 18:34
02/04/24 18:34
Vital Signs
Initial and Last Documented VS:
Initial Vital Signs
Temp Pulse Resp Pulse Ox
99.8 F 121 16 98
02/04/24 17:57 02/04/24 17:57 02/04/24 17:57 02/04/24 17:57
Last Documented Vital Signs
Temp Pulse Resp BP Pulse Ox
98.6 F 117 22 82/49 99
02/04/24 23:53 02/04/24 23:53 02/04/24 23:53 02/04/24 23:53 02/04/24 23:53
MDM/Problems Addressed
Differential Diagnosis Includes:
GI bleed, anemia, sepsis
MDM/Problems Addressed:
88-year-old female history of stage IV pancreatic cancer presenting with low hemoglobin. Patient denies any symptoms except for chronic low back pain. Patient denies chest pain, shortness of breath, dizziness or black or bloody stools. Patient is
not on blood thinners. Rectal exam shows rust-colored stool guaiac positive. Concern for GI bleed. Discussed blood transfusion with patient who is agreeable. Will transfuse 2 units PRBC given hemoglobin 6 outpatient, tachycardic, borderline
hypotensive. Ordered protonix.
Labs reviewed. WBC 28.3 (chronically elevated but uptrending over the past 2 days) with left shift. BUN 30, concerning for upper GI bleed. Lactic acid 3.2 Uptrending LFTs again. Ordered CTA abdomen/pelvis that shows progression of hepatic mets
compared to prior with a new 3.9x3.8 irregular, peripherally enhancing hypodense hepatic lesion with internal gas in the right lobe of the liver. CBD stent and pigtail catheter in CBD with small to moderate pneumobilia again identified. Moderate
ascites and anasarca. Small bilateral pleural effusions. As read by radiology. On chart review, pt had previous MRI abdomen to determine if liver lesions were mets versus abscess, believed to be more likely metastases. Given uptrending white count,
tachycardia, will treat empirically with Zosyn and vancomycin. Discussed with hospitalist for admission
*Critical Care Note
Total Time (30-74mins, 75-104mins- exclusive of procedures): Not Applicable
Update Note
Update Note:
Results reviewed. Hemoglobin 7. WBC uptrending (currently 28. chronically elevated to mid teens at baseline) which would be from infection, could be from pt was started on steroids 2 days ago. Added lactate and blood cultures. Uptrending LFTs. Pt
continues to deny any abdominal pain. Abdomen soft nondistended nontender. Ordered CTA abdomen/pelvis to further assess GI bleed, elevated LFTs.
ED Attending Note
-
Portions of this chart may have been created with voice recognition software.� Occasional wrong word or��sound alike� substitutions may have occurred due to the inherent limitations of voice recognition software.
Discharge Plan
Departure
Presentation/result/management discussed w/ accepting MD/DO: Hospitalist
Discharge Problem:
GI bleed, Anemia
Prescriptions:
No Action
prednisone 10 mg Tablet
See Rx Instructions .ROUTE .COMPLEX Qty: 30 0RF
Rx Instructions:
Take By Mouth:
40 mg daily x3 days, 30 mg daily x3 days,
20 mg daily x3 days, 10 mg daily x3 days.
acetaminophen 500 mg Tablet
1,000 mg PO Q8HPRN PRN (Reason: mild pain)
magnesium hydroxide [Milk of Magnesia] 400 mg/5 mL Suspension
30 ml PO DAILYPRN PRN (Reason: if no bm on day 4)
bisacodyl [Dulcolax (bisacodyl)] 10 mg Suppository
10 mg TN DAILYPRN PRN (Reason: if mom ineffective. give on day 5 of no bm)
lidocaine 5 % Adhesive Patch,Medicated
1 patch TOPICAL DAILY
Fleet Enema 19-7 gram/118 mL Enema
118 ml TN DAILYPRN PRN (Reason: if dulcolax is ineffective. give on day 6 of no bm)
gabapentin 100 mg Capsule
200 mg PO BID
naloxone [Narcan] 4 mg/actuation Floyd,Non-Aerosol
1 spray INTRANASAL Q3MPRN PRN (Reason: opioid suspected overdose)
Referrals:
Hebert Shin MD [Family Provider] -
Interventions
Interventions:
*Risk Screen - Suicide Last Done: 02/04/24 18:09
*General Assessment Last Done: 02/04/24 18:09
*Neglect/Abuse Screening Last Done: 02/04/24 18:09
ED- Fall Risk Assessment Last Done: 02/04/24 18:09
*ED COVID-19 Vaccine History Last Done: 02/04/24 18:09
Discharge Date and Time
Print Language: ZAMBIAN
[2024-02-04 18:54] LABS: % Basophils 0.1 % (0-2); % Lymphocytes 0.4 % (20.5-51.1); % Monocytes 0.4 % (1.7-9.3); % Neutrophils 98.1 % (42.2-75.2); Absolute Immature Granulocytes 0.3 10^3/uL (0-0.05); Absolute Lymphocytes 0.1 10^3/uL (1.2-3.4); Absolute Monocytes 0.1 10^3/uL (0.1-0.6); Absolute Neutrophils 27.8 10^3/uL (1.4-6.5); Hematocrit 21.8 % (37.0-47.0); Mean Corp Hgb Conc. 32.1 g/dL (33.0-37.0); Mean Corpuscular Hgb 28.9 pg (27.0-31.0); Mean Corpuscular Volume 90.1 fL (81.0-99.0); Mean Platelet Volume 10.5 fL (7.4-10.4); Nucleated Red Blood Cells % 0 %; Platelet Count 242 10^3/uL (130-400); Red Blood Cell Count 2.42 10^6/uL (4.20-5.40); Red Cell Dist. Width 14.7 % (11.5-14.5); White Blood Cell Count 28.3 10^3/uL (4.8-10.8)
[2024-02-04 18:56] LABS: ALT (SGPT) 40 U/L (0-35); AST (SGOT) 64 U/L (14-36); Albumin 2.4 g/dl (3.5-5.0); Alkaline Phosphatase 572 U/L (38-126); Blood Urea Nitrogen 30 mg/dl (7-17); Calcium 7.9 mg/dl (8.4-10.2); Carbon Dioxide 21 mmol/L (22-30); Chloride 98 mmol/L (98-107); Glucose 384 mg/dl (70-99); Potassium 4.3 mmol/L (3.5-5.1); Sodium 132 mmol/L (135-145); Total Bilirubin 0.3 mg/dl (0.2-1.3); eGFR > 60.00
[2024-02-04 18:58] LABS: PT 14.5 Sec (11.4-14.6)
[2024-02-04 18:59] LABS: APTT 36.4 Sec (23.4-35.0)
[2024-02-04] MEDS: PROTONIX IV 80 MG IV (19:03)
[2024-02-04] MEDS: NSS 500 IV (19:34)
--- NOTE | 2024-02-04 20:27 | EDRN ---
Card sent to blood bank for unit of pRBC ordered.
[2024-02-04 21:24] LABS: Lactic Acid 3.2 mmol/L (0.7-2.0)
[2024-02-05] VITALS (63 sets, daily range): BP systolic 78–138; BP diastolic 39–95; BMI 17.8
[2024-02-05] MEDS: ZOSYN 100 IV (00:15)
[2024-02-05] MEDS: VANCOCIN 200 IV (00:42)
--- NOTE | 2024-02-05 00:51 | HPS.HSE ---
Family Physician
-
Family Physician: Hebert Shin MD
Chief Complaint
-
Anemia w/ Hgb of 7.0
History of Present Illness
88-year-old with multiple comorbidities who was sent from senior living[facility]rehab with abnormal blood work showing a hemoglobin of 6.0 today compared to the last hemoglobin of 7.0 on February 09.
This is an 88-year-old female with past medical history of ovarian cancer status post surgery and chemo, complicated pancreatic cancer with cholangitis and stent placement, iron deficiency anemia requiring iron infusions, chronic back pain with
spinal stenosis and severe protein calorie malnutrition was recently admitted to January 02 and at that time was found to have sepsis with bacteremia (sensitive E. coli). Source of bacterial bacteremia was thought to be likely from biliary
stents for which he underwent ERCP stent removal and replacement at [facility] [address] and transferred back to . She also had C. difficile for which she was treated with fidaxomicin. MRI showing progression of disease at the time.
Patient now returns to the hospital with low hemoglobin. She denies any acute complaints other than low appetite and decreased p.o. intake. She specifically denies having fevers. She reports chronic chills. She denies any nausea or vomiting.
She denies any abdominal pain. She denies any diarrhea. She denies any melena. She denies any hematochezia. She denies any acute changes in her medications. She denies any urinary symptoms. Patient denies getting any new chemotherapy.
In the emergency department she was hypotensive with a blood pressure of 82/49. Temperature was 98.6. She was tachycardic to 117. Oxygen saturation was normal on room air. Labs are notable for a hemoglobin of 7.0, white count of 28.3 with a
normal platelet count. The WBC has been trending up over the last few weeks. Her BUN is 3411 creatinine is stable at 0.6. Sodium is 132. The rest of the electrolytes are within normal limits. Lactic acid is elevated at 3.2. She has slightly
uptrending LFTs with alk phos now 572 but total bilirubin is within normal limits.
CT of the abdomen shows progression of hepatic metastasis with a new 3.9 x 2.8 cm peripherally enhancing hypodense hepatic lesion with internal gas in the right lobe of the liver. The CBD stent and pigtail catheter in the CBD with small to moderate
pneumobilia as previously identified. Moderate ascites.
Medical History
Past Medical History
Past Medical History: Reports Cancer (metastatic pancreatic ca, h/o ovarian ca, ) and Other (RICH)
Past Surgical History: Reports Gynocological (DAMION/BSO), Orthopedic (spinal surgery, R femoral neck fracture rpair) and Tonsilectomy
Social History
Unable to obtain full social history at this time due to: Acuity
Tobacco: Non-smoker
Alcohol: None
Drug: None
Personal:
Living: Long-Term
Employment: Retired
Family History
Family History: Not pertinent
Allergies / Home Medications
Allergies reflects when Allergies were last updated in [employer].
Home Medications with original date entered in [employer]
Allergy/Medication List:
Allergies
Allergy/AdvReac Type Severity Reaction Status Date / Time
poison vipul extract Allergy SEVERE Verified 02/04/24 17:57
BLISTERING
Sulfa (Sulfonamide Allergy Unknown Verified 02/04/24 17:57
Antibiotics)
Home Medications
prednisone 10 mg tablet See Rx Instructions .Route .COMPLEX #30 tabs 02/02/24
acetaminophen 500 mg tablet 1,000 mg PO Q8HPRN PRN mild pain 02/04/24
bisacodyl 10 mg rectal suppository (Dulcolax (bisacodyl)) 10 mg [place] DAILYPRN PRN if mom ineffective. give on day 5 of no bm 02/04/24
gabapentin 100 mg capsule 200 mg PO BID 02/04/24
lidocaine 5 % topical patch 1 patch topical DAILY 02/04/24
magnesium hydroxide 400 mg/5 mL oral suspension (Milk of Magnesia) 30 ml PO DAILYPRN PRN if no bm on day 4 02/04/24
naloxone 4 mg/actuation nasal spray (Narcan) 1 spray intranasal Q3MPRN PRN opioid suspected overdose 02/04/24
sodium phosphates 19 gram-7 gram/118 mL enema (Fleet Enema) 118 ml [place] DAILYPRN PRN if dulcolax is ineffective. give on day 6 of no bm 02/04/24
Review of Systems
-
History Source: Patient
Constitutional: Reports Fatigue
EENT: Reports No Symptoms
Respiratory: Reports No Symptoms
Cardiac: Reports No Symptoms
Abdomen/GI: Reports No Symptoms
: Reports No Symptoms
Musculoskeletal: Reports Joint Pain
Skin: Reports No Symptoms
Neurological: Reports No Symptoms
Endocrine: Reports Temp Intolerance
Hematologic/Lymphatic: Reports No Symptoms
Psych: Reports No Symptoms
Physical Exam
Vital Signs
Vital Signs
Temp Pulse Resp BP Pulse Ox
98.3 F 114 20 83/46 99
02/05/24 00:10 02/05/24 00:10 02/05/24 00:10 02/05/24 00:10 02/05/24 00:10
Physical Exam
General: Appears Chronically Ill and Cachectic
HEENT: NormoCephalic, Anicteric, PERRLA, Bruno Conjunctivae, No Ptosis and Other (dry mm)
Respiratory: Clear
Cardiac: S1/S2 and Tachycardia
Breast: Deferred by me
GI: Soft, Non Tender, Non Distended and Normal Bowel Sounds
Rectal: Hem Positive and Maroon Stools
Genito-urinary: Deferred by me
Musculoskeletal: No Clubbing, No Cyanosis and No Edema
Skin: Warm and Dry
Neuro: AO x 3
Hematologic/Lymphatic: No Lymphadenopathy
Psych: Calm
Laboratory Results
-
02/04/24 18:34
02/04/24 18:34
Laboratory Results
PT 14.5 Sec (11.4-14.6) 02/04/24 18:34
INR 1.10 02/04/24 18:34
APTT 36.4 Sec (23.4-35.0) H 02/04/24 18:34
Lactic Acid 3.2 mmol/L (0.7-2.0) H 02/04/24 21:01
Total Bilirubin 0.3 mg/dl (0.2-1.3) 02/04/24 18:34
AST 64 U/L (14-36) H 02/04/24 18:34
ALT 40 U/L (0-35) H 02/04/24 18:34
Alkaline Phosphatase 572 U/L (38-126) H 02/04/24 18:34
Data Reviewed
-
CT Scan: Report Reviewed by me
Medical Tests (Nuc Med, Echo, EKG etc): Image Personally Visualized and interpreted
Lab Data: Labs Reviewed by me
Old Records: Reviewed
Impression/Plan
-
IMPRESSION:
Patient with metastatic pancreatic ca, s/p CBD stent and recent replacement in setting of sepsis/bacteremia presents to ED ostensibly for anemia with Hgb of 6.0, repeat was 7.0 in ED and rust colored heme + stools. Boderline hypotension. Denies
any symptoms and any awareness of melena or hematochezia. Peripherally dehydrated but as ascites and intraabdominal anasarca. Lactic acid elevated.
PLAN:
1. Sepsis - Hypotension/tachycardia and rising WBC. Possibly from blood loss versus recurrent bacteremia. Has rising aphos, lfts similar to prior presentation with infected stents. There is a possible liver mets/abscess. U/A is equivocal but
could be a source. No respiratory findings. Moderate ascites as well. Known to be dehydrated so that could be playing a role too. Cannot rule out leukocytosis from progressive pancreatic mets or recent steroids.
- admit to IMU for now
- blood and urine cultures, check procal
- give 30ml/kg NS, then LR at 100 ml.
- IV Vanc/Zosyn in ED, will continue with IV zosyn for now
- IR for potential paracentesis
- ID consultation
- GI consultation
- IV fluids to maintain MAP greater than 60 (she was difficult to wean off pressors last admission), then pressors if needed.
2. GI bleed - Hgb 7 since 02/01. Suspect subacute bleed and possibly upper GI. No acute bleed on current CTA.
- type and screen
- transfuse 1 unit now and then for Hgb < 7
- H&H q 8
- PPI iv bid for now
3. Hyperglycemia - Unexplained hyperglycemia. On prednisone recently
- check a1c, b HB
- sliding scale insulin for now
4. Ascites
- IR consult for dgx paracentesis
Judicious pain control
DVT PPX - SCD for now
Code Status - Full Code
[2024-02-05] MEDS: NSS 250 IV (01:13)
[2024-02-05] MEDS: LR 1000 IV (01:55)
[2024-02-05 02:35] LABS: Glucose - Point of Care 232 mg/dl (70-99)
[2024-02-05 02:36] LABS: Hematocrit 26.5 % (37.0-47.0); Hemoglobin 8.9 g/dL (12.0-16.0)
--- NOTE | 2024-02-05 02:39 | EDRN ---
per Myrtle text with Teresa Hearn, Holding order for novolog 4 units at this time. BS has decreased after given the fluid and blood transfusions.
[2024-02-05] MEDS: TYLENOL 650 MG PO ×2 (04:05→23:26)
--- NOTE | 2024-02-05 05:04 | EDRN ---
Pt. hypotensive, current BP 91/43 w/ a MAP of 59. Pt. is asymptomatic, has LR infusing per orders. Admitting team aware. Per admitting, pt. to receive midodrine per admitting orders.
[2024-02-05] MEDS: ProAmatine 5 MG PO ×3 (05:46→17:37)
[2024-02-05] MEDS: ZOSYN 50 IV ×4 (06:09→23:26)
[2024-02-05 06:18] LABS: Lactic Acid 2.6 mmol/L (0.7-2.0)
--- NOTE | 2024-02-05 06:22 | W.PN.UPDATE ---
Update Note
Progress Note Update
Patient is hypotensive with SBP in 80s- 90s, currently on IVF, one time of midodrine was given. SBP still dropping down. Levophed ordered
[2024-02-05 06:29] LABS: ALT (SGPT) 44 U/L (0-35); AST (SGOT) 78 U/L (14-36); Albumin 2.1 g/dl (3.5-5.0); Alkaline Phosphatase 494 U/L (38-126); B-Hydroxybutyrate 0.14 mmol/L (0.02-0.27); Blood Urea Nitrogen 27 mg/dl (7-17); Calcium 7.7 mg/dl (8.4-10.2); Carbon Dioxide 20 mmol/L (22-30); Chloride 101 mmol/L (98-107); Direct Bilirubin 0.7 mg/dl (0.0-0.4); Estimated Creatinine Clearance 44 ml/min; Glucose 169 mg/dl (70-99); Potassium 3.8 mmol/L (3.5-5.1); Sodium 132 mmol/L (135-145); Total Bilirubin 1.5 mg/dl (0.2-1.3); Total Protein 4.5 g/dl (6.3-8.2); eGFR > 60.00
[2024-02-05 06:34] LABS: Hematocrit 28.4 % (37.0-47.0); Mean Corp Hgb Conc. 35.2 g/dL (33.0-37.0); Mean Corpuscular Hgb 29.7 pg (27.0-31.0); Mean Corpuscular Volume 84.3 fL (81.0-99.0); Mean Platelet Volume 11.4 fL (7.4-10.4); Platelet Count 116 10^3/uL (130-400); Red Blood Cell Count 3.37 10^6/uL (4.20-5.40); Red Cell Dist. Width 15.8 % (11.5-14.5); White Blood Cell Count 23.2 10^3/uL (4.8-10.8)
[2024-02-05] MEDS: NOVOLOG FLEXPEN-LOW RESISTANCE SC (06:35)
[2024-02-05] MEDS: LEVOPHED 250 IV (06:45)
[2024-02-05 06:49] LABS: Procalcitonin 7.12 ng/ml (0.0-0.25)
--- NOTE | 2024-02-05 07:15 | EDRN ---
Pt.'s BP and MAP was consistently trending downwards since this RN took over for care of pt. at 03:00. RN has been in contact w/ admission team, order for levo. obtained and started this AM. Pt. remains asymptomatic, maintenence fluids infusing.
When RN entered room at approximately 06:35 pt.'s heart rhythm went from sinus tach. w/ rate 115-120s, to wide complex rhythm w/ HR 130s-140s. When RN entered room to complete EKG, pt.'s rhythm back to sinus tach. Strip from central monitoring sent
via tiger text to admission team, no further orders.
[2024-02-05 07:33] LABS: Magnesium 1.5 mg/dl (1.6-2.3)
--- NOTE | 2024-02-05 07:59 | CON.GI ---
Addendum entered and electronically signed by Leonora Bajwa Do, MD 02/05/24 11:49:
I saw and examined the patient.
The CANE WEIGHER's note was reviewed and I agree with the note.
Comment: Hermes is an 88yo W with h/o pancreatic adenoCa with liver mets s/p chemoXRT and several biliary stents who presents for low back pain and for worsening anemia on routine labs. She is known to Dr Ceron/BENITO for bacteremia related to biliary
malignant obstruction. She had evaluation with Dr Garcia at 2pm yesterday 02/03 in the office and told that she is no longer candidate for any further treatments and palliative care/hospice recommended. At this juncture she expressed desire to
not have further invasive GI procedures. Her last stent exchange was under 1mo ago and she again has recurrent bacteremia on this admission She would like a diet and consideration of hospice discussion once comes to hospital
Above was d/w SCALLOP CUTTER MACHINE, hospitalist and ID. Consider case management consult for hospice evaluation. C/w abx. No further GI procedures so will advance her to unrestricted diet. At this juncture no new recs will sign off please call for questions.
Original Note:
Consultation
-
Date/Time Consultation Requested: 02/05/24146
Date/Time Consultation Performed: 02/05/24
Requesting Provider: Dr. Olson
Performing Provider: Dr. Valiente/SIMONE Hawkins
Reason for Consultation: GI bleed
Medical History
Chief Complaint / HPI
Chief Complaint: low hgb on labs
History of Present Illness:
88-year-old female with history of GERD, pancreatic adenocarcinoma s/p ERCP and biliary stent placement prior chemo and radiation therapy, admission in May with klebsiella bacteremia related to cholangitis with stent exchange and remote history
of ovarian cancer, anxiety/depression, RICH, spinal stenosis, prior fall. 11/2023 with repeat ERCP with stent exchange (Dr. Ceron) with one covered metal and plastic stent in biliary tree. plastic stent removed from biliary tree bile duct was swept and
debris found, one plastic stent was placed in right hepatic duct. Patient had return admission in December 2023 for E Coli bacteremia and sepsis (biliary, vs CDiff) with LFTs in normal range except for Alk Phos, also developed CDiff at that time,
treated with Dificid. She was transferred to [facility] for stent exchange as Dr. Ceron was not available. 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
of new FCSEMS and single pigtail stent placed. She had a repeat MRI that showed 2 new in the central liver measuring 1.9 cm and 0.9 cm are favored to represent hepatic metastases in the setting of known pancreatic head adenocarcinoma. Small
developing hepatic abscesses would be difficult to completely exclude on this exam. Follow up with oncology was recommended for new lesions.She was DC to rehab on 01/13/24. she came back to the ER on 02/02/24 with complaints of Low back pain
radiating to the waist for several weeks. They performed labs that showed a hemoglobin of 7.1. She was taking tramadol, oxycodone and Tylenol. She was given Toradol in the emergency room and sent back to [facility]. She was also given prednisone
taper for pain as well. Repeat labs were performed at [facility] and because she had a hemoglobin of 6.0 she was sent back to the emergency room for abnormal labs. The patient tells us that she saw oncologist yesterday Dr. Mariana Garcia and
made the decision of pursuing palliative care at 2 PM. [facility]. She states that she has had back pain but has had no significant GI complaints. She is hungry however does not necessarily like
the food here. Patient's repeat hemoglobin in the emergency room showed a hemoglobin of 7.0. She was transfused 1 unit of packed red blood cells with hemoglobin going up to 8.9 then 10.0 this morning. She has had no bowel movements since she has
been here. She did have a rectal performed in the emergency room that was OB positive. The patient at the present time does not wish to have colonoscopy. The patient did present with fever of 102.6. She did become hypotensive. She did present
with increasing leukocytosis 28.3. When she was here on 02/02/2024 she was placed on prednisone for back pain. She does have 2 positive blood cultures. She does want to eat solid food. Currently WBC 23.2, hemoglobin 10.0, hematocrit 28.4,
platelets 116, PT 14.5, INR 1.10, sodium 132, potassium 3.8, CO2 20, BUN 27, glucose 0.5, glucose 169, lactic acid 2.6 down from 3.2, calcium 7.7, magnesium 1.5, total bilirubin 1.5 with direct of 0.7, AST 78, ALT 44, alk phos 494, albumin 2.1,
procalcitonin 7.12, UA WBC 30-40 with moderate bacteria. CTA abdomen and pelvis shows interval increase in the size of the anterior segment of the right hepatic lobe hypoattenuation measuring up to 2.4 cm (previously 1.8 cm). There is a new 3.6 cm
hypoattenuated lesion in the posterior segment of the right hepatic lobe with internal gas. Pneumobilia and common bile duct stent redemonstrated. Ill-defined pancreatic head mass with diffuse main pancreatic ductal dilatation redemonstrated.
Cannot rule rule out developing abscesses in posterior segment right hepatic lobe. She was empirically placed on Zosyn and infectious disease has been consulted.
Past Medical History
Past Medical History: Arrhythmias (L BBB), Cancer (pancreatic adeno CA with prior ERCP and biliary stenting, ovarian CA), Psychiatric (anxiety/depression) and Other (klebsiella bacteremia with cholanigitis 05/2023 with stent exchange, RICH, spinal
stenosis, mechanical fall with hip fracture with hemiarthroplasty, malnutrition. EPI)
Past Surgical History: Gynecological (DAMION, BSO ) and Other
Social History
Tobacco: Non-Smoker
Alcohol: Other (rare social )
Drug: None
Personal:
Living: With Family
Employment: Retired
Family History
Family History: Other (no family hx pancreatic issues )
Allergies / Home Medications
Allergy/AdvReac Type Severity Reaction Status Date / Time
poison vipul extract Allergy SEVERE Verified 02/04/24 17:57
BLISTERING
Sulfa (Sulfonamide Allergy Unknown Verified 02/04/24 17:57
Antibiotics)
�Medication �Instructions �Recorded
prednisone 10 mg tablet See Rx Instructions .Route 02/02/24
.COMPLEX #30 tabs
acetaminophen 500 mg tablet 1,000 mg PO Q8HPRN PRN mild pain 02/04/24
bisacodyl 10 mg rectal suppository 10 mg [place] DAILYPRN PRN if mom 02/04/24
(Dulcolax (bisacodyl)) ineffective. give on day 5 of no bm
gabapentin 100 mg capsule 200 mg PO BID 02/04/24
lidocaine 5 % topical patch 1 patch topical DAILY 02/04/24
magnesium hydroxide 400 mg/5 mL 30 ml PO DAILYPRN PRN if no bm on 02/04/24
oral suspension (Milk of Magnesia) day 4
naloxone 4 mg/actuation nasal 1 spray intranasal Q3MPRN PRN 02/04/24
spray (Narcan) opioid suspected overdose
sodium phosphates 19 gram-7 118 ml [place] DAILYPRN PRN if dulcolax 02/04/24
gram/118 mL enema (Fleet Enema) is ineffective. give on day 6 of
no bm
Review of Systems
-
All other systems: A 12 pt ROS was Negative except as stated above in HPI
Vital Signs
Temp Pulse Resp BP Pulse Ox
100.1 F 91 19 97/57 94
02/05/24 06:00 02/05/24 07:20 02/05/24 07:20 02/05/24 07:20 02/05/24 06:00
Physical Exam
Exam
General: Other (Cachectic, chronically ill-appearing)
HEENT: Anicteric
Respiratory: Clear (Anterior)
Cardiac: Regular Rhythm
GI: Soft, Non Tender, Non Distended and Normal Bowel Sounds
Musculoskeletal: Edema (+1 lower extremity edema)
Skin: Warm and Dry
Neuro: AO x 3
Psych: Calm
Results
WBC 23.2 10^3/uL (4.8-10.8) H 02/05/24 05:54
Hgb 10.0 g/dL (12.0-16.0) L 02/05/24 05:54
Hct 28.4 % (37.0-47.0) L 02/05/24 05:54
MCV 84.3 fL (81.0-99.0) 02/05/24 05:54
Plt Count 116 10^3/uL (130-400) L D 02/05/24 05:54
Absolute Neuts (auto) 27.8 10^3/uL (1.4-6.5) H 02/04/24 18:34
PT 14.5 Sec (11.4-14.6) 02/04/24 18:34
INR 1.10 02/04/24 18:34
APTT 36.4 Sec (23.4-35.0) H 02/04/24 18:34
Sodium 132 mmol/L (135-145) L 02/05/24 05:54
Potassium 3.8 mmol/L (3.5-5.1) 02/05/24 05:54
Chloride 101 mmol/L (98-107) 02/05/24 05:54
Carbon Dioxide 20 mmol/L (22-30) L 02/05/24 05:54
BUN 27 mg/dl (7-17) H 02/05/24 05:54
Creatinine 0.5 mg/dL (0.6-1.0) L 02/05/24 05:54
Calcium 7.7 mg/dl (8.4-10.2) L 02/05/24 05:54
Total Bilirubin 1.5 mg/dl (0.2-1.3) H D 02/05/24 05:54
AST 78 U/L (14-36) H 02/05/24 05:54
ALT 44 U/L (0-35) H 02/05/24 05:54
Alkaline Phosphatase 494 U/L (38-126) H 02/05/24 05:54
Diagnostic Image Results:
CTA abdomen and pelvis:
IMPRESSION:
1. Worsening hepatic metastases. Cannot rule out developing abscess in the posterior segment right hepatic lobe. Continued clinical and imaging follow-up recommended.
2. Additional essentially stable changes as described. No evidence for intraperitoneal/retroperitoneal bleed.
Prior GI Procedures:
EGD: 01/2023- ahmad- - 3 cm hiatal hernia.
- Benign-appearing esophageal stenosis/ring. Dilated.
Biopsied.
- Normal stomach. Biopsied.
- Normal duodenum.
EUS 02/2023- [facility] - A mass was identified in the pancreatic head. This
was staged T3 Nx Mx by endosonographic criteria. Fine
needle aspiration performed.
- There was dilation in the common bile duct which
measured up to 22 mm.
- There was dilation in the gallbladder body.
ERCP 02/2023- [facility] - The entire biliary tree was severely dilated, with a
mass causing an obstruction.
- Moderate dilatation of the entire opacified area of
the pancreatic duct was found.
- A biliary sphincterotomy was performed.
- One plastic stent was placed into the common bile
duct.
- One plastic stent was placed into the left hepatic
duct.
- One plastic stent was placed into the ventral
pancreatic duct.
ERCP 05/2023- [facility] - Two partially occluded stents from the biliary tree
were seen in the major papilla.
- Biliary sludge and pus drained after existing
plastic stents removal.
- A single moderate biliary stricture was found in the
lower third of the main bile duct. The stricture was
malignant appearing.
- The common bile duct was moderately dilated.
- Two stents were removed from the biliary tree.
- One covered metal stent was placed into the common
bile duct.
- One plastic stent was placed into the right hepatic
duct.
ERCP 12/07/23- [facility] - Two stents from the biliary tree were seen in the
major papilla.
- The common bile duct was mildly dilated.
- One stent was removed from the biliary tree.
- The biliary tree was swept and debris was found.
- One plastic stent was placed into the right hepatic
duct.
ERCP with stent exchange [facility] 01/11/2024: malignant biliary stricture with upstream extrahepatic and intrahepatic duct dilatation s/p sent removal balloon extraction and debris with placement of new FCSEMS and single
pigtail stent placed.
Colonoscopy: None
Assessment / Plan
-
88-year-old female with history of GERD, pancreatic adenocarcinoma s/p ERCP and biliary stent placement prior chemo and radiation therapy, admission in May with klebsiella bacteremia related to cholangitis with stent exchange and remote history
of ovarian cancer, anxiety/depression, RICH, spinal stenosis, prior fall. 11/2023 with repeat ERCP with stent exchange (Dr. Ceron) with one covered metal and plastic stent in biliary tree. plastic stent removed from biliary tree bile duct was swept and
debris found, one plastic stent was placed in right hepatic duct. Patient had return admission in December 2023 for E Coli bacteremia and sepsis (biliary, vs CDiff) with LFTs in normal range except for Alk Phos, also developed CDiff at that time,
treated with Dificid. She was transferred to [facility] for stent exchange as Dr. Ceron was not available. 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
of new FCSEMS and single pigtail stent placed. She had a repeat MRI that showed 2 new in the central liver measuring 1.9 cm and 0.9 cm are favored to represent hepatic metastases in the setting of known pancreatic head adenocarcinoma. Small
developing hepatic abscesses would be difficult to completely exclude on this exam. Follow up with oncology was recommended for new lesions.She was DC to rehab on 01/13/24. she came back to the ER on 02/02/24 with complaints of Low back pain
radiating to the waist for several weeks. They performed labs that showed a hemoglobin of 7.1. She was taking tramadol, oxycodone and Tylenol. She was given Toradol in the emergency room and sent back to [facility]. She was also given prednisone
taper for pain as well. Repeat labs were performed at [facility] and because she had a hemoglobin of 6.0 she was sent back to the emergency room for abnormal labs. The patient tells us that she saw oncologist yesterday Dr. Mariana Garcia and
made the decision of pursuing palliative care at 2 PM. She was sent over from [facility] rehab for abnormal lab work. She states that she has had back pain but has had no significant GI complaints. She is hungry however does not necessarily like
the food here. Patient's repeat hemoglobin in the emergency room showed a hemoglobin of 7.0. She was transfused 1 unit of packed red blood cells with hemoglobin going up to 8.9 then 10.0 this morning. The patient did have fever, hypotension,
leukocytosis with 2 positive blood cultures. Urine culture pending. CTA abdomen and pelvis shows interval increase in the size of the anterior segment of the right hepatic lobe hypoattenuation measuring up to 2.4 cm (previously 1.8 cm). There
is a new 3.6 cm hypoattenuated lesion in the posterior segment of the right hepatic lobe with internal gas. Pneumobilia and common bile duct stent redemonstrated. Ill-defined pancreatic head mass with diffuse main pancreatic ductal dilatation
redemonstrated. Cannot rule rule out developing abscesses in posterior segment right hepatic lobe. She was empirically placed on Zosyn and infectious disease has been consulted. Patient does have prior history of C. difficile. No bowel movement
since arrival. Stool was checked and is OB positive. Patient is hungry and would like to eat.
Impression:
Bacteremia
New 3.6 cm hypoattenuation lesion right hepatic lobe with internal gas, increase right hepatic lobe lesion
Anemia-> OB positive stool but no active signs of bleeding
Metastatic pancreatic cancer-> history of cholangitis with stent exchange last
History of C. difficile
Transaminitis
Plan:
-Antibiotics per infectious disease
-Regular diet
-Patient declining any endoscopic intervention at this time. Wishes to pursue palliative care as per her discussion with her oncologist yesterday.
-Supportive care per primary team
-
-
Thank you for consultation and allowing me to participate in the patient's care. Please call the dock operations supervisor GI physician during the after hours with any questions or concerns.
--- NOTE | 2024-02-05 08:15 | CON.ID ---
Consultation
-
Date/Time Consultation Requested: 02/05/2024 0147
Date/Time Consultation Performed: 02/05/2020 [id number]
Requesting Provider: Dr. Olson
Performing Provider: Dr. Rasmussen
Reason for Consultation: Sepsis
Chief Complaint / Past History
Chief Complaint
fever, cholangitis from stent malfunction
History of Present Illness
Hermes Corral is an 88 year old female with history of pancreatic adenocarcinoma s/p ERCP and metal and plastic biliary stent placement, prior chemo (completed 2022) and radiation therapy, being evaluated regarding clinical sepsis. History is
obtained from chart review, along with patient interview.
Patient recently was admitted to [facility] from 01/02 through 01/12, during which time she was evaluated by the Infectious Diseases service for severe C. difficile diarrhea, along with E. coli bacteremia. At discharge, she was to continue
with Dificid through 01/18. She was also on metronidazole and Keflex in the treatment of presumed cholangitis and E. coli bacteremia.
She presents back to the emergency room today secondary to anemia, decreased appetite and decreased p.o. intake. In the ER she was found to be hypotensive with a BP of 82/49 and noted tachycardia. Lactate was additionally noted to be elevated at
3.2. Given these findings, she was placed on empiric antibiotics (Zosyn), and Infectious Diseases is asked to comment upon further antimicrobial therapy.
At present, she denies any fevers, but notes that she chills quite easily. She was noted to have a fever to 102.6 degrees in the ER, but this temperature was taken rectally. She denies any abdominal pain out of her usual. She denies any dysuria.
Past History
Additional Past Medical History:
Metastatic Pancreatic CA
Cholangitis with multiple stent removal and new stents placed
Ovarian cancer treated with surgery and chemotherapy
Iron deficiency anemia gets IV iron transfusions
Depression
Anxiety,
Spinal stenosis
Mechanical fall with right hip fracture August 2022 s/p right hip hemiarthroplasty,
Chronic LBBB,
severe protein Calorie malnutrition
Additional Past Surgical History:
Biliary stent placement and replacement
Spinal Surgery
T&A
DAMION / BSO
Right Hip ORIF
Cataracts
Allergy History:
Sulfa (Sulfonamide Antibiotics) Allergy (Verified 02/04/24 17:57)
Unknown
Medications Reviewed: Yes
Current Antibiotics:
Zosyn 3.375 g IV every 6 hours
Social History
Tobacco: Non-Smoker
Alcohol: None
Drug: None
Family History
Family History: Not Pertinent
Review of Systems
Vital Signs
Temp Pulse Resp BP Pulse Ox
98.0 F 91 19 97/57 94
02/05/24 08:14 02/05/24 07:20 02/05/24 07:20 02/05/24 07:20 02/05/24 06:00
Physical Exam
Physical Exam
Constitutional: Acutely Ill, Chronically Ill, Non-toxic and Cachetic (Mild)
Eyes: Pupils Equal, Pupils Round, No Conjunctival Hemorrhage and Sclera Anicteric
Oral: No Thrush and No Ulcers
Cardiovascular: Regular Rate and S1/S2; Negative Murmur or Rub
Pulmonary: Clear and Symmetric; Negative Wheezes, Rales or Rhonchi
Gastrointestinal: Soft, Non Tender, Distended, Normal Bowel Sounds and No Rebound
Extremities: Negative Cyanosis or Erythema
Skin: Warm and Dry; Negative Rash or Jaundice
Neurological: Awake and Alert
Psychological: Calm
.
Lab / Diagnostic Study Results
02/05/24 05:54
Abs Immat Gran (auto) 0.3 10^3/uL (0-0.05) H 02/04/24 18:34
Absolute Neuts (auto) 27.8 10^3/uL (1.4-6.5) H 02/04/24 18:34
Absolute Lymphs (auto) 0.1 10^3/uL (1.2-3.4) L 02/04/24 18:34
Absolute Monos (auto) 0.1 10^3/uL (0.1-0.6) 02/04/24 18:34
Absolute Basos (auto) 0.0 10^3/uL (0-0.2) 02/04/24 18:34
Immature Gran % 1.0 % (0-0.5) H 02/04/24 18:34
Neutrophils % 98.1 % (42.2-75.2) H 02/04/24 18:34
Lymphocytes % 0.4 % (20.5-51.1) L 02/04/24 18:34
Monocytes % 0.4 % (1.7-9.3) L 02/04/24 18:34
Eosinophils % 0.0 % (0-6) 02/04/24 18:34
Basophils % 0.1 % (0-2) 02/04/24 18:34
PT 14.5 Sec (11.4-14.6) 02/04/24 18:34
INR 1.10 02/04/24 18:34
Lactic Acid 2.6 mmol/L (0.7-2.0) H 02/05/24 05:54
Procalcitonin 7.12 ng/ml (0.0-0.25) H* 02/05/24 05:54
Microbiology Results
Micro:
02/04/24 21:01 Blood Culture - Preliminary
Blood/Venous Positive culture in progress
Gram Stain - Final
02/04/24 21:21 Blood Culture - Preliminary
Blood/Venous Positive culture in progress
Gram Stain - Final
Imaging:
02/04/2024 CT abdomen/pelvis with contrast. Worsening hepatic metastasis are noted. Cannot rule out developing abscess in the posterior segment of the right hepatic lobe. Continued clinical and imaging follow-up recommended. Pneumobilia and
common bile duct stent redemonstrated. Ill-defined pancreatic head mass with diffuse main pancreatic ductal dilatation is redemonstrated.
Assessment / Plan
Bacteremia (history of prior recurrent E. coli bacteremia)
Leukocytosis
Lactic acidosis
Transaminitis
Metastatic Pancreatic CA
Hx Cholangitis with multiple stent removal/replacement
Ovarian cancer treated with surgery and chemotherapy
Iron deficiency anemia gets IV iron transfusions
Depression
Anxiety,
Spinal stenosis
Mechanical fall with right hip fracture August 2022 s/p right hip hemiarthroplasty,
Chronic LBBB,
severe protein Calorie malnutrition
Recommendations:
Continue with empiric Zosyn.
Follow-up pending cultures to guide further antimicrobial selection and de-escalation.
Given recent history of C. difficile. Will place on oral vancomycin prophylaxis on 125 mg twice daily
Monitor white count and temperature curve.
Continue with supportive measures.
Patient currently critically ill in intensive care unit on pressor therapy.
Further recommendations as additional data is returned.
Care Review
Plan reviewed with: Nurse
[2024-02-05] MEDS: LIDOCAINE 4% PATCH 1 PATCH TOPICAL (08:42)
[2024-02-05] MEDS: NSS (PRESERVATIVE FREE) 10 ML IV ×2 (08:44→21:11)
[2024-02-05] MEDS: PROTONIX IV 40 MG IV ×2 (08:44→21:11)
[2024-02-05] MEDS: NEURONTIN 200 MG PO ×2 (08:44→21:11)
[2024-02-05] MEDS: MAGNESIUM SULFATE 100 IV (08:45)
[2024-02-05] MEDS: FIRVANQ 125 MG PO ×2 (09:53→21:11)
--- NOTE | 2024-02-05 10:27 | W.PN.UPDATE ---
Addendum entered and electronically signed by Domenic Cameron MD 02/05/24 12:37:
Discussed with patient again and patient's spouse at bedside . Patient states she is DNR DNI. Witnessed by WINDOWS MIGRATION TECHNICIAN. CODE STATUS changed to DNR/DNI
Patient stated she will talk to palliative care on Wednesday and then decide on hospice. However at this current juncture she refused hospice. Was to continue with aggressive medical measures. Understand the poor prognosis with stage IV pancreatic
cancer with Recurrent bacteremia.
Abdominal ultrasound ordered to assess for ascites. Repaet lactic acid. Last level was 2.6 downtrending.
Reached out to GI and gave them update re-Procedures that pt willing to undergo. However, currently critically ILL and needs to be stabilized first. Known to DR. Pankaj Ceron.
Original Note:
Update Note
Progress Note Update
Seen and examined independent of overnight physician. Nonbillable note. Currently resting in bed states of back pain. Overnight patient with hypotension and was started on Levophed. Blood pressure slowly improving with pressors. Patient does
not want to undergo any further aggressive procedures including endoscopy or colonoscopy. Patient stated she saw her oncologist who recommended palliative measures. Patient today agreed to discuss with hospice.
General: Appears Chronically Ill and Cachectic
HEENT: NormoCephalic, Anicteric, PERRLA, [place] Conjunctivae, No Ptosis and Other (dry mm)
Respiratory: Clear
Cardiac: S1/S2 and Tachycardia
Breast: Deferred by me
GI: Soft, Non Tender, Non Distended and Normal Bowel Sounds
Rectal: Hem Positive and Maroon Stools
Genito-urinary: Deferred by me
Musculoskeletal: No Clubbing, No Cyanosis and No Edema
Skin: Warm and Dry
Neuro: AO x 3
Hematologic/Lymphatic: No Lymphadenopathy
Psych: Calm
Patient with metastatic pancreatic ca, s/p CBD stent and recent replacement in setting of sepsis/bacteremia presents to ED ostensibly for anemia with Hgb of 6.0, repeat was 7.0 in ED and rust colored heme + stools. Boderline hypotension. Denies
any symptoms and any awareness of melena or hematochezia. Peripherally dehydrated but as ascites and intraabdominal anasarca. Lactic acid elevated.
PLAN:
#Sepsis shock POA -
#Gram positive bacteremia
#Lactic acidosis
#History of C. difficile colitis
Continue with Zosyn
Follow-up on the blood culture on identification and susceptibility results
Continue with IV fluids. Clear liquid diet started
Continue with Levophed and wean off as tolerated. Started on midodrine.
Improvement in WBC.
Infectious disease consulted. Patient does not want to pursue any further advanced procedures. Started on vancomycin for prophylaxis
# GI bleed - Hgb 7 since 02/01. Suspect subacute bleed and possibly upper GI. No acute bleed on current CTA.
Type and screen. Hemoglobin at 10.
Continue to trend.
Status post 1 unit of PRBC
Patient refused to undergo any further endoscopy or colonoscopy procedures.
# Stage IV pancreatic ca w/hepatic mets
Follows w/Dr Ceron for stent exchange.
CT was done which shows new hepatic lobe lesion. Increased in size.
#Hyperglycemia - Unexplained hyperglycemia. On prednisone recently
check a1c, b
sliding scale insulin for now
#Hypomagnesemia replete and monitor
Suspected protein calorie malnutrition of chronic illness
Dietary eval
Thrombocytopenia likely secondary to septic shock
Continue to trend
Judicious pain control
DVT PPX - SCD for now the setting of thrombocytopenia
Code Status - Full Code
Discussed with GI.
Patient agreed to discuss hospice.
[2024-02-05 11:00] LABS: Hematocrit 27.5 % (37.0-47.0); Hemoglobin 9.6 g/dL (12.0-16.0)
--- NOTE | 2024-02-05 11:01 | PTCARENOTE ---
Pt arrived to floor from ED via stretcher, transferred over to unit bed by nursing staff. AAOx3. Stated chronic lower back pain with movement; pain not present now while lying still. Lidocaine patch applied. SaO2 97% on room air. Fine crackles at
base and diminished throughout. Sinus rhythm on shelter monitor with short self-terminating runs of wide complex tachycardia. Received on Levophed @ 3 mcg/min with goal of MAP > 65; Levophed increased to 4 mcg/min to maintain goal. Abdomen
distended with ascites. Hyperactive bowel sounds. Pt arrived incontinent with small brown formed stool. Ate 75% of clear liquid breakfast. Upgraded to Regular diet. Purewick removed due to incontinent stool. Blue/green urine. Stage 2 on sacrum
present upon admission. Sacral foam placed. B/L heel foams placed for blanchable red heels. Enhanced precaution due to (+) C Diff diagnoses within last month.
[2024-02-05 11:07] LABS: Glycohemoglobin (HgbA1c) 5.8 % (4.0-5.6)
--- NOTE | 2024-02-05 11:23 | CM ---
Alert awake oriented patient who lives with her Lion.Prior to admission pt was at [facility] . She is assisted in all activities of daily living.Received a consult for hospice. Spoke with pt and about cx . Neither one want
hospice. They requested palliative care. Spoke with Neetu Quiroz from hospice she said she can give some information about palliative care. TT Palliative team and response was Palliative is Wed to Wed . Pt informed that cx will be done Wednesday.
Palliative cx placed in care port.
[place]
[facility]
Pharmacy [facility]
PCP Dr Shin
PLAN Will need PT OT for dc planning.
[2024-02-05 12:33] LABS: Glucose - Point of Care 285 mg/dl (70-99)
[2024-02-05] MEDS: NOVOLOG FLEXPEN-LOW RESISTANCE 3 UNITS SC (12:53)
[2024-02-05 14:27] LABS: Lactic Acid 2.7 mmol/L (0.7-2.0)
[2024-02-05] MEDS: NOVOLOG FLEXPEN-LOW RESISTANCE 4 UNITS SC (17:34)
[2024-02-05 17:46] LABS: Glucose - Point of Care 323 mg/dl (70-99)
[2024-02-05] MEDS: FLUSH (NSS) 2 FLUSH IV (21:12)
--- NOTE | 2024-02-05 22:00 | PTCARENOTE ---
Report received from previous shift RN [id number]. Pt in bed with spouse visiting at bedside. Pt is AAO3, forgetful at times, pale with generalized weakness. Pt is slightly drowsy, easily arousable to verbal stimuli. Pt w oc nonproductive cough, pox 96%
on room air, lung sounds are decreased throughoout w fine crackles in b/l base. Telemetry rhythm reveals SR-ST, HR 60-110's, with occasional bursts of wide complex tachycardia. Pt was reportedly having this tachycardia intermittently earlier in day.
House SUPERVISOR DOG LICENSE OFFICER Gee notified, SUPERVISOR DOG LICENSE OFFICER entered lab work to be drawn. Pt w +3 pitting b/l ankle/foot edema with weakly palpable peripheral pulses, knee high SCDs in use. +BS, abdomen distended round, tolerating full liquid diet. Incontinent blue/green urine at
start of shift, incontinence care provided, external female urinary device placed. Skin as documented. Pt received on 2mcg/min Levophed to maintain MAP >65mmHg. Levophed infusion placed on standby at 1951, will monitor BP closely. Pt's R AC int
leaking and L w int causing pt pain when flushed. VAT RN to room, new int placed to L AC and VAT RN redressed R AC int. Call bingham within reach, safe environment maintained. Will monitor closely.
[2024-02-05 22:33] LABS: Blood Urea Nitrogen 24 mg/dl (7-17); Calcium 7.8 mg/dl (8.4-10.2); Carbon Dioxide 22 mmol/L (22-30); Chloride 102 mmol/L (98-107); Estimated Creatinine Clearance 43 ml/min; Glucose 182 mg/dl (70-99); Magnesium 2.8 mg/dl (1.6-2.3); Potassium 3.9 mmol/L (3.5-5.1); Sodium 133 mmol/L (135-145); eGFR > 60.00
[2024-02-05] MEDS: NOVOLOG FLEXPEN-LOW RESISTANCE 1 UNITS SC (23:21)
[2024-02-05 23:33] LABS: Glucose - Point of Care 198 mg/dl (70-99)
--- NOTE | 2024-02-05 23:41 | PTCARENOTE ---
Pt stating she is uncomfortable in bed. Pt declining to be repositioned in bed with pillow propping her on her side and off sacrum (point of discomfort). Educated pt on importance of staying off bony prominences, citing her pressure ulcer..pt
continues to decline. Pt agreeable to having air cushion placed underneath buttocks/sacrum. PRN Tylenol administered for discomfort per order. Will continue to monitor.
No other change in pt assessment.
[2024-02-06] VITALS (70 sets, daily range): BP systolic 65–144; BP diastolic 44–90; BMI 18.3
[2024-02-06 05:12] LABS: Hematocrit 30.4 % (37.0-47.0); Hemoglobin 10.5 g/dL (12.0-16.0); Mean Corp Hgb Conc. 34.5 g/dL (33.0-37.0); Mean Corpuscular Hgb 29.2 pg (27.0-31.0); Mean Corpuscular Volume 84.7 fL (81.0-99.0); Platelet Count 51 10^3/uL (130-400); Red Blood Cell Count 3.59 10^6/uL (4.20-5.40); Red Cell Dist. Width 16.1 % (11.5-14.5); White Blood Cell Count 30.1 10^3/uL (4.8-10.8)
[2024-02-06 05:33] LABS: ALT (SGPT) 52 U/L (0-35); AST (SGOT) 74 U/L (14-36); Alkaline Phosphatase 409 U/L (38-126); Blood Urea Nitrogen 26 mg/dl (7-17); Calcium 7.6 mg/dl (8.4-10.2); Carbon Dioxide 23 mmol/L (22-30); Chloride 102 mmol/L (98-107); Estimated Creatinine Clearance 45 ml/min; Glucose 130 mg/dl (70-99); Sodium 133 mmol/L (135-145); Total Protein 4.5 g/dl (6.3-8.2); eGFR > 60.00
[2024-02-06 05:34] LABS: Lactic Acid 1.3 mmol/L (0.7-2.0)
[2024-02-06] MEDS: NOVOLOG FLEXPEN-LOW RESISTANCE SC ×2 (06:01→14:48)
[2024-02-06] MEDS: ZOSYN 50 IV ×4 (06:10→23:12)
--- NOTE | 2024-02-06 06:22 | PTCARENOTE ---
Pt slept for brief periods throughout the night. Intermittent forgetfulness, reorients. Complete CHG bath provided. Continuing to encourage repositioning, pt allowing turns onto side but will not allow pillow to prop. Air cushion remains beneath
buttocks in bed.
[2024-02-06 07:18] LABS: % Basophils 0.2 % (0-2); % Immature Granulocytes 3.5 % (0-0.5); % Lymphocytes 2.3 % (20.5-51.1); % Monocytes 2.5 % (1.7-9.3); % Neutrophils 91.5 % (42.2-75.2); Absolute Basophils 0.1 10^3/uL (0-0.2); Absolute Immature Granulocytes 1.1 10^3/uL (0-0.05); Absolute Lymphocytes 0.7 10^3/uL (1.2-3.4); Absolute Monocytes 0.8 10^3/uL (0.1-0.6); Absolute Neutrophils 27.6 10^3/uL (1.4-6.5); Nucleated Red Blood Cells % 0 %
[2024-02-06 07:45] LABS: Glucose - Point of Care 169 mg/dl (70-99)
[2024-02-06] MEDS: FIRVANQ 125 MG PO ×2 (07:53→19:45)
[2024-02-06] MEDS: LIDOCAINE 4% PATCH 1 PATCH TOPICAL (07:54)
[2024-02-06] MEDS: PROTONIX IV 40 MG IV (07:55)
[2024-02-06] MEDS: NSS (PRESERVATIVE FREE) 10 ML IV (07:55)
[2024-02-06] MEDS: NEURONTIN 200 MG PO ×2 (07:55→19:45)
[2024-02-06] MEDS: ProAmatine 5 MG PO ×3 (07:55→17:14)
--- NOTE | 2024-02-06 08:27 | W.PN.HOSP.TC ---
Today's Communication/Plan
-
Tentative ERCP in am
wean levophed/midodrine
IV abx
surveillance culture pending
Fall precaution
ID/GI recs
Assessment / Plan
Assessment / Plan
General: Appears Chronically Ill and Cachectic, chronically ill
HEENT: NormoCephalic, Anicteric, , [place] Conjunctivae, No Ptosis
Respiratory: Clear
Cardiac: S1/S2 and Tachycardia
Breast: Deferred by me
GI: Soft, Tender, Non Distended and Normal Bowel Sounds
Genito-urinary: Deferred by me
Musculoskeletal: No Clubbing, No Cyanosis and No Edema
Skin: Warm and Dry
Neuro: AO x 3
Hematologic/Lymphatic: No Lymphadenopathy
Psych: Calm
Patient with metastatic pancreatic ca, s/p CBD stent and recent replacement in setting of sepsis/bacteremia presents to ED ostensibly for anemia with Hgb of 6.0, repeat was 7.0 in ED and rust colored heme + stools. Boderline hypotension. Denies
any symptoms and any awareness of melena or hematochezia. Peripherally dehydrated but as ascites and intraabdominal anasarca. Lactic acid elevated.
PLAN:
#Sepsis shock POA -
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 coli and Klebsiella bacteremia recurrent
#Lactic acidosis
#History of C. difficile colitis
#Possible liver abscess
Continue with Zosyn
Blood cultures with E. coli and Klebsiella
Surveillance cultures pending
Diet per GI.
Continue with Levophed and wean off as tolerated. Started on midodrine. Remains on 4 mics of levo.
Worsening of WBC today.
Plan for ERCP tomorrow if hemodynamically stable.
Infectious disease consulted.
Gi following
# Microcytic anemia likely worsened in the setting of malignancy
Type and screen.
Continue to trend.
Status post 1 unit of PRBC
Hemoglobin stabilized 10.5.
# Stage IV pancreatic ca w/hepatic mets
Follows w/Dr Ceron for stent exchange.
CT was done which shows new hepatic lobe lesion. Increased in size.
#Hyperglycemia likely secondary to pancreatic malignancy
A1c of 5.5
sliding scale insulin for now
#Hypomagnesemia replete and monitor
Suspected protein calorie malnutrition of chronic illness
Dietary eval
#Thrombocytopenia likely secondary to septic shock
Continue to trend
If with any further downtrend of platelets consult oncology.
Fall precaution with thrombocytopenia
Check HIT Panel-low likelihood
DC PPI and start Pepcid.
Transfuse platelets if required prior to procedure. Defer to GI.
Judicious pain control
DVT PPX - SCD for now the setting of thrombocytopenia
Code Status - Full Code as patient mentioned she changed her mind. Understands her extremely poor prognosis. Consult palliative tomorrow.
Discussed with spouse at bedside in detail
Anticipated Discharge: > 48 hours
Subjective/Interval History
-
Date of Service: February 06, 2024
drinking juice and protein shakes
intermittent abd pain
Objective Data
-
Labs:
Laboratory Results
02/05/24 02/05/24 02/06/24
21:27 22:09 04:55
WBC 30.1 H
Hgb 10.5 L
Hct 30.4 L
Plt Count 51 L D
Sodium Cancelled 133 L 133 L
Potassium Cancelled 3.9 4.0
Chloride Cancelled 102 102
Carbon Dioxide Cancelled 22 23
BUN Cancelled 24 H 26 H
Creatinine Cancelled 0.5 L 0.6
Glucose Cancelled 182 H 130 H
Calcium Cancelled 7.8 L 7.6 L
Total Bilirubin 1.0
AST 74 H
ALT 52 H
Alkaline Phosphatase 409 H
Vital Signs:
Vital Signs
Temp Pulse Resp BP Pulse Ox
97.6 F 45 11 127/51 96
02/06/24 08:18 02/06/24 06:15 02/06/24 06:15 02/06/24 06:15 02/05/24 20:00
I&O
02/05/24 02/06/24 02/07/24
06:59 06:59 06:59
Intake Total 500 / 500 640.0 / 640.0
Output Total 250 / 250
Balance 500 / 500 390.0 / 390.0
Data Reviewed
-
Total Time Spent with Patient (in minutes): 60
[2024-02-06] MEDS: NOVOLOG FLEXPEN-LOW RESISTANCE 1 UNITS SC (08:31)
--- NOTE | 2024-02-06 09:40 | W.PN.ID1 ---
Date of Service
Date of Service: February 06, 2024
Today's Communication
Continue antibiotics for today.
Assessment / Plan
Bacteremia (history of prior recurrent E. coli bacteremia)
Leukocytosis
Lactic acidosis
Transaminitis
Metastatic Pancreatic CA; with progression on most recent CAT scan
Hx Cholangitis with multiple stent removal/replacement
Hx Ovarian cancer treated with surgery and chemotherapy
Iron deficiency anemia gets IV iron transfusions
Depression
Anxiety,
Spinal stenosis
Mechanical fall with right hip fracture August 2022 s/p right hip hemiarthroplasty,
Chronic LBBB,
severe protein Calorie malnutrition
Recommendations:
Continue with empiric Zosyn.
Follow-up pending cultures to guide further antimicrobial selection and de-escalation.
Given recent history of C. difficile. Will place on oral vancomycin prophylaxis on 125 mg twice daily
Monitor white count and temperature curve.
Continue with supportive measures.
Patient currently critically ill in intensive care unit on pressor therapy.
Unfortunately, current clinical situation is likely secondary to progressive and unremitting growth of malignancy, and will likely only continue until her ultimate passing. Patient is hospice appropriate, but despite extensive conversation is not
interested in pursuing palliative care or hospice level services at this time. Additionally, would like to remain a full code.
Further recommendations as additional data is returned.
Chief Complaint
-: Leukocytosis, Clinical Sepsis and Bacteremia
Subjective / Review of Systems
Patient seen and examined. Since yesterday, patient has reversed her DNR, and is now again full code.
Review of Systems: No Fever
Vital Signs / Physical Exam
Vital Signs
Vital Signs
Temp Pulse Resp BP Pulse Ox
97.6 F 45 11 127/51 96
02/06/24 08:18 02/06/24 06:15 02/06/24 06:15 02/06/24 06:15 02/06/24 08:00
Physical Exam
Constitutional: No Acute Distress, Acutely Ill, Chronically Ill and Non-toxic
Eyes: Sclera Anicteric
Cardiovascular: Regular Rate and S1/S2; Negative Murmur or Rub
Pulmonary: Clear and Symmetric; Negative Wheezes or Rales
Gastrointestinal: Soft, Non Tender, Non Distended and Normal Bowel Sounds
Skin: Warm and Dry; Negative Rash or Jaundice
Neurological: Awake and Alert
Psychological: Calm
Lines: PICC
Objective Data
Lab Data
Lab Results
02/06/24 04:55
02/06/24 04:55
PT 14.5 Sec (11.4-14.6) 02/04/24 18:34
INR 1.10 02/04/24 18:34
APTT 36.4 Sec (23.4-35.0) H 02/04/24 18:34
Estimated Creat Clear 45 ml/min 02/06/24 04:55
Lactic Acid 1.3 mmol/L (0.7-2.0) 02/06/24 04:55
Total Bilirubin 1.0 mg/dl (0.2-1.3) 02/06/24 04:55
AST 74 U/L (14-36) H 02/06/24 04:55
ALT 52 U/L (0-35) H 02/06/24 04:55
Alkaline Phosphatase 409 U/L (38-126) H 02/06/24 04:55
Most recent labs reviewed.
Micro Results:
02/04/24 21:01 Blood Culture - Preliminary
Blood/Venous Escherichia coli
Klebsiella pneumoniae
Gram Stain - Final
02/05/24 10:49 MRSA Screen - Pending
Nose
02/04/24 21:21 Blood Culture - Preliminary
Blood/Venous Positive culture in progress
Gram Stain - Final
Imaging:
02/04/2024 CT abdomen/pelvis with contrast. Worsening hepatic metastasis are noted. Cannot rule out developing abscess in the posterior segment of the right hepatic lobe. Continued clinical and imaging follow-up recommended. Pneumobilia and
common bile duct stent redemonstrated. Ill-defined pancreatic head mass with diffuse main pancreatic ductal dilatation is redemonstrated.
--- NOTE | 2024-02-06 10:11 | W.PN.GI.CBS2 ---
Today's Communication / Plan
-
C/w abx repeat BC
Anticipate ERCP tomorrow with DR Ceron if hemodynamics improve
Hospice appropriate prognosis guarded
Assessment / Plan
-
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 She is known to Dr Ceron/GI for bacteremia related to biliary malignant
obstruction. She had evaluation with Dr Garcia at 2pm yesterday 02/03 in the office and told that she is no longer candidate for any further treatments and palliative care/hospice recommended. Vitals hypotension on levophed at 4. Labs reviewed.
WBC up to 30. BC +
Impression
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
- Metastatic pancreatic cancer with liver mets
- Possible liver abscess
- Anemia
- Severe malnutrition
Recommendations
- She is not candidate for any further oncology treatment per Dr Garcia
- Hospice recommended but she now changed mind and declining
- Recommend palliative care eval Wednesday
- C/w abx
- Repeat BC given rising WBC and levophed increased to 4 today
- If hemodynamically stable consider ERCP tomorrow. Case d/w Dr Ceron
- CLD now and NPO at [place]
Will follow with you
Subjective
Subjective
Date of Service: February 06, 2024
Overnight she reversed code status back to FULL code and declines hospice. Willing to speak to palliative care on Wednesday
Denies abd pain, nausea/vomiting
Objective
Data Reviewed
Laboratory Data:
Laboratory Results
02/06/24 04:55
02/06/24 04:55
Laboratory Results
PT 14.5 Sec (11.4-14.6) 02/04/24 18:34
INR 1.10 02/04/24 18:34
APTT 36.4 Sec (23.4-35.0) H 02/04/24 18:34
Magnesium 2.8 mg/dl (1.6-2.3) H 02/05/24 22:09
Total Bilirubin 1.0 mg/dl (0.2-1.3) 02/06/24 04:55
AST 74 U/L (14-36) H 02/06/24 04:55
ALT 52 U/L (0-35) H 02/06/24 04:55
Alkaline Phosphatase 409 U/L (38-126) H 02/06/24 04:55
Vital Signs and I&O:
Vital Signs
Temp Pulse Resp BP Pulse Ox
97.6 F 45 11 127/51 96
02/06/24 08:18 02/06/24 06:15 02/06/24 06:15 02/06/24 06:15 02/06/24 08:00
I&O
02/05/24 02/06/24 02/07/24
06:59 06:59 06:59
Intake Total 500 / 500 1630.0 / 1630.0
Output Total 250 / 250
Balance 500 / 500 1380.0 / 1380.0
Physical Exam
Physical Exam
GEN: No acute distress, conversant, frail appearing
HEENT: anicteric, extraocular movements intact, clear oropharynx without exudates
GI: soft, non-distended, not tender to palpation, normal active bowel sounds, no hepatosplenomegaly
EXT: contracted state trace edema bilaterally
NEURO: AAOx3, non-focal
--- NOTE | 2024-02-06 15:45 | PTCARENOTE ---
Pt received in bed @ 0700. AAOx3. Drowsy. Awakens easily to stimuli. Pt stating that she wishes to be Full Code. Dr. Cameron notified and code status changed to indicate Full Code. SaO2 95% on room air. Diminished breath sounds. Crackles at bases.
Sinus zachary/Sinus rhythm on equipment monitor phototypesetting. One incident of wide complex tachycardia with HR to 130s observed for 30 seconds. +3 ankle/foot edema. +2 pitting edema in calves. Peripheral pulses palpable. Levophed gtt received @ 4 mcg/min with goal
of MAP > 65. Levophed gtt weaned to 2 mcg/min. VAT team placed LUE midline. Abdomen with ascites. (+) bowel sounds. Purewick external female catheter in place draining blue green urine. Sacral foam in place.
[2024-02-06 16:54] LABS: Glucose - Point of Care 207 mg/dl (70-99)
[2024-02-06] MEDS: NOVOLOG FLEXPEN-LOW RESISTANCE 2 UNITS SC (17:14)
[2024-02-06] MEDS: TYLENOL 650 MG PO (17:57)
--- NOTE | 2024-02-06 21:46 | PTCARENOTE ---
Rec'd pt from previous RN. Pt resting in bed with at bedside. Pt drowsy, but talkative once aroused. Rec'd pt on 2mcg/min of levophed. Titrated to 5mcg/min for goal of MAP> 65. Titrations documented per protocol. Pt denies symptoms of
hypotension. SR on hypertrichologist, 99% SaO2 on RA. Pt c/o sacral pain d/t pressure ulcer, but refuses to be turned. Pt states that she only wants to shift her weight slightly and would be uncomfortable with a pressure relief device under one side.
This RN assisted pt in shifting weight slightly. Call bingham within reach. Frequent rounds in place to assess pt needs.
[2024-02-06] MEDS: NOVOLOG FLEXPEN-LOW RESISTANCE 4 UNITS SC (22:15)
[2024-02-06 22:26] LABS: Glucose - Point of Care 332 mg/dl (70-99)
[2024-02-07] VITALS (80 sets, daily range): BP systolic 80–139; BP diastolic 45–94; BMI 18.5
[2024-02-07] MEDS: TYLENOL 650 MG PO (03:31)
[2024-02-07] MEDS: LEVOPHED 250 IV (04:05)
[2024-02-07 04:21] LABS: % Basophils 0.2 % (0-2); % Eosinophils 0.7 % (0-6); % Lymphocytes 3.1 % (20.5-51.1); % Monocytes 4.8 % (1.7-9.3); % Neutrophils 90.2 % (42.2-75.2); Absolute Eosinophils 0.1 10^3/uL (0-0.7); Absolute Immature Granulocytes 0.2 10^3/uL (0-0.05); Absolute Lymphocytes 0.5 10^3/uL (1.2-3.4); Absolute Monocytes 0.8 10^3/uL (0.1-0.6); Absolute Neutrophils 14.5 10^3/uL (1.4-6.5); Hematocrit 26.7 % (37.0-47.0); Mean Corp Hgb Conc. 33.7 g/dL (33.0-37.0); Mean Corpuscular Hgb 28.4 pg (27.0-31.0); Mean Corpuscular Volume 84.2 fL (81.0-99.0); Mean Platelet Volume 12.1 fL (7.4-10.4); Nucleated Red Blood Cells % 0 %; Platelet Count 55 10^3/uL (130-400); Red Blood Cell Count 3.17 10^6/uL (4.20-5.40); Red Cell Dist. Width 15.9 % (11.5-14.5); White Blood Cell Count 16.1 10^3/uL (4.8-10.8)
[2024-02-07 04:23] LABS: INR 1.03; PT 13.8 Sec (11.4-14.6)
[2024-02-07 04:30] LABS: ALT (SGPT) 40 U/L (0-35); AST (SGOT) 39 U/L (14-36); Albumin 1.9 g/dl (3.5-5.0); Alkaline Phosphatase 383 U/L (38-126); Blood Urea Nitrogen 22 mg/dl (7-17); Calcium 7.4 mg/dl (8.4-10.2); Carbon Dioxide 26 mmol/L (22-30); Chloride 102 mmol/L (98-107); Estimated Creatinine Clearance 45 ml/min; Glucose 140 mg/dl (70-99); Potassium 4.2 mmol/L (3.5-5.1); Sodium 131 mmol/L (135-145); Total Bilirubin 0.8 mg/dl (0.2-1.3); Total Protein 4.3 g/dl (6.3-8.2); eGFR > 60.00
--- NOTE | 2024-02-07 04:46 | PTCARENOTE ---
Pt with 13 beat run of VT, denies symptoms. This RN continues to titrate levophed per protocol, see worklist for titrations. Several minutes later, pt with 6 beat run of VT, again asymptomatic. REEL CUTTER notified via TT.
[2024-02-07 04:57] LABS: Magnesium 2.2 mg/dl (1.6-2.3)
[2024-02-07] MEDS: ZOSYN 50 IV ×4 (06:03→23:17)
[2024-02-07] MEDS: LIDOCAINE 4% PATCH 1 PATCH TOPICAL (07:58)
[2024-02-07] MEDS: NEURONTIN 200 MG PO ×2 (07:59→20:05)
[2024-02-07] MEDS: FIRVANQ 125 MG PO ×2 (07:59→20:05)
[2024-02-07] MEDS: ProAmatine 5 MG PO ×3 (07:59→18:33)
[2024-02-07] MEDS: PEPCID 20 MG PO (07:59)
--- NOTE | 2024-02-07 08:31 | PTCARENOTE ---
pt wakes to name ox3. states chronic pain in back. pain med offered. lido patch on back. levo gtt running as ordered. pure wick in place. room air breath sounds diminished.
[2024-02-07] MEDS: NOVOLOG FLEXPEN-LOW RESISTANCE SC ×4 (09:16→21:30)
--- NOTE | 2024-02-07 09:26 | W.PN.HOSP.TC ---
Today's Communication/Plan
-
Continue with antibiotics.
Wean vasopressors as able.
Consult oncology.
Assessment / Plan
Assessment / Plan
Patient with metastatic pancreatic ca, s/p CBD stent and recent replacement in setting of sepsis/bacteremia presents to ED ostensibly for anemia with Hgb of 6.0, repeat was 7.0 in ED and rust colored heme + stools. Boderline hypotension. Denies
any symptoms and any awareness of melena or hematochezia. Peripherally dehydrated but as ascites and intraabdominal anasarca. Lactic acid elevated.
PLAN:
#Sepsis shock POA -
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 coli and Klebsiella bacteremia recurrent
#Lactic acidosis
#History of C. difficile colitis
#Possible liver abscess
Continue with Zosyn
Blood cultures with E. coli and Klebsiella
Surveillance cultures pending
Diet per GI.
Continue with Levophed and wean off as tolerated. Started on midodrine. Remains on 3 mics of levo.
Improving WBC
Plan for ERCP when stable
Infectious disease consulted.
Gi following
# Microcytic anemia likely worsened in the setting of malignancy
Type and screen.
Continue to trend.
Status post 1 unit of PRBC
Hemoglobin stabilized
# Stage IV pancreatic ca w/hepatic mets
Follows w/Dr Ceron for stent exchange.
CT was done which shows new hepatic lobe lesion. Increased in size.
Consult oncology for prognosis evaluation. Patient is declining hospice.
#Hyperglycemia likely secondary to pancreatic malignancy
A1c of 5.5
sliding scale insulin for now
#Hypomagnesemia replete and monitor
Suspected protein calorie malnutrition of chronic illness
Dietary eval
#Thrombocytopenia likely secondary to septic shock
Continue to trend
Fall precaution with thrombocytopenia
Check HIT Panel-low likelihood
DC PPI and start Pepcid.
Transfuse platelets if required prior to procedure. Defer to GI.
Judicious pain control
DVT PPX - SCD for now the setting of thrombocytopenia
Code Status - Full Code
Discussed with TRANSPORT COMPANY MANAGER
Total time spent on today's encounter was 52 minutes which included time spent in counseling the patient/family regarding diagnosis and treatment plan as listed above, goals of care, and symptom management. Case was discussed with nursing staff,
specialists, and care coordinators/case management. All labs and imaging personally reviewed by me. Remainder the time spent in detailed review of previous records, lab data, imaging, and other medical provider documentation.
Anticipated Discharge: > 48 hours
Subjective/Interval History
-
Date of Service: February 07, 2024
No further fevers. Denies chills.
Denies any nausea vomiting or abdominal pain.
Denies any shortness of breath or chest pain.
Objective Data
-
Labs:
Laboratory Results
02/07/24 02/07/24 02/07/24
03:45 03:46 03:53
WBC 16.1 H
Hgb 9.0 L
Hct 26.7 L
Plt Count 55 L
PT 13.8
INR 1.03
Sodium 131 L
Potassium 4.2
Chloride 102
Carbon Dioxide 26
BUN 22 H
Creatinine 0.6
Glucose 140 H
Calcium 7.4 L
Total Bilirubin 0.8
AST 39 H
ALT 40 H
Alkaline Phosphatase 383 H
Vital Signs:
Vital Signs
Temp Pulse Resp BP Pulse Ox
97.6 F 67 17 106/63 97
02/07/24 03:20 02/07/24 08:15 02/07/24 08:15 02/07/24 08:15 02/07/24 08:15
I&O
02/06/24 02/07/24 02/08/24
06:59 06:59 06:59
Intake Total 1630.0 / 1645.0 1170.8 / 1170.8
Output Total 250 / 250 350 / 350
Balance 1380.0 / 1395.0 820.8 / 820.8
Review of Systems
-
EENT: Denies Sore Throat
Respiratory: Denies Cough
Musculoskeletal: Reports Other (Lower extremity edema)
Neuro: Denies Dizzy or Headache
Physical Exam
-
General: Comfortable
Respiratory: Non Labored Respirations; Negative Accessory Resp Muscle Use
Cardiac: Regular Rhythm and S1/S2; Negative Murmur
GI: Soft, Nontender, Nondistended and Normal Bowel Sounds
Neuro: AO x 3
Psych: Calm; Negative Confused
Data Reviewed
-
Labs: Labs Reviewed by me
[2024-02-07 09:28] LABS: Glucose - Point of Care 119 mg/dl (70-99)
--- NOTE | 2024-02-07 10:46 | CON.ONC ---
Impression
Impression
Pancreatic cancer, on best supportive care x 1 year, now with disease progression in liver
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
Anemia, suspect due to chronic disease state as well as occult blood loss
Biliary sepsis
Plan
Plan
Patient with end-stage disease.
I had an extensive discussion with her and her on Wednesday during which we discussed that once in end-stage cancer begins to progress, complications can include infection, clotting event, bleeding event, or toxic metabolic encephalopathy. She
is a poor candidate for chemotherapy with her recent infections.
Patient wanted best supportive care with addition of palliative care services.
Today, I discussed with her that the fact that she has required readmission for sepsis so quickly after the last time, is concerning that her disease course is accelerating. Also concerning is the finding of disease progression even since her last
scan 1 month ago.
Hospice is certainly appropriate. Patient not quite ready to accept this option. We discussed continuing current level of care for now to see whether there may be a reversible contributing factor to the recurrent biliary sepsis. Discussions will
be ongoing, but I do agree with the other providers that hospice is appropriate.
Thank you for consultation, will follow along with you.
Patient History
History of Present Illness
88-year-old woman well-known to me from the outpatient setting for history of pancreatic cancer, now admitted with recurrent biliary sepsis. She presented just about a year ago with difficulty swallowing and unintentional weight loss followed by
jaundice. She was diagnosed with pancreatic head adenocarcinoma. At the time of presentation, her disease was limited to the pancreas and she was initially treated with radiation with concurrent low-dose Xeloda. She had some difficulty tolerating
chemotherapy, even at a markedly reduced dose, although it was unclear whether the intolerance was more to the radiation. She follows with Dr. Zackery Geiger, integrative practitioner at [facility] and has been on alternative therapies such as ivermectin,
meth finally blue and swelling. I have not recommended chemotherapy due to age and frailty. For most of the last year on best supportive care, she has been asymptomatic. She required hospitalization in late December for biliary sepsis and her
biliary stents were changed January 10. During that hospitalization she underwent MRI of the abdomen which showed 2 probable new liver lesions. She was also having significant back pain that showed multiple areas of disc bulge. She was last seen
in the office on February 03 and was in a wheelchair at that time although she states she was able to ambulate with walker. When I saw her in the office we discussed goals of care and her preference was to continue on best supportive care with
palliative care consult. I recommended against chemotherapy in light of the recent biliary sepsis and C. difficile colitis during the December hospitalization, as well as the absence of symptoms.
Patient was seen in the ER on February 01 for back pain. She went back to the ER on February 03 due to hemoglobin of 6, with tachycardia and borderline hypotension. She was admitted with concern for upper GI bleed and recurrent biliary sepsis.
She underwent a CT abdomen and pelvis on February 03 which shows disease progression in liver since the January 05 study. Still complaining of back pain. Plan is noted for ERCP today if hemodynamics improve. Currently still on pressor although
with systolic blood pressure of 133.
Past-Medical/Surgical History
Past Medical History:
Arrhythmias (L BBB), Cancer (pancreatic adeno CA with prior ERCP and biliary stenting, ovarian CA), Psychiatric (anxiety/depression) and Other (klebsiella bacteremia with cholanigitis 05/2023 with stent exchange, RICH, spinal stenosis, mechanical fall
with hip fracture with hemiarthroplasty, malnutrition. EPI)
Past Surgical History:
Gynecological (DAMION, BSO ) and Other
Social History
Tobacco: Non-Smoker
Alcohol: Other (rare social )
Drug: None
Personal:
Living: With Family
Employment: Retired
Family History
Family History: Other (no family hx pancreatic issues )
Patient Medication
�Medication �Instructions �Recorded �Confirmed �Last Taken �Type
prednisone 10 mg tablet See Rx Instructions .Route 02/02/24 02/04/24 Unknown Rx
.COMPLEX #30 tabs
acetaminophen 500 mg tablet 1,000 mg PO Q8HPRN PRN mild pain 02/04/24 02/04/24 Unknown History
bisacodyl 10 mg rectal suppository 10 mg PA DAILYPRN PRN if mom 02/04/24 02/04/24 Unknown History
(Dulcolax (bisacodyl)) ineffective. give on day 5 of no bm
gabapentin 100 mg capsule 200 mg PO BID 02/04/24 02/04/24 Unknown History
lidocaine 5 % topical patch 1 patch topical DAILY 02/04/24 02/04/24 Unknown History
magnesium hydroxide 400 mg/5 mL 30 ml PO DAILYPRN PRN if no bm on 02/04/24 02/04/24 Unknown History
oral suspension (Milk of Magnesia) day 4
naloxone 4 mg/actuation nasal 1 spray intranasal Q3MPRN PRN 02/04/24 02/04/24 Unknown History
spray (Narcan) opioid suspected overdose
sodium phosphates 19 gram-7 118 ml PA DAILYPRN PRN if dulcolax 02/04/24 02/04/24 Unknown History
gram/118 mL enema (Fleet Enema) is ineffective. give on day 6 of
no bm
ivermectin 6 mg tablet 20 mg PO DAILY 02/07/24 02/07/24 Unknown History
rutkcd-gakbirzr-eswesur 1 cap PO TID 02/07/24 02/07/24 Unknown History
24,000-76,000-120,000 unit
capsule,delayed rel (Creon)
methylene blue 65 mg tablet 15 mg PO DAILY 02/07/24 02/07/24 Unknown History
Active Medications
Generic Name Dose Route Start Last Admin
Trade Name Freq PRN Reason Stop Dose Admin
Acetaminophen 650 mg 02/05/24 01:47 02/07/24 03:31
Acetaminophen 325 Mg Tablet PO 03/04/24 01:46 650 mg
Q6HPRN PRN Administration
mild pain/ fever>100.5F
Bisacodyl 10 mg 02/05/24 01:47
Bisacodyl 10 Mg Rectal Suppository RECTAL 03/04/24 01:46
DAILYPRN PRN
if mom ineffective. give on day 5 of no bm
Famotidine 20 mg 02/07/24 08:00 02/07/24 07:59
Famotidine 20 Mg Tablet PO 03/06/24 07:59 20 mg
DAILY TARSHA Administration
Gabapentin 200 mg 02/05/24 08:00 02/07/24 07:59
Gabapentin 100 Mg Capsule PO 03/04/24 07:59 200 mg
BID TARSHA Administration
Piperacillin Sod/Tazobactam Sod 3.375 gram in 50 mls @ 100 mls/hr 02/05/24 06:00 02/07/24 06:03
Zosyn IV 50 mls
Q6H TARSHA Administration
Norepinephrine Bitartrate 4 mg in 250 mls @ 0 mls/hr 02/05/24 06:30 02/07/24 04:05
Levophed IV 250 mls
PER PROTOCOL TARSHA Administration
Protocol
Per Protocol
Insulin Aspart 0 units 02/06/24 08:30 02/07/24 09:16
Insulin Aspart Low Resistance 300 Units/3 Ml Pen.Injctr SC 03/05/24 08:29 Not Given
ACHS TARSHA
Protocol
Lidocaine 1 patch 02/05/24 08:00 02/07/24 07:58
Lidocaine 4% Topical Patch TOPICAL 03/04/24 07:59 1 patch
DAILY TARSHA Administration
Protocol
Magnesium Hydroxide 30 ml 02/05/24 01:47
Milk Of Magnesia 30 Ml Cup PO 03/04/24 01:46
DAILYPRN PRN
if no bm on day 4
Midodrine 5 mg 02/05/24 13:00 02/07/24 07:59
Midodrine 5 Mg Tablet PO 03/04/24 12:59 5 mg
TID@0800,1300,1800 TARSHA Administration
Ondansetron HCl 4 mg 02/05/24 01:47
Ondansetron 4 Mg/2 Ml Vial IV 03/04/24 01:46
Q6HPRN PRN
NAUSEA/VOMITING
Patch Removal 1 patch 02/05/24 20:00 02/06/24 19:46
Remove Lidocaine Patch REMOVE 03/04/24 19:59 1 patch
DAILY@1999 TARSHA Administration
Sodium Chloride 0 flush 02/05/24 01:00 02/05/24 21:12
Sodium Chloride 0.9% (Flush) Syringe IV 03/04/24 00:59 2 flush
PER PROTOCOL TARSHA Administration
Vancomycin HCl 125 mg 02/05/24 09:00 02/07/24 07:59
Vancomycin Oral Solution 50 Mg/Ml In Oral Syringe PO 125 mg
Q12 TARSHA Administration
Review of Systems
-
Unable to obtain full review of systems at this time due to: Other (Mild confusion)
History Source: Patient and Family (Accompanied by Santana)
Constitutional: Reports Fever, Weight Loss, No Appetite and Fatigue
EENT: Reports No Symptoms
Respiratory: Reports No Symptoms
Cardiac: Reports No Symptoms
GI: Reports No Symptoms
Breast: Reports No Symptoms
: Reports No Symptoms
Musculoskeletal: Reports Other (Back pain)
Skin: Reports No Symptoms
Neuro: Reports No Symptoms
Endocrine: Reports No Symptoms
Hematologic/Lymphatic: Reports No Symptoms
Allergy / Immunology: Reports No Symptoms
Psych: Reports No Symptoms
Physical Exam
-
Awake, alert, very frail-appearing
Sclera anicteric
Heart regular
Breath sounds decreased
Abdomen soft
Extremities no edema
Labs
Lab Results
WBC 16.1 10^3/uL (4.8-10.8) H 02/07/24 03:53
RBC 3.17 10^6/uL (4.20-5.40) L 02/07/24 03:53
Hgb 9.0 g/dL (12.0-16.0) L 02/07/24 03:53
Hct 26.7 % (37.0-47.0) L 02/07/24 03:53
MCV 84.2 fL (81.0-99.0) 02/07/24 03:53
MCH 28.4 pg (27.0-31.0) 02/07/24 03:53
MCHC 33.7 g/dL (33.0-37.0) 02/07/24 03:53
RDW 15.9 % (11.5-14.5) H 02/07/24 03:53
Plt Count 55 10^3/uL (130-400) L 02/07/24 03:53
MPV 12.1 fL (7.4-10.4) H 02/07/24 03:53
Abs Immat Gran (auto) 0.2 10^3/uL (0-0.05) H 02/07/24 03:53
Absolute Neuts (auto) 14.5 10^3/uL (1.4-6.5) H 02/07/24 03:53
Absolute Lymphs (auto) 0.5 10^3/uL (1.2-3.4) L 02/07/24 03:53
Absolute Monos (auto) 0.8 10^3/uL (0.1-0.6) H 02/07/24 03:53
Absolute Eos (auto) 0.1 10^3/uL (0-0.7) 02/07/24 03:53
Absolute Basos (auto) 0.0 10^3/uL (0-0.2) 02/07/24 03:53
Immature Gran % 1.0 % (0-0.5) H 02/07/24 03:53
Neutrophils % 90.2 % (42.2-75.2) H 02/07/24 03:53
Lymphocytes % 3.1 % (20.5-51.1) L 02/07/24 03:53
Monocytes % 4.8 % (1.7-9.3) 02/07/24 03:53
Eosinophils % 0.7 % (0-6) 02/07/24 03:53
Basophils % 0.2 % (0-2) 02/07/24 03:53
Creatinine 0.6 mg/dL (0.6-1.0) 02/07/24 03:46
Vital Signs
Vital Signs
Temp Pulse Resp BP Pulse Ox
97.6 F 67 17 106/63 97
02/07/24 03:20 02/07/24 08:15 02/07/24 08:15 02/07/24 08:15 02/07/24 08:15
[2024-02-07 12:50] LABS: Glucose - Point of Care 107 mg/dl (70-99)
--- NOTE | 2024-02-07 13:10 | W.PN.ID1 ---
Date of Service
Date of Service: February 07, 2024
Today's Communication
Continue antibiotics
Assessment / Plan
Bacteremia (history of prior recurrent E. coli bacteremia)
Leukocytosis
Lactic acidosis
Transaminitis
Metastatic Pancreatic CA; with progression on most recent CAT scan
Hx Cholangitis with multiple stent removal/replacements
Hx Ovarian cancer treated with surgery and chemotherapy
Iron deficiency anemia gets IV iron transfusions
Depression
Anxiety,
Spinal stenosis
Mechanical fall with right hip fracture August 2022 s/p right hip hemiarthroplasty,
Chronic LBBB,
severe protein Calorie malnutrition
Recommendations:
Continue with empiric Zosyn.
Follow pending cultures to guide further antimicrobial selection and de-escalation.
Given recent history of C. difficile continue oral vancomycin prophylaxis with 125 mg PO twice daily
Monitor white count and temperature curve.
Continue with supportive measures.
Patient currently critically ill in intensive care unit on pressor therapy.
For ERCP later today.
Further recommendations as additional data is returned.
����������������������������������������������������������
Chief Complaint
-: Leukocytosis, Clinical Sepsis and Bacteremia
Subjective / Review of Systems
Patient seen and examined. Denies abdominal pain. Denies fevers or chills.
Vital Signs / Physical Exam
Vital Signs
Vital Signs
Temp Pulse Resp BP Pulse Ox
97.4 F 55 13 126/71 97
02/07/24 12:45 02/07/24 12:15 02/07/24 12:15 02/07/24 13:01 02/07/24 12:15
Physical Exam
Constitutional: No Acute Distress, Acutely Ill, Chronically Ill, Non-toxic and Cachetic (Mild)
Eyes: Sclera Anicteric
Cardiovascular: Regular Rate and S1/S2
Pulmonary: Clear and Symmetric; Negative Wheezes or Rales
Gastrointestinal: Soft, Non Tender, Non Distended and Normal Bowel Sounds
Skin: Warm and Dry; Negative Rash or Jaundice
Neurological: Awake and Alert
Psychological: Calm
Objective Data
Lab Data
Lab Results
02/07/24 03:53
02/07/24 03:46
PT 13.8 Sec (11.4-14.6) 02/07/24 03:45
INR 1.03 02/07/24 03:45
APTT 36.4 Sec (23.4-35.0) H 02/04/24 18:34
Estimated Creat Clear 45 ml/min 02/07/24 03:46
Lactic Acid 1.3 mmol/L (0.7-2.0) 02/06/24 04:55
Total Bilirubin 0.8 mg/dl (0.2-1.3) 02/07/24 03:46
AST 39 U/L (14-36) H 02/07/24 03:46
ALT 40 U/L (0-35) H 02/07/24 03:46
Alkaline Phosphatase 383 U/L (38-126) H 02/07/24 03:46
Most recent labs reviewed.
Micro Results:
02/04/24 21:21 Blood Culture - Final
Blood/Venous Klebsiella pneumoniae
Escherichia coli
Gram Stain - Final
02/04/24 21:01 Blood Culture - Final
Blood/Venous Klebsiella pneumoniae
Escherichia coli
Gram Stain - Final
02/06/24 12:20 Blood Culture - Preliminary
Blood/Venous Positive culture in progress
Gram Stain - Preliminary
02/06/24 16:58 Blood Culture - Pending
Blood/Venous
02/05/24 10:49 MRSA Screen - Final
Nose No Methicillin Resistant Staphylococcus aureus isolated.
Imaging:
02/04/2024 CT abdomen/pelvis with contrast. Worsening hepatic metastasis are noted. Cannot rule out developing abscess in the posterior segment of the right hepatic lobe. Continued clinical and imaging follow-up recommended. Pneumobilia and
common bile duct stent redemonstrated. Ill-defined pancreatic head mass with diffuse main pancreatic ductal dilatation is redemonstrated.
Care Review
Plan reviewed with: Nurse
--- NOTE | 2024-02-07 13:49 | W.CON.PAL ---
Consultation
-
Date/Time Consultation Requested: 02/06
Date/Time Consultation Performed: 02/06
Requesting Provider: Jett Ramsey
Performing Provider: Margareth Cooper
Reason for Consult: Goals of Care Discussion
Primary Diagnosis: metastatic pancreatic cancer to liver
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
Consult Requested By: Patient's Physician
Reason for Admission
Illness Course/HPI
88 year old F with PMH of ovarian cancer s/p surgery and chemo years ago, metastatic pancreatic cancer to liver c/b recent cholangitis s/p stent placement, iron deficiency anemia requiring iron infusions, chronic back pain with spinal stenosis and
severe protein calorie malnutrition admitted with anemia on labs at rehab facility. Of note, was recently admitted to for sepsis 2/2 cholangitis from malignant biliary obstruction. Underwent ERCP with stent removal and replacement at [facility]
and transferred back to . At that time, was also treated for C. diff. MRI showing progression of disease at the time in the liver.
Upon admission, was hypotensive requiring initiation of pressors and transfer to ICU. CT with concerns for recurrent cholangitis. Awaiting ERCP today. Oncology spoke with patient and her and discussed poor prognosis, no longer a candidate
for treatment and recommended hospice. Patient initially agreeable but then changed her mind and is possibly interested in palliative care instead.
Seen at bedside this PM with no family present. Reports feeling tired, awaiting her ERCP. Has a good understanding that her cancer is incurable and that she is dying, but doesnt feel she is quite ready for hospice yet. Her goal is to at home
with her dog by her side. Unsure at this time if she would want to try rehab again after this hospitalization or just go home and hire help. She is taking it day by day.
Discussed code status - she reports being a DNR but would be okay with short term intubation if needed, not nursing home. She is listed as full code here.
Pain & Symptom Assessment
Patient Symptoms
Patient Symptoms: Pain
[place] Symptom Scale 0=none, 10=worst
Pain: 5
Objective Data
-
Objective Data:
Vital Signs
Temp Pulse Resp BP Pulse Ox
97.4 F 55 13 126/71 97
02/07/24 12:45 02/07/24 12:15 02/07/24 12:15 02/07/24 13:01 02/07/24 12:15
Laboratory Results
02/07/24 03:53
02/07/24 03:46
PT 13.8 Sec (11.4-14.6) 02/07/24 03:45
INR 1.03 02/07/24 03:45
APTT 36.4 Sec (23.4-35.0) H 02/04/24 18:34
Hemoglobin A1c 5.8 % (4.0-5.6) H 02/05/24 05:54
Total Protein 4.3 g/dl (6.3-8.2) L 02/07/24 03:46
Albumin 1.9 g/dl (3.5-5.0) L 02/07/24 03:46
Palliative Performance Scale
Palliative Performance Scale:
PPS Level Ambulation Activity & Evidence of Disease Self Care Intake Conscious Level
100% Full Normal Activity & Work; Full Intake Full
No Evidence of Disease
90% Full Normal Activity & Work; Full Normal Full
Some Evidence of Disease
80% Full Normal Activity with Effort Full Normal or Full
Some Evidence of Disease Reduced
70% Reduced Unable Normal Job/Work Full Normal or Full
Significant Disease Reduced
60% Reduced Unable Hobby/Housework Occasional Normal or Full or Confusion
Significant Disease Assistance Reduced
50% Mainly Sit/Lie Unable to do Any Work Considerable Normal or Full or Confusion
Extensive Disease Assistance Req'd Reduced
40% Mainly in Bed Unable to do Most Activity Mainly Assistance Normal or Full or Drowsy;
Extensive Disease Reduced +/- Confusion
30% Totally Bed Unable to do Any Activity Total Care Normal or Full or Drowsy;
Bound Extensive Disease Reduced +/- Confusion
20% Totally Bed Bound Unable to do Any Activity Total Care Minimal to Full or Drowsy;
Extensive Disease Sips +/- Confusion
10% Totally Bed Bound Unable to do Any Activity Total Care Mouth Care Drowsy or Coma;
Extensive Disease Only +/- Confusion
0%
PPS Score Level:
Palliative Performance Score Response
Palliative Performance Score Response: 50%
Physical Exam
-
General: No Apparent Distress, Comfortable and Appears Chronically Ill
HEENT: Normocephalic
Respiratory: Clear to Auscultation
Cardiac: Regular Rhythm
Peripheral Vascular: No Edema
GI: Soft and Nondistended
Skin: Warm
Neuro: AO x 3
Psych: Calm
Assessment / Plan
-
Assessment/Plan:
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
- patient taking things one day at a time. Awaiting ERCP.
- reports wanting to at home, doesnt feel she is quite ready for hospice just yet but feels like she will know when she is
- she is considering rehab after hospital vs home with palliative vs hospice pending her clinical course
- reports wanting to be limited code - DNR only, okay with short term intubation
- continue to wean pressors, ERCP
Will follow
Care Reviewed
Data Reviewed
Chest X ray: Image Reviewed
Radiology procedure: Image Reviewed
Medical Tests: I reviewed
Reviewed with: Patient and Physician
--- NOTE | 2024-02-07 15:16 | PN.CDI ---
CDI
- -
CDI:
Physician Documentation Request
Admit Date: 02/05/24 00:55
Dear Doctor Braulio,
Clinical Indicators:
Patient admitted with sepsis with septic shock.
02/04 RN skin/wound assessment: Sacrum Stage 2 Pressure Injury, POA
Treatment: silicone border foam dressing
Physician documentation of the type and location of wounds is required for compliant documentation. Based on the above clinical findings and your assessment, please provide the following in your progress note:
1. Location of the ulcer/wound, including laterality.
2. Type (etiology) of ulcer/wound:
- Pressure (decubitus) ulcer
- Other
- Unable to determine
3. If a pressure ulcer, please also include the stage* of the ulcer:
- Stage 1 - Skin intact, non-blanchable redness
- Stage 2 - Partial thickness loss of dermis, includes intact or open blister
- Stage 3 - Full thickness tissue not including bone, tendon or muscle
- Stage 4 - Full thickness tissue loss, including exposed bone, tendon or muscle
- Unstageable - Full thickness loss in which the base of the ulcer is covered by slough (yellow, feldman, larsen, green or brown) and/or eschar (feldman, brown or black) in the wound bed.
- Unable to determine
Use of terms such as suspected, likely, concern for, or probable (associated with a specific diagnosis that is being evaluated, monitored, or treated as if it exists) are acceptable and can be coded in the inpatient setting, when documented at the
time of discharge.
Thank you,
Eda Gibbons RN BSN
CDI Specialist
available via tiger text
Please use your independent medical judgment in providing your response.
*Source: National Pressure Ulcer Advisory Panel (NPUAP)
--- NOTE | 2024-02-07 15:57 | CM ---
CM following re:L discharge planning.
Reviewed pt's chart, met with pt.
PT and OT will evaluate the pt to determine a level of care at discharge.
D/C plan: pt feels she will need to go to a SNF for a short term rehab or she will return back home with palliative care.
CM will follow with discharge plan updates as hospitalization progresses
--- NOTE | 2024-02-07 18:40 | PTCARENOTE ---
pt taken to gi lab and returned. levo remains off
[2024-02-07 18:43] LABS: Glucose - Point of Care 66 mg/dl (70-99)
[2024-02-07] MEDS: DEXTROSE 50% SYRINGE 12.5 GRAMS IV (18:54)
[2024-02-07 19:02] LABS: Glucose - Point of Care 42 mg/dl (70-99)
--- NOTE | 2024-02-07 19:10 | PTCARENOTE ---
pt accuchek low apple juice given rechecked still low dextrose given report given to second shift supervisor nurse to continue monitoring
[2024-02-07 19:24] LABS: Glucose - Point of Care 88 mg/dl (70-99)
--- NOTE | 2024-02-07 21:14 | PTCARENOTE ---
Received patient AAOx3, denying pain, following commands, at bedside. Normal sinus, 80s-90s, PVCs. Normothermic, BP 80s/50s, levo gtt restarted at 1 mcg/min for MAP>65. +2 b/l LE edema, weak palpable pedal pulses. SCDs on. 94% on room air,
lung sounds diminished. Round, distended belly. Purewick in place draining bluish/green urine. Stage 2 on sacrum, foam intact. Midline and PIV patent, WNL. Call bingham within reach.
[2024-02-07 21:33] LABS: Glucose - Point of Care 152 mg/dl (70-99)
[2024-02-07 23:23] LABS: Glucose - Point of Care 190 mg/dl (70-99)
[2024-02-08] VITALS (99 sets, daily range): BP systolic 76–141; BP diastolic 45–87; BMI 19.2
[2024-02-08 03:10] LABS: Glucose - Point of Care 219 mg/dl (70-99)
[2024-02-08] MEDS: ZOSYN 50 IV ×2 (05:08→11:45)
[2024-02-08 06:08] LABS: Hematocrit 29.4 % (37.0-47.0); Hemoglobin 9.9 g/dL (12.0-16.0); Mean Corp Hgb Conc. 33.7 g/dL (33.0-37.0); Mean Corpuscular Hgb 29.3 pg (27.0-31.0); Platelet Count 61 10^3/uL (130-400); Red Blood Cell Count 3.38 10^6/uL (4.20-5.40); Red Cell Dist. Width 16.2 % (11.5-14.5); White Blood Cell Count 17.2 10^3/uL (4.8-10.8)
[2024-02-08 06:15] LABS: Glucose - Point of Care 126 mg/dl (70-99)
[2024-02-08 06:21] LABS: ALT (SGPT) 35 U/L (0-35); AST (SGOT) 37 U/L (14-36); Alkaline Phosphatase 433 U/L (38-126); Blood Urea Nitrogen 19 mg/dl (7-17); Calcium 7.7 mg/dl (8.4-10.2); Carbon Dioxide 23 mmol/L (22-30); Chloride 101 mmol/L (98-107); Estimated Creatinine Clearance 47 ml/min; Glucose 148 mg/dl (70-99); Potassium 3.9 mmol/L (3.5-5.1); Sodium 133 mmol/L (135-145); Total Bilirubin 1.1 mg/dl (0.2-1.3); Total Protein 4.6 g/dl (6.3-8.2); eGFR > 60.00
--- NOTE | 2024-02-08 08:30 | PTCARENOTE ---
Assumed care of patient at 0700. Pt is awake, alert, and oriented. Does frequently fall asleep but easily arouses. Pt remains SR with PVCs, HR 70's-80's. BP 100/54 MAP 69. +2 LE edema. Weakly palpable pulses. Pt now off Levo, previously at 1mcg/min.
Pulse oximetry 92% on room air. Pt with poor appetite, tolerated PO diet. Purewick in place, urine blue in color. Foam dressing intact on sacrum. Bilateral heels with foam dressings in place. Left midline in place. Pt currently in bed with call bingham
within reach.
--- NOTE | 2024-02-08 08:37 | W.PN.GI.CBS2 ---
Today's Communication / Plan
-
Resume clears and advance diet
Cont abx
wean pressors per primary team
Will sign off. Please call back if needed
Assessment / Plan
-
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 She is known to Dr Ceron/BENITO for bacteremia related to biliary malignant
obstruction. She had evaluation with Dr Garcia at 2pm yesterday 02/03 in the office and told that she is no longer candidate for any further treatments and palliative care/hospice recommended. Vitals hypotension on levophed at 4. Labs reviewed.
WBC up to 30. BC + Ecoli, Klebsiella
Impression
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
- Metastatic pancreatic cancer with liver mets
- Possible liver abscess
- Anemia
- Severe malnutrition
Subjective
Subjective
Date of Service: February 08, 2024
c/o back pain. Denies abd pain
Objective
Data Reviewed
Laboratory Data:
Laboratory Results
02/08/24 05:46
02/08/24 05:46
Laboratory Results
PT 13.8 Sec (11.4-14.6) 02/07/24 03:45
INR 1.03 02/07/24 03:45
APTT 36.4 Sec (23.4-35.0) H 02/04/24 18:34
Magnesium 2.2 mg/dl (1.6-2.3) 02/07/24 03:46
Total Bilirubin 1.1 mg/dl (0.2-1.3) 02/08/24 05:46
AST 37 U/L (14-36) H 02/08/24 05:46
ALT 35 U/L (0-35) 02/08/24 05:46
Alkaline Phosphatase 433 U/L (38-126) H 02/08/24 05:46
Vital Signs and I&O:
Vital Signs
Temp Pulse Resp BP Pulse Ox
98.2 F 74 12 98/53 99
02/08/24 03:34 02/08/24 06:30 02/08/24 06:30 02/08/24 06:30 02/08/24 06:00
I&O
02/07/24 02/08/24 02/09/24
06:59 06:59 06:59
Intake Total 1170.8 / 1170.8 187.8 / 187.8
Output Total 350 / 350 1350 / 1350
Balance 820.8 / 820.8 -1162.2 / -1162.2
Physical Exam
Physical Exam
GI: Soft, Non Distended and Non Tender
[2024-02-08] MEDS: NEURONTIN 200 MG PO ×2 (08:53→19:33)
[2024-02-08] MEDS: PEPCID 20 MG PO (08:53)
[2024-02-08] MEDS: ProAmatine 5 MG PO ×3 (08:53→18:30)
[2024-02-08] MEDS: LIDOCAINE 4% PATCH 1 PATCH TOPICAL (08:53)
--- NOTE | 2024-02-08 08:55 | W.PN.HOSP.TC ---
Today's Communication/Plan
-
Continue with antibiotics
Clear liquid diet
Transfer out of ICU once off of Levophed
Wound care consult.
Assessment / Plan
Assessment / Plan
Patient with metastatic pancreatic ca, s/p CBD stent and recent replacement in setting of sepsis/bacteremia presents to ED ostensibly for anemia with Hgb of 6.0, repeat was 7.0 in ED and rust colored heme + stools. Boderline hypotension. Denies
any symptoms and any awareness of melena or hematochezia. Peripherally dehydrated but as ascites and intraabdominal anasarca. Lactic acid elevated.
PLAN:
#Sepsis shock POA -
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 coli and Klebsiella bacteremia recurrent
#Lactic acidosis
#History of C. difficile colitis
#Possible liver abscess
Continue with Zosyn per ID
Blood cultures with E. coli and Klebsiella. Repeat blood cultures positive.
S/p ERCP-removal of one of the biliary tree stent and sweeping of the biliary duct and placement of a new stent in the right hepatic duct. Improving LFTs noted. Start on a clear liquid diet.
Continue with Levophed and wean off as tolerated. Started on midodrine. Remains on 1 mics of levo.
Improving WBC
# Microcytic anemia likely worsened in the setting of malignancy
Type and screen.
Continue to trend.
Status post 1 unit of PRBC
Hemoglobin stabilized
# Stage IV pancreatic ca w/hepatic mets
Follows w/Dr Ceron for stent exchange.
CT was done which shows new hepatic lobe lesion. Increased in size.
Consult oncology for prognosis evaluation-unfortunately patient is end-stage pancreatic cancer not a candidate for treatments. Discussions of oncology with the patient noted. Palliative care consulted. Patient has understanding of her end-stage
cancer disease and no treatments. She is amenable to palliative care at the current time but not hospice
#Hyperglycemia likely secondary to pancreatic malignancy
A1c of 5.5
sliding scale insulin for now
#Hypomagnesemia replete and monitor
Suspected protein calorie malnutrition of chronic illness
Dietary eval
#Thrombocytopenia likely secondary to septic shock
Continue to trend
Fall precaution with thrombocytopenia
Check HIT Panel-low likelihood
DC PPI and start Pepcid.
Slow improvement noted.
Sacral decubitus ulcer-symptomatic with pain. Continue the current wound care with foam dressing. Add pain medication. Consult wound care nurse.
Judicious pain control
DVT PPX - SCD for now the setting of thrombocytopenia
Code Status -DNR
Discussed with MARKETING GRAPHICS SPECIALIST and decator operator
Total time spent on today's encounter was 52 minutes which included time spent in counseling the patient/family regarding diagnosis and treatment plan as listed above, goals of care, and symptom management. Case was discussed with nursing staff,
specialists, and care coordinators/case management. All labs and imaging personally reviewed by me. Remainder the time spent in detailed review of previous records, lab data, imaging, and other medical provider documentation.
Anticipated Discharge: > 48 hours
Subjective/Interval History
-
Date of Service: February 08, 2024
Her focus today is on the sacral sore. She has had that before. It is more intense with regards to pain today. Hard to find a comfortable position. It was hard for her to sit on it at home.
She is now s/p ERCP-denies any abdominal pain, nausea or vomiting.
No shortness of breath or chest pain.
Objective Data
-
Labs:
Laboratory Results
02/08/24
05:46
WBC 17.2 H
Hgb 9.9 L
Hct 29.4 L
Plt Count 61 L
Sodium 133 L
Potassium 3.9
Chloride 101
Carbon Dioxide 23
BUN 19 H
Creatinine 0.6
Glucose 148 H
Calcium 7.7 L
Total Bilirubin 1.1
AST 37 H
ALT 35
Alkaline Phosphatase 433 H
Vital Signs:
Vital Signs
Temp Pulse Resp BP Pulse Ox
98.2 F 74 12 98/53 99
02/08/24 03:34 02/08/24 06:30 02/08/24 06:30 02/08/24 06:30 02/08/24 06:00
I&O
02/07/24 02/08/24 02/09/24
06:59 06:59 06:59
Intake Total 1170.8 / 1170.8 187.8 / 187.8
Output Total 350 / 350 1350 / 1350
Balance 820.8 / 820.8 -1162.2 / -1162.2
Review of Systems
-
Constitutional: Denies Fever
Respiratory: Denies Cough or Trouble Breathing
Cardiac: Denies Chest Pain
Abdomen/GI: Reports Constipated
Neuro: Denies Dizzy or Headache
Physical Exam
-
General: Comfortable
Respiratory: Clear to Auscultation and Non Labored Respirations; Negative Accessory Resp Muscle Use
Cardiac: Regular Rhythm and S1/S2
GI: Soft, Nontender, Nondistended and Normal Bowel Sounds
Neuro: AO x 3
Psych: Calm; Negative Confused
Data Reviewed
-
Labs: Labs Reviewed by me
[2024-02-08] MEDS: FIRVANQ 125 MG PO ×2 (09:22→19:33)
[2024-02-08] MEDS: NOVOLOG FLEXPEN-LOW RESISTANCE SC ×2 (09:25→18:30)
[2024-02-08 09:36] LABS: Glucose - Point of Care 93 mg/dl (70-99)
--- NOTE | 2024-02-08 10:48 | WOUNDNOTE ---
OSMANY RN note: Patient admitted with anemia and severe protein-calorie malnutrition.
See H&P for complete history. Currently at [facility].
PMH: Stage 4 pancreatic cancer with hepatic mets, spinal stenosis-surgery, back pain, dysphagia, anxiety/depression.
Wound Location and type/assessment: Patient admitted with: DTI on Coccyx, open shallow ulcer, dark maroon base, small amt drainage, very painful reports patient. With assist of nurse Arthur turned to sides, Purwick in use. Heels are blanchable red
and adhesive foams in use with pillow under calves.
Appetite: Poor intake, mainly drinking boost reports patient.
Pressure redistribution devices in place: On [facility] air bed, keep on air mattress if transferred to floor. Air cushion when sitting, instructed to take home upon discharge. Air cushion on pillow under calves.
Plan: Coccyx: clean with saline, skin prep periwound, smear of honey gel, Xeroform, 2x2 gauze and silicone foam change daily and prn soilage. Called [facility] for honey gel, nurse aware can start tomorrow. Today applied A&D ointment to periwound, non
bordered foam and sacral silicone foam. Changed foams on heels. Repositioned patient onto L semi side lying position. Will confirm orders with hospitalist and update nurse.
Updated care plan and will follow as needed.
Note to case management of equipment requested for discharge: air mattress
Recommend follow up at wound care center upon discharge.
[2024-02-08] MEDS: TYLENOL 650 MG PO (11:46)
--- NOTE | 2024-02-08 13:15 | W.PN.ID1 ---
Date of Service
Date of Service: February 08, 2024
Today's Communication
Narrow to cefazolin.
Assessment / Plan
Bacteremia with E. coli; history of prior recurrent E. coli bacteremia
Leukocytosis
Lactic acidosis
Transaminitis
Metastatic Pancreatic CA; with progression on most recent CAT scan
Hx Cholangitis with multiple stent removal/replacements
Hx Ovarian cancer treated with surgery and chemotherapy
Iron deficiency anemia gets IV iron transfusions
Depression
Anxiety,
Spinal stenosis
Mechanical fall with right hip fracture August 2022 s/p right hip hemiarthroplasty,
Chronic LBBB,
severe protein Calorie malnutrition
Recommendations:
Continue antibiotics. Narrow to cefazolin.
Repeat blood cultures to assess clearance.
Given recent history of C. difficile continue oral vancomycin prophylaxis with 125 mg PO twice daily
Monitor white count and temperature curve.
Continue with supportive measures.
Patient currently critically ill in intensive care unit on pressor therapy.
Overall outlook poor. Patient appears palliative care, if not hospice, appropriate, but she has previously declined. Recurrent infections likely.
����������������������������������������������������������
Chief Complaint
-: Leukocytosis, Clinical Sepsis and Bacteremia
Subjective / Review of Systems
Patient seen and examined. Chart reviewed. Patient underwent successful exchange of biliary stent. Blood cultures remain positive. Patient now back on pressor therapy.
Review of Systems: No Fever
Vital Signs / Physical Exam
Vital Signs
Vital Signs
Temp Pulse Resp BP Pulse Ox
98.2 F 102 24 84/56 90
02/08/24 03:34 02/08/24 09:15 02/08/24 09:15 02/08/24 09:15 02/08/24 13:09
Physical Exam
Constitutional: Comfortable, Acutely Ill, Chronically Ill, Non-toxic and Cachetic (Mild)
Cardiovascular: Regular Rate and S1/S2; Negative S3/S4
Pulmonary: Clear, Symmetric and Non Labored; Negative Wheezes or Rales
Gastrointestinal: Soft, Non Tender, Non Distended and Normal Bowel Sounds
Skin: Warm and Dry; Negative Rash or Jaundice
Psychological: Calm
Objective Data
Lab Data
Lab Results
02/08/24 05:46
02/08/24 05:46
PT 13.8 Sec (11.4-14.6) 02/07/24 03:45
INR 1.03 02/07/24 03:45
APTT 36.4 Sec (23.4-35.0) H 02/04/24 18:34
Estimated Creat Clear 47 ml/min 02/08/24 05:46
Lactic Acid 1.3 mmol/L (0.7-2.0) 02/06/24 04:55
Total Bilirubin 1.1 mg/dl (0.2-1.3) 02/08/24 05:46
AST 37 U/L (14-36) H 02/08/24 05:46
ALT 35 U/L (0-35) 02/08/24 05:46
Alkaline Phosphatase 433 U/L (38-126) H 02/08/24 05:46
Most recent labs reviewed.
Micro Results:
02/06/24 16:58 Blood Culture - Preliminary
Blood/Venous Klebsiella pneumoniae
Gram Stain - Preliminary
02/06/24 12:20 Blood Culture - Preliminary
Blood/Venous Klebsiella pneumoniae
Gram Stain - Preliminary
02/04/24 21:21 Blood Culture - Final
Blood/Venous Klebsiella pneumoniae
Escherichia coli
Gram Stain - Final
02/04/24 21:01 Blood Culture - Final
Blood/Venous Klebsiella pneumoniae
Escherichia coli
Gram Stain - Final
02/05/24 10:49 MRSA Screen - Final
Nose No Methicillin Resistant Staphylococcus aureus isolated.
Imaging:
02/04/2024 CT abdomen/pelvis with contrast. Worsening hepatic metastasis are noted. Cannot rule out developing abscess in the posterior segment of the right hepatic lobe. Continued clinical and imaging follow-up recommended. Pneumobilia and
common bile duct stent redemonstrated. Ill-defined pancreatic head mass with diffuse main pancreatic ductal dilatation is redemonstrated.
--- NOTE | 2024-02-08 14:08 | CM ---
CM following re:L discharge planning.
Reviewed pt's chart, met with pt.
PT and OT will evaluate the pt to determine a level of care at discharge. PT and OT consults requested.
D/C plan: pt feels she will need to go to a SNF for a short term rehab or she will return back home with palliative care.
CM will follow with discharge plan updates as hospitalization progresses
[2024-02-08] MEDS: NOVOLOG FLEXPEN-LOW RESISTANCE 1 UNITS SC ×2 (18:30→23:42)
[2024-02-08] MEDS: ANCEF 10 IV (18:30)
[2024-02-08 18:40] LABS: Glucose - Point of Care 143 mg/dl (70-99)
--- NOTE | 2024-02-08 20:04 | PTCARENOTE ---
Received patient AAOx3, following commands, complaining of pain in back, repositioned with pillow and patient reports feeling better. Normal sinus, 70s with PVCs. Normothermic, levo gtt ongoing to maintain MAP>65. SCDs on, +2 b/l LE edema. 98% on
room air, lung sounds diminished. Abdomen soft, round, hypoactive bowel sounds, last BM today. Purewick in place draining blue urine. Foam on sacrum CDI, foams on heels CDI. Midline patent, WNL. Call bingham within reach.
[2024-02-08 22:05] LABS: Glucose - Point of Care 173 mg/dl (70-99)
[2024-02-08 23:39] LABS: Glucose - Point of Care 168 mg/dl (70-99)
[2024-02-09] VITALS (52 sets, daily range): BP systolic 84–137; BP diastolic 45–81; PULSE 104–106; BMI 18.9
[2024-02-09] MEDS: ANCEF 10 IV ×3 (00:54→18:19)
--- NOTE | 2024-02-09 03:58 | DOWNTIME ---
There was a [employer] Client Information Security Specialist Downtime on 02/09/2024 from 0100 to 02/09/2024 at 0350. Downtime documentation of patient's care, including medication administrations, has been reconciled in the electronic record per guidelines. Refer to the
patient's paper chart under the miscellaneous tab to see printed paper medication records and downtime forms.
[2024-02-09] MEDS: LEVOPHED 250 IV (05:29)
--- NOTE | 2024-02-09 05:44 | PTCARENOTE ---
CHG bath done, sheets changed, labs sent. Patient remains on 1 mcg/min of levo for MAP>65. Moved to room 3362. Smear of a BM, cleaned up, purewick changed. Otherwise patient assessment unchanged from previous.
[2024-02-09 06:10] LABS: ALT (SGPT) 25 U/L (0-35); AST (SGOT) 30 U/L (14-36); Albumin 2.1 g/dl (3.5-5.0); Alkaline Phosphatase 490 U/L (38-126); Blood Urea Nitrogen 14 mg/dl (7-17); Calcium 7.9 mg/dl (8.4-10.2); Carbon Dioxide 24 mmol/L (22-30); Chloride 101 mmol/L (98-107); Estimated Creatinine Clearance 46 ml/min; Glucose 114 mg/dl (70-99); Potassium 4.1 mmol/L (3.5-5.1); Sodium 133 mmol/L (135-145); Total Bilirubin 0.8 mg/dl (0.2-1.3); Total Protein 4.9 g/dl (6.3-8.2); eGFR > 60.00
[2024-02-09 06:26] LABS: Hematocrit 30.2 % (37.0-47.0); Hemoglobin 10.4 g/dL (12.0-16.0); Mean Corp Hgb Conc. 34.4 g/dL (33.0-37.0); Mean Corpuscular Hgb 29.5 pg (27.0-31.0); Mean Corpuscular Volume 85.8 fL (81.0-99.0); Platelet Count 107 10^3/uL (130-400); Red Blood Cell Count 3.52 10^6/uL (4.20-5.40); Red Cell Dist. Width 15.9 % (11.5-14.5)
--- NOTE | 2024-02-09 08:05 | W.PN.ONC2 ---
Today's Communication / Plan
-
Nothing else to add. Hospice appropriate but she seems to want palliative care and not hospice.
Oncology will sign off. Call again if needed.
Impression
Impression
Pancreatic cancer, on best supportive care x 1 year, now with disease progression in liver
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
Anemia, suspect due to chronic disease state as well as occult blood loss
Biliary sepsis
Plan
Plan
Patient with end-stage disease.
I had an extensive discussion with her and her on Wednesday during which we discussed that once in end-stage cancer begins to progress, complications can include infection, clotting event, bleeding event, or toxic metabolic encephalopathy. She
is a poor candidate for chemotherapy with her recent infections.
Patient wanted best supportive care with addition of palliative care services.
Today, I discussed with her that the fact that she has required readmission for sepsis so quickly after the last time, is concerning that her disease course is accelerating. Also concerning is the finding of disease progression even since her last
scan 1 month ago.
Hospice is certainly appropriate. Patient not quite ready to accept this option. We discussed continuing current level of care for now to see whether there may be a reversible contributing factor to the recurrent biliary sepsis. Discussions will
be ongoing, but I do agree with the other providers that hospice is appropriate.
Subjective/Objective
Chief Complaint
ACS Oncology
Subjective
No c/o
Vital Signs:
Vital Signs
Temp Pulse Resp BP Pulse Ox
97.4 F 72 16 109/57 96
02/09/24 07:30 02/09/24 06:00 02/09/24 06:00 02/09/24 06:00 02/09/24 05:00
Lab Results:
Laboratory Data
WBC 17.0 10^3/uL (4.8-10.8) H 02/09/24 05:38
Hgb 10.4 g/dL (12.0-16.0) L 02/09/24 05:38
Plt Count 107 10^3/uL (130-400) L D 02/09/24 05:38
PT 13.8 Sec (11.4-14.6) 02/07/24 03:45
INR 1.03 02/07/24 03:45
APTT 36.4 Sec (23.4-35.0) H 02/04/24 18:34
eGFR > 60.00 02/09/24 05:38
Physical Exam
HEENT: No Jaundice
Cardiology: S1 and S2
Pulmonary: Clear
GI: Soft
--- NOTE | 2024-02-09 08:24 | W.PN.HOSP.TC ---
Today's Communication/Plan
-
Increase midodrine. Wean Levophed.
Start on oral diet.
Transfer out of ICU once hemodynamics are stable.
PT OT treatments.
Assessment / Plan
Assessment / Plan
Patient with metastatic pancreatic ca, s/p CBD stent and recent replacement in setting of sepsis/bacteremia presents to ED ostensibly for anemia with Hgb of 6.0, repeat was 7.0 in ED and rust colored heme + stools. Boderline hypotension. Denies
any symptoms and any awareness of melena or hematochezia. Peripherally dehydrated but as ascites and intraabdominal anasarca. Lactic acid elevated.
PLAN:
#Sepsis shock POA -
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 coli and Klebsiella bacteremia recurrent
#Lactic acidosis
#History of C. difficile colitis
#Possible liver abscess
Continue with cefazolin per ID and as well as p.o. vancomycin for C. difficile prophylaxis
Blood cultures with E. coli and Klebsiella. Repeat blood cultures pending
S/p ERCP-removal of one of the biliary tree stent and sweeping of the biliary duct and placement of a new stent in the right hepatic duct. Improving LFTs noted. Start on a clear liquid diet.
Continue with Levophed and wean off as tolerated. Started on midodrine-increase the dose. Remains on 1 mics of levo.
Improving WBC
# Microcytic anemia likely worsened in the setting of malignancy
Type and screen.
Continue to trend.
Status post 1 unit of PRBC
Hemoglobin stabilized
# Stage IV pancreatic ca w/hepatic mets
Follows w/Dr Ceron for stent exchange.
CT was done which shows new hepatic lobe lesion. Increased in size.
Consult oncology for prognosis evaluation-unfortunately patient is end-stage pancreatic cancer not a candidate for treatments. Discussions of oncology with the patient noted. Palliative care consulted. Patient has understanding of her end-stage
cancer disease and no treatments. She is amenable to palliative care at the current time but not hospice.
#Hyperglycemia likely secondary to pancreatic malignancy
A1c of 5.5
sliding scale insulin for now
#Hypomagnesemia replete and monitor
Suspected protein calorie malnutrition of chronic illness
Dietary eval
#Thrombocytopenia likely secondary to septic shock
Continue to trend
Fall precaution with thrombocytopenia
Check HIT Panel-low likelihood
DC PPI and start Pepcid.
Slow improvement noted.
Sacral decubitus ulcer-symptomatic with pain. Continue the current wound care with foam dressing. Add pain medication. Consult wound care nurse.
Judicious pain control
DVT PPX - SCD for now the setting of thrombocytopenia
Code Status -DNR
Discussed with DRIER OPERATOR
Anticipated Discharge: > 48 hours
Subjective/Interval History
-
Date of Service: February 09, 2024
Patient without much of GI symptoms. Denies any nausea vomiting. No abdominal pain.
Denies any shortness of breath.
Did not complain much about back pain today.
Objective Data
-
Labs:
Laboratory Results
02/09/24
05:38
WBC 17.0 H
Hgb 10.4 L
Hct 30.2 L
Plt Count 107 L D
Sodium 133 L
Potassium 4.1
Chloride 101
Carbon Dioxide 24
BUN 14
Creatinine 0.5 L
Glucose 114 H
Calcium 7.9 L
Total Bilirubin 0.8
AST 30
ALT 25
Alkaline Phosphatase 490 H
Vital Signs:
Vital Signs
Temp Pulse Resp BP Pulse Ox
97.4 F 72 16 109/57 96
02/09/24 07:30 02/09/24 06:00 02/09/24 06:00 02/09/24 06:00 02/09/24 05:00
I&O
11/26/24 11/27/24 11/28/24
06:59 06:59 06:59
Intake Total 187.8 / 191.6 79.8 / 79.8
Output Total 1350 / 1350 975 / 975
Balance -1162.2 / -1158.4 -895.2 / -895.2
Review of Systems
-
Cardiac: Denies Chest Pain or Palpitations
Neuro: Denies Dizzy
Physical Exam
-
General: Comfortable
Respiratory: Non Labored Respirations; Negative Accessory Resp Muscle Use
Cardiac: Regular Rhythm and S1/S2; Negative Tachycardic
GI: Soft, Nontender, Nondistended and Normal Bowel Sounds
Neuro: AO x 3
Data Reviewed
-
Labs: Labs Reviewed by me
[2024-02-09] MEDS: PEPCID 20 MG PO (08:31)
[2024-02-09] MEDS: NEURONTIN 200 MG PO ×2 (08:31→19:41)
[2024-02-09] MEDS: LIDOCAINE 4% PATCH 1 PATCH TOPICAL (08:34)
[2024-02-09] MEDS: FIRVANQ 125 MG PO ×2 (08:34→19:41)
[2024-02-09] MEDS: NOVOLOG FLEXPEN-LOW RESISTANCE SC ×2 (08:57→17:08)
[2024-02-09 09:04] LABS: Glucose - Point of Care 70 mg/dl (70-99)
[2024-02-09] MEDS: ProAmatine PO (09:16)
[2024-02-09] MEDS: ProAmatine 10 MG PO ×3 (09:25→18:18)
--- NOTE | 2024-02-09 10:09 | W.PN.ID1 ---
Date of Service
Date of Service: February 09, 2024
Today's Communication
Continue antibiotics.
Assessment / Plan
Bacteremia with E. coli; history of prior recurrent E. coli bacteremia
Leukocytosis
Lactic acidosis
Transaminitis
Metastatic Pancreatic CA; with progression on most recent CAT scan
Hx Cholangitis with multiple stent removal/replacements
Hx Ovarian cancer treated with surgery and chemotherapy
Iron deficiency anemia gets IV iron transfusions
Depression
Anxiety,
Spinal stenosis
Mechanical fall with right hip fracture August 2022 s/p right hip hemiarthroplasty,
Chronic LBBB,
severe protein Calorie malnutrition
Recommendations:
Continue cefazolin.
Repeat blood cultures to assess clearance.
Given recent history of C. difficile continue oral vancomycin prophylaxis with 125 mg PO twice daily. Watch persistence of diarrhea, as may need to increase to every 6 hours dosing. No role at this point in time for repeating C. difficile testing
as it will not likely differentiate between acute, and prior infection.
Monitor white count and temperature curve.
Continue with supportive measures.
Overall outlook poor. Patient appears palliative care, if not hospice, appropriate, but she has previously declined. Recurrent infections likely. Patient reports she is now contemplating transition to hospice.
����������������������������������������������������������
Chief Complaint
-: Leukocytosis, Clinical Sepsis and Bacteremia
Subjective / Review of Systems
Patient seen and examined. Remains afebrile. Denies abdominal discomfort. No difficulty with antibiotics. Admits to some new diarrhea.
Review of Systems: Diarrhea
Vital Signs / Physical Exam
Vital Signs
Vital Signs
Temp Pulse Resp BP Pulse Ox
97.4 F 72 16 107/69 95
02/09/24 07:30 02/09/24 06:00 02/09/24 06:00 02/09/24 09:25 02/09/24 08:00
Physical Exam
Constitutional: No Acute Distress, Comfortable, Chronically Ill, Non-toxic and Cachetic (Mild)
Head: Normocephalic
Eyes: No Conjunctival Hemorrhage
Cardiovascular: Regular Rate and S1/S2; Negative S3/S4
Pulmonary: Clear, Symmetric and Non Labored; Negative Wheezes or Rales
Gastrointestinal: Soft, Non Tender, Non Distended and Normal Bowel Sounds
Skin: Warm and Dry; Negative Rash or Jaundice
Neurological: Awake
Psychological: Calm
Objective Data
Lab Data
Lab Results
02/09/24 05:38
02/09/24 05:38
PT 13.8 Sec (11.4-14.6) 02/07/24 03:45
INR 1.03 02/07/24 03:45
APTT 36.4 Sec (23.4-35.0) H 02/04/24 18:34
Estimated Creat Clear 46 ml/min 02/09/24 05:38
Lactic Acid 1.3 mmol/L (0.7-2.0) 02/06/24 04:55
Total Bilirubin 0.8 mg/dl (0.2-1.3) 02/09/24 05:38
AST 30 U/L (14-36) 02/09/24 05:38
ALT 25 U/L (0-35) 02/09/24 05:38
Alkaline Phosphatase 490 U/L (38-126) H 02/09/24 05:38
Most recent labs reviewed.
Micro Results:
02/08/24 16:25 Blood Culture - Pending
Blood/Venous
02/08/24 14:23 Blood Culture - Pending
Blood/Venous
02/06/24 16:58 Blood Culture - Preliminary
Blood/Venous Klebsiella pneumoniae
Gram Stain - Preliminary
02/06/24 12:20 Blood Culture - Preliminary
Blood/Venous Klebsiella pneumoniae
Gram Stain - Preliminary
02/04/24 21:21 Blood Culture - Final
Blood/Venous Klebsiella pneumoniae
Escherichia coli
Gram Stain - Final
02/04/24 21:01 Blood Culture - Final
Blood/Venous Klebsiella pneumoniae
Escherichia coli
Gram Stain - Final
02/05/24 10:49 MRSA Screen - Final
Nose No Methicillin Resistant Staphylococcus aureus isolated.
Imaging:
02/04/2024 CT abdomen/pelvis with contrast. Worsening hepatic metastasis are noted. Cannot rule out developing abscess in the posterior segment of the right hepatic lobe. Continued clinical and imaging follow-up recommended. Pneumobilia and
common bile duct stent redemonstrated. Ill-defined pancreatic head mass with diffuse main pancreatic ductal dilatation is redemonstrated.
--- NOTE | 2024-02-09 11:04 | CM ---
Addendum entered by Audrey Leong 02/09/24 13:27:
Physician consulted and requested CM reach out to Life Manager via tt to have education and further discussion. CM sent tt to Liaison and await update.
Original Note:
Patient seen at bedside in ICU. Patient stated that she was updated by physician that she should have Hospice, Patient with many questions about hospice but declined referral until physician updated her again. Patient indicated that she and her
have been working with [facility] and are planning to have 24/ home health aides and for her to return to home with potentially [facility]. CM will review with physicians plan. CM will continue to follow for discharge planning needs.
Plan; home with hospice pending physician assessment.
[2024-02-09] MEDS: NOVOLOG FLEXPEN-LOW RESISTANCE 1 UNITS SC ×2 (12:09→22:04)
[2024-02-09 12:11] LABS: Glucose - Point of Care 165 mg/dl (70-99)
--- NOTE | 2024-02-09 12:35 | PN.CDI ---
CDI
- -
CDI:
Physician Documentation Request
Admit Date: 02/05/24 00:55
Dear Doctor Braulio,
Clinical Indicators:
Patient admitted with septic shock.
Sodium/Glucose levels:
02/04/24 02/05/24 02/05/24
18:34 05:54 22:09
Sodium 132 L 132 L 133 L
Glucose 384 H 169 H 182 H
02/06/24 02/07/24 02/08/24
04:55 03:46 05:46
Sodium 133 L 131 L 133 L
Glucose 130 H 140 H 148 H
Based on the above, could you clarify in the progress notes, the appropriate diagnosis, if significant, that supports the above abnormalities and additional evaluation, monitoring and/or treatment rendered:
Hyponatremia
Pseudohyponatremia
Abnormal lab values, clinically insignificant
Other
Use of terms such as suspected, likely, concern for, or probable (associated with a specific diagnosis that is being evaluated, monitored, or treated as if it exists) are acceptable and can be coded in the inpatient setting, when documented at the
time of discharge.
Thank you,
Eda Gibbons RN BSN
CDI Specialist
available via tiger text
Please use your independent medical judgment in providing your response.
--- NOTE | 2024-02-09 14:33 | HOSPNOTE ---
Spoke with patient about hospice and the philosophy. The patient needs to speak with her spouse. We also discussed palliative care and I get the feeling the patient is leaning towards going home with [facility] and Palliative care. Will await some decision
and follow up on Wednesday.
--- NOTE | 2024-02-09 15:36 | PTCARENOTE ---
Received patient AAOx3, following commands, complaining of pain in back,Lidocaine patch on. Repositioned onto R side and feels better. ST low 100's PVCs. Levophed gtt remains off. +2 LE edema. 98% on room air, lung sounds diminished. Abdomen soft,
round. Pt inc of urine and stool. Foam on sacrum changed, foams on heels CDI. Midline check.Pt updated with plan of care. Call bingham within reach. Will continue to monitor pt. closely
[2024-02-09 17:18] LABS: Glucose - Point of Care 118 mg/dl (70-99)
[2024-02-09] MEDS: FLUSH (NSS) 2 FLUSH IV (18:19)
[2024-02-09] MEDS: ULTRAM 50 MG PO (20:34)
[2024-02-09 22:02] LABS: Glucose - Point of Care 152 mg/dl (70-99)
[2024-02-10] VITALS (33 sets, daily range): BP systolic 86–131; BP diastolic 45–80; BMI 19.2
[2024-02-10] MEDS: ANCEF 10 IV ×3 (02:26→18:15)
[2024-02-10 03:17] LABS: Glucose - Point of Care 161 mg/dl (70-99)
[2024-02-10] MEDS: FIRVANQ 125 MG PO ×2 (08:49→20:15)
[2024-02-10] MEDS: LIDOCAINE 4% PATCH 1 PATCH TOPICAL (08:49)
[2024-02-10] MEDS: NOVOLOG FLEXPEN-LOW RESISTANCE SC ×3 (08:49→23:01)
[2024-02-10] MEDS: PEPCID 20 MG PO (08:50)
[2024-02-10] MEDS: NEURONTIN 200 MG PO ×2 (08:50→20:15)
[2024-02-10] MEDS: ProAmatine 10 MG PO ×3 (08:50→18:38)
[2024-02-10 08:57] LABS: Glucose - Point of Care 90 mg/dl (70-99)
--- NOTE | 2024-02-10 09:02 | W.PN.HOSP.TC ---
Today's Communication/Plan
-
Continue antibiotics
Hospice team to meet patient
Assessment / Plan
Assessment / Plan
Physical Exam
General: Comfortable
Respiratory: CTAB
Cardiac: Regular Rhythm and S1/S2
GI: Soft, Nontender, Nondistended and Normal Bowel Sounds
Neuro: AAO x 3
Assessment/Plan
Patient with metastatic pancreatic ca, s/p CBD stent and recent replacement in setting of sepsis/bacteremia presents to ED ostensibly for anemia with Hgb of 6.0, repeat was 7.0 in ED and rust colored heme + stools. Boderline hypotension. Denies
any symptoms and any awareness of melena or hematochezia. Peripherally dehydrated but as ascites and intraabdominal anasarca. Lactic acid elevated.
#Sepsis shock POA -
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 coli and Klebsiella bacteremia recurrent
#Lactic acidosis
#History of C. difficile colitis
#Possible liver abscess
Continue with cefazolin per ID and as well as p.o. vancomycin for C. difficile prophylaxis
Blood cultures with E. coli and Klebsiella. Repeat blood cultures with no growth to date.
S/p ERCP-removal of one of the biliary tree stent and sweeping of the biliary duct and placement of a new stent in the right hepatic duct. Improving LFTs noted.
Status post Levophed. Started on midodrine-increase the dose.
Overall WBC is improved
Appreciate ID
# Microcytic anemia likely worsened in the setting of malignancy
Type and screen.
Continue to trend.
Status post 1 unit of PRBC
Hemoglobin stabilized
# Stage IV pancreatic ca w/hepatic mets
Follows w/Dr Ceron for stent exchange.
CT was done which shows new hepatic lobe lesion. Increased in size.
Consult oncology for prognosis evaluation-unfortunately patient is end-stage pancreatic cancer not a candidate for treatments. Discussions of oncology with the patient noted. Palliative care consulted. Patient has understanding of her end-stage
cancer disease and no treatments. She is amenable to palliative care at the current time but not hospice.
#Hyperglycemia likely secondary to pancreatic malignancy
A1c of 5.5
sliding scale insulin for now
#Hypomagnesemia replete and monitor
Suspected protein calorie malnutrition of chronic illness
Dietary eval
#Thrombocytopenia likely secondary to septic shock
Continue to trend
Fall precaution with thrombocytopenia
HIT antibody negative
DC PPI and Pepcid started.
Slow improvement noted.
Sacral decubitus ulcer-symptomatic with pain. Continue the current wound care with foam dressing. Add pain medication. Consult wound care nurse.
Judicious pain control
DVT PPX - SCD for now the setting of thrombocytopenia, will consider starting Lovenox/Heparin given improvement in platelet numbers
Code Status -DNR
Discussed with PATTERN DATA OPERATOR
Anticipated Discharge: 24 - 48 hours
Subjective/Interval History
-
Date of Service: February 10, 2024
Patient was seen and examined. She denied any symptoms or complaints.
Objective Data
-
Vital Signs:
Vital Signs
Temp Pulse Resp BP Pulse Ox
97.0 F 91 13 102/55 98
02/10/24 03:24 02/10/24 08:50 02/10/24 02:00 02/10/24 08:50 02/10/24 08:58
I&O
02/09/24 02/10/24 02/11/24
06:59 06:59 06:59
Intake Total 79.8 / 83.6 191.4 / 191.4 100 / 100
Output Total 975 / 975
Balance -895.2 / -891.4 191.4 / 191.4 100 / 100
--- NOTE | 2024-02-10 09:54 | W.PN.ID1 ---
Date of Service
Date of Service: February 10, 2024
Today's Communication
continue current treatments
recommended hospice - patient and will discuss further with palliative care team tomorrow
Assessment / Plan
Bacteremia with E. coli and K pneumoniae; history of prior recurrent E. coli bacteremia
Leukocytosis
Lactic acidosis
Transaminitis
Metastatic Pancreatic CA; with progression on most recent CAT scan
Hx Cholangitis with multiple stent removal/replacements
Hx Ovarian cancer treated with surgery and chemotherapy
Iron deficiency anemia gets IV iron transfusions
Depression
Anxiety,
Spinal stenosis
Mechanical fall with right hip fracture August 2022 s/p right hip hemiarthroplasty,
Chronic LBBB,
severe protein Calorie malnutrition
Recommendations:
Continue cefazolin.
Repeat blood cultures to assess clearance - no growth to date
Given recent history of C. difficile continue oral vancomycin prophylaxis with 125 mg PO twice daily, stools improved
Monitor white count and temperature curve.
Continue with supportive measures.
Recommend hospice.
Total time spent today was 74 minutes for this encounter.� Time included reviewing laboratory tests/imaging results, reviewing pertinent medical records, obtaining and reviewing medical history, performing an appropriate exam, ordering medications,
tests and procedures. �The majority of the time was due to extended discussion first with patient and then patient and about expected course and likelihood of current infections/hospitalizations until patients . Time also included
coordinating patient care and communicating with other health career technical education teacher.� I have recommended hospice and they would like more information about making the transition. I have recommended that she liberalize her diet and enjoy the time she
has.
����������������������������������������������������������
Chief Complaint
-: Leukocytosis, Clinical Sepsis and Bacteremia
Subjective / Review of Systems
afebrile
weaned off of IV pressors yesterday am, on midodrine
back pain - lidocaine patch
single moderate loose stool bm reported by RN
Vital Signs / Physical Exam
Vital Signs
Vital Signs
Temp Pulse Resp BP Pulse Ox
98.6 F 91 20 97/62 96
02/10/24 08:55 02/10/24 09:00 02/10/24 09:00 02/10/24 09:00 02/10/24 09:00
Physical Exam
Constitutional: No Acute Distress
Cardiovascular: Regular Rate and S1/S2; Negative Murmur or Rub
Pulmonary: Clear and Symmetric; Negative Wheezes or Rales
Gastrointestinal: Soft, Non Tender, Non Distended and Normal Bowel Sounds
Skin: Warm and Dry; Negative Rash or Jaundice
Objective Data
Lab Data
Lab Results
02/09/24 05:38
02/09/24 05:38
PT 13.8 Sec (11.4-14.6) 02/07/24 03:45
INR 1.03 02/07/24 03:45
APTT 36.4 Sec (23.4-35.0) H 02/04/24 18:34
Estimated Creat Clear 46 ml/min 02/09/24 05:38
Lactic Acid 1.3 mmol/L (0.7-2.0) 02/06/24 04:55
Total Bilirubin 0.8 mg/dl (0.2-1.3) 02/09/24 05:38
AST 30 U/L (14-36) 02/09/24 05:38
ALT 25 U/L (0-35) 02/09/24 05:38
Alkaline Phosphatase 490 U/L (38-126) H 02/09/24 05:38
Most recent labs reviewed. plt improved
alk phos further increased, t bili normal
Micro Results:
02/08/24 16:25 Blood Culture - Preliminary
Blood/Venous No Growth in 24 hours- Final report to follow
02/08/24 14:23 Blood Culture - Preliminary
Blood/Venous No Growth in 24 hours- Final report to follow
02/06/24 16:58 Blood Culture - Preliminary
Blood/Venous Klebsiella pneumoniae
Gram Stain - Preliminary
02/06/24 12:20 Blood Culture - Preliminary
Blood/Venous Klebsiella pneumoniae
Gram Stain - Preliminary
02/04/24 21:21 Blood Culture - Final
Blood/Venous Klebsiella pneumoniae
Escherichia coli
Gram Stain - Final
02/04/24 21:01 Blood Culture - Final
Blood/Venous Klebsiella pneumoniae
Escherichia coli
Gram Stain - Final
02/05/24 10:49 MRSA Screen - Final
Nose No Methicillin Resistant Staphylococcus aureus isolated.
Blood Culture Final 02/07/24-0837
Positive for Escherichia coli and Klebsiella pneumoniae
by [employer] Acid Methodology.
Organism 1 Klebsiella pneumoniae
Organism 2 Escherichia coli
K.PNEUMO E.COLI
M.I.C. RX M.I.C. RX
--------- --- --------- ---
Amoxicillin/Potas. Clavulanate <=8/4 S <=8/4 S
Ampicillin >16 R <=8 S
Ampicillin/Sulbactam 8/4 S <=4/2 S
Aztreonam <=4 S <=4 S
Cefazolin <=2 S <=2 S
Ertapenem <=0.5 S <=0.5 S
Ciprofloxacin <=0.25 S <=0.25 S
Gentamicin <=2 S <=2 S
Meropenem <=1 S <=1 S
Piperacillin/Tazobactam <=8 S <=8 S
Tetracycline <=4 S <=4 S
Tobramycin <=2 S <=2 S
Trimethoprim/Sulfamethoxazole <=2/38 S <=2/38 S
Imaging:
02/04/2024 CT abdomen/pelvis with contrast. Worsening hepatic metastasis are noted. Cannot rule out developing abscess in the posterior segment of the right hepatic lobe. Continued clinical and imaging follow-up recommended. Pneumobilia and
common bile duct stent redemonstrated. Ill-defined pancreatic head mass with diffuse main pancreatic ductal dilatation is redemonstrated.
[2024-02-10] MEDS: FLUSH (NSS) 2 FLUSH IV (11:04)
--- NOTE | 2024-02-10 11:51 | CM ---
Addendum entered by Keren Perez 02/10/24 14:15:
boot liner maker stated they will be in to see patient tomorrow. Spoke with patient about plan. She is agreeable to being seen tomorrow. Care team updated via TT. Patient stated, 'I don't think I've done enough'. CM encouraged patient to explain more.
Patient shared, 'I don't feel I was generous enough. Like I should've helped out more at [employer] and things like that'. CM asked patient, what if she thought about the things she had done right. Patient stated, 'I love the Lord. I really do. I
know Dima as my savior. Something inside of me has been wanting to evangelize to others'. Patient stated that she felt fulfillment in this role. She also shared that she has a wonderful gelatin dynamite packing operator and confucianist family. CM encouraged patient to keep
reflecting on these things.
Original Note:
Dr. Alford reached out to CM and other disciplines that are apart of patient's care team via TT. Dr. Alford wanted to confirm if the plan remained for hospice to come see and talk with patient tomorrow. CM reached out to clinical application manager hospice administrator.
She stated she would get back to CM shortly. Awaiting response. Care team made aware via TT.
[2024-02-10] MEDS: NOVOLOG FLEXPEN-LOW RESISTANCE 1 UNITS SC (12:44)
[2024-02-10 12:53] LABS: Glucose - Point of Care 162 mg/dl (70-99)
--- NOTE | 2024-02-10 16:34 | HOSPNOTE ---
Hospice will continue to follow. Brittany Thompson RN transportation modeler will follow up with this patient and her family on 02/11/24 as per Brittany's note.
--- NOTE | 2024-02-10 17:14 | PTCARENOTE ---
Pt alert and oriented x 3. NSR with bilateral +1 lower extremity edema. Pedals weak on palpation. Pt aware of seriousness of diagnosis and she has had multiple conversations today with dr, , CM, and a very good friend that she has helping her
to assist guide her with arrangements and services. Pt is talking openly regarding plan of care to progress to Home Hospice. Pt verbalizes concern for her and managing bills because she has been handling that part of the
household. Pt has mentioned that she no longer wishes to restrict her diet and is reintroducing foods that she has not been eating such as cheese. She wishes to enjoy small treats and time with her Santana
[2024-02-10 17:55] LABS: Glucose - Point of Care 130 mg/dl (70-99)
[2024-02-10] MEDS: ProAmatine PO (18:16)
[2024-02-10] MEDS: ULTRAM 50 MG PO (18:36)
--- NOTE | 2024-02-10 21:01 | PTCARENOTE ---
Pt received at 19:00. Initial assessment as documented. Labs ordered by attending, pt refused lab draw.
[2024-02-10 23:02] LABS: Glucose - Point of Care 104 mg/dl (70-99)
[2024-02-11] VITALS (12 sets, daily range): BP systolic 103–121; BP diastolic 53–72; PULSE 87; O2SAT 98; BMI 19.1
[2024-02-11] MEDS: ANCEF 10 IV ×3 (02:59→17:54)
[2024-02-11] MEDS: ULTRAM 50 MG PO (05:23)
--- NOTE | 2024-02-11 07:30 | PTCARENOTE ---
report received. aaox3. vss. nsr. wound care complete. pt turned and changed. pt working with physical therapy. plan of care updated. case management at bedside w/ family discussing care. Will monitor.
[2024-02-11 08:10] LABS: Glucose - Point of Care 95 mg/dl (70-99)
[2024-02-11] MEDS: LIDOCAINE 4% PATCH 1 PATCH TOPICAL (08:10)
[2024-02-11] MEDS: FIRVANQ 125 MG PO ×2 (08:10→20:27)
[2024-02-11] MEDS: ProAmatine 10 MG PO ×3 (08:12→17:54)
[2024-02-11] MEDS: NEURONTIN 200 MG PO ×2 (08:13→20:27)
[2024-02-11] MEDS: PEPCID 20 MG PO (08:13)
[2024-02-11] MEDS: NOVOLOG FLEXPEN-LOW RESISTANCE SC ×3 (08:29→21:14)
--- NOTE | 2024-02-11 09:28 | W.PN.ID1 ---
Date of Service
Date of Service: February 11, 2024
Today's Communication
When there is a hospice plan of care in place can transition to or keflex 500 mg PO QID and oral vancomycin 125 mg PO BID x3 more weeks, then stop. In the future while on hospice if fevers, chills, RUQ pain etc then would manage those symptoms.
Assessment / Plan
Bacteremia with E. coli and K pneumoniae; history of prior recurrent E. coli bacteremia
Leukocytosis
Lactic acidosis
Transaminitis
Metastatic Pancreatic CA; with progression on most recent CAT scan
Hx Cholangitis with multiple stent removal/replacements
Hx Ovarian cancer treated with surgery and chemotherapy
Iron deficiency anemia gets IV iron transfusions
Depression
Anxiety,
Spinal stenosis
Mechanical fall with right hip fracture August 2022 s/p right hip hemiarthroplasty,
Chronic LBBB,
severe protein Calorie malnutrition
Recommendations:
Continue cefazolin.
Repeat blood cultures to assess clearance - no growth to date
Given recent history of C. difficile continue oral vancomycin prophylaxis with 125 mg PO twice daily, stools improved
Monitor white count and temperature curve.
Continue with supportive measures.
Recommend hospice - plans are being actively made.
When there is a hospice plan of care in place can transition to or keflex 500 mg PO QID and oral vancomycin 125 mg PO BID x3 more weeks, then stop. In the future while on hospice if fevers, chills, RUQ pain etc then would manage those symptoms.
����������������������������������������������������������
Chief Complaint
-: Leukocytosis, Clinical Sepsis and Bacteremia
Subjective / Review of Systems
afebrile
bp stable
no events overnight
Vital Signs / Physical Exam
Vital Signs
Vital Signs
Temp Pulse Resp BP Pulse Ox
98.5 F 76 14 105/53 97
02/11/24 08:00 02/11/24 05:00 02/11/24 05:00 02/11/24 04:00 02/11/24 05:00
Physical Exam
Constitutional: No Acute Distress
Cardiovascular: Regular Rate and S1/S2; Negative Murmur or Rub
Pulmonary: Clear and Symmetric; Negative Wheezes or Rales
Gastrointestinal: Soft, Non Tender, Non Distended and Normal Bowel Sounds
Skin: Warm and Dry; Negative Rash or Jaundice
Objective Data
Lab Data
PT 13.8 Sec (11.4-14.6) 02/07/24 03:45
INR 1.03 02/07/24 03:45
APTT 36.4 Sec (23.4-35.0) H 02/04/24 18:34
Estimated Creat Clear 46 ml/min 02/09/24 05:38
Lactic Acid 1.3 mmol/L (0.7-2.0) 02/06/24 04:55
Total Bilirubin 0.8 mg/dl (0.2-1.3) 02/09/24 05:38
AST 30 U/L (14-36) 02/09/24 05:38
ALT 25 U/L (0-35) 02/09/24 05:38
Alkaline Phosphatase 490 U/L (38-126) H 02/09/24 05:38
Most recent labs reviewed.
Micro Results:
02/08/24 16:25 Blood Culture - Preliminary
Blood/Venous No Growth in 48 hours- Final report to follow
02/08/24 14:23 Blood Culture - Preliminary
Blood/Venous No Growth in 48 hours- Final report to follow
02/06/24 16:58 Blood Culture - Preliminary
Blood/Venous Klebsiella pneumoniae
Gram Stain - Preliminary
02/06/24 12:20 Blood Culture - Preliminary
Blood/Venous Klebsiella pneumoniae
Gram Stain - Preliminary
02/04/24 21:21 Blood Culture - Final
Blood/Venous Klebsiella pneumoniae
Escherichia coli
Gram Stain - Final
11/22/24 21:01 Blood Culture - Final
Blood/Venous Klebsiella pneumoniae
Escherichia coli
Gram Stain - Final
02/05/24 10:49 MRSA Screen - Final
Nose No Methicillin Resistant Staphylococcus aureus isolated.
Imaging:
02/04/2024 CT abdomen/pelvis with contrast. Worsening hepatic metastasis are noted. Cannot rule out developing abscess in the posterior segment of the right hepatic lobe. Continued clinical and imaging follow-up recommended. Pneumobilia and
common bile duct stent redemonstrated. Ill-defined pancreatic head mass with diffuse main pancreatic ductal dilatation is redemonstrated.
[2024-02-11] MEDS: TYLENOL 650 MG PO (10:27)
[2024-02-11 11:41] LABS: Glucose - Point of Care 167 mg/dl (70-99)
[2024-02-11] MEDS: NOVOLOG FLEXPEN-LOW RESISTANCE 1 UNITS SC (12:11)
--- NOTE | 2024-02-11 12:39 | PN.CDI ---
CDI
- -
CDI:
Physician Documentation Request
Admit Date: 02/05/24 00:55
Dear Doctor Timbo,
Clinical Indicators:
Patient admitted with septic shock.
Sodium/Glucose levels:
02/04/24 02/05/24 02/05/24
18:34 05:54 22:09
Sodium 132 L 132 L 133 L
Glucose 384 H 169 H 182 H
02/06/24 02/07/24 02/08/24
04:55 03:46 05:46
Sodium 133 L 131 L 133 L
Glucose 130 H 140 H 148 H
Based on the above, could you clarify in the progress notes, the appropriate diagnosis, if significant, that supports the above abnormalities and additional evaluation, monitoring and/or treatment rendered:
Hyponatremia
Pseudohyponatremia
Abnormal lab values, clinically insignificant
Other
Use of terms such as suspected, likely, concern for, or probable (associated with a specific diagnosis that is being evaluated, monitored, or treated as if it exists) are acceptable and can be coded in the inpatient setting, when documented at the
time of discharge.
Thank you,
Eda Gibbons RN BSN
CDI Specialist
available via tiger text
Please use your independent medical judgment in providing your response.
--- NOTE | 2024-02-11 13:01 | CM ---
Addendum entered by Herberth Spaulding 02/11/24 15:51:
Both pt and her requested Private Duty Nurses (PDN) services. A list of agencies that provides PDN services given to pt's family. A referral made to [facility] PDN, , spoke to GOPAL Garcia and GOPAL Matta from [facility] office
[phone] and a referral faxed to provided fax: [phone].
Original Note:
YOANA following re: discharge planning.
Reviewed pt's chart, has been meeting with pt and her family numerous time today to discuss a detailed discharge plan. Pt's , niece, nephew and 2 other family members at bedside.
In the morning meeting, pt made it very clear she wants to return back home with hospice and 24/7 caregiver services. Pt's stated he will not be able to care for his spouse at home. A list of Fee for services caregiver agencies provided
to pt and her family. Pt stated she has been in contact with [facility] and she will call them to arrange 24/7 vs live - in caregiver services.
CM asked hospice plan administrator to meet with the pt.
Per hospice plan administrator, pt preferred return back home with palliative care and she declined hospice care.
CM met with pt again. pt's expressed to me his frustration and he stated that his spouse will remain here as long as she wants. CM explained to pt and her family that pt usually remains in the hospital when pt requires hospital level of
care. Pt's expressed his frustration again. Other family tried to explain to pt's and his irritability went on and off.
IMM reviewed, placed on chart, pt has a copy. Pt did not sign IMM form stating she is not comfortable doing it.
Pt's niece and nephew expressed to me their apology regarding pt's comments and attitude and they stated that he is very [place]OM[place] SHOSHONE and he is fearful to bring the pt home.
CM offered intermediate level of care that it SNF till pt and her family arranged 24/7caregiover services and pt's stated he wants pt stays here in the hospital. Both pt and her family declined SNF level of care.
Pt's niece and nephew stated they will contact [facility] caregiver agency and if hey will be able to provided care within 2-3 days then pt will return back home with VN, palliative care and 05/10 [facility] caregiver services and if
[facility] will be able to provide care after a week or two then pt and her family will decide SNF.
A referral to Palliative care noted.
Pt referred to [facility]
D/C plan: home with [facility], palliative care, 05/10 [facility] caregiver services and family support.
CM will follow with discharge plan updates as hospitalization progresses
--- NOTE | 2024-02-11 13:35 | W.PN.HOSP.TC ---
Addendum entered and electronically signed by Louis Izquierod MD 02/11/24 15:08:
Hyponatremia
Original Note:
Today's Communication/Plan
-
Continue Ancef and PO Vancomycin
Patient refused hospice
Check labs
Assessment / Plan
Assessment / Plan
Physical Exam
General: Comfortable
Respiratory: CTAB
Cardiac: Regular Rhythm and S1/S2
GI: Soft, Nontender, Nondistended and Normal Bowel Sounds
Neuro: AAO x 3
Assessment/Plan
Patient with metastatic pancreatic ca, s/p CBD stent and recent replacement in setting of sepsis/bacteremia presents to ED ostensibly for anemia with Hgb of 6.0, repeat was 7.0 in ED and rust colored heme + stools. Boderline hypotension. Denies
any symptoms and any awareness of melena or hematochezia. Peripherally dehydrated but as ascites and intraabdominal anasarca. Lactic acid elevated.
#Sepsis shock POA -
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 coli and Klebsiella bacteremia recurrent
#Lactic acidosis
#History of C. difficile colitis
#Possible liver abscess
Continue with cefazolin per ID and as well as p.o. vancomycin for C. difficile prophylaxis
Blood cultures with E. coli and Klebsiella. Repeat blood cultures with no growth to date.
S/p ERCP-removal of one of the biliary tree stent and sweeping of the biliary duct and placement of a new stent in the right hepatic duct. Improving LFTs noted.
Status post Levophed. Started on midodrine -- continue
Overall WBC is improved
Appreciate ID
Patient has refused hospice
# Microcytic anemia likely worsened in the setting of malignancy
Type and screen.
Continue to trend.
Status post 1 unit of PRBC
Hemoglobin stabilized
# Stage IV pancreatic ca w/hepatic mets
Follows w/Dr Ceron for stent exchange.
CT was done which shows new hepatic lobe lesion. Increased in size.
Consult oncology for prognosis evaluation-unfortunately patient is end-stage pancreatic cancer not a candidate for treatments. Discussions of oncology with the patient noted. Palliative care consulted. Patient has understanding of her end-stage
cancer disease and no treatments. She is amenable to palliative care at the current time but not hospice.
#Hyperglycemia likely secondary to pancreatic malignancy
A1c of 5.5
sliding scale insulin for now
#Hypomagnesemia replete and monitor
Suspected protein calorie malnutrition of chronic illness
Dietary eval
#Thrombocytopenia likely secondary to septic shock
Improving
Continue to trend
Fall precaution with thrombocytopenia
HIT antibody negative
DC PPI and Pepcid started.
Slow improvement noted.
Sacral decubitus ulcer-symptomatic with pain. Continue the current wound care with foam dressing. Add pain medication. Consult wound care nurse.
Judicious pain control
DVT PPX - SCD for now the setting of thrombocytopenia, will consider starting Lovenox/Heparin given improvement in platelet numbers
Code Status -DNR
Patient refused hospice but would like to go home with visiting nurses and palliative care. Patient's requested 48 hours notice of discharge in order to coordinate with [facility] for 05/10 aide service. He also requested list of RN
agencies to hire an RN as well.
Anticipated Discharge: > 48 hours
Subjective/Interval History
-
Date of Service: February 11, 2024
Patient was seen and examined. She denied any new symptoms or complaints.
Objective Data
-
Labs:
Laboratory Results
02/11/24
00:26
WBC Cancelled
Hgb Cancelled
Hct Cancelled
Plt Count Cancelled
Sodium Cancelled
Potassium Cancelled
Chloride Cancelled
Carbon Dioxide Cancelled
BUN Cancelled
Creatinine Cancelled
Glucose Cancelled
Calcium Cancelled
Total Bilirubin Cancelled
AST Cancelled
ALT Cancelled
Alkaline Phosphatase Cancelled
Vital Signs:
Vital Signs
Temp Pulse Resp BP Pulse Ox
99.1 F 99 19 112/68 97
02/11/24 12:11 02/11/24 13:00 02/11/24 13:00 02/11/24 12:00 02/11/24 12:00
I&O
02/10/24 02/11/24 02/12/24
06:59 06:59 06:59
Intake Total 191.4 / 191.4 100 / 100 50 / 50
Balance 191.4 / 191.4 100 / 100 50 / 50
--- NOTE | 2024-02-11 13:40 | PTCARENOTE ---
report given 2n rn
--- NOTE | 2024-02-11 13:41 | HOSPNOTE ---
Spoke with patient and family and they have made a decision for palliative care and VN. Case management updated and Attending.
--- NOTE | 2024-02-11 14:11 | VNURNOTE ---
Home Health Liaison spoke with patient's spouse Lion to discuss [facility] nurse/therapy, visits, schedule and homebound status. He is agreeable and understands that visits at home will be 2-3 x per week to assess and teach medical management. He is
aware that [facility] will contact them for start of care in 1-2 days after discharge from .
[facility] referral completed in [facility].
--- NOTE | 2024-02-11 14:12 | W.PN.PAL2 ---
Today's Communication
-
declined hospice
wants VN and palliative care when discharged
pressors off, being downgraded to floors
Assessment / Plan
-
Assessment/Plan:
- patient relations liaison followed up with patient and family today - not interested at this time
- want VN and palliative care on discharge
- seen at bedside this PM with family including present - questions answered about palliative care and VN. requesting 48 hours notice of discharge in order to coordinate with [facility] for 05/10 aide service. Also requesting
list of RN agencies to hire an RN as well. CM aware. Team aware.
- office will contact patient after discharge to coordinate home palliative visit
Objective Data
-
Objective Data:
Vital Signs
Temp Pulse Resp BP Pulse Ox
99.1 F 99 19 112/68 97
02/11/24 12:11 02/11/24 13:00 02/11/24 13:00 02/11/24 12:00 02/11/24 12:00
Laboratory Results
02/11/24 00:26
02/11/24 00:26
PT 13.8 Sec (11.4-14.6) 02/07/24 03:45
INR 1.03 02/07/24 03:45
APTT 36.4 Sec (23.4-35.0) H 02/04/24 18:34
Hemoglobin A1c 5.8 % (4.0-5.6) H 02/05/24 05:54
Total Protein Cancelled 02/11/24 00:26
Albumin Cancelled 02/11/24 00:26
Palliative Performance Scale
Palliative Performance Scale:
PPS Level Ambulation Activity & Evidence of Disease Self Care Intake Conscious Level
100% Full Normal Activity & Work; Full Intake Full
No Evidence of Disease
90% Full Normal Activity & Work; Full Normal Full
Some Evidence of Disease
80% Full Normal Activity with Effort Full Normal or Full
Some Evidence of Disease Reduced
70% Reduced Unable Normal Job/Work Full Normal or Full
Significant Disease Reduced
60% Reduced Unable Hobby/Housework Occasional Normal or Full or Confusion
Significant Disease Assistance Reduced
50% Mainly Sit/Lie Unable to do Any Work Considerable Normal or Full or Confusion
Extensive Disease Assistance Req'd Reduced
40% Mainly in Bed Unable to do Most Activity Mainly Assistance Normal or Full or Drowsy;
Extensive Disease Reduced +/- Confusion
30% Totally Bed Unable to do Any Activity Total Care Normal or Full or Drowsy;
Bound Extensive Disease Reduced +/- Confusion
20% Totally Bed Bound Unable to do Any Activity Total Care Minimal to Full or Drowsy;
Extensive Disease Sips +/- Confusion
10% Totally Bed Bound Unable to do Any Activity Total Care Mouth Care Drowsy or Coma;
Extensive Disease Only +/- Confusion
0%
PPS Score Level:
Physical Exam
-
General: Conversant and Appears Chronically Ill
HEENT: Normocephalic
Respiratory: Clear to Auscultation
Cardiac: Regular Rhythm
Peripheral Vascular: No Edema
GI: Soft
Skin: Warm
Neuro: AO x 3
Psych: Calm
Care Reviewed
Data Reviewed
Radiology procedure: Image Reviewed
Medical Tests: I reviewed
Reviewed with: Patient, Family and Physician
--- NOTE | 2024-02-11 15:15 | PTCARENOTE ---
Patient transferred to from ICU. Report received from Xavier. Richie. Tele monitor in place. Static air overlay on bed.
[2024-02-11 16:18] LABS: ALT (SGPT) 11 U/L (0-35); AST (SGOT) 66 U/L (14-36); Albumin 2.1 g/dl (3.5-5.0); Alkaline Phosphatase 939 U/L (38-126); Blood Urea Nitrogen 20 mg/dl (7-17); Calcium 7.7 mg/dl (8.4-10.2); Carbon Dioxide 26 mmol/L (22-30); Chloride 98 mmol/L (98-107); Estimated Creatinine Clearance 47 ml/min; Glucose 145 mg/dl (70-99); Potassium 4.4 mmol/L (3.5-5.1); Sodium 131 mmol/L (135-145); Total Bilirubin 0.5 mg/dl (0.2-1.3); Total Protein 4.9 g/dl (6.3-8.2); eGFR > 60.00
[2024-02-11 17:54] LABS: Glucose - Point of Care 143 mg/dl (70-99)
[2024-02-11 21:12] LABS: Glucose - Point of Care 140 mg/dl (70-99)
[2024-02-12] MEDS: ANCEF 10 IV ×3 (01:25→18:06)
[2024-02-12 03:08] VITALS: BP 103/61
[2024-02-12 07:28] VITALS: BP 109/54
[2024-02-12 07:34] LABS: Glucose - Point of Care 76 mg/dl (70-99)
--- NOTE | 2024-02-12 08:36 | W.PN.HOSP.TC ---
Today's Communication/Plan
-
Continue antibiotics
Appreciate ID
Patient without any new bothersome symptoms
Added Lovenox for DVT Prophylaxis
Assessment / Plan
Assessment / Plan
Physical Exam
General: Comfortable
Respiratory: CTAB
Cardiac: Regular Rhythm and S1/S2
GI: Soft, Nontender, Nondistended and Normal Bowel Sounds
Neuro: AAO x 3
Assessment/Plan
Patient with metastatic pancreatic ca, s/p CBD stent and recent replacement in setting of sepsis/bacteremia presents to ED ostensibly for anemia with Hgb of 6.0, repeat was 7.0 in ED and rust colored heme + stools. Boderline hypotension. Denies
any symptoms and any awareness of melena or hematochezia. Peripherally dehydrated but as ascites and intraabdominal anasarca. Lactic acid elevated.
#Sepsis shock POA -
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 coli and Klebsiella bacteremia recurrent
#Lactic acidosis
#History of C. difficile colitis
#Possible liver abscess
Continue with cefazolin per ID and as well as p.o. vancomycin for C. difficile prophylaxis
Blood cultures with E. coli and Klebsiella. Repeat blood cultures with no growth to date.
S/p ERCP-removal of one of the biliary tree stent and sweeping of the biliary duct and placement of a new stent in the right hepatic duct. Improving LFTs noted.
Status post Levophed. Started on midodrine -- continue
Overall WBC is improved
Appreciate ID
Patient has refused hospice
# Microcytic (now normocytic) anemia likely worsened in the setting of malignancy
Type and screen.
Continue to trend.
Status post 1 unit of PRBC
Hemoglobin stabilized
# Stage IV pancreatic ca w/hepatic mets
Follows w/Dr Ceron for stent exchange.
CT was done which shows new hepatic lobe lesion. Increased in size.
Consult oncology for prognosis evaluation-unfortunately patient is end-stage pancreatic cancer not a candidate for treatments. Discussions of oncology with the patient noted. Palliative care consulted. Patient has understanding of her end-stage
cancer disease and no treatments. She is amenable to palliative care at the current time but not hospice.
#Hyperglycemia likely secondary to pancreatic malignancy
A1c of 5.5
sliding scale insulin for now
#Hypomagnesemia replete and monitor
Suspected protein calorie malnutrition of chronic illness
Dietary eval
#Thrombocytopenia - RESOLVED - likely secondary to septic shock
Continue to trend
Fall precautions
HIT antibody negative
DC PPI and Pepcid started.
Slow improvement noted.
#Sacral decubitus ulcer-symptomatic with pain. Continue the current wound care with foam dressing. Add pain medication. Consult wound care nurse.
Judicious pain control
DVT Prophylaxis - SCDs. Start Lovenox (thrombocytopenia has improved significantly).
Code Status -DNR
Patient refused hospice but would like to go home with visiting nurses and palliative care. Patient's requested 48 hours notice of discharge in order to coordinate with [facility] for 05/10 aide service. He also requested list of RN
agencies to hire an RN as well.
Anticipated Discharge: > 48 hours
Subjective/Interval History
-
Date of Service: February 12, 2024
Patient was seen and examined. She denied any new symptoms or complaints.
Objective Data
-
Labs:
Laboratory Results
02/11/24 02/12/24
16:55 06:00
WBC Cancelled Pending
Hgb Cancelled Pending
Hct Cancelled Pending
Plt Count Cancelled Pending
Sodium Pending
Potassium Pending
Chloride Pending
Carbon Dioxide Pending
BUN Pending
Creatinine Pending
Glucose Pending
Calcium Pending
Total Bilirubin Pending
AST Pending
ALT Pending
Alkaline Phosphatase Pending
Vital Signs:
Vital Signs
Temp Pulse Resp BP Pulse Ox
98.4 F 81 18 109/54 98
02/12/24 07:28 02/12/24 07:28 02/12/24 07:28 02/12/24 07:28 02/12/24 07:28
I&O
02/11/24 02/12/24 02/13/24
06:59 06:59 06:59
Intake Total 100 / 100 530 / 530
Balance 100 / 100 530 / 530
[2024-02-12] MEDS: NOVOLOG FLEXPEN-LOW RESISTANCE SC ×2 (09:24→17:36)
[2024-02-12] MEDS: PEPCID 20 MG PO (09:25)
[2024-02-12] MEDS: FIRVANQ 125 MG PO ×2 (09:25→21:34)
[2024-02-12] MEDS: NEURONTIN 200 MG PO ×2 (09:25→21:34)
[2024-02-12] MEDS: LIDOCAINE 4% PATCH 1 PATCH TOPICAL (09:25)
[2024-02-12] MEDS: ProAmatine 10 MG PO ×2 (09:26→13:20)
[2024-02-12 10:36] LABS: ALT (SGPT) < 10 U/L (0-35); AST (SGOT) 57 U/L (14-36); Albumin 2.2 g/dl (3.5-5.0); Alkaline Phosphatase 977 U/L (38-126); Blood Urea Nitrogen 18 mg/dl (7-17); Calcium 7.9 mg/dl (8.4-10.2); Carbon Dioxide 22 mmol/L (22-30); Chloride 100 mmol/L (98-107); Estimated Creatinine Clearance 47 ml/min; Glucose 130 mg/dl (70-99); Magnesium 1.9 mg/dl (1.6-2.3); Sodium 130 mmol/L (135-145); Total Bilirubin 0.5 mg/dl (0.2-1.3); Total Protein 5.1 g/dl (6.3-8.2); eGFR > 60.00
[2024-02-12 10:39] LABS: % Basophils 0.2 % (0-2); % Eosinophils 0.5 % (0-6); % Immature Granulocytes 1.5 % (0-0.5); % Lymphocytes 3.6 % (20.5-51.1); % Monocytes 4.3 % (1.7-9.3); % Neutrophils 89.9 % (42.2-75.2); Absolute Eosinophils 0.1 10^3/uL (0-0.7); Absolute Immature Granulocytes 0.3 10^3/uL (0-0.05); Absolute Lymphocytes 0.6 10^3/uL (1.2-3.4); Absolute Monocytes 0.7 10^3/uL (0.1-0.6); Absolute Neutrophils 14.8 10^3/uL (1.4-6.5); Hematocrit 28.2 % (37.0-47.0); Hemoglobin 9.5 g/dL (12.0-16.0); Mean Corp Hgb Conc. 33.7 g/dL (33.0-37.0); Mean Corpuscular Hgb 29.2 pg (27.0-31.0); Mean Corpuscular Volume 86.8 fL (81.0-99.0); Mean Platelet Volume 10.8 fL (7.4-10.4); Nucleated Red Blood Cells % 0 %; Platelet Count 308 10^3/uL (130-400); Red Blood Cell Count 3.25 10^6/uL (4.20-5.40); Red Cell Dist. Width 16.1 % (11.5-14.5); White Blood Cell Count 16.5 10^3/uL (4.8-10.8)
[2024-02-12 11:15] VITALS: BP 127/57
[2024-02-12 11:50] LABS: Glucose - Point of Care 171 mg/dl (70-99)
[2024-02-12] MEDS: NOVOLOG FLEXPEN-LOW RESISTANCE 1 UNITS SC ×2 (13:47→21:33)
[2024-02-12 15:30] VITALS: BP 130/66
--- NOTE | 2024-02-12 16:14 | CHAP ---
Hermes was resting comfortably, no family present - said she was feeling very sleepy today. She welcomed prayer. Emotional and spiritual support provided, along with assurance of our on-going availability.
[2024-02-12 17:37] LABS: Glucose - Point of Care 91 mg/dl (70-99)
[2024-02-12] MEDS: ProAmatine PO (18:07)
[2024-02-12] MEDS: LOVENOX 40 MG SC (18:07)
[2024-02-12 19:31] VITALS: BP 118/74
[2024-02-12 21:10] LABS: Glucose - Point of Care 170 mg/dl (70-99)
[2024-02-12 23:09] VITALS: BP 123/58
[2024-02-13] VITALS (7 sets, daily range): BP systolic 95–123; BP diastolic 52–68; PULSE 130
[2024-02-13] MEDS: ANCEF 10 IV ×3 (03:04→17:41)
[2024-02-13] MEDS: FLUSH (NSS) 2 FLUSH IV ×2 (03:05→11:44)
--- NOTE | 2024-02-13 07:15 | W.PN.HOSP.TC ---
Today's Communication/Plan
-
Continue Ancef and PO Vanc, appreciate ID
Assessment / Plan
Assessment / Plan
Physical Exam
General: Comfortable
Respiratory: CTAB
Cardiac: Regular Rhythm and S1/S2
GI: Soft, Nontender, Nondistended and Normal Bowel Sounds
Neuro: AAO x 3
Assessment/Plan
Patient with metastatic pancreatic ca, s/p CBD stent and recent replacement in setting of sepsis/bacteremia presents to ED ostensibly for anemia with Hgb of 6.0, repeat was 7.0 in ED and rust colored heme + stools. Boderline hypotension. Denies
any symptoms and any awareness of melena or hematochezia. Peripherally dehydrated but as ascites and intraabdominal anasarca. Lactic acid elevated.
#Septic Shock POA
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 coli and Klebsiella bacteremia recurrent
#Lactic acidosis
#History of C. difficile colitis
#Possible liver abscess
-Continue with cefazolin per ID and as well as p.o. vancomycin for C. difficile prophylaxis
-Blood cultures with E. coli and Klebsiella. Repeat blood cultures with no growth to date.
-S/p ERCP-removal of one of the biliary tree stent and sweeping of the biliary duct and placement of a new stent in the right hepatic duct. LFTs overall improved.
-Status post Levophed. Started on midodrine -- continue
-Overall WBC has improved
-Appreciate ID
-Patient has refused hospice
# Microcytic (now normocytic) anemia likely worsened in the setting of malignancy
-Type and screen.
-Continue to trend.
-Status post 1 unit of PRBC
-Hemoglobin stabilized
# Stage IV pancreatic ca w/hepatic mets
-Follows w/Dr Ceron for stent exchange.
-CT was done which shows new hepatic lobe lesion. Increased in size.
-Consulted oncology for prognosis evaluation-unfortunately patient is end-stage pancreatic cancer not a candidate for treatments. Discussions of oncology with the patient noted. Palliative care consulted. Patient has understanding of her
end-stage cancer disease and no treatments. She is amenable to palliative care at the current time but not hospice.
#Hyperglycemia likely secondary to pancreatic malignancy
A1c of 5.5
sliding scale insulin for now
#Hypomagnesemia replete and monitor
Suspected protein calorie malnutrition of chronic illness
Dietary eval
#Thrombocytopenia - RESOLVED - likely secondary to septic shock
Continue to trend
Fall precautions
HIT antibody negative
DC PPI and Pepcid started.
Slow improvement noted.
#Sacral decubitus ulcer-symptomatic with pain. Continue the current wound care with foam dressing. Add pain medication. Consult wound care nurse.
Judicious pain control
DVT Prophylaxis - SCDs. Continue Lovenox (thrombocytopenia has improved significantly).
Code Status -DNR
Patient refused hospice but would like to go home with visiting nurses and palliative care. Patient's requested 48 hours notice of discharge in order to coordinate with [facility] for 05/10 aide service. He also requested list of RN
agencies to hire an RN as well.
Anticipated Discharge: > 48 hours
Subjective/Interval History
-
Date of Service: February 13, 2024
Patient was seen and examined. She reported no new symptoms or complaints.
Objective Data
-
Labs:
Laboratory Results
02/13/24
07:01
WBC Pending
Hgb Pending
Hct Pending
Plt Count Pending
Sodium Pending
Potassium Pending
Chloride Pending
Carbon Dioxide Pending
BUN Pending
Creatinine Pending
Glucose Pending
Calcium Pending
Total Bilirubin Pending
AST Pending
ALT Pending
Alkaline Phosphatase Pending
Vital Signs:
Vital Signs
Temp Pulse Resp BP Pulse Ox
98.7 F 87 20 113/60 97
02/13/24 03:17 02/13/24 03:17 02/13/24 03:17 02/13/24 03:17 02/13/24 03:17
I&O
02/12/24 02/13/24 02/14/24
06:59 06:59 06:59
Intake Total 530 / 530 840 / 840
Balance 530 / 530 840 / 840
[2024-02-13 07:23] LABS: % Basophils 0.3 % (0-2); % Eosinophils 0.9 % (0-6); % Immature Granulocytes 2.2 % (0-0.5); % Lymphocytes 3.7 % (20.5-51.1); % Monocytes 5.7 % (1.7-9.3); % Neutrophils 87.2 % (42.2-75.2); Absolute Basophils 0.1 10^3/uL (0-0.2); Absolute Eosinophils 0.1 10^3/uL (0-0.7); Absolute Immature Granulocytes 0.4 10^3/uL (0-0.05); Absolute Lymphocytes 0.6 10^3/uL (1.2-3.4); Absolute Monocytes 0.9 10^3/uL (0.1-0.6); Absolute Neutrophils 13.6 10^3/uL (1.4-6.5); Hematocrit 27.3 % (37.0-47.0); Hemoglobin 8.9 g/dL (12.0-16.0); Mean Corp Hgb Conc. 32.6 g/dL (33.0-37.0); Mean Corpuscular Hgb 28.6 pg (27.0-31.0); Mean Corpuscular Volume 87.8 fL (81.0-99.0); Mean Platelet Volume 10.4 fL (7.4-10.4); Nucleated Red Blood Cells % 0 %; Platelet Count 358 10^3/uL (130-400); Red Blood Cell Count 3.11 10^6/uL (4.20-5.40); Red Cell Dist. Width 16.5 % (11.5-14.5); White Blood Cell Count 15.6 10^3/uL (4.8-10.8)
[2024-02-13 07:34] LABS: Glucose - Point of Care 90 mg/dl (70-99)
[2024-02-13 07:41] LABS: ALT (SGPT) < 10 U/L (0-35); AST (SGOT) 41 U/L (14-36); Alkaline Phosphatase 785 U/L (38-126); Blood Urea Nitrogen 17 mg/dl (7-17); Calcium 7.8 mg/dl (8.4-10.2); Carbon Dioxide 26 mmol/L (22-30); Chloride 101 mmol/L (98-107); Estimated Creatinine Clearance 47 ml/min; Glucose 89 mg/dl (70-99); Magnesium 1.7 mg/dl (1.6-2.3); Potassium 3.8 mmol/L (3.5-5.1); Sodium 132 mmol/L (135-145); Total Bilirubin 0.5 mg/dl (0.2-1.3); Total Protein 4.9 g/dl (6.3-8.2); eGFR > 60.00
[2024-02-13] MEDS: NOVOLOG FLEXPEN-LOW RESISTANCE SC ×2 (08:39→17:40)
[2024-02-13] MEDS: ProAmatine 10 MG PO ×3 (08:56→17:42)
[2024-02-13] MEDS: FIRVANQ 125 MG PO ×2 (08:57→19:55)
[2024-02-13] MEDS: NEURONTIN 200 MG PO ×2 (08:57→19:55)
[2024-02-13] MEDS: LIDOCAINE 4% PATCH 1 PATCH TOPICAL (08:57)
[2024-02-13] MEDS: PEPCID 20 MG PO (08:57)
[2024-02-13 11:23] LABS: Glucose - Point of Care 191 mg/dl (70-99)
[2024-02-13] MEDS: NOVOLOG FLEXPEN-LOW RESISTANCE 1 UNITS SC (11:43)
[2024-02-13] MEDS: ULTRAM 50 MG PO (13:21)
[2024-02-13 17:24] LABS: Glucose - Point of Care 122 mg/dl (70-99)
[2024-02-13] MEDS: LOVENOX 40 MG SC (17:41)
[2024-02-13 21:45] LABS: Glucose - Point of Care 268 mg/dl (70-99)
[2024-02-13] MEDS: NOVOLOG FLEXPEN-LOW RESISTANCE 3 UNITS SC (21:49)
[2024-02-14] MEDS: ANCEF 10 IV ×3 (01:57→17:26)
[2024-02-14 04:42] VITALS: BP 122/62
[2024-02-14 06:46] LABS: % Basophils 0.3 % (0-2); % Eosinophils 1.4 % (0-6); % Lymphocytes 4.7 % (20.5-51.1); % Monocytes 5.5 % (1.7-9.3); % Neutrophils 87.1 % (42.2-75.2); Absolute Basophils 0.1 10^3/uL (0-0.2); Absolute Eosinophils 0.2 10^3/uL (0-0.7); Absolute Immature Granulocytes 0.2 10^3/uL (0-0.05); Absolute Lymphocytes 0.7 10^3/uL (1.2-3.4); Absolute Monocytes 0.8 10^3/uL (0.1-0.6); Absolute Neutrophils 13.4 10^3/uL (1.4-6.5); Hematocrit 24.9 % (37.0-47.0); Hemoglobin 8.5 g/dL (12.0-16.0); Mean Corp Hgb Conc. 34.1 g/dL (33.0-37.0); Mean Corpuscular Hgb 29.8 pg (27.0-31.0); Mean Corpuscular Volume 87.4 fL (81.0-99.0); Nucleated Red Blood Cells % 0 %; Red Blood Cell Count 2.85 10^6/uL (4.20-5.40); Red Cell Dist. Width 17.2 % (11.5-14.5); White Blood Cell Count 15.4 10^3/uL (4.8-10.8)
[2024-02-14 07:07] LABS: ALT (SGPT) < 10 U/L (0-35); AST (SGOT) 46 U/L (14-36); Albumin 2.1 g/dl (3.5-5.0); Alkaline Phosphatase 725 U/L (38-126); Blood Urea Nitrogen 19 mg/dl (7-17); Calcium 7.6 mg/dl (8.4-10.2); Carbon Dioxide 24 mmol/L (22-30); Chloride 100 mmol/L (98-107); Estimated Creatinine Clearance 47 ml/min; Glucose 101 mg/dl (70-99); Potassium 4.3 mmol/L (3.5-5.1); Sodium 131 mmol/L (135-145); Total Bilirubin 0.5 mg/dl (0.2-1.3); Total Protein 4.9 g/dl (6.3-8.2); eGFR > 60.00
--- NOTE | 2024-02-14 07:08 | W.PN.HOSP.TC ---
Today's Communication/Plan
-
Appreciate ID follow-up
Continue antibiotics
wants 48 hours notice prior to discharge
Assessment / Plan
Assessment / Plan
Physical Exam
General: Comfortable
Respiratory: CTAB
Cardiac: Regular Rhythm and S1/S2
GI: Soft, Nontender, Nondistended and Normal Bowel Sounds
Neuro: AAO x 3
Assessment/Plan
Patient with metastatic pancreatic ca, s/p CBD stent and recent replacement in setting of sepsis/bacteremia presents to ED ostensibly for anemia with Hgb of 6.0, repeat was 7.0 in ED and rust colored heme + stools. Boderline hypotension. Denies
any symptoms and any awareness of melena or hematochezia. Peripherally dehydrated but as ascites and intraabdominal anasarca. Lactic acid elevated.
#Septic Shock POA
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 coli and Klebsiella bacteremia recurrent
#Lactic acidosis
#History of C. difficile colitis
#Possible liver abscess
-Continue with cefazolin per ID and as well as p.o. vancomycin for C. difficile prophylaxis
-Blood cultures with E. coli and Klebsiella. Repeat blood cultures with no growth as the final result.
-S/p ERCP-removal of one of the biliary tree stent and sweeping of the biliary duct and placement of a new stent in the right hepatic duct. LFTs overall improved.
-Status post Levophed. Started on midodrine -- continue
-Overall WBC has improved
-Appreciate ID
-Patient has refused hospice
# Microcytic (now normocytic) anemia likely worsened in the setting of malignancy
-Type and screen.
-Continue to monitor CBC
-Status post 2 units of PRBCs
# Stage IV pancreatic ca w/hepatic mets
-Follows w/Dr Ceron for stent exchange.
-CT was done which shows new hepatic lobe lesion. Increased in size.
-Consulted oncology for prognosis evaluation-unfortunately patient is end-stage pancreatic cancer not a candidate for treatments. Discussions of oncology with the patient noted. Palliative care consulted. Patient has understanding of her
end-stage cancer disease and no treatments. She is amenable to palliative care at the current time but not hospice.
#Bilateral Lower Extremity Edema
-Suspected secondary to low albumin
#Hyperglycemia likely secondary to pancreatic malignancy
A1c of 5.5
sliding scale insulin for now
#Hypomagnesemia replete and monitor
Suspected protein calorie malnutrition of chronic illness
Dietary eval
#Thrombocytopenia - RESOLVED - likely secondary to septic shock
Continue to trend
Fall precautions
HIT antibody negative
DC PPI and Pepcid started.
Slow improvement noted.
#Sacral decubitus ulcer-symptomatic with pain. Continue the current wound care with foam dressing. Add pain medication. Consult wound care nurse.
Judicious pain control
DVT Prophylaxis - SCDs. Continue Lovenox (thrombocytopenia has improved significantly).
Code Status -DNR
Patient refused hospice but would like to go home with visiting nurses and palliative care. Patient's requested 48 hours notice of discharge in order to coordinate with [facility] for 05/10 aide service. He also requested list of RN
agencies to hire an RN as well.
Patient is in need of a hospital bed for positioning of the body in ways not feasible w/an ordinary bed in order to alleviate pain and need for immediate change in position. Patient is in need of a commode due to being unable to ambulate to the
bathroom. Also, patient is in need of wc within the home to to complete their daily activities. patient is unable to self propel and has a caregiver to propel her.
I spoke over the phone with patient's today.
Anticipated Discharge: > 48 hours
Subjective/Interval History
-
Date of Service: February 14, 2024
Patient was seen and examined. She denied any new symptoms or complaints, still with some leg swelling bilaterally.
Objective Data
-
Labs:
Laboratory Results
02/14/24
05:47
WBC 15.4 H
Hgb 8.5 L
Hct 24.9 L
Plt Count Pending
Sodium 131 L
Potassium 4.3
Chloride 100
Carbon Dioxide 24
BUN 19 H
Creatinine 0.4 L
Glucose 101 H
Calcium 7.6 L
Total Bilirubin 0.5
AST 46 H
ALT < 10
Alkaline Phosphatase 725 H
Vital Signs:
Vital Signs
Temp Pulse Resp BP Pulse Ox
98.4 F 87 16 122/62 99
02/14/24 04:42 02/14/24 04:42 02/14/24 04:42 02/14/24 04:42 02/14/24 04:42
I&O
02/13/24 02/14/24 02/15/24
06:59 06:59 06:59
Intake Total 840 / 840 1770 / 1770
Balance 840 / 840 1770 / 1770
[2024-02-14 07:38] LABS: Glucose - Point of Care 106 mg/dl (70-99)
[2024-02-14 08:17] VITALS: BP 101/52
[2024-02-14] MEDS: NOVOLOG FLEXPEN-LOW RESISTANCE SC ×2 (08:56→16:30)
[2024-02-14] MEDS: ProAmatine 10 MG PO ×3 (09:04→17:25)
[2024-02-14] MEDS: FIRVANQ 125 MG PO ×2 (09:04→20:28)
[2024-02-14] MEDS: NEURONTIN 200 MG PO ×2 (09:04→20:28)
[2024-02-14] MEDS: PEPCID 20 MG PO (09:04)
[2024-02-14] MEDS: LIDOCAINE 4% PATCH 1 PATCH TOPICAL (09:04)
[2024-02-14 11:24] LABS: Glucose - Point of Care 212 mg/dl (70-99)
[2024-02-14 11:30] VITALS: BP 122/56
--- NOTE | 2024-02-14 11:55 | W.PN.PAL2 ---
Addendum entered and electronically signed by Bere Sandoval MD 02/14/24 14:48:
called and spoke to for 35 mins from [phone] pm. discussed palliative care services, home services. he is concerned that no one will be checking hermes's vitals multiple times a day at home. explained that caregiving agencies are typically
only there to help with personal care, would not be checking vitals, but visiting homecare nurses can come 2-3 times a week. If he wants more private nursing beyond that he would need to hire a private nurse. gave him a few numbers for that. He
wanted to know if medical decisions are being made based on money - specifically decisions about discharge and antibiotiics. I explained to him that she would not be discharged untill medically stable, and decisions for discharge are made by the
hospitalist, and that decisions to switch from IV to oral antibiotics are also based on medical criteria not on money. I explained palliative care services, our frequency, our hours etc.
Original Note:
Today's Communication
-
Met with Hermes. Total floor time 40 mins
SHe reports she is overall ok, has back pain which limits her mobility. has tramadol ordered prn but not used today - recommend that she use her prn doses and we can titrate based on effect.
Her goal is to return home, does not want rehab.
Not interested in hospice care as would want to be able to seek hospital evaluation. If hospitalized, would not want ICU level of care unless if was for something easily reversible (like abx), if it was more extensive, then would want to be
comfortable. She and her did not agree to hospice because they would not have the option of hospital evaluation.
Agreeable to home palliative care.
is working on caregivers through [facility].
Equipment - only has walker. would need hospital bed, wheelchair, commode. would need pt/vn.
Code status DNR
attempted to call spouse at 12: 13pm and at 12:40 pm. Home number mail box is full, cell phone direct to voice mail. will try again later today.
Assessment / Plan
-
Assessment/Plan:
Code status DNR
Not agreeable to hospice at this time
Agreeable to home palliative care
in home needs include home caregivers, Vn/PT, equipment - commode, hospital bed, wheelchair.
Pain - tramadol is ordered but patien tdid not use today. if tramadol 50 insufficent, consider transition to oxycodone 5-10mg prn continue gabapentin.
Attempted to call spouse x 2 will try again later today.
Reason for Admission
Illness Course/HPI
Initial consult history
88 year old F with PMH of ovarian cancer s/p surgery and chemo years ago, metastatic pancreatic cancer to liver c/b recent cholangitis s/p stent placement, iron deficiency anemia requiring iron infusions, chronic back pain with spinal stenosis and
severe protein calorie malnutrition admitted with anemia on labs at rehab facility. Of note, was recently admitted to for sepsis 2/2 cholangitis from malignant biliary obstruction. Underwent ERCP with stent removal and replacement at [facility]
and transferred back to . At that time, was also treated for C. diff. MRI showing progression of disease at the time in the liver.
Upon admission, was hypotensive requiring initiation of pressors and transfer to ICU. CT with concerns for recurrent cholangitis. Awaiting ERCP today. Oncology spoke with patient and her and discussed poor prognosis, no longer a candidate
for treatment and recommended hospice. Patient initially agreeable but then changed her mind and is possibly interested in palliative care instead.
Seen at bedside this PM with no family present. Reports feeling tired, awaiting her ERCP. Has a good understanding that her cancer is incurable and that she is dying, but doesnt feel she is quite ready for hospice yet. Her goal is to at home
with her dog by her side. Unsure at this time if she would want to try rehab again after this hospitalization or just go home and hire help. She is taking it day by day.
Functional Status
mostly in bed. has walker at bedside. walked a few steps yesterday with PT
Goals of Care Discussion
-
Patient able to participate in discussion at time of visit: Yes
Patient Goals
Patient's goals are largely comfort oriented, she is not on active treatment with oncology. she was previously following with dr. kirby at the [facility] [place] [facility], does not plan to attend further. SHe is mostly homebound now.
Although her focus is mostly on comfort, she refused hospice care as she is not ready to say no to hospitalization (very focused on ability to return to hospital if needed). She has already started some planning with her - knows
where she wants to buried, picked out songs, spoken to her christianity etc. She is focused on making sure everything is in place before discharge. Discussed in home needs, palliative care, pt/vn services, equipment - will need commode, hospital bed,
wheelchair. has a walker in the home.
Pain & Symptom Assessment
Patient Symptoms
Patient Symptoms: Pain (back pain, has tramadol orered, not using. )
Objective Data
-
Objective Data:
Vital Signs
Temp Pulse Resp BP Pulse Ox
98.5 F 94 18 122/56 97
02/14/24 11:30 02/14/24 11:30 02/14/24 11:30 02/14/24 11:30 02/14/24 11:30
Laboratory Results
02/14/24 05:47
02/14/24 05:47
PT 13.8 Sec (11.4-14.6) 02/07/24 03:45
INR 1.03 02/07/24 03:45
APTT 36.4 Sec (23.4-35.0) H 02/04/24 18:34
Hemoglobin A1c 5.8 % (4.0-5.6) H 02/05/24 05:54
Total Protein 4.9 g/dl (6.3-8.2) L 02/14/24 05:47
Albumin 2.1 g/dl (3.5-5.0) L 02/14/24 05:47
Palliative Performance Scale
Palliative Performance Scale:
PPS Level Ambulation Activity & Evidence of Disease Self Care Intake Conscious Level
100% Full Normal Activity & Work; Full Intake Full
No Evidence of Disease
90% Full Normal Activity & Work; Full Normal Full
Some Evidence of Disease
80% Full Normal Activity with Effort Full Normal or Full
Some Evidence of Disease Reduced
70% Reduced Unable Normal Job/Work Full Normal or Full
Significant Disease Reduced
60% Reduced Unable Hobby/Housework Occasional Normal or Full or Confusion
Significant Disease Assistance Reduced
50% Mainly Sit/Lie Unable to do Any Work Considerable Normal or Full or Confusion
Extensive Disease Assistance Req'd Reduced
40% Mainly in Bed Unable to do Most Activity Mainly Assistance Normal or Full or Drowsy;
Extensive Disease Reduced +/- Confusion
30% Totally Bed Unable to do Any Activity Total Care Normal or Full or Drowsy;
Bound Extensive Disease Reduced +/- Confusion
20% Totally Bed Bound Unable to do Any Activity Total Care Minimal to Full or Drowsy;
Extensive Disease Sips +/- Confusion
10% Totally Bed Bound Unable to do Any Activity Total Care Mouth Care Drowsy or Coma;
Extensive Disease Only +/- Confusion
0%
PPS Score Level:
Palliative Performance Score Response
Palliative Performance Score Response: 40%
Physical Exam
-
General: Pain and Cachectic
Neuro: Awake and Alert
Psych: Calm
[2024-02-14] MEDS: NOVOLOG FLEXPEN-LOW RESISTANCE 2 UNITS SC ×2 (12:39→22:00)
--- NOTE | 2024-02-14 13:01 | CM ---
Patient seen at bedside.
Does not want hospice or rehab
Palliative to follow patient at home.
Patient wants to return home with VN - referral in [facility] & accepted
tt liaison regarding equipment - will send notes to [facility]
Patient states they are in process of obtaining [facility] 05/10
Will need hospital bed, commode, wheelchair
Spoke with spouse Santana and updated.
wanted to speak with physician-tt Dr. Izquierdo
PLAN: home with VN, palliative care & will have 05/10 [facility]
[2024-02-14] MEDS: ULTRAM 50 MG PO (13:05)
--- NOTE | 2024-02-14 14:24 | W.PN.ID1 ---
Date of Service
Date of Service: February 14, 2024
Today's Communication
Continue antibiotics. See below�
Assessment / Plan
Bacteremia with E. coli and K pneumoniae; history of prior recurrent E. coli bacteremia
Leukocytosis
Lactic acidosis
Transaminitis
Metastatic Pancreatic CA; with progression on most recent CAT scan
Hx Cholangitis with multiple stent removal/replacements
Hx Ovarian cancer treated with surgery and chemotherapy
Iron deficiency anemia gets IV iron transfusions
Depression
Anxiety,
Spinal stenosis
Mechanical fall with right hip fracture August 2022 s/p right hip hemiarthroplasty,
Chronic LBBB,
severe protein Calorie malnutrition
Recommendations:
Continue cefazolin.
Repeat blood cultures to assess clearance - no growth to date
Given recent history of C. difficile continue oral vancomycin prophylaxis with 125 mg PO twice daily, stools improved
Monitor white count and temperature curve.
Continue with supportive measures.
Patient has refused hospice, but is amenable to palliative care measures.
At discharge, transition cefazolin to oral Keflex 500 mg p.o. 4 times daily x 3 weeks, and then twice daily indefinitely. I have counseled patient that this is an attempt to keep her out of the hospital, but there is no guarantee that suppressive
antibiotics will work, and may lead to resistance. She is amenable to this.
Given history of C. difficile, would continue with oral Vanco 125 mg p.o. twice daily for at least an additional 3 weeks, but may require indefinite therapy.
Patient has been advised that recurrent infection is likely given uncorrectable underlying issues.
����������������������������������������������������������
Chief Complaint
-: Leukocytosis, Clinical Sepsis and Bacteremia
Subjective / Review of Systems
Review of Systems: No Fever and No Chills
Vital Signs / Physical Exam
Vital Signs
Vital Signs
Temp Pulse Resp BP Pulse Ox
98.5 F 94 18 122/56 97
02/14/24 11:30 12/02/24 11:30 02/14/24 11:30 02/14/24 11:30 02/14/24 11:30
Physical Exam
Constitutional: No Acute Distress, Chronically Ill, Non-toxic and Cachetic
Cardiovascular: Regular Rate and S1/S2; Negative Murmur or Rub
Pulmonary: Clear and Symmetric; Negative Wheezes or Rales
Gastrointestinal: Soft, Non Tender, Non Distended and Normal Bowel Sounds
Skin: Warm and Dry; Negative Rash or Jaundice
Neurological: Awake and Alert
Psychological: Calm
Objective Data
Lab Data
Lab Results
02/14/24 05:47
02/14/24 05:47
PT 13.8 Sec (11.4-14.6) 02/07/24 03:45
INR 1.03 02/07/24 03:45
APTT 36.4 Sec (23.4-35.0) H 02/04/24 18:34
Estimated Creat Clear 47 ml/min 02/14/24 05:47
Lactic Acid 1.3 mmol/L (0.7-2.0) 02/06/24 04:55
Total Bilirubin 0.5 mg/dl (0.2-1.3) 02/14/24 05:47
AST 46 U/L (14-36) H 02/14/24 05:47
ALT < 10 U/L (0-35) 02/14/24 05:47
Alkaline Phosphatase 725 U/L (38-126) H 02/14/24 05:47
Most recent labs reviewed.
Micro Results:
02/06/24 16:58 Blood Culture - Final
Blood/Venous Klebsiella pneumoniae
Gram Stain - Final
02/06/24 12:20 Blood Culture - Final
Blood/Venous Klebsiella pneumoniae
Gram Stain - Final
02/08/24 16:25 Blood Culture - Final
Blood/Venous No Growth - Final Report
02/08/24 14:23 Blood Culture - Final
Blood/Venous No Growth - Final Report
02/04/24 21:21 Blood Culture - Final
Blood/Venous Klebsiella pneumoniae
Escherichia coli
Gram Stain - Final
02/04/24 21:01 Blood Culture - Final
Blood/Venous Klebsiella pneumoniae
Escherichia coli
Gram Stain - Final
02/05/24 10:49 MRSA Screen - Final
Nose No Methicillin Resistant Staphylococcus aureus isolated.
Imaging:
02/04/2024 CT abdomen/pelvis with contrast. Worsening hepatic metastasis are noted. Cannot rule out developing abscess in the posterior segment of the right hepatic lobe. Continued clinical and imaging follow-up recommended. Pneumobilia and
common bile duct stent redemonstrated. Ill-defined pancreatic head mass with diffuse main pancreatic ductal dilatation is redemonstrated.
--- NOTE | 2024-02-14 14:35 | WOUNDNOTE ---
WON RN NOTE: Followed up today for evolving DTI on Coccyx. Appears hospital cleaner and more defined, small opening, approximately 0.3cm depth. Patient reports less pain in wound and turning onto sides help. Pressure ulcer prevention measures reviewed with
patient, she states she understands. Recommend continue honey gel dressing. Patient reports she is drinking Boost 3 x per day,trying to eat but food does not taste good per patient. Plan is for her to go home on palliative care, will have hospital
bed. Instructed patient and nurse Ludivian that she can bring a clean air overlay and portable pump upon discharge. Pillow under calves and foam adhesives in use. Patient repositioned onto R semi side lying position.
--- NOTE | 2024-02-14 14:45 | VNURNOTE ---
DME info faxed to [facility].
[2024-02-14 15:20] VITALS: BP 130/73
[2024-02-14 16:19] LABS: Glucose - Point of Care 116 mg/dl (70-99)
[2024-02-14] MEDS: LOVENOX 40 MG SC (17:26)
[2024-02-14 18:50] VITALS: BP 108/60
[2024-02-14 21:50] LABS: Glucose - Point of Care 213 mg/dl (70-99)
[2024-02-14 23:47] VITALS: BP 112/61
[2024-02-15] MEDS: ANCEF 10 IV ×3 (02:20→17:33)
[2024-02-15 03:14] VITALS: BP 113/56
[2024-02-15 07:31] LABS: Glucose - Point of Care 103 mg/dl (70-99)
[2024-02-15 07:40] VITALS: BP 92/54
[2024-02-15] MEDS: NOVOLOG FLEXPEN-LOW RESISTANCE SC ×3 (07:45→21:25)
[2024-02-15 08:40] LABS: ALT (SGPT) < 10 U/L (0-35); AST (SGOT) 55 U/L (14-36); Alkaline Phosphatase 806 U/L (38-126); Blood Urea Nitrogen 21 mg/dl (7-17); Calcium 7.6 mg/dl (8.4-10.2); Carbon Dioxide 25 mmol/L (22-30); Chloride 99 mmol/L (98-107); Estimated Creatinine Clearance 47 ml/min; Glucose 84 mg/dl (70-99); Potassium 4.1 mmol/L (3.5-5.1); Sodium 130 mmol/L (135-145); Total Bilirubin 0.4 mg/dl (0.2-1.3); Total Protein 4.7 g/dl (6.3-8.2); eGFR > 60.00
[2024-02-15 08:52] LABS: % Basophils 0.3 % (0-2); % Eosinophils 1.1 % (0-6); % Immature Granulocytes 1.1 % (0-0.5); % Monocytes 6.2 % (1.7-9.3); % Neutrophils 86.3 % (42.2-75.2); Absolute Eosinophils 0.2 10^3/uL (0-0.7); Absolute Immature Granulocytes 0.2 10^3/uL (0-0.05); Absolute Lymphocytes 0.8 10^3/uL (1.2-3.4); Absolute Neutrophils 13.3 10^3/uL (1.4-6.5); Mean Corpuscular Hgb 28.9 pg (27.0-31.0); Mean Corpuscular Volume 90.3 fL (81.0-99.0); Mean Platelet Volume 10.3 fL (7.4-10.4); Nucleated Red Blood Cells % 0 %; Platelet Count 412 10^3/uL (130-400); Red Blood Cell Count 2.77 10^6/uL (4.20-5.40); Red Cell Dist. Width 17.5 % (11.5-14.5); White Blood Cell Count 15.4 10^3/uL (4.8-10.8)
--- NOTE | 2024-02-15 09:11 | VNURNOTE ---
Rec'ed info from Carol at [facility] that they are unable to supply DME due to previous equip rentals through [employer]. This author spoke to Sammy at [facility]. He stated hospital bed will be available within 3-5 days for
delivery. DME info faxed to [employer]. CM Teodora updated.
[2024-02-15] MEDS: FIRVANQ 125 MG PO ×2 (09:48→21:02)
[2024-02-15] MEDS: PEPCID 20 MG PO (09:49)
[2024-02-15] MEDS: LIDOCAINE 4% PATCH 1 PATCH TOPICAL (09:49)
[2024-02-15] MEDS: ULTRAM 50 MG PO ×2 (09:49→21:28)
[2024-02-15] MEDS: NEURONTIN 200 MG PO ×2 (09:49→21:02)
[2024-02-15] MEDS: ProAmatine 10 MG PO ×3 (09:49→17:33)
[2024-02-15 11:10] VITALS: BP 107/63
--- NOTE | 2024-02-15 11:28 | W.PN.HOSP.TC ---
Today's Communication/Plan
-
Discharge planning to SNF
Appreciate oncology discussing patient's cancer with patient
Assessment / Plan
Assessment / Plan
Physical Exam
General: Comfortable
Respiratory: CTAB
Cardiac: Regular Rhythm and S1/S2
GI: Soft, Nontender, Nondistended and Normal Bowel Sounds
Neuro: AAO x 3
Assessment/Plan
Patient with metastatic pancreatic ca, s/p CBD stent and recent replacement in setting of sepsis/bacteremia presents to ED ostensibly for anemia with Hgb of 6.0, repeat was 7.0 in ED and rust colored heme + stools. Boderline hypotension. Denies
any symptoms and any awareness of melena or hematochezia. Peripherally dehydrated but as ascites and intraabdominal anasarca. Lactic acid elevated.
#Septic Shock POA
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 coli and Klebsiella bacteremia recurrent
#Lactic acidosis
#History of C. difficile colitis
#Possible liver abscess
-Continue with cefazolin per ID and as well as p.o. vancomycin for C. difficile prophylaxis
-At discharge, transition cefazolin to oral Keflex 500 mg p.o. 4 times daily x 3 weeks, and then twice daily indefinitely, and given history of C. difficile, would continue with oral Vanco 125 mg p.o. twice daily for at least an additional 3 weeks,
but may require indefinite therapy.
-Blood cultures with E. coli and Klebsiella. Repeat blood cultures with no growth as the final result.
-S/p ERCP-removal of one of the biliary tree stent and sweeping of the biliary duct and placement of a new stent in the right hepatic duct. LFTs overall improved.
-Status post Levophed. Started on midodrine -- continue
-Overall WBC has improved
-Appreciate ID
-Patient has refused hospice
#Microcytic (now normocytic) anemia likely worsened in the setting of malignancy
-Type and screen.
-Continue to monitor CBC
-Status post 2 units of PRBCs
# Stage IV pancreatic ca w/hepatic mets
-Follows w/Dr Ceron for stent exchange.
-CT was done which shows new hepatic lobe lesion. Increased in size.
-Consulted oncology for prognosis evaluation-unfortunately patient is end-stage pancreatic cancer not a candidate for treatments. Discussions of oncology with the patient noted. Palliative care consulted. Patient has understanding of her
end-stage cancer disease and no treatments. She is amenable to palliative care at the current time but not hospice.
-Re-consulted oncology as patient wants to speak with them as of 02/15/24
#Bilateral Lower Extremity Edema
-Suspected secondary to low albumin
#Hyperglycemia likely secondary to pancreatic malignancy
A1c of 5.5
sliding scale insulin for now
#Hypomagnesemia replete and monitor
Suspected protein calorie malnutrition of chronic illness
Dietary eval
#Thrombocytopenia - RESOLVED - likely secondary to septic shock
Continue to trend
Fall precautions
HIT antibody negative
DC PPI and Pepcid started.
Slow improvement noted.
#Sacral decubitus ulcer-symptomatic with pain. Continue the current wound care with foam dressing. Add pain medication. Consult wound care nurse.
Judicious pain control
DVT Prophylaxis - SCDs. Continue Lovenox (thrombocytopenia has improved significantly).
Code Status -DNR
Patient refused hospice but would like to go home with visiting nurses and palliative care. Patient's requested 48 hours notice of discharge in order to coordinate with [facility]ta Whitaker for 05/10 aide service. He also requested list of RN
agencies to hire an RN as well.
Patient is in need of a hospital bed for frequent repositioning of the body in ways not feasible w/an ordinary bed in order to alleviate pain due to: pressure injury of deep tissue of sacral region, severe protein -calorie malnutrition, L bundle
branch block, and pancreatic CA and d/t need for immediate change in position. Patient is in need of a commode due to being unable to ambulate to the bathroom. The patient is confined to one level of the home (no toilet on the level) and is
physically unable to use a regular toilet. The patient will use a commode to provide reasonable access to toileting in the home. Also, patient is in need of wheelchair within the home to to complete their daily activities. patient is unable to self
propel and has a caregiver to propel her.
Anticipated Discharge: 24 - 48 hours
Subjective/Interval History
-
Date of Service: February 15, 2024
Patient was seen and examined. She reported no new symptoms or complaints.
Objective Data
-
Labs:
Laboratory Results
02/15/24
06:13
WBC 15.4 H
Hgb 8.0 L
Hct 25.0 L
Plt Count 412 H
Sodium 130 L
Potassium 4.1
Chloride 99
Carbon Dioxide 25
BUN 21 H
Creatinine 0.5 L
Glucose 84
Calcium 7.6 L
Total Bilirubin 0.4
AST 55 H
ALT < 10
Alkaline Phosphatase 806 H
Vital Signs:
Vital Signs
Temp Pulse Resp BP Pulse Ox
98.4 F 86 16 92/54 96
02/15/24 07:40 02/15/24 07:40 02/15/24 07:40 02/15/24 07:40 02/15/24 07:40
I&O
02/14/24 02/15/24 02/16/24
06:59 06:59 06:59
Intake Total 1770 / 1770 480 / 480
Balance 1770 / 1770 480 / 480
[2024-02-15 12:32] LABS: Glucose - Point of Care 210 mg/dl (70-99)
[2024-02-15] MEDS: NOVOLOG FLEXPEN-LOW RESISTANCE 2 UNITS SC (13:46)
--- NOTE | 2024-02-15 13:58 | W.PN.ONC2 ---
Today's Communication / Plan
-
Outpatient follow up will be arranged upon discharge
Impression
Impression
Pancreatic cancer, on best supportive care x 1 year, now with disease progression in liver
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
Anemia, suspect due to chronic disease state as well as occult blood loss
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 coli and Klebsiella bacteremia recurrent
Plan
Plan
Patient with end-stage disease.
Dr. Franco had an extensive discussion with her and her regarding end-stage cancer with associated complications can including but not limited to infection, clotting event, bleeding event, or toxic metabolic encephalopathy. She is
a poor candidate for chemotherapy with her recent infections.
Patient wanted best supportive care with addition of palliative care services.
Hospice is certainly appropriate, however, pt would like to continue best supportive care with palliative care at home
Subjective/Objective
Subjective
no new complaints
Vital Signs:
Vital Signs
Temp Pulse Resp BP Pulse Ox
98.4 F 102 17 107/63 97
02/15/24 11:10 02/15/24 11:10 02/15/24 11:10 02/15/24 11:10 02/15/24 11:10
Lab Results:
Laboratory Data
WBC 15.4 10^3/uL (4.8-10.8) H 02/15/24 06:13
Hgb 8.0 g/dL (12.0-16.0) L 02/15/24 06:13
Plt Count 412 10^3/uL (130-400) H 02/15/24 06:13
PT 13.8 Sec (11.4-14.6) 02/07/24 03:45
INR 1.03 02/07/24 03:45
APTT 36.4 Sec (23.4-35.0) H 02/04/24 18:34
eGFR > 60.00 02/15/24 06:13
[2024-02-15 15:25] VITALS: BP 114/66
--- NOTE | 2024-02-15 16:02 | CM ---
Reviewed the chart notes and spoke with the patient at the bedside. Provided the patient with a list of SNFs in the area. Patient confused on SNF/rehab vs home health aides. Patient concerned about medical care vs rehab. Patient now does not
want SNF placement. Wants home with / caregivers that her will be arranging. Per patient, she will need to speak with her spouse regarding the caregiver situation. CM continues to be available to patient/family and is monitoring
medical plan for needs at discharge.
Plan: Discharge to home with caregivers vs SNF/rehab.
[2024-02-15 17:14] LABS: Glucose - Point of Care 99 mg/dl (70-99)
[2024-02-15] MEDS: LOVENOX 40 MG SC (17:33)
[2024-02-15 19:00] VITALS: BP 142/74
--- NOTE | 2024-02-15 20:50 | W.PN.ID1 ---
Date of Service
Date of Service: February 15, 2024
Today's Communication
Continue abx.
Assessment / Plan
Bacteremia with E. coli and K pneumoniae; history of prior recurrent E. coli bacteremia
Leukocytosis
Lactic acidosis
Transaminitis
Metastatic Pancreatic CA; with progression on most recent CAT scan
Hx Cholangitis with multiple stent removal/replacements
Hx Ovarian cancer treated with surgery and chemotherapy
Iron deficiency anemia gets IV iron transfusions
Depression
Anxiety,
Spinal stenosis
Mechanical fall with right hip fracture August 2022 s/p right hip hemiarthroplasty,
Chronic LBBB,
severe protein Calorie malnutrition
Recommendations:
Continue cefazolin (d#12 abx) to complete 14 days therapy. Thereafter, transition cefazolin to oral Keflex 500 mg p.o. 4 times daily x 3 weeks, and then twice daily indefinitely. I have counseled patient that this is an attempt to keep her out of
the hospital, but there is no guarantee that suppressive antibiotics will work, and may lead to resistance. She is amenable to this.
Continue with supportive measures.
Patient has refused hospice, but is amenable to palliative care measures.
Given history of C. difficile, would continue with oral Vanco 125 mg p.o. twice daily for at least an additional 3 weeks, but may require indefinite therapy.
Patient has been advised that recurrent infection is likely given uncorrectable underlying issues.
����������������������������������������������������������
Chief Complaint
-: Leukocytosis, Clinical Sepsis and Bacteremia
Subjective / Review of Systems
Late entry. Patient seen at 5pm. Feels well. No specific complaints.
Review of Systems: No Fever
Vital Signs / Physical Exam
Vital Signs
Vital Signs
Temp Pulse Resp BP Pulse Ox
98.2 F 93 18 142/74 97
02/15/24 19:00 02/15/24 19:00 02/15/24 19:00 02/15/24 19:00 02/15/24 19:00
Physical Exam
Constitutional: No Acute Distress, Chronically Ill, Non-toxic and Cachetic
Cardiovascular: Regular Rate and S1/S2
Pulmonary: Clear, Symmetric and Non Labored
Gastrointestinal: Soft, Non Tender, Non Distended and Normal Bowel Sounds
Skin: Warm and Dry; Negative Rash or Jaundice
Neurological: Awake and Alert
Psychological: Calm
Objective Data
Lab Data
Lab Results
02/15/24 06:13
02/15/24 06:13
PT 13.8 Sec (11.4-14.6) 02/07/24 03:45
INR 1.03 02/07/24 03:45
APTT 36.4 Sec (23.4-35.0) H 02/04/24 18:34
Estimated Creat Clear 47 ml/min 02/15/24 06:13
Lactic Acid 1.3 mmol/L (0.7-2.0) 02/06/24 04:55
Total Bilirubin 0.4 mg/dl (0.2-1.3) 02/15/24 06:13
AST 55 U/L (14-36) H 02/15/24 06:13
ALT < 10 U/L (0-35) 02/15/24 06:13
Alkaline Phosphatase 806 U/L (38-126) H 02/15/24 06:13
Most recent labs reviewed.
Micro Results:
02/06/24 16:58 Blood Culture - Final
Blood/Venous Klebsiella pneumoniae
Gram Stain - Final
02/06/24 12:20 Blood Culture - Final
Blood/Venous Klebsiella pneumoniae
Gram Stain - Final
02/08/24 16:25 Blood Culture - Final
Blood/Venous No Growth - Final Report
02/08/24 14:23 Blood Culture - Final
Blood/Venous No Growth - Final Report
02/04/24 21:21 Blood Culture - Final
Blood/Venous Klebsiella pneumoniae
Escherichia coli
Gram Stain - Final
02/04/24 21:01 Blood Culture - Final
Blood/Venous Klebsiella pneumoniae
Escherichia coli
Gram Stain - Final
02/05/24 10:49 MRSA Screen - Final
Nose No Methicillin Resistant Staphylococcus aureus isolated.
Imaging:
02/04/2024 CT abdomen/pelvis with contrast. Worsening hepatic metastasis are noted. Cannot rule out developing abscess in the posterior segment of the right hepatic lobe. Continued clinical and imaging follow-up recommended. Pneumobilia and
common bile duct stent redemonstrated. Ill-defined pancreatic head mass with diffuse main pancreatic ductal dilatation is redemonstrated.
[2024-02-15 21:20] LABS: Glucose - Point of Care 130 mg/dl (70-99)
[2024-02-15 23:00] VITALS: BP 113/60
[2024-02-16] VITALS (8 sets, daily range): BP systolic 94–137; BP diastolic 56–88; PULSE 90; O2SAT 98
[2024-02-16] MEDS: ANCEF 10 IV ×3 (01:24→17:48)
[2024-02-16 07:16] LABS: % Basophils 0.4 % (0-2); % Eosinophils 1.4 % (0-6); % Immature Granulocytes 0.9 % (0-0.5); % Lymphocytes 8.2 % (20.5-51.1); % Monocytes 6.2 % (1.7-9.3); % Neutrophils 82.9 % (42.2-75.2); Absolute Basophils 0.1 10^3/uL (0-0.2); Absolute Eosinophils 0.2 10^3/uL (0-0.7); Absolute Immature Granulocytes 0.1 10^3/uL (0-0.05); Absolute Lymphocytes 1.1 10^3/uL (1.2-3.4); Absolute Monocytes 0.8 10^3/uL (0.1-0.6); Absolute Neutrophils 10.8 10^3/uL (1.4-6.5); Hematocrit 26.1 % (37.0-47.0); Hemoglobin 8.4 g/dL (12.0-16.0); Mean Corp Hgb Conc. 32.2 g/dL (33.0-37.0); Mean Corpuscular Hgb 29.1 pg (27.0-31.0); Mean Corpuscular Volume 90.3 fL (81.0-99.0); Mean Platelet Volume 10.2 fL (7.4-10.4); Nucleated Red Blood Cells % 0 %; Platelet Count 421 10^3/uL (130-400); Red Blood Cell Count 2.89 10^6/uL (4.20-5.40); Red Cell Dist. Width 17.6 % (11.5-14.5)
[2024-02-16 07:38] LABS: ALT (SGPT) < 10 U/L (0-35); AST (SGOT) 58 U/L (14-36); Alkaline Phosphatase 862 U/L (38-126); Blood Urea Nitrogen 22 mg/dl (7-17); Calcium 7.9 mg/dl (8.4-10.2); Carbon Dioxide 28 mmol/L (22-30); Chloride 99 mmol/L (98-107); Estimated Creatinine Clearance 47 ml/min; Glucose 74 mg/dl (70-99); Potassium 4.2 mmol/L (3.5-5.1); Sodium 132 mmol/L (135-145); Total Bilirubin 0.4 mg/dl (0.2-1.3); Total Protein 4.8 g/dl (6.3-8.2); eGFR > 60.00
[2024-02-16 09:01] LABS: Glucose - Point of Care 80 mg/dl (70-99)
[2024-02-16] MEDS: NOVOLOG FLEXPEN-LOW RESISTANCE SC ×3 (09:11→21:28)
[2024-02-16] MEDS: NEURONTIN 200 MG PO ×2 (09:40→20:48)
[2024-02-16] MEDS: ProAmatine 10 MG PO ×3 (09:40→17:43)
[2024-02-16] MEDS: PEPCID 20 MG PO (09:40)
[2024-02-16] MEDS: LIDOCAINE 4% PATCH 1 PATCH TOPICAL (09:41)
[2024-02-16] MEDS: FIRVANQ 125 MG PO ×2 (09:45→20:48)
[2024-02-16 12:25] LABS: Glucose - Point of Care 123 mg/dl (70-99)
--- NOTE | 2024-02-16 12:34 | W.PN.ID1 ---
Date of Service
Date of Service: February 16, 2024
Today's Communication
Continue antibiotics.
Assessment / Plan
Bacteremia with E. coli and K pneumoniae; history of prior recurrent E. coli bacteremia
Leukocytosis
Lactic acidosis
Transaminitis
Metastatic Pancreatic CA; with progression on most recent CAT scan
Hx Cholangitis with multiple stent removal/replacements
Hx Ovarian cancer treated with surgery and chemotherapy
Iron deficiency anemia gets IV iron transfusions
Depression
Anxiety,
Spinal stenosis
Mechanical fall with right hip fracture August 2022 s/p right hip hemiarthroplasty,
Chronic LBBB,
severe protein Calorie malnutrition
Recommendations:
Continue cefazolin (d#13 abx) to complete 14 days therapy. Thereafter, transition cefazolin to oral Keflex 500 mg p.o. 4 times daily x 3 weeks, and then twice daily indefinitely. I have counseled patient that this is an attempt to keep her out of
the hospital, but there is no guarantee that suppressive antibiotics will work, and may lead to resistance. She is amenable to this.
Continue with supportive measures.
Patient has refused hospice, but is amenable to palliative care measures.
Given history of C. difficile, would continue with oral Vanco 125 mg p.o. twice daily for at least an additional 3 weeks, but may require indefinite therapy.
Patient has been advised that recurrent infection is likely given uncorrectable underlying issues.
����������������������������������������������������������
Chief Complaint
-: Leukocytosis, Clinical Sepsis and Bacteremia
Subjective / Review of Systems
Review of Systems: No Fever, No Chills and No Abdominal Pain
Vital Signs / Physical Exam
Vital Signs
Vital Signs
Temp Pulse Resp BP Pulse Ox
97.6 F 71 20 111/83 99
02/16/24 12:00 02/16/24 12:00 02/16/24 12:00 02/16/24 12:00 02/16/24 12:00
Physical Exam
Constitutional: No Acute Distress, Chronically Ill, Non-toxic and Cachetic
Pulmonary: Clear and Non Labored
Gastrointestinal: Soft, Non Tender and Non Distended
Skin: Warm and Dry; Negative Rash or Jaundice
Neurological: Awake and Alert
Psychological: Calm
Objective Data
Lab Data
Lab Results
02/16/24 06:26
02/16/24 06:26
PT 13.8 Sec (11.4-14.6) 02/07/24 03:45
INR 1.03 02/07/24 03:45
APTT 36.4 Sec (23.4-35.0) H 02/04/24 18:34
Estimated Creat Clear 47 ml/min 02/16/24 06:26
Lactic Acid 1.3 mmol/L (0.7-2.0) 02/06/24 04:55
Total Bilirubin 0.4 mg/dl (0.2-1.3) 02/16/24 06:26
AST 58 U/L (14-36) H 02/16/24 06:26
ALT < 10 U/L (0-35) 02/16/24 06:26
Alkaline Phosphatase 862 U/L (38-126) H 02/16/24 06:26
Most recent labs reviewed.
Micro Results:
02/06/24 16:58 Blood Culture - Final
Blood/Venous Klebsiella pneumoniae
Gram Stain - Final
02/06/24 12:20 Blood Culture - Final
Blood/Venous Klebsiella pneumoniae
Gram Stain - Final
02/08/24 16:25 Blood Culture - Final
Blood/Venous No Growth - Final Report
02/08/24 14:23 Blood Culture - Final
Blood/Venous No Growth - Final Report
02/04/24 21:21 Blood Culture - Final
Blood/Venous Klebsiella pneumoniae
Escherichia coli
Gram Stain - Final
02/04/24 21:01 Blood Culture - Final
Blood/Venous Klebsiella pneumoniae
Escherichia coli
Gram Stain - Final
02/05/24 10:49 MRSA Screen - Final
Nose No Methicillin Resistant Staphylococcus aureus isolated.
Imaging:
02/04/2024 CT abdomen/pelvis with contrast. Worsening hepatic metastasis are noted. Cannot rule out developing abscess in the posterior segment of the right hepatic lobe. Continued clinical and imaging follow-up recommended. Pneumobilia and
common bile duct stent redemonstrated. Ill-defined pancreatic head mass with diffuse main pancreatic ductal dilatation is redemonstrated.
Care Review
Plan reviewed with: Nurse
--- NOTE | 2024-02-16 13:48 | W.PN.HOSP.TC ---
Today's Communication/Plan
-
Continue antibiotics
Anticipated discharge 02/18/24, after IV antibiotics completed and home VN set up -- discussed with case management
Assessment / Plan
Assessment / Plan
Physical Exam
General: Comfortable
Respiratory: CTAB
Cardiac: Regular Rhythm and S1/S2
GI: Soft, Nontender, Nondistended and Normal Bowel Sounds
Neuro: AAO x 3
Assessment/Plan
Patient with metastatic pancreatic ca, s/p CBD stent and recent replacement in setting of sepsis/bacteremia presents to ED ostensibly for anemia with Hgb of 6.0, repeat was 7.0 in ED and rust colored heme + stools. Boderline hypotension. Denies
any symptoms and any awareness of melena or hematochezia. Peripherally dehydrated but as ascites and intraabdominal anasarca. Lactic acid elevated.
#Septic Shock POA
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 coli and Klebsiella bacteremia recurrent
#Lactic acidosis
#History of C. difficile colitis
#Possible liver abscess
-Continue with Cefazolin per ID and as well as p.o. Vancomycin for C. difficile prophylaxis
-Continue Cefazolin for 1 more day, as per Infectious Disease
-At discharge, transition cefazolin to oral Keflex 500 mg p.o. 4 times daily x 3 weeks, and then twice daily indefinitely. Dr. Rasmussen has counseled patient that this is an attempt to keep her out of the hospital, but there is no
guarantee that suppressive antibiotics will work, and they may lead to resistance, and patient is amenable to this.
-Given history of C. difficile, continue PO Vanco 125 mg p.o. twice daily for at least an additional 3 weeks, but may require indefinite therapy, appreciate ID
-Blood cultures with E. coli and Klebsiella. Repeat blood cultures with no growth as the final result.
-S/p ERCP-removal of one of the biliary tree stent and sweeping of the biliary duct and placement of a new stent in the right hepatic duct. LFTs overall improved.
-Status post Levophed. Started on midodrine -- continue
-Overall WBC has improved
-Appreciate ID
-Patient has refused hospice
#Microcytic (now normocytic) anemia likely worsened in the setting of malignancy
-Type and screen.
-Continue to monitor CBC
-Status post 2 units of PRBCs
#Stage IV pancreatic ca with hepatic mets
-Follows w/Dr Ceron for stent exchange.
-CT was done which shows new hepatic lobe lesion. Increased in size.
-Consulted oncology for prognosis evaluation-unfortunately patient is end-stage pancreatic cancer not a candidate for treatments. Discussions of oncology with the patient noted. Palliative care consulted. Patient has understanding of her
end-stage cancer disease and no treatments. She is amenable to palliative care at the current time but not hospice.
-Re-consulted oncology as patient wants to speak with them as of 02/15/24
#Bilateral Lower Extremity Edema
-Suspected secondary to low albumin
#Hyperglycemia likely secondary to pancreatic malignancy
A1c of 5.5
sliding scale insulin for now
#Hypomagnesemia replete and monitor
Suspected protein calorie malnutrition of chronic illness
Dietary eval
#Thrombocytopenia - RESOLVED - likely secondary to septic shock
Continue to trend
Fall precautions
HIT antibody negative
DC PPI and Pepcid started.
Slow improvement noted.
#Sacral decubitus ulcer-symptomatic with pain. Continue the current wound care with foam dressing. Add pain medication. Consult wound care nurse.
Judicious pain control
DVT Prophylaxis - SCDs. Continue Lovenox (thrombocytopenia has improved significantly).
Code Status -DNR
Patient refused hospice but would like to go home with visiting nurses and palliative care. Patient's requested 48 hours notice of discharge in order to coordinate with [facility] for 05/10 aide service. He also requested list of RN
agencies to hire an RN as well.
Patient is in need of a hospital bed for frequent repositioning of the body in ways not feasible w/an ordinary bed in order to alleviate pain due to: pressure injury of deep tissue of sacral region, severe protein -calorie malnutrition, L bundle
branch block, and pancreatic CA and d/t need for immediate change in position. Patient is in need of a commode due to being unable to ambulate to the bathroom. The patient is confined to one level of the home (no toilet on the level) and is
physically unable to use a regular toilet. The patient will use a commode to provide reasonable access to toileting in the home. Also, patient is in need of wheelchair within the home to to complete their daily activities. patient is unable to self
propel and has a caregiver to propel her.
Anticipated Discharge: 24 - 48 hours
Subjective/Interval History
-
Date of Service: February 16, 2024
Patient was seen and examined. She reported no new symptoms.
Objective Data
-
Labs:
Laboratory Results
02/16/24
06:26
WBC 13.0 H
Hgb 8.4 L
Hct 26.1 L
Plt Count 421 H
Sodium 132 L
Potassium 4.2
Chloride 99
Carbon Dioxide 28
BUN 22 H
Creatinine 0.5 L
Glucose 74
Calcium 7.9 L
Total Bilirubin 0.4
AST 58 H
ALT < 10
Alkaline Phosphatase 862 H
Vital Signs:
Vital Signs
Temp Pulse Resp BP Pulse Ox
97.6 F 71 20 111/83 99
02/16/24 12:00 02/16/24 12:00 02/16/24 12:00 02/16/24 12:00 02/16/24 12:00
I&O
02/15/24 02/16/24 02/17/24
06:59 06:59 06:59
Intake Total 480 / 480 600 / 600
Balance 480 / 480 600 / 600
--- NOTE | 2024-02-16 13:56 | W.PN.PAL2 ---
Today's Communication
-
Palliative Care Follow up
Met with patient, she is feeling comfortable at this time. pain only with movement. not asking for tramadol.
Patient desires to go home and focus on comfort. She shares that her is struggling. She has not told him that she believes she only has months left to live, and knows that he would react poorly. She believes he was not accepting of hospice
because he is afraid. She shares that he is ill at this time (cold sx) and is a bit overwhelmed by planning all the care needs, but is working on hiring caregiviers. WE talked about going to a facility rather than home if that would be easier -
her desire is to be home with her spouse and her dogs. She would consider [facility] as a backup (private room and board, she does not want therapy/rehab) if unable to manage care needs at home, but wants to trial home first. wanting to know if
the 'infection is completely gone' - reviewed ID notes - she will complete a full course of IV abx here in the hospital, but will remain on oral abx as preventative as an outpatient. patient is aware that planning for discharge, hopefully by wednesday
is underway.
provided supportive presence to patient, plan for outpatient palliative care.
Assessment / Plan
-
Assessment/Plan:
Plan for outpatient palliative care follow up when she returns home
equipment, caregivers, dc planning underway
total floor time 40 mins. discused with CM
Goals of Care Discussion
-
Patient able to participate in discussion at time of visit: Yes
Objective Data
-
Objective Data:
Vital Signs
Temp Pulse Resp BP Pulse Ox
97.6 F 71 20 111/83 99
02/16/24 12:00 02/16/24 12:00 02/16/24 12:00 02/16/24 12:00 02/16/24 12:00
Laboratory Results
02/16/24 06:26
02/16/24 06:26
PT 13.8 Sec (11.4-14.6) 02/07/24 03:45
INR 1.03 02/07/24 03:45
APTT 36.4 Sec (23.4-35.0) H 02/04/24 18:34
Hemoglobin A1c 5.8 % (4.0-5.6) H 02/05/24 05:54
Total Protein 4.8 g/dl (6.3-8.2) L 02/16/24 06:26
Albumin 2.0 g/dl (3.5-5.0) L 02/16/24 06:26
Palliative Performance Scale
Palliative Performance Scale:
PPS Level Ambulation Activity & Evidence of Disease Self Care Intake Conscious Level
100% Full Normal Activity & Work; Full Intake Full
No Evidence of Disease
90% Full Normal Activity & Work; Full Normal Full
Some Evidence of Disease
80% Full Normal Activity with Effort Full Normal or Full
Some Evidence of Disease Reduced
70% Reduced Unable Normal Job/Work Full Normal or Full
Significant Disease Reduced
60% Reduced Unable Hobby/Housework Occasional Normal or Full or Confusion
Significant Disease Assistance Reduced
50% Mainly Sit/Lie Unable to do Any Work Considerable Normal or Full or Confusion
Extensive Disease Assistance Req'd Reduced
40% Mainly in Bed Unable to do Most Activity Mainly Assistance Normal or Full or Drowsy;
Extensive Disease Reduced +/- Confusion
30% Totally Bed Unable to do Any Activity Total Care Normal or Full or Drowsy;
Bound Extensive Disease Reduced +/- Confusion
20% Totally Bed Bound Unable to do Any Activity Total Care Minimal to Full or Drowsy;
Extensive Disease Sips +/- Confusion
10% Totally Bed Bound Unable to do Any Activity Total Care Mouth Care Drowsy or Coma;
Extensive Disease Only +/- Confusion
0%
PPS Score Level:
Physical Exam
-
General: No Apparent Distress and Cachectic
Neuro: Awake, Alert and Oriented
Psych: Calm
[2024-02-16] MEDS: ULTRAM 50 MG PO ×2 (14:13→20:55)
--- NOTE | 2024-02-16 16:28 | CM ---
Reviewed the chart notes and spoke with the patient at the bedside. Patient agreeable to a referral being sent to [facility]. Referral sent via [facility]. CM continues to be available to patient/family and is monitoring medical plan for needs at
discharge.
Plan: Discharge to SNF/rehab once medically stable and bed secured. No precert required.
[2024-02-16 16:42] LABS: Glucose - Point of Care 152 mg/dl (70-99)
[2024-02-16] MEDS: LOVENOX 40 MG SC (17:43)
[2024-02-16] MEDS: NOVOLOG FLEXPEN-LOW RESISTANCE 1 UNITS SC (17:47)
[2024-02-16 21:22] LABS: Glucose - Point of Care 87 mg/dl (70-99)
[2024-02-17] MEDS: ANCEF 10 IV ×3 (02:19→18:11)
[2024-02-17 02:27] VITALS: BP 127/65
[2024-02-17 06:35] LABS: % Basophils 0.4 % (0-2); % Eosinophils 1.1 % (0-6); % Immature Granulocytes 0.8 % (0-0.5); % Lymphocytes 5.6 % (20.5-51.1); % Monocytes 8.1 % (1.7-9.3); Absolute Eosinophils 0.1 10^3/uL (0-0.7); Absolute Immature Granulocytes 0.1 10^3/uL (0-0.05); Absolute Lymphocytes 0.6 10^3/uL (1.2-3.4); Absolute Monocytes 0.9 10^3/uL (0.1-0.6); Absolute Neutrophils 8.9 10^3/uL (1.4-6.5); Hemoglobin 7.4 g/dL (12.0-16.0); Mean Corp Hgb Conc. 30.8 g/dL (33.0-37.0); Mean Corpuscular Hgb 28.8 pg (27.0-31.0); Mean Corpuscular Volume 93.4 fL (81.0-99.0); Mean Platelet Volume 9.8 fL (7.4-10.4); Nucleated Red Blood Cells % 0 %; Platelet Count 391 10^3/uL (130-400); Red Blood Cell Count 2.57 10^6/uL (4.20-5.40); Red Cell Dist. Width 17.9 % (11.5-14.5); White Blood Cell Count 10.6 10^3/uL (4.8-10.8)
[2024-02-17 07:00] VITALS: BP 102/51
[2024-02-17 07:05] LABS: ALT (SGPT) < 10 U/L (0-35); AST (SGOT) 49 U/L (14-36); Albumin 1.9 g/dl (3.5-5.0); Alkaline Phosphatase 776 U/L (38-126); Blood Urea Nitrogen 23 mg/dl (7-17); Calcium 7.6 mg/dl (8.4-10.2); Carbon Dioxide 25 mmol/L (22-30); Chloride 100 mmol/L (98-107); Estimated Creatinine Clearance 47 ml/min; Glucose 66 mg/dl (70-99); Magnesium 1.8 mg/dl (1.6-2.3); Sodium 130 mmol/L (135-145); Total Bilirubin 0.3 mg/dl (0.2-1.3); Total Protein 4.5 g/dl (6.3-8.2); eGFR > 60.00
[2024-02-17 07:46] LABS: Glucose - Point of Care 72 mg/dl (70-99)
--- NOTE | 2024-02-17 08:26 | W.PN.ONC2 ---
Today's Communication / Plan
-
discharge planning underway
Impression
Impression
Pancreatic cancer, on best supportive care x 1 year, now with disease progression in liver
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
Anemia, suspect due to chronic disease state as well as occult blood loss
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 coli and Klebsiella bacteremia recurrent
Plan
Plan
Patient with end-stage disease.
Dr. Franco had an extensive discussion with her and her regarding end-stage cancer with associated complications can including but not limited to infection, clotting event, bleeding event, or toxic metabolic encephalopathy. She is
a poor candidate for chemotherapy with her recent infections.
Patient wanted best supportive care with addition of palliative care services.
Hospice is certainly appropriate, however, pt would like to continue best supportive care with palliative care at home
Subjective/Objective
Subjective
no new complaints
Vital Signs:
Vital Signs
Temp Pulse Resp BP Pulse Ox
97.2 F 81 16 102/51 96
02/17/24 07:00 02/17/24 07:00 02/17/24 07:00 02/17/24 07:00 02/17/24 07:00
Lab Results:
Laboratory Data
WBC 10.6 10^3/uL (4.8-10.8) 02/17/24 05:29
Hgb 7.4 g/dL (12.0-16.0) L 02/17/24 05:29
Plt Count 391 10^3/uL (130-400) 02/17/24 05:29
PT 13.8 Sec (11.4-14.6) 02/07/24 03:45
INR 1.03 02/07/24 03:45
APTT 36.4 Sec (23.4-35.0) H 02/04/24 18:34
eGFR > 60.00 02/17/24 05:29
[2024-02-17] MEDS: NOVOLOG FLEXPEN-LOW RESISTANCE SC ×4 (09:48→21:52)
[2024-02-17] MEDS: NEURONTIN 200 MG PO ×2 (09:55→21:40)
[2024-02-17] MEDS: ProAmatine 10 MG PO ×3 (09:55→18:06)
[2024-02-17] MEDS: FIRVANQ 125 MG PO ×2 (09:55→21:40)
[2024-02-17] MEDS: PEPCID 20 MG PO (09:56)
[2024-02-17] MEDS: LIDOCAINE 4% PATCH 1 PATCH TOPICAL (09:56)
[2024-02-17 11:11] VITALS: BP 114/69
[2024-02-17 11:48] LABS: Glucose - Point of Care 92 mg/dl (70-99)
--- NOTE | 2024-02-17 13:26 | W.PN.ID1 ---
Date of Service
Date of Service: February 17, 2024
Today's Communication
Continue antibiotics
Assessment / Plan
Bacteremia with E. coli and K pneumoniae; history of prior recurrent E. coli bacteremia
Leukocytosis
Lactic acidosis
Transaminitis
Metastatic Pancreatic CA; with progression on most recent CAT scan
Hx Cholangitis with multiple stent removal/replacements
Hx Ovarian cancer treated with surgery and chemotherapy
Iron deficiency anemia gets IV iron transfusions
Depression
Anxiety,
Spinal stenosis
Mechanical fall with right hip fracture August 2022 s/p right hip hemiarthroplasty,
Chronic LBBB,
severe protein Calorie malnutrition
Recommendations:
Completing a 14-day course of cefazolin today.
Thereafter, transition cefazolin to oral Keflex 500 mg p.o. 4 times daily x 3 weeks, and then twice daily indefinitely. I have counseled patient that this is an attempt to keep her out of the hospital, but there is no guarantee that suppressive
antibiotics will work, and may lead to resistance. She is amenable to this.
Continue with supportive measures.
Patient has refused hospice, but is amenable to palliative care measures.
Given history of C. difficile, would continue with oral Vanco 125 mg p.o. twice daily for at least an additional 3 weeks, but may require indefinite therapy.
Patient has been advised that recurrent infection is likely given uncorrectable underlying issues.
����������������������������������������������������������
Chief Complaint
-: Leukocytosis, Clinical Sepsis and Bacteremia
Subjective / Review of Systems
Review of Systems: No Fever, No Chills and No Abdominal Pain
Vital Signs / Physical Exam
Vital Signs
Vital Signs
Temp Pulse Resp BP Pulse Ox
98.1 F 67 17 114/69 97
02/17/24 11:11 02/17/24 11:11 02/17/24 11:11 02/17/24 11:11 02/17/24 11:11
Physical Exam
Constitutional: No Acute Distress, Chronically Ill, Non-toxic and Cachetic
Pulmonary: Clear and Non Labored; Negative Wheezes or Rales
Gastrointestinal: Soft, Non Tender and Non Distended
Skin: Warm and Dry; Negative Rash or Jaundice
Neurological: Awake and Alert
Psychological: Calm
Objective Data
Lab Data
Lab Results
02/17/24 05:29
02/17/24 05:29
PT 13.8 Sec (11.4-14.6) 02/07/24 03:45
INR 1.03 02/07/24 03:45
APTT 36.4 Sec (23.4-35.0) H 02/04/24 18:34
Estimated Creat Clear 47 ml/min 02/17/24 05:29
Lactic Acid 1.3 mmol/L (0.7-2.0) 02/06/24 04:55
Total Bilirubin 0.3 mg/dl (0.2-1.3) 02/17/24 05:29
AST 49 U/L (14-36) H 02/17/24 05:29
ALT < 10 U/L (0-35) 02/17/24 05:29
Alkaline Phosphatase 776 U/L (38-126) H 02/17/24 05:29
Most recent labs reviewed.
Micro Results:
02/06/24 16:58 Blood Culture - Final
Blood/Venous Klebsiella pneumoniae
Gram Stain - Final
02/06/24 12:20 Blood Culture - Final
Blood/Venous Klebsiella pneumoniae
Gram Stain - Final
02/08/24 16:25 Blood Culture - Final
Blood/Venous No Growth - Final Report
02/08/24 14:23 Blood Culture - Final
Blood/Venous No Growth - Final Report
02/04/24 21:21 Blood Culture - Final
Blood/Venous Klebsiella pneumoniae
Escherichia coli
Gram Stain - Final
02/04/24 21:01 Blood Culture - Final
Blood/Venous Klebsiella pneumoniae
Escherichia coli
Gram Stain - Final
02/05/24 10:49 MRSA Screen - Final
Nose No Methicillin Resistant Staphylococcus aureus isolated.
Imaging:
02/04/2024 CT abdomen/pelvis with contrast. Worsening hepatic metastasis are noted. Cannot rule out developing abscess in the posterior segment of the right hepatic lobe. Continued clinical and imaging follow-up recommended. Pneumobilia and
common bile duct stent redemonstrated. Ill-defined pancreatic head mass with diffuse main pancreatic ductal dilatation is redemonstrated.
--- NOTE | 2024-02-17 14:58 | W.PN.HOSP.TC ---
Today's Communication/Plan
-
Last day of Ancef
Anticipate discharge tomorrow
Assessment / Plan
Assessment / Plan
Physical Exam
General: Comfortable
Respiratory: CTAB
Cardiac: Regular Rhythm and S1/S2
GI: Soft, Nontender, Nondistended and Normal Bowel Sounds
Neuro: AAO x 3
Assessment/Plan
Patient with metastatic pancreatic ca, s/p CBD stent and recent replacement in setting of sepsis/bacteremia presents to ED ostensibly for anemia with Hgb of 6.0, repeat was 7.0 in ED and rust colored heme + stools. Boderline hypotension. Denies
any symptoms and any awareness of melena or hematochezia. Peripherally dehydrated but as ascites and intraabdominal anasarca. Lactic acid elevated.
#Septic Shock POA
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 coli and Klebsiella bacteremia recurrent
#Lactic acidosis
#History of C. difficile colitis
#Possible liver abscess
-Continue with Cefazolin per ID and as well as p.o. Vancomycin for C. difficile prophylaxis
-Continue Cefazolin through today, as per Infectious Disease
-Starting tomorrow, transition cefazolin to oral Keflex 500 mg p.o. 4 times daily x 3 weeks, and then twice daily indefinitely. Dr. Rasmussen has counseled patient that this is an attempt
to keep her out of the hospital, but there is no guarantee that suppressive antibiotics will work, and they may lead to resistance, and patient is amenable to this.
-Given history of C. difficile, continue PO Vanco 125 mg p.o. twice daily for at least an additional 3 weeks, but may require indefinite therapy, appreciate ID
-Blood cultures with E. coli and Klebsiella. Repeat blood cultures with no growth as the final result.
-S/p ERCP-removal of one of the biliary tree stent and sweeping of the biliary duct and placement of a new stent in the right hepatic duct. LFTs overall improved.
-Status post Levophed. Started on midodrine -- continue
-Overall WBC has improved
-Appreciate ID
-Patient has refused hospice
#Microcytic (now normocytic) anemia likely worsened in the setting of malignancy
-Type and screen.
-Continue to monitor CBC
-Status post 2 units of PRBCs
#Stage IV pancreatic ca with hepatic mets
-Follows w/Dr Ceron for stent exchange.
-CT was done which shows new hepatic lobe lesion. Increased in size.
-Consulted oncology for prognosis evaluation-unfortunately patient is end-stage pancreatic cancer not a candidate for treatments. Discussions of oncology with the patient noted. Palliative care consulted. Patient has understanding of her
end-stage cancer disease and no treatments. She is amenable to palliative care at the current time but not hospice.
#Bilateral Lower Extremity Edema
-Suspected secondary to low albumin
#Hyperglycemia likely secondary to pancreatic malignancy
A1c of 5.5
sliding scale insulin for now
#Hypomagnesemia replete and monitor
Suspected protein calorie malnutrition of chronic illness
Dietary eval
#Thrombocytopenia - RESOLVED - likely secondary to septic shock
Continue to trend
Fall precautions
HIT antibody negative
DC PPI and Pepcid started.
Slow improvement noted.
#Sacral decubitus ulcer-symptomatic with pain. Continue the current wound care with foam dressing. Add pain medication. Consult wound care nurse.
Judicious pain control
DVT Prophylaxis - SCDs. Continue Lovenox (thrombocytopenia has improved significantly).
Code Status -DNR
Patient refused hospice but would like to go home with visiting nurses and palliative care. Patient's requested 48 hours notice of discharge in order to coordinate with [facility] for 05/10 aide service. He also requested list of RN
agencies to hire an RN as well.
Patient is in need of a hospital bed for frequent repositioning of the body in ways not feasible w/an ordinary bed in order to alleviate pain due to: pressure injury of deep tissue of sacral region, severe protein -calorie malnutrition, L bundle
branch block, and pancreatic CA and d/t need for immediate change in position. Patient is in need of a commode due to being unable to ambulate to the bathroom. The patient is confined to one level of the home (no toilet on the level) and is
physically unable to use a regular toilet. The patient will use a commode to provide reasonable access to toileting in the home. Also, patient is in need of wheelchair within the home to to complete their daily activities. patient is unable to self
propel and has a caregiver to propel her.
Anticipated Discharge: Within 24 hours
Subjective/Interval History
-
Date of Service: February 17, 2024
Patient was seen and examined. She reported no new symptoms or complaints.
Objective Data
-
Labs:
Laboratory Results
02/17/24
05:29
WBC 10.6
Hgb 7.4 L
Hct 24.0 L
Plt Count 391
Sodium 130 L
Potassium 4.0
Chloride 100
Carbon Dioxide 25
BUN 23 H
Creatinine 0.5 L
Glucose 66 L
Calcium 7.6 L
Total Bilirubin 0.3
AST 49 H
ALT < 10
Alkaline Phosphatase 776 H
Vital Signs:
Vital Signs
Temp Pulse Resp BP Pulse Ox
98.1 F 94 17 117/67 97
02/17/24 11:11 02/17/24 14:34 02/17/24 11:11 02/17/24 14:34 02/17/24 11:11
I&O
02/16/24 02/17/24 02/18/24
06:59 06:59 06:59
Intake Total 600 / 600 900 / 900
Balance 600 / 600 900 / 900
--- NOTE | 2024-02-17 15:26 | CM ---
Reviewed the chart notes and spoke with the patient at the bedside. [facility] unable to accept, no beds. Additional referrals sent to [facility], [facility], and [facility]. CM continues to be available to patient/family and is monitoring medical
plan for needs at discharge.
Plan: Discharge to SNF/rehab once bed found. No precert required.
[2024-02-17 15:54] VITALS: BP 126/69
[2024-02-17] MEDS: ULTRAM 50 MG PO (16:13)
[2024-02-17 16:46] LABS: Glucose - Point of Care 137 mg/dl (70-99)
[2024-02-17] MEDS: LOVENOX 40 MG SC (18:12)
[2024-02-17 21:38] LABS: Hematocrit 25.6 % (37.0-47.0); Hemoglobin 8.2 g/dL (12.0-16.0); Mean Corpuscular Hgb 28.9 pg (27.0-31.0); Mean Corpuscular Volume 90.1 fL (81.0-99.0); Mean Platelet Volume 9.4 fL (7.4-10.4); Platelet Count 458 10^3/uL (130-400); Red Blood Cell Count 2.84 10^6/uL (4.20-5.40); White Blood Cell Count 12.8 10^3/uL (4.8-10.8)
[2024-02-17 21:46] LABS: Glucose - Point of Care 109 mg/dl (70-99)
[2024-02-17 23:13] VITALS: BP 122/65
[2024-02-18 06:29] LABS: % Basophils 0.2 % (0-2); % Eosinophils 1.2 % (0-6); % Lymphocytes 6.4 % (20.5-51.1); % Monocytes 7.4 % (1.7-9.3); % Neutrophils 83.8 % (42.2-75.2); Absolute Eosinophils 0.2 10^3/uL (0-0.7); Absolute Immature Granulocytes 0.1 10^3/uL (0-0.05); Absolute Lymphocytes 0.8 10^3/uL (1.2-3.4); Absolute Monocytes 0.9 10^3/uL (0.1-0.6); Absolute Neutrophils 10.6 10^3/uL (1.4-6.5); Hematocrit 26.5 % (37.0-47.0); Hemoglobin 8.3 g/dL (12.0-16.0); Mean Corp Hgb Conc. 31.3 g/dL (33.0-37.0); Mean Corpuscular Hgb 29.1 pg (27.0-31.0); Mean Platelet Volume 9.8 fL (7.4-10.4); Nucleated Red Blood Cells % 0 %; Platelet Count 419 10^3/uL (130-400); Red Blood Cell Count 2.85 10^6/uL (4.20-5.40); Red Cell Dist. Width 18.2 % (11.5-14.5); White Blood Cell Count 12.6 10^3/uL (4.8-10.8)
[2024-02-18 06:53] LABS: ALT (SGPT) < 10 U/L (0-35); AST (SGOT) 62 U/L (14-36); Albumin 1.9 g/dl (3.5-5.0); Alkaline Phosphatase 976 U/L (38-126); Blood Urea Nitrogen 21 mg/dl (7-17); Calcium 7.8 mg/dl (8.4-10.2); Carbon Dioxide 28 mmol/L (22-30); Chloride 100 mmol/L (98-107); Estimated Creatinine Clearance 47 ml/min; Glucose 110 mg/dl (70-99); Magnesium 1.9 mg/dl (1.6-2.3); Potassium 4.3 mmol/L (3.5-5.1); Sodium 132 mmol/L (135-145); Total Bilirubin 0.3 mg/dl (0.2-1.3); Total Protein 4.6 g/dl (6.3-8.2); eGFR > 60.00
[2024-02-18 07:23] VITALS: BP 101/59
[2024-02-18 07:36] LABS: Glucose - Point of Care 125 mg/dl (70-99)
[2024-02-18] MEDS: NOVOLOG FLEXPEN-LOW RESISTANCE SC (08:00)
[2024-02-18] MEDS: FIRVANQ 125 MG PO (10:03)
[2024-02-18] MEDS: LIDOCAINE 4% PATCH 1 PATCH TOPICAL (10:03)
[2024-02-18] MEDS: ProAmatine 10 MG PO ×2 (10:04→14:04)
[2024-02-18] MEDS: PEPCID 20 MG PO (10:11)
[2024-02-18] MEDS: KEFLEX 500 MG PO ×2 (10:11→14:00)
[2024-02-18] MEDS: NEURONTIN 200 MG PO (10:13)
--- NOTE | 2024-02-18 10:41 | CM ---
Addendum entered by Tiffany Olivas 02/18/24 13:53:
4pm transport-Tranise updated
REPORT # BELOW - ASK FOR Tati WILSON
Addendum entered by Tiffany Olivas 02/18/24 11:56:
Spoke with Tranise & she will have their SW add referral in for [facility].
Original Note:
IMM explained & signed. In chart - Patient seen at bedside with
hospice refused.
Spoke with Tranise at [facility] - they can accept patient & bed is available today
tt Dr. Izquierdo
tt Dr. Sandoval from Palliative to notify patient going to [facility] - Palliative number ([phone]) given to & nephew.
Will update Tranise to notify palliative upon discharge from SNF as well as a referral to [facility]
states will have visiting angels in place.
PLAN: [facility]
Report: [phone]
Fax #: [phone]
transport forms on chart
--- NOTE | 2024-02-18 11:43 | W.PN.HOSP.TC ---
Today's Communication/Plan
-
Discharge today
Assessment / Plan
Assessment / Plan
Physical Exam
General: Comfortable
Respiratory: CTAB
Cardiac: Regular Rhythm and S1/S2
GI: Soft, Nontender, Nondistended and Normal Bowel Sounds
Neuro: AAO x 3
Assessment/Plan
Patient with metastatic pancreatic ca, s/p CBD stent and recent replacement in setting of sepsis/bacteremia presents to ED ostensibly for anemia with Hgb of 6.0, repeat was 7.0 in ED and rust colored heme + stools. Borderline hypotension. Denies
any symptoms and any awareness of melena or hematochezia. Peripherally dehydrated but as ascites and intraabdominal anasarca. Lactic acid elevated.
#Septic Shock POA
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 coli and Klebsiella bacteremia recurrent
#Lactic acidosis
#History of C. difficile colitis
#Possible liver abscess
-Status post Cefazolin
-Starting today, start oral Keflex 500 mg p.o. 4 times daily x 3 weeks, and then twice daily indefinitely. Dr. Rasmussen has counseled patient that this is an attempt to keep her out of the
hospital, but there is no guarantee that suppressive antibiotics will work, and they may lead to resistance, and patient is amenable to this.
-Given history of C. difficile, continue PO Vancomycin 125 mg p.o. twice daily for at least an additional 3 weeks, but may require indefinite therapy, appreciate ID.
-Blood cultures with E. coli and Klebsiella. Repeat blood cultures with no growth as the final result.
-S/p ERCP-removal of one of the biliary tree stent and sweeping of the biliary duct and placement of a new stent in the right hepatic duct. LFTs overall improved.
-Status post Levophed. Started on midodrine -- continue
-Overall WBC has improved
-Appreciate ID
-Patient has refused hospice
#Microcytic (now normocytic) anemia likely worsened in the setting of malignancy
-Type and screen.
-Continue to monitor CBC
-Status post 2 units of PRBCs
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
-Follows w/Dr Ceron for stent exchange.
-CT was done which shows new hepatic lobe lesion. Increased in size.
-Consulted oncology for prognosis evaluation-unfortunately patient is end-stage pancreatic cancer not a candidate for treatments. Discussions of oncology with the patient noted. Palliative care consulted. Patient has understanding of her
end-stage cancer disease and no treatments. She is amenable to palliative care at the current time but not hospice.
#Bilateral Lower Extremity Edema
-Suspected secondary to low albumin
#Hyperglycemia likely secondary to pancreatic malignancy
A1c of 5.5
sliding scale insulin for now
#Hypomagnesemia replete and monitor
Suspected protein calorie malnutrition of chronic illness
Dietary eval
#Thrombocytopenia - RESOLVED - likely secondary to septic shock
Continue to trend
Fall precautions
HIT antibody negative
DC PPI and Pepcid started.
Slow improvement noted.
#Sacral decubitus ulcer-symptomatic with pain. Continue the current wound care with foam dressing. Add pain medication. Consult wound care nurse.
Judicious pain control
DVT Prophylaxis: SCDs. Continue Lovenox (thrombocytopenia has improved significantly).
Code Status: DNR
Patient is in need of a hospital bed for frequent repositioning of the body in ways not feasible w/an ordinary bed in order to alleviate pain due to: pressure injury of deep tissue of sacral region, severe protein -calorie malnutrition, L bundle
branch block, and pancreatic CA and d/t need for immediate change in position. Patient is in need of a commode due to being unable to ambulate to the bathroom. The patient is confined to one level of the home (no toilet on the level) and is
physically unable to use a regular toilet. The patient will use a commode to provide reasonable access to toileting in the home. Also, patient is in need of wheelchair within the home to to complete their daily activities. patient is unable to self
propel and has a caregiver to propel her.
More than 30 minutes spent in discharge including
Final examination of the patient
Summarizing hospital stay
Instructions for continuing care to all relevant caregivers
Preparation of discharge records, prescriptions, and referral forms
Total time spent (in minutes): 37
Anticipated Discharge: Today
Subjective/Interval History
-
Date of Service: February 18, 2024
Patient was seen and examined. She reported no new symptoms or complaints.
Objective Data
-
Labs:
Laboratory Results
02/18/24
05:54
WBC 12.6 H
Hgb 8.3 L
Hct 26.5 L
Plt Count 419 H
Sodium 132 L
Potassium 4.3
Chloride 100
Carbon Dioxide 28
BUN 21 H
Creatinine 0.6
Glucose 110 H
Calcium 7.8 L
Total Bilirubin 0.3
AST 62 H
ALT < 10
Alkaline Phosphatase 976 H
Vital Signs:
Vital Signs
Temp Pulse Resp BP Pulse Ox
97.7 F 85 20 101/59 96
02/18/24 07:23 02/18/24 07:23 02/18/24 07:23 02/18/24 10:04 02/18/24 07:23
I&O
02/17/24 02/18/24 02/19/24
06:59 06:59 06:59
Intake Total 900 / 900 120 / 120
Balance 900 / 900 120 / 120
[2024-02-18 12:15] LABS: Glucose - Point of Care 146 mg/dl (70-99)
[2024-02-18] MEDS: NOVOLOG FLEXPEN-LOW RESISTANCE 1 UNITS SC (14:00)
--- NOTE | 2024-02-18 14:11 | W.DCSUMMARY ---
Addendum entered and electronically signed by Louis Izquierdo MD 02/21/24 12:56:
I just spoke over the phone to Jesika (patient's nurse at [facility]) who mentioned that patient's physician at the [facility] is Dr. Jh Ozuna. I told Jesika that patient may need to be on Protonix 40 mg PO BID given finding of ulcers on ERCP last
hospitalization, but that patient also had C. diff in the past and low magnesium, both of which Protonix can be associated with. Jesika stated she would let Dr. Ozuna know all of the above, and Dr. Ozuna would decide whether to start the patient
on Protonix.
Addendum entered and electronically signed by Louis Izquierdo MD 02/21/24 11:53:
Pantoprazole 40 mg Q12H added to patient's discharge medication list. Patient will need to follow-up closely with strapper Dr. Pankaj Ceron about this.
Original Note:
Discharge Summary
Discharge Data
Date of Admission: 02/05/24
Date of Discharge: 02/18/24
Total time spent discharging patient (in min): 37
-
Pending Results: No
Hospital Course
88-year-old female with past medical history of recurrent E. coli bacteremia, cholangitis, ovarian cancer status post surgery and chemo, complicated pancreatic cancer with cholangitis and stent placement, stage 4 pancreatic cancer with hepatic
metastases, iron deficiency anemia requiring iron infusions, chronic back pain with spinal stenosis and severe protein calorie malnutrition was recently admitted to [facility] in December 2023 and at that time was found to have sepsis with
bacteremia (E. coli). The source of bacterial bacteremia was thought to be likely from biliary stents for which he underwent ERCP stent removal and replacement at [facility] and transferred back to [facility]. She also had C.
difficile for which she was treated with fidaxomicin. At the time of admission, she denied any acute symptoms other than low appetite and decreased oral intake. Patient was noted to have seen her oncologist not too long before admission, and at that
time her oncologist told her that she is no longer candidate for any further treatments and palliative care/hospice was recommended to her. During this hospitalization, hospice was discussed with the patient and her , but patient declined to
go on hospice or comfort measures.
Patient was hypotensive and tachycardic, and started on Levophed and Midodrine. Infectious Disease and Gastroenterology were consulted. Patient stated that she does not want to have further invasive gastrointestinal procedures. Patient was started
in intravenous Zosyn antibiotic for biliary sepsis. Patient was found to have recurrent bacteremia this hospitalization with E. coli and Klebsiella pneumoniae. Additionally, given patient's recent history of C. difficile, patient was placed on oral
Vancomycin prophylaxis of 125 mg twice daily. Given patient's anemia, she received 2 units of red blood cells. Oncology was also consulted during patient's hospitalization, and mentioned that the fact that patient has required readmission for sepsis
so quickly after the last time, was concerning that her patient's disease course was accelerating, imaging also showed disease progression, and hospice was noted to be an appropriate option however patient declined hospice. Patient was noted to be a
poor candidate for chemotherapy with her recent infections.
Patient later wanted an ERCP performed, and it showed, as per strapper's report:
'-Erythematous mucosa in the gastric body.
- Duodenal ulcers with a clean ulcer base ([place]
Class III).
- Duodenal deformity.
- Dilation performed in the first portion of the
duodenum.
- Two visibly patent stents from the biliary tree were
seen in the major papilla.
- The common bile duct was mildly dilated.
- One stent was removed from the biliary tree.
- The biliary tree was swept and sludge was found.
- One plastic stent was placed into the right hepatic
duct.'
Palliative care team was also consulted and patient mentioned that she does not want hospice right now, but when her clinical condition deteriorated further due to her cancer, she would consider going onto hospice at that time. Patient completed her
course of intravenous antibiotics with Cefazolin, and was then transitioned to to oral Keflex 500 mg p.o. 4 times daily x 3 weeks, followed by twice daily indefinitely of the Keflex antibiotic -- patient was counseled that this was an attempt to
keep her out of the hospital, but that there was no guarantee that suppressive antibiotics would work, but that suppressive antibiotics may lead to antibiotic resistance -- patient was amenable to this. Additionally, given patient's history of C.
difficile, plan was for patient to continue with oral Vancomycin 125 mg p.o. twice daily for at least an additional 3 weeks, but it was noted by infectious disease that she may require indefinite therapy. Patient was also advised that recurrent
infection was likely given her uncorrectable underlying medical conditions. Patient was stable in the days leading up to discharge day, denied any new symptoms or complaints; she was trying to decide between going home versus going to a Skilled
Nursing Facility, but ultimately chose to go to a Intermediate Facility.
Discharge Plan
-
Patient Disposition: Assisted/SNF
Discharge Diagnosis/Procedures: #Septic Shock
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 coli and Klebsiella bacteremia recurrent
#Lactic acidosis
#History of C. difficile colitis
#Possible liver abscess
#Microcytic (now normocytic) anemia likely worsened in the setting of malignancy
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
#Bilateral Lower Extremity Edema
#Hyperglycemia likely secondary to pancreatic malignancy
#Hypomagnesemia replete and monitor
#Thrombocytopenia - RESOLVED - likely secondary to septic shock
#Sacral decubitus ulcer
Condition: Fair
Diet: As tolerated and Restrict fluids to 48 oz
Activity: With assistance
Driving Restrictions: No driving
Blood Work: CBC, CMP and Magnesium check with outpatient physician office within 1 week
Other Services: PT and OT
Activity Restrictions/Additional Instructions:
Continue oral Keflex 500 mg by mouth 4 times daily x 3 weeks, and then twice daily indefinitely.
Given history of C. difficile, would continue with ORAL (P.O.) Vancomycin 125 mg p.o. twice daily for at least an additional 3 weeks, but may require indefinite therapy.
Patient has refused hospice, but is amenable to palliative care measures.
Patient has been advised that recurrent infection is likely given uncorrectable underlying issues.
Wound Care Instructions
Coccyx: clean with saline or soap and water, skin prep periwound, smear of honey gel, adaptic and dry dressing, change daily and prn soilage.
Air chair cushion when sitting
Air overlay to hospital bed with turning schedule*CAN TAKE A CLEAN AIR OVERLAY AND PORTABLE PUMP FROM [facility] UPON DISCHARGE)
pillow under calves
increase protein in diet
Referrals:
Mariana Franco MD [Active] - in two to three weeks (Needs labwork recheck, including magnesium (this was also put in the follow-up for PCP))
Pankaj Ceron MD [Active] - in one to two weeks (Hospital Follow-Up; needs med list reviewed)
Hebert Shin MD [Family Provider] - in less than 1 week (Needs CBC, CMP and Magnesium check)
Bere Sandoval MD [Active] - in one week (Hospital Follow-Up; needs palliative care)
Additional Discharge Medication Instructions: Continue oral Keflex 500 mg by mouth 4 times daily x 3 weeks, and then twice daily indefinitely.
Given history of C. difficile, would continue with ORAL (P.O.) Vancomycin 125 mg p.o. twice daily for at least an additional 3 weeks, but may require indefinite therapy.
Famotidine and Midodrine are new medications.
Acetaminophen changed to Q12H as needed from Q8H as needed.
Methylene Blue medication held until outpatient follow-up.
Fleet enema, prednisone taper and Ivermectin stopped.
Prescriptions:
New
vancomycin 50 mg/mL Recon Soln
125 mg PO Q12 21 Days Qty: 105 0RF
cephalexin 500 mg Capsule
500 mg PO QID 21 Days Qty: 84 0RF
famotidine 20 mg Tablet
20 mg PO DAILY Qty: 30 0RF
midodrine 5 mg Tablet
10 mg PO TID@0800,1300,1800 Qty: 180 2RF
Rx Instructions:
* Avoid dosing after evening meal or within 4
hours of bedtime *
Continued
magnesium hydroxide [Milk of Magnesia] 400 mg/5 mL Suspension
30 ml PO DAILYPRN PRN (Reason: if no bm on day 4)
bisacodyl [Dulcolax (bisacodyl)] 10 mg Suppository
10 mg [place] DAILYPRN PRN (Reason: if mom ineffective. give on day 5 of no bm)
lidocaine 5 % Adhesive Patch,Medicated
1 patch TOPICAL DAILY
gabapentin 100 mg Capsule
200 mg PO BID
naloxone [Narcan] 4 mg/actuation Lengby,Non-Aerosol
1 spray INTRANASAL Q3MPRN PRN (Reason: opioid suspected overdose)
Creon 24,000-76,000 -120,000 unit Capsule,Delayed Release(Dr/Ec)
1 cap PO TID
Changed
acetaminophen 500 mg Tablet
500 mg PO [id number] PRN (Reason: mild pain) Qty: 10 0RF
Held
methylene blue 65 mg Tablet
15 mg PO DAILY
Hold Instructions: Resume on 03/03/24. Discuss with your outpatient doctor before resuming this medication.
Discontinued
prednisone 10 mg Tablet
See Rx Instructions .ROUTE .COMPLEX Qty: 30 0RF
Rx Instructions:
Take By Mouth:
40 mg daily x3 days, 30 mg daily x3 days,
20 mg daily x3 days, 10 mg daily x3 days.
Fleet Enema 19-7 gram/118 mL Enema
118 ml [place] DAILYPRN PRN (Reason: if dulcolax is ineffective. give on day 6 of no bm)
ivermectin 6 mg Tablet
20 mg PO DAILY
Discharge Orders:
Discharge Patient (As Directed); Ordered 12/06/24
Ordered By: Louis Izqiuerdo
Discharge Date and Time
Discharge Date/Time: 02/18/24 17:10
Print Language: JAPANESE
[2024-02-18 15:20] VITALS: BP 128/62
== END 2024-02-18 17:10 | DRG 871 ==
LOC: 2 NORTH 00:55
PROVIDERS: Hospitalist; Internal Medicine; Internal Medicine Gastroenterology; Nurse Practitioner Family; Registered Nurse; ADMITTING PHYSICIAN Internal Medicine; ATTENDING PHYSICIAN Hospitalist; CONSULT PHYSICIAN Internal Medicine Gastroenterology; CONSULT PHYSICIAN Internal Medicine Infectious Disease; EMERGENCY PHYSICIAN Emergency Medicine; FAMILY PHYSICIAN Family Medicine; OTHER PHYSICIAN Internal Medicine Hematology & Oncology
PROC: 30233N1 Transfusion of Nonautologous Red Blood Cells into Peripheral Vein, Percutaneous Approach (ICD-10-PCS; 2024-02-04)
PROC: 0FPB8DZ Removal of Intraluminal Device from Hepatobiliary Duct, Via Natural or Artificial Opening Endoscopic (ICD-10-PCS; 2024-02-07)
PROC: 0D798ZZ Dilation of Duodenum, Via Natural or Artificial Opening Endoscopic (ICD-10-PCS; 2024-02-07)
PROC: 0F758DZ Dilation of Right Hepatic Duct with Intraluminal Device, Via Natural or Artificial Opening Endoscopic (ICD-10-PCS; 2024-02-07)
DX: A41.51 Sepsis due to Escherichia coli [E. coli] (principal); E43 Unspecified severe protein-calorie malnutrition; R65.21 Severe sepsis with septic shock; K83.1 Obstruction of bile duct; K26.4 Chronic or unspecified duodenal ulcer with hemorrhage; C25.0 Malignant neoplasm of head of pancreas; C78.7 Secondary malignant neoplasm of liver and intrahepatic bile duct; K83.09 Other cholangitis; E87.20 Acidosis, unspecified; E87.1 Hypo-osmolality and hyponatremia; R18.8 Other ascites; Z68.1 Body mass index [BMI] 19.9 or less, adult; R64 Cachexia; A41.59 Other Gram-negative sepsis; D50.9 Iron deficiency anemia, unspecified; I44.7 Left bundle-branch block, unspecified; F32.A Depression, unspecified; F41.9 Anxiety disorder, unspecified; Z66 Do not resuscitate; E83.42 Hypomagnesemia; R73.9 Hyperglycemia, unspecified; D69.59 Other secondary thrombocytopenia; D63.0 Anemia in neoplastic disease; K31.89 Other diseases of stomach and duodenum; L89.159 Pressure ulcer of sacral region, unspecified stage; Z51.5 Encounter for palliative care; Z79.899 Other long term (current) drug therapy; Z92.21 Personal history of antineoplastic chemotherapy; Z96.89 Presence of other specified functional implants; Z88.2 Allergy status to sulfonamides; Z85.43 Personal history of malignant neoplasm of ovary; Z92.3 Personal history of irradiation
CPT/HCPCS: 36430; 72100; 74174; 74330; 76000; 76705; 80048; 80053; 82010; 82248; 82962; 83036; 83605; 83735; 84145; 85014; 85018; 85025; 85027; 85610; 85730; 86022; 86850; 86900; 86901; 86920; 87040; 87070; 87077; 87149; 87186; 87205; 93005; 93970; 96361; 96365; 96367; 96375; 97163; 97167; 97530; 97535; 99285; C1726; C1769; C2617; P9016; Q9967